=== PATIENT | male | born 1940 | race Caucasian/White ===

== ENCOUNTER 2017-01-23 20:41 | Inpatient (IN) | payer MEDICARE, OTHER ==
[2017-01-23 20:41] VITALS: BMI 27.4
[2017-01-23 21:21] LABS: BASO % 0.4 % (0.0-2.0); EOS % 0.1 % (0.0-4.0); HEMATOCRIT 43.8 % (35.0-51.0); LYMPH % 11.6 % (20.0-40.0); MEAN CELL VOLUME 80.4 fl (80.0-94.0); MEAN CORPUSCULAR HGB CONC 33.6 g/dL (33.0-37.0); MEAN PLATELET VOLUME 9.5 fl (7.2-11.7); MONO # 0.4 K/uL (0.0-0.8); MONO % 4.3 % (0.0-10.0); NEUT # 7.1 K/uL (1.8-7.0); NEUT % 83.6 % (50.0-75.0); NRBC % 0.3 % (0.0-0.0); RED CELL DISTRIBUTION WIDTH 14.9 % (11.5-14.5); WHITE BLOOD COUNT 8.5 K/uL (4.8-10.8)
[2017-01-23 21:32] LABS: ALB/GLOB RATIO 1.4 (1.0-2.1); ALCOHOL SERUM < 10 mg/dl (0-10); ALKALINE PHOSPHATASE 78 U/L (38-126); ALT/SGPT 41 U/L (21-72); AST/SGOT 43 U/L (17-59); BILIRUBIN,TOTAL 0.8 mg/dl (0.2-1.3); BLOOD UREA NITROGEN 18 mg/dl (9-20); CALCIUM 10.1 mg/dL (8.4-10.2); CARBON DIOXIDE 23 mmol/L (22-30); CHLORIDE 102 mmol/L (98-107); CHOLESTEROL 208 mg/dL (0-199); GFR AFRICAN-AMERICAN 60; GLUCOSE,RANDOM 198 mg/dL (75-110); MAGNESIUM 1.7 MG/DL (1.6-2.3); PHOSPHOROUS 2.9 mg/dl (2.5-4.5); POTASSIUM 4.7 MMOL/L (3.6-5.0); SODIUM 138 mmol/l (132-148); TOTAL PROTEIN 9.1 G/DL (6.3-8.2)
[2017-01-23 21:34] LABS: PARTIAL THROMBOPLASTIN TIME 31.6 Seconds (25.6-37.1)
--- NOTE | 2017-01-23 21:48 | ED PDOC ---
HPI:STROKE - Time Time: 20:50 - Historian Historian: Patient, Family - Chief Complaint Chief Complaint: Facial droop, Arm weakness, Difficulty standing, Difficulty walking - Onset Date: 01/23/17 Time: 08:00 Onset: This morning (woke up with it) - Timing Timing: Currently Symptomatic - Location Location: Difficult to localize Locate left: other (Face, eye and arm) - Severity of pain Maximum severity:: Severe - Quality of Pain Quality of Pain:: Aching - Associated Symptoms Associated symptoms:: Dysarthria, Headache, Nausea, Visual, Vomiting - Exacerbated by Exacerbated by:: Nothing - Relieved by Relieved by:: Nothing - TPA Positive for Contraindication: No Reason tPA is not being Administered: Time of onset - Notes: Notes:: Pt WOKE UP THIS MORNING with headache and nausea and inability to get up from bed. Episodes of nonbilious nonbloody vomiting. Double vision. Daughter reports she got to the house an hour prior to arrival and found him in this state and it was only then reported to her by his that he had been like that all day. PMD Dr Shaw NIHSS Stroke Scale - Date/Time Evaluation Performed Date Performed: 01/23/17 Time Performed: 21:00 When Was NIHSS Performed: Baseline - How Severe is the Stroke Level of Consciousness: 0=Alert LOC to Questions: 0=Both comments correct LOC to commands: 0=Obeys both correctly Best Gaze: 2=Forced deviation Visual: 1=Partial hemianopia Facial: 1=Minor asymmetry Motor Arm - Left: 1=Drift noted before 10 sec Motor Arm - Right: 0=No drift Motor Leg - Left: 0=No drift Motor Leg - Right: 0=No drift Limb Ataxia: 1=Present Upper or Lower Sensory: 0=Normal Best Language: 0=No aphasia Dysarthia: 1=Mild to moderate slurring Extinction & Inattention (Neglect): 0=Normal, no object Score: 7 rTPA Inclusion/Exclusion - Refusal of Treatment Patient Refused Treatment: No - Inclusion Criteria for Altepase Patient is 18 years or Older: Yes The Clinical Diagnosis of Ischemic Stroke That is Causing a Potentially Disabling Neurological Deficit: Yes Time of Onset is Well Established to be Less Than 270 Minute Before Treatment Would Begin: No Risk/Benefit Discussed With Patient/Family Member Present: No - Exclusion Criteria for Altepase Uncontrolled Hypertension at Time of Treatment (Systolic BP above 185 or Diastolic BP above 110 mmHg): No Past Medical History Reviewed: Historical Data, Nursing Documentation, Vital Signs Vital Signs: Last Vital Signs Temp 98.2 F 01/23/17 20:45 Pulse 76 01/23/17 20:45 Resp 16 01/23/17 20:45 BP 156/77 H 01/23/17 20:45 Pulse Ox 97 01/23/17 20:45 - Medical History PMH: Anxiety, Asthma, CAD, CHF, CVA, Depression, HTN, Hypercholesterolemia Denies: Chronic Kidney Disease - Surgical History Surgical History: CABG, Pacemaker (2010) - Family History Family History: States: CAD - Social History Current smoker - smoking cessation education provided: No Ex-Smoker (has not smoked in the last 12 months): Yes - Home Medications Home Medications: Ambulatory Orders Medication Instructions Recorded Aspirin [Aspirin Chewable] 81 mg PO DAILY 01/23/17 Bimatoprost [Lumigan] 1 drop 01/23/17 Carvedilol [Coreg] 25 mg PO BID 01/23/17 Colesevelam HCl [Welchol] PO BID 01/23/17 Esomeprazole Magnesium [Nexium] 40 mg PO DAILY 01/23/17 Fenofibrate [Tricor] 160 mg PO DAILY 01/23/17 Glimepiride [amaRYL] 4 mg PO BID 01/23/17 Insulin Lispro [humALOG] 01/23/17 Nateglinide [Starlix] 120 mg 01/23/17 SITagliptin [Januvia] 100 mg PO DAILY 01/23/17 Simvastatin [Zocor] 20 mg PO DAILY 01/23/17 amLODIPine [Norvasc] 10 mg PO DAILY 01/23/17 - Allergies Allergies/Adverse Reactions: Allergies Allergy/AdvReac Type Severity Reaction Status Date / Time No Known Allergies Allergy Verified 09/19/15 07:00 Review of Systems ROS Statement: Except As Marked, All Systems Reviewed And Found Negative (and as per HPI) Physical Exam - Reviewed Nursing Documentation Reviewed: Yes Vital Signs Reviewed: Yes - Physical Exam Appears: Positive for: Non-toxic, In Acute Distress Head Exam: Positive for: ATRAUMATIC, NORMOCEPHALIC Skin: Positive for: Warm, Dry Eye Exam: Positive for: PERRL, Nystagmus (to LEFT side), Other (Gaze to LEFT. LEFT orbit: preference to be down and out with difficulty forced RIGHT gaze and marked assymetric gaze) ENT: Positive for: Other (dry muc membranes). Negative for: Pharyngeal Erythema , Tonsillar Exudate Neck: Positive for: Painless ROM, Supple Cardiovascular/Chest: Positive for: Regular Rate, Rhythm, Chest Non Tender. Negative for: Murmur Respiratory: Positive for: Normal Breath Sounds. Negative for: Wheezing Gastrointestinal/Abdominal: Positive for: Soft. Negative for: Tenderness Back: Positive for: Normal Inspection. Negative for: Vertebral Tenderness Extremity: Positive for: Normal ROM. Negative for: Pedal Edema Lymphatic: Negative for: Adenopathy Neurologic/Psych: Positive for: Alert, Oriented (x3), Cerebellar Tests ( dysmetria of LEFT upper extremity), Facial Droop (LEFT face) - Laboratory Results Result Diagrams: 01/23/17 21:07 01/23/17 21:07 - ECG ECG: Positive for: Interpreted By Pr ECG Rhythm: Positive for: Atrial Paced O2 Sat by Pulse Oximetry: 97 Pulse Ox Interpretation: Normal - Radiology X-Ray: Interpreted by Pr X-Ray Interpretation: No Acute Disease - Critical Care Total Time (In Min): 30 Medical Decision Making Medical Decision Making: EXAM: CT Head Without Intravenous Contrast CLINICAL HISTORY: 76 years old, male; Signs and symptoms; Dizziness; Additional info: Left sided gaze and dysmetria, R/O stroke TECHNIQUE: Axial computed tomography images of the head/brain without intravenous contrast. This CT exam was performed using one or more of the following dose reduction techniques: automated exposure control, adjustment of the mA and/or kV according to patient size, and/or use of iterative reconstruction technique. Coronal and sagittal reformatted images were created and reviewed. EXAM DATE/TIME: 01/23/2017 8:58 PM COMPARISON: There are no prior studies for comparison. FINDINGS: Brain: There is prominence of sulci gyri and ventricles. There is no midline shift. There is decreased attenuation in periventricular white matter. There is right occipital encephalomalacia. There is an age-indeterminate lacunar infarct in left basal ganglia. There are no focal masses. There are no focal hemorrhages. Blanton-white differentiation is visualized. Ventricles: See above Bones: Cranial vault is intact. Soft tissues: unremarkable Sinuses: There is no acute sinusitis. Ears and mastoids: Middle ears and mastoids are unremarkable. Orbits: Orbital contents are unremarkable. IMPRESSION: Mild atrophy and small vessel disease; old right occipital infarct; age indeterminate left basal ganglia lacunar infarct; no bleed Thank you for allowing us to participate in the care of your patient. Dictated and Authenticated by: Jill Ribeiro MD 01/23/2017 9:46 PM Eastern Time ([place] & [place]) Labs demonstrate elevated glucose. Otherwise no clinically significant lab abnormalities. SHERIDAN David Neurology rn admissions SHERIDAN [facility] resident for admission to PMD Dr Shaw. SHERIDAN pt and family findings and plan of care. Disposition - Clinical Impression Clinical Impression: CVA (cerebral vascular accident) Counseled Patient/Family Regarding: Studies Performed, Diagnosis - Disposition Disposition Time: 21:00 Condition: GUARDED - Pt Status Changed To: Hospital Disposition Of: Inpatient - Admit Certification Admit to Inpatient:: After my assessment, the patient will require hospitalization for at least two midnights. This is because of the severity of symptoms shown, intensity of services needed, and/or the medical risk in this patient being treated as an outpatient. - POA Present On Arrival: Falls Or Trauma (caution), Poor Glycemic Control
--- NOTE | 2017-01-23 22:51 | CP.PCM.HP ---
<Fernanda Jordan - Last Filed: 01/24/17 00:50> History of Present Illness - History of Present Illness History of Present Illness: CC: Headache, double vision, vertigo, nausea 76M family found still in bed at his home at 7pm in the evening. Patient reports that he awoke in the morning with a severe, constant headache that went from the right side across the top to the left. This was associated with significant vertigo leading to nausea without vomiting and double vision. He denies the following: recent illnesses, SOB, chest pain/palpitations, GI symptoms other than nausea, dysuria, similar symptoms in the past, numbness in extremities, loss of memory. He reports that he was unable to call anyone, get out of bed due to the extent of "dizziness". Currently pt reports headache and double vision is improving but he is still significantly dizzy and denies any further nausea. The family reports that when they arrived "he looked bad" and that his speech was affected, but that he does have a baseline stutter. Not a candidate for tPA. NIHSS- 7 PMH: CAD, DM, HTN, HLD, PSH: CABG x4(2009), AICD (2010) Smoke: Quit 40yrs prior ALL: NKDA XAVIER: See Med Rec Loan Documentation Specialist: Dr Ramírez Varnishing Machine Operator: Dr Nam Farm Demonstrator: Dr Mcneil ED COURSE VSS: 36.8- 76- 156/77- 16- 97% CT Head: no ICH, old Rt occipital/lacunar infarcts, no mass effect CBC: left shift CMP: Glucose- 198, TProt- 9.1, Albumin- 5.3 otherwise wnl Lipid Panel: Chol-208, HDL- 90 HgbA1C: Pend Alcohol: Negative Troponin #1: Negative Neurology Consult Aspirin AR Present on Admission - Present on Admission Any Indicators Present on Admission: Yes History of Uncontrolled Diabetes: Yes Review of Systems - Review of Systems All systems: reviewed and no additional remarkable complaints except - Constitutional Constitutional: Headache - EENT Eyes: Change in Vision (Double Vision) Ears: Dizziness. absent: Decreased Hearing - Cardiovascular Cardiovascular: absent: Chest Pain, Palpitations - Respiratory Respiratory: absent: Dyspnea - Gastrointestinal Gastrointestinal: Nausea - Neurological Neurological: Dizziness, Headaches, Vertigo, Other Visual Disturbances (Double Vision) Past Patient History - Past Medical History & Family History Past Medical History?: Yes - Past Social History Smoking Status: Former Smoker - CARDIAC Hx Congestive Heart Failure: Yes Hx Hypercholesterolemia: Yes Hx Hypertension: Yes Hx Pacemaker: Yes (2010) - PULMONARY Hx Asthma: Yes - NEUROLOGICAL Hx Neurological Disorder: No - HEENT Hx HEENT Problems: Yes Hx Glaucoma: Yes (CARRIE EYES) - RENAL Hx Chronic Kidney Disease: No - ENDOCRINE/METABOLIC Hx Endocrine Disorders: Yes Hx Diabetes Mellitus Type 1: Yes - HEMATOLOGICAL/ONCOLOGICAL Hx Blood Disorders: No - INTEGUMENTARY Hx Dermatological Problems: No - MUSCULOSKELETAL/RHEUMATOLOGICAL Hx Musculoskeletal Disorders: No - GASTROINTESTINAL Hx Gastrointestinal Disorders: No - GENITOURINARY/GYNECOLOGICAL Hx Genitourinary Disorders: No - PSYCHIATRIC Hx Anxiety: Yes Hx Depression: Yes - SURGICAL HISTORY Hx Coronary Artery Bypass Graft: Yes - ANESTHESIA Hx Anesthesia: Yes Hx Anesthesia Reactions: No Hx Malignant Hyperthermia: No Meds Allergies/Adverse Reactions: Allergies Allergy/AdvReac Type Severity Reaction Status Date / Time No Known Allergies Allergy Verified 09/19/15 07:00 Physical Exam - Constitutional Appears: Non-toxic, No Acute Distress - Head Exam Head Exam: ATRAUMATIC, NORMAL INSPECTION - Eye Exam Eye Exam: absent: EOMI (Significant LEFT eye palsy, poor control, LEFT eyelid droop), Normal appearance, Nystagmus, PERRL (Pupils equal and reactive, unable to accommodate) Pupil Exam: absent: NORMAL ACCOMODATION - ENT Exam ENT Exam: Mucous Membranes Dry, Normal Oropharynx (Uvula and tongue midline) - Neck Exam Neck exam: Positive for: Full Rom, Normal Inspection - Respiratory Exam Respiratory Exam: Clear to Auscultation Bilateral, NORMAL BREATHING PATTERN. absent: Decreased Breath Sounds, Rales, Wheezes - Cardiovascular Exam Cardiovascular Exam: REGULAR RHYTHM (Paced). absent: JVD - GI/Abdominal Exam GI & Abdominal Exam: Normal Bowel Sounds, Soft. absent: Tenderness - Extremities Exam Extremities exam: Positive for: normal capillary refill, pedal pulses present. Negative for: calf tenderness, pedal edema - Neurological Exam Neurological exam: Alert, Oriented x3 - Expanded Neurological Exam Expanded Patient oriented to: person, place, time Speech: Slurred Speech (improved as per family, intelligible ), Stutter ( baseline) Cranial nerves: EOM's Intact: Abnormal Left, Facial Sensation: Normal, Gag Reflex: Normal, Nystagmus: Normal, Tongue Deviation: Normal Ataxia: No (Unable to evaluate due to extent of vertigo) Upper motor neuron: Babinski Sign: Normal, Noah Neglect: Normal, Pronator Drift : Normal Neuro motor strength exam: Left Upper Extremity: 5, Right Upper Extremity: 5, Left Lower Extremity: 5, Right Lower Extremity: 5 Coma Scale Eye Opening: SPONTANEOUS Coma Scale Motor Response: OBEYS COMMANDS Coma Scale Verbal: Oriented Coma Scale Total: 15 - Psychiatric Exam Psychiatric exam: Normal Affect, Normal Mood - Skin Skin Exam: Normal Color, Warm Results - Vital Signs Recent Vital Signs: Last Vital Signs Temp 36.8 C 01/23/17 20:45 Pulse 76 01/23/17 22:08 Resp 18 01/23/17 22:08 BP 144/79 01/23/17 22:08 Pulse Ox 99 01/23/17 22:08 - Labs Result Diagrams: 01/23/17 21:07 01/23/17 21:07 Assessment & Plan (1) CVA (cerebral vascular accident) Assessment and Plan: Patient with cerebellar-like symptoms, CT negative for hemorrhagic but showing prior RIGHT occipital and lacunar infarct. Symptoms continue to improve, current NIHSS- 7. Not a candidate for tPA or f/u MRI. - Neurology Consult (Dr David): f/u remaining recs - Stroke protocol (OT/PT/S&S/ASA) - CT Head/CTA Head - RPR/HIV/TSH/CRP/ESR/A1C Status: Acute (2) DVT prophylaxis Assessment and Plan: SCDs and Heparin 5,000U, SC, Q8H as CT head negative for ICH Status: Acute (3) CAD (coronary artery disease) of artery bypass graft Assessment and Plan: Pt with PPM, battery change 08/2016. Converted Coreg to lopressor and then to IV, confirmed with pharmacy. - Lopressor 40mg, IV, Q12H - ASA AR - Cardiology Consult (Dr Ramírez) Status: Chronic (4) Diabetes Assessment and Plan: Pt has not passed speech and swalllow, so placed on SSI. - Accu-check - SSI - Lantus - Hypoglycemia Bundle - HOLD home meds at this time Status: Chronic (5) Hypertension Assessment and Plan: Chronic, controlled. Started on lopressor for now and Norvasc held pending s&s Status: Chronic (6) HLD (hyperlipidemia) Assessment and Plan: Chronic, home meds held at this time pending speech and swallow. Status: Chronic <Sammy Buck - Last Filed: 01/24/17 07:10> Results - Vital Signs Recent Vital Signs: Last Vital Signs Temp 98.5 F 01/24/17 04:54 Pulse 80 01/24/17 04:54 Resp 18 01/24/17 04:54 BP 169/71 H 01/24/17 04:54 Pulse Ox 98 01/24/17 04:54 - Labs Result Diagrams: 01/24/17 05:25 01/23/17 21:07 Labs: Laboratory Results - last 24 hr 01/24/17 01/24/17 05:17 05:25 WBC 9.4 RBC 5.30 Hgb 14.4 Hct 42.7 MCV 80.6 MCH 27.2 MCHC 33.7 RDW 15.0 H Plt Count 188 POC Glucose (mg/dL) 210 H Attending/Attestation - Attestation I have personally seen and examined this patient.: Yes I have fully participated in the care of the patient.: Yes I have reviewed all pertinent clinical information: Yes
[2017-01-23] MEDS ORDERED: Glucagon Recombinant 1 mg Inj IM PRN (22:57)
[2017-01-23] MEDS ORDERED: Dextrose 50% SYRINGE Inj (50 ml) IV PRN (22:57)
[2017-01-24] MEDS: Potassium Ch 20mEq in D5-1/2NS 1,000 ML IV SCH ×3 (01:35→18:20)
[2017-01-24] MEDS: Insulin Lispro (humaLOG) 100 Units/ml Inj SC SCH ×3 (06:44→18:21)
[2017-01-24 06:50] LABS: HEMATOCRIT 42.7 % (35.0-51.0); MEAN CELL VOLUME 80.6 fl (80.0-94.0); MEAN CORPUSCULAR HEMOGLOBIN 27.2 pg (27.0-31.0); MEAN CORPUSCULAR HGB CONC 33.7 g/dL (33.0-37.0); WHITE BLOOD COUNT 9.4 K/uL (4.8-10.8)
[2017-01-24 07:32] LABS: ALB/GLOB RATIO 1.3 (1.0-2.1); ALKALINE PHOSPHATASE 65 U/L (38-126); ALT/SGPT 36 U/L (21-72); AST/SGOT 38 U/L (17-59); BILIRUBIN,TOTAL 0.7 mg/dl (0.2-1.3); BLOOD UREA NITROGEN 17 mg/dl (9-20); CALCIUM 9.7 mg/dL (8.4-10.2); CARBON DIOXIDE 26 mmol/L (22-30); CHLORIDE 101 mmol/L (98-107); GFR AFRICAN-AMERICAN > 60; GLUCOSE,RANDOM 211 mg/dL (75-110); POTASSIUM 4.6 MMOL/L (3.6-5.0); SODIUM 141 mmol/l (132-148); TOTAL PROTEIN 8.5 G/DL (6.3-8.2)
[2017-01-24 07:52] LABS: THYROID STIMULATING HORMONE 0.33 mIU/ML (0.46-4.68)
--- NOTE | 2017-01-24 08:43 | CARD ---
APPROVED REPORT EKG Measurement Heart [id number] FL [id number] [id number] <Conclusion> Atrial-sensed ventricular-paced rhythm Abnormal ECG
[2017-01-24] MEDS ORDERED: Metoprolol 1 mg/ml Inj IVP SCH (09:00)
--- NOTE | 2017-01-24 10:45 | RAD ---
HISTORY: cva COMPARISON: 06/01/2010. FINDINGS: LUNGS: No active pulmonary disease. PLEURA: No significant pleural effusion identified, no pneumothorax apparent. CARDIOVASCULAR: No radiographic findings to suggest acute or significant cardiovascular disease. Position/ configuration of pacemaker device: Satisfactory. Incidental Finding(s): Postoperative changes related to sternotomy. CHF apparent on the prior study no longer seen. OSSEOUS STRUCTURES: No significant abnormalities. VISUALIZED UPPER ABDOMEN: Normal. OTHER FINDINGS: None. IMPRESSION: No active disease.
--- NOTE | 2017-01-24 11:10 | CP.PCM.CON ---
History of Present Illness - History of Present Illness History of Present Illness: Full Note Dictated. TIA (?? Embolic) Stable CAD (S/P CABG) S/P BiV pacing for CHF DM(II)/HTN H/O Depression Stable from cardiac point of view Rec: Echocardiogram to R/O embolic event Past Patient History - Past Medical History & Family History Past Medical History?: Yes - Past Social History Smoking Status: Former Smoker - CARDIAC Hx Congestive Heart Failure: Yes Hx Hypercholesterolemia: Yes Hx Hypertension: Yes Hx Pacemaker: Yes (2010) - PULMONARY Hx Asthma: Yes - NEUROLOGICAL Hx Neurological Disorder: No - HEENT Hx HEENT Problems: Yes Hx Glaucoma: Yes (CARRIE EYES) - RENAL Hx Chronic Kidney Disease: No - ENDOCRINE/METABOLIC Hx Endocrine Disorders: Yes Hx Diabetes Mellitus Type 1: Yes - HEMATOLOGICAL/ONCOLOGICAL Hx Blood Disorders: No - INTEGUMENTARY Hx Dermatological Problems: No - MUSCULOSKELETAL/RHEUMATOLOGICAL Hx Musculoskeletal Disorders: No - GASTROINTESTINAL Hx Gastrointestinal Disorders: No - GENITOURINARY/GYNECOLOGICAL Hx Genitourinary Disorders: No - PSYCHIATRIC Hx Anxiety: Yes Hx Depression: Yes - SURGICAL HISTORY Hx Coronary Artery Bypass Graft: Yes - ANESTHESIA Hx Anesthesia: Yes Hx Anesthesia Reactions: No Hx Malignant Hyperthermia: No Meds Allergies/Adverse Reactions: Allergies Allergy/AdvReac Type Severity Reaction Status Date / Time No Known Allergies Allergy Verified 09/19/15 07:00 - Medications Medications: Current Medications Dextrose (Dextrose 50% Inj) 0 ml IV STAT PRN; Protocol PRN Reason: Hyglycemia Protocol Dextrose (Glutose 15) 0 gm PO ONCE PRN; Protocol PRN Reason: Hypoglycemia Protocol Glucagon (Glucagen Diagnostic Kit) 0 mg IM STAT PRN; Protocol PRN Reason: Hypoglycemia Protocol Heparin Sodium (Porcine) (Heparin) 5,000 units SC Q8 SALLY PRN Reason: Protocol Last Admin: 01/24/17 08:42 Dose: 5,000 units Potassium Chloride/Dextrose/Sod Cl (Potassium Chl 20 Meq In D5-1/2ns) 1,000 mls @ 120 mls/hr IV .Q8H20M [facility] Stop: 01/25/17 00:15 Last Admin: 01/24/17 08:40 Dose: 120 mls/hr Metoprolol Tartrate 20 mg/ (Sodium Chloride) 50 mls @ 100 mls/hr IVP Q6 SALLY Insulin Detemir (Levemir) 15 units SC HS [facility] Insulin Human Lispro (Humalog) 0 units SC ACTID SALLY PRN Reason: Protocol Last Admin: 01/24/17 06:44 Dose: Not Given Pantoprazole Sodium (Protonix Inj) 40 mg IVP DAILY [facility] Last Admin: 01/24/17 08:41 Dose: 40 mg Results - Vital Signs Recent Vital Signs: Last Vital Signs Temp 98.1 F 01/24/17 08:00 Pulse 66 01/24/17 08:00 Resp 20 01/24/17 08:00 BP 164/74 H 01/24/17 08:00 Pulse Ox 97 01/24/17 08:00 - Labs Result Diagrams: 01/24/17 05:25 01/24/17 05:25 Labs: Laboratory Results - last 24 hr 01/24/17 01/24/17 01/24/17 05:17 05:25 05:25 WBC 9.4 RBC 5.30 Hgb 14.4 Hct 42.7 MCV 80.6 MCH 27.2 MCHC 33.7 RDW 15.0 H Plt Count 188 ESR 11 Sodium 141 Potassium 4.6 Chloride 101 Carbon Dioxide 26 Anion Gap 19 BUN 17 Creatinine 1.3 Est GFR ( Amer) > 60 Est GFR (Non-Af Amer) 54 POC Glucose (mg/dL) 210 H Random Glucose 211 H Calcium 9.7 Total Bilirubin 0.7 AST 38 ALT 36 Alkaline Phosphatase 65 Troponin I 0.0140 Total Protein 8.5 H Albumin 4.9 Globulin 3.6 Albumin/Globulin Ratio 1.3 TSH 3rd Generation 0.33 L
--- NOTE | 2017-01-24 11:33 | CON ---
DATE: 01/24/2017 He is hospitalized under Dr. Buck's care in room 402, bed 1. HISTORY OF PRESENT ILLNESS: This 76-year-old man is well known to me. He required coronary bypass g raft surgery approximately 7 years back for profound congestive cardiac failure in a diabetic with hy pertension and a past history of alcohol use. The patient subsequent to coronary bypass graft surger y, had a biventricular pacemaker inserted and has responded dramatically with excellent effort tolera nce and a very vigorous lifestyle. He is an ex-smoker, who has quit smoking, has no prior history of atrial fibrillation and came into the hospital when he woke up from sleep and could not get out of b ed because of extreme dizziness, double vision and difficulty in expressing himself. He was brought to the Emergency Room from where he is hospitalized. He reported that his dizzy feeling is dramatica lly reduced, double vision is almost gone, has good control over his arms and legs and nausea is also completely gone. He is able to express himself very well. PHYSICAL EXAMINATION: GENERAL: Shows an elderly pleasant man who is alert, awake, coherent, afebrile with good motor funct ion on both sides of his body. VITAL SIGNS: Has a heart rate of 64 beats per minute, regular in a DDD paced rhythm. The patient jones s a biventricular pacer. NECK: His jugular venous pressure was not elevated. There was no edema over his lower extremity. T he pedal pulses were well felt. There were no carotid bruits. HEART: The apex was not palpable. The first and second heart sounds were normal. EXTREMITIES: Warm. His nailbeds are pink. There was no central or peripheral cyanosis and his bloo d pressure was 140/80 mmHg. The electrocardiogram showed sinus rhythm with atrial sensed ventricular paced rhythm. LABORATORY DATA: Showed a hemoglobin and hematocrit of 14.4 g and 42.7% respectively. His WBC count and platelet counts were within normal limits. His BUN and creatinine were 17 and 1.3 mg %. His el ectrolytes were normal. His liver profile was normal and his LDL cholesterol was 86. The TSH level was mildly depressed suggesting the possibility of hyperactive thyroid. IMPRESSION: At this time is transient ischemic episode, possible embolic event which should be evalu ated by an echocardiogram which the patient will undergo. In the meantime, he is stable from cardiov ascular point of view. A neurological evaluation is awaited. Aleksandr Ramírez MD cc: 23 TT: 01/24/2017 11:32:24 Confirmation # [id number] Dictation # [id number] an
[2017-01-24] MEDS: METOPROLOL IVP SCH ×2 (11:56→18:12)
[2017-01-24] MEDS: SODIUM CHLORIDE 0.9% IVP SCH ×2 (11:56→18:12)
--- NOTE | 2017-01-24 17:29 | CP.PCM.PN ---
<Jenn Aiken - Last Filed: 01/24/17 17:24> Subjective - Date & Time of Evaluation Date of Evaluation: 01/24/17 Time of Evaluation: 08:00 - Subjective Subjective: Patient seen and examined at bedside, sitting comfortably in bed. Denies chest pain, SOB, h/a, dizziness or weakness. Reports vision in his left eye has improved compared to yesterday but is still slightly blurry. He has complaint of hiccups since last night, which he states usually occurs when he hasn't eaten. Otherwise patient has no concerns or complaints at this time. Objective - Vital Signs/Intake and Output Vital Signs (last 24 hours): Temp Pulse Resp BP Pulse Ox 98.7 F 66 20 159/75 H 99 01/24/17 15:40 01/24/17 15:40 01/24/17 15:40 01/24/17 15:40 01/24/17 15:40 - Medications Medications: Current Medications Dextrose (Dextrose 50% Inj) 0 ml IV STAT PRN; Protocol PRN Reason: Hyglycemia Protocol Dextrose (Glutose 15) 0 gm PO ONCE PRN; Protocol PRN Reason: Hypoglycemia Protocol Glucagon (Glucagen Diagnostic Kit) 0 mg IM STAT PRN; Protocol PRN Reason: Hypoglycemia Protocol Heparin Sodium (Porcine) (Heparin) 5,000 units SC Q8 [facility] PRN Reason: Protocol Last Admin: 01/24/17 08:42 Dose: 5,000 units Potassium Chloride/Dextrose/Sod Cl (Potassium Chl 20 Meq In D5-1/2ns) 1,000 mls @ 120 mls/hr IV .Q8H20M [facility] Stop: 01/25/17 00:15 Last Admin: 01/24/17 08:40 Dose: 120 mls/hr Metoprolol Tartrate 20 mg/ (Sodium Chloride) 50 mls @ 100 mls/hr IVP Q6 [facility] Last Admin: 01/24/17 11:56 Dose: 100 mls/hr Insulin Detemir (Levemir) 15 units SC HS [facility] Insulin Human Lispro (Humalog) 0 units SC ACTID [facility] PRN Reason: Protocol Last Admin: 01/24/17 13:24 Dose: Not Given Pantoprazole Sodium (Protonix Inj) 40 mg IVP DAILY [facility] Last Admin: 01/24/17 08:41 Dose: 40 mg - Labs Labs: 01/24/17 05:25 01/24/17 05:25 PT 12.1 Seconds (9.8-13.1) 01/23/17 21:07 INR 1.1 (0.9-1.2) 01/23/17 21:07 APTT 31.6 Seconds (25.6-37.1) 01/23/17 21:07 - Constitutional Appears: Well, No Acute Distress - Head Exam Head Exam: ATRAUMATIC, NORMOCEPHALIC - Eye Exam Eye Exam: EOMI, PERRL. absent: Periorbital swelling (mild left eyelid droop notable) - ENT Exam ENT Exam: Mucous Membranes Moist - Neck Exam Neck Exam: Full ROM - Respiratory Exam Respiratory Exam: Clear to Ausculation Bilateral, NORMAL BREATHING PATTERN - Cardiovascular Exam Cardiovascular Exam: REGULAR RHYTHM, +S1, +S2 - GI/Abdominal Exam GI & Abdominal Exam: Soft, Normal Bowel Sounds. absent: Distended, Tenderness - Extremities Exam Extremities Exam: Full ROM. absent: Pedal Edema, Tenderness - Back Exam Back Exam: absent: CVA tenderness (L), CVA tenderness (R) - Neurological Exam Neurological Exam: Alert, Awake, CN II-XII Intact, Oriented x3 (strength 5/5 in all muscle groups, sensation equal and wnl bilaterally) - Psychiatric Exam Psychiatric exam: Normal Affect, Normal Mood - Skin Skin Exam: Dry, Intact, Normal Color Assessment and Plan - Assessment and Plan (Free Text) Assessment: 76 yr old M admitted for new onset left eyelid droop, blurry vision and vertigo , CT head was negative for ICH with indeterminate left basal ganglia lacunar infarct. Symptoms improving, pt passed swallow eval. 1. CVA (Cerebro Vascular Event) -symptoms improving, RPR negative, troponins negative x 3, ESR and CRP wnl, TSH 0.33 (repeat in a few days) -CT head: Mild atrophy and small vessel disease; old right occipital infarct; age indeterminate left basal ganglia lacunar infarct; no bleed -f/u CTA Head and Neck results -Neurology consult appreciated Dr. David, will follow recommendations -PT/OT recommendations: Acute Rehab -Speech therapy recommendations: Regular diet + thin liquids 2. CAD (coronary artery disease) with history of CABG -PPM, battery change 08/2016 - Lopressor 40mg, IV, Q12H -Cardio consult appreciated Dr. Ramírez: recommended echo to r/o embolic event 3. Diabetes Mellitus Type 2 -uncontrolled POC glucose 248 mg/dL -Insulin Lispro SC AC TID -Insulin Detemir 15 units [facility] -f/u HbA1c - Hypoglycemia protocol 4. Hypertension -Chronic, controlled 143/71 mmHg this AM -continue home meds :Norvasc 10mg PO QD, Carvedilol 25mg PO BID, 5. HLD (hyperlipidemia) -chronic, stable -continue home meds: Simvastatin 20 mg PO QD 6. DVT prophylaxis -SCDs and Heparin 5,000U, SC, Q8H as CT head negative for ICH <Sammy Buck - Last Filed: 01/27/17 06:55> Objective - Vital Signs/Intake and Output Vital Signs (last 24 hours): Temp Pulse Resp BP Pulse Ox 98.4 F 80 20 149/76 96 01/27/17 05:16 01/27/17 05:16 01/27/17 05:16 01/27/17 05:16 01/27/17 05:16 Intake and Output: 01/26/17 01/27/17 18:59 06:59 Intake Total 600 400 Output Total 500 450 Balance 100 -50 - Medications Medications: Current Medications Amlodipine Besylate (Norvasc) 10 mg PO DAILY [facility] Last Admin: 01/26/17 08:06 Dose: 10 mg Aspirin (Aspirin Chewable) 81 mg PO DAILY [facility] Last Admin: 01/26/17 08:07 Dose: 81 mg Atorvastatin Calcium (Lipitor) 40 mg PO DAILY [facility] Last Admin: 01/26/17 08:06 Dose: 40 mg Carvedilol (Coreg) 25 mg PO BID [facility] Last Admin: 01/26/17 16:26 Dose: 25 mg Clopidogrel Bisulfate (Plavix) 75 mg PO DAILY [facility] Last Admin: 01/26/17 08:06 Dose: 75 mg Dextrose (Dextrose 50% Inj) 0 ml IV STAT PRN; Protocol PRN Reason: Hyglycemia Protocol Dextrose (Glutose 15) 0 gm PO ONCE PRN; Protocol PRN Reason: Hypoglycemia Protocol Fenofibrate (Tricor) 145 mg PO DAILY [facility] Last Admin: 01/26/17 08:05 Dose: 145 mg Glucagon (Glucagen Diagnostic Kit) 0 mg IM STAT PRN; Protocol PRN Reason: Hypoglycemia Protocol Insulin Detemir (Levemir) 15 units SC ACHS [facility] Last Admin: 01/26/17 21:53 Dose: 15 unit Insulin Human Lispro (Humalog) 0 units SC ACTID [facility] PRN Reason: Protocol Last Admin: 01/26/17 16:25 Dose: 3 units - Labs Labs: 01/27/17 05:35 01/24/17 05:25 PT 12.1 Seconds (9.8-13.1) 01/23/17 21:07 INR 1.1 (0.9-1.2) 01/23/17 21:07 APTT 31.6 Seconds (25.6-37.1) 01/23/17 21:07 Attending/Attestation - Attestation I have personally seen and examined this patient.: Yes I have fully participated in the care of the patient.: Yes I have reviewed all pertinent clinical information, including history, physical exam and plan: Yes
--- NOTE | 2017-01-24 18:38 | CON ---
DATE: 01/24/2017 CHIEF COMPLAINT: Left-sided dysmetria, headache and double vision. HISTORY OF PRESENT ILLNESS: This is a 76-year-old man with a history of coronary artery disease, his tory of CABG in 2009, history of AICD placement in 2010, diabetes type 2, hypertension and dyslipidem ia who came in because he woke up in the morning with severe constant headache that went from his rig ht side across the top of his head with pressure type in nature, and it was associated with a spinnin g sensation of the room, nausea, double vision and vomiting and felt off balance and felt that his le ft side was off. He came to the hospital where it was noted that he had dysmetria on his finger-to-n ose on the left. A CT head showed no acute intracranial abnormalities, old right occipital infarct a nd an old left basal ganglia lacunar infarct. He currently has dysmetria of jwivqg-ds-lkjr on the le ft and dysdiadochokinesis based on neurological examination. He has not had a repeat CAT scan or a C T angio that was initially ordered in the ER, which should have been done already. PAST MEDICAL HISTORY: Coronary artery disease, diabetes, hypertension and hyperlipidemia. PAST SURGICAL HISTORY: CABG x 4, AICD, smoker, quit 40 years ago. ALLERGIES: No known drug allergies. REVIEW OF SYSTEMS: A 14-point review of systems is negative except for the HPI. MEDICATIONS: Reviewed via nurses' reconciliation sheet. PHYSICAL EXAMINATION: VITAL SIGNS: Temperature of 98, pulse rate of 66, blood pressure 159/75, respiratory rate 20, oxygen saturation 99% on room air. GENERAL: The patient is sitting up in bed in no acute distress. HEENT: Atraumatic, normocephalic. PERRLA. Extraocular muscles intact. NECK: Supple, no JVD and no adenopathy noted. HEART: S1, S2, normal rate and rhythm. No murmurs, rubs, or gallops. ABDOMEN: Soft, nontender, nondistended. Bowel sounds are present. EXTREMITIES: No clubbing, no cyanosis. Peripheral pulses 2+ felt bilaterally. NEUROLOGIC: The patient is alert, oriented to person, place, month and year. Poor attention span, s low thought process. Speech is kind of spastic as well as slurred. Apparently he has a baseline sidra ttering as well. Cranial nerves II through XII are intact. MOTOR: Moves all extremities equally. Strength is 5/5 in both upper and lower extremities. Toes up going bilaterally. SENSORY: Light touch, pinprick slightly decreased up to the calves bilaterally. Decreased vibration at the toes. Proprioception is intact bilaterally. COORDINATION: Ippphr-ir-ykqz on the left is dissymmetric. Has also dysdiadochokinesis on the left w hen compared to the right. Beawln-wy-rdnu on the right is intact. He has mild difficulty with heel- to-lucas on the left as well. GAIT: Is deferred for now. DTRs are 2+ throughout and 1 at the ankles. LABORATORIES: Sodium 141, potassium 4.6, chloride of 101, carbon dioxide 26, BUN of 17, creatinine 1 .3. Random glucose 211. A1c is currently pending. ASSESSMENT AND PLAN: This is a 76-year-old man with a history of hypertension, coronary artery disea se, coronary artery bypass graft, automatic implantable cardioverter-defibrillator placement, hyperte nsion, diabetes and dyslipidemia who came in with diffuse pressure headache for twble-wt-mbze along w ith double vision and dizziness in terms of a spinning sensation of the room as well as off balance o n his feet and double vision and felt like he was towards his left side. His neuro examination showed to me dysmetria on the left on tmkhyn-sg-dnnu as well as gema-kp-xdtc and dysdiadochokinesia. Over all my assessment is that he seems like he has had an acute left cerebellar infarct, though th e initial CAT scan did not show anything besides old infarcts in the right occipital area as well as the left basal ganglia lacunar infarct area. At this time, his could be secondary to diffuse a therosclerotic disease versus questionable embolic. Awaiting cardiology's evaluation. Recommend at this time: 1. To be on aspirin and Plavix for stroke prevention; aspirin 81 and start Plavix 75. 2. atorvastatin of at least 40 mg p.o. daily for his underlying dyslipidemia. 3. hemoglobin A1c and keep his blood sugar between 140-180. 4. Repeat CT scan of the head to assess for an evolving infarct in the cerebellar area since he heather ot have an MRI and get a CT angio of his head. At this time, continue with current present management. He will require acute rehabilitation. Thank you for this consult. Alvin David MD cc: [phone] TT: 01/24/2017 18:37:13 Confirmation # [id number] Dictation # [id number] dn
[2017-01-24] MEDS ORDERED: Insulin Detemir 100 Units/ml Inj SC SCH (22:00)
[2017-01-24] MEDS: Insulin Detemir 100 Units/ml Inj SC SCH (22:13)
--- NOTE | 2017-01-25 07:00 | CP.PCM.PN ---
Subjective - Date & Time of Evaluation Date of Evaluation: 01/25/17 Time of Evaluation: 06:59 - Subjective Subjective: Patient was seen and examined at bedside this morning. Patient was eating breakfast this morning. Patient stated he is doing better than yesterday but there is still diplopia and vertigo this morning. Denies fever, chills, SOB, chest pain, N/V/D, dizziness and headache. Patient also stated his hiccups was resolved this morning. Patient is schedule for Ct of brain today. Objective - Vital Signs/Intake and Output Vital Signs (last 24 hours): Temp Pulse Resp BP Pulse Ox 98.0 F 79 18 176/95 H 97 01/25/17 05:11 01/25/17 05:11 01/25/17 05:11 01/25/17 05:11 01/25/17 05:11 - Medications Medications: Current Medications Amlodipine Besylate (Norvasc) 10 mg PO DAILY [facility] Aspirin (Aspirin Chewable) 81 mg PO DAILY [facility] Atorvastatin Calcium (Lipitor) 40 mg PO DAILY [facility] Carvedilol (Coreg) 25 mg PO BID [facility] Clopidogrel Bisulfate (Plavix) 75 mg PO DAILY [facility] Dextrose (Dextrose 50% Inj) 0 ml IV STAT PRN; Protocol PRN Reason: Hyglycemia Protocol Dextrose (Glutose 15) 0 gm PO ONCE PRN; Protocol PRN Reason: Hypoglycemia Protocol Fenofibrate (Tricor) 145 mg PO DAILY [facility] Glucagon (Glucagen Diagnostic Kit) 0 mg IM STAT PRN; Protocol PRN Reason: Hypoglycemia Protocol Heparin Sodium (Porcine) (Heparin) 5,000 units SC Q8@0600,1400,2200 [facility] PRN Reason: Protocol Last Admin: 01/25/17 05:57 Dose: 5,000 units Insulin Detemir (Levemir) 15 units SC ACHS [facility] Last Admin: 01/24/17 22:13 Dose: 15 unit Insulin Human Lispro (Humalog) 0 units SC ACTID [facility] PRN Reason: Protocol - Labs Labs: 01/24/17 05:25 01/24/17 05:25 PT 12.1 Seconds (9.8-13.1) 01/23/17 21:07 INR 1.1 (0.9-1.2) 01/23/17 21:07 APTT 31.6 Seconds (25.6-37.1) 01/23/17 21:07 - Constitutional Appears: Well, Non-toxic, No Acute Distress - Head Exam Head Exam: ATRAUMATIC, NORMAL INSPECTION - Eye Exam Eye Exam: EOMI, PERRL Additional comments: mild left eyelid droop noted - ENT Exam ENT Exam: Normal Exam - Neck Exam Neck Exam: Full ROM - Respiratory Exam Respiratory Exam: Clear to Ausculation Bilateral - Cardiovascular Exam Cardiovascular Exam: REGULAR RHYTHM, RRR, +S1, +S2 Additional comments: scar noted on left upper chest for pacemaker - GI/Abdominal Exam GI & Abdominal Exam: Soft, Normal Bowel Sounds - Extremities Exam Extremities Exam: Full ROM, Normal Inspection - Back Exam Back Exam: NORMAL INSPECTION - Neurological Exam Neurological Exam: Alert, Awake, CN II-XII Intact, Oriented x3 - Psychiatric Exam Psychiatric exam: Normal Affect, Normal Mood - Skin Skin Exam: Intact, Normal Color, Warm Assessment and Plan - Assessment and Plan (Free Text) Assessment: 76 yr old M admitted for new onset left eyelid droop, blurry vision and vertigo , CT head was negative for ICH with indeterminate left basal ganglia lacunar infarct. Symptoms improving, pt passed swallow eval. Plan: 1. CVA (Cerebro Vascular Event) -symptoms improving, -CT head: Mild atrophy and small vessel disease; old right occipital infarct; age indeterminate left basal ganglia lacunar infarct; no bleed -f/u CTA Head and Neck results -Neurology consulted Dr. David. -pending of CT of brain w/o contrast -PT/OT recommendations: Acute Rehab -Speech therapy recommendations: Regular diet + thin liquids 2. CAD (coronary artery disease) with history of CABG -hx of pacemaker placement -PPM, battery change 08/2016 -Lopressor 40mg, IV, Q12H -Cardio consult appreciated Dr. Ramírez: recommended echo to r/o embolic event -pending echo report 3. Diabetes Mellitus Type 2 -uncontrolled POC glucose 248 mg/dL -Insulin Lispro SC AC TID -Insulin Detemir 15 units [facility] -f/u HbA1c - Hypoglycemia protocol 4. Hypertension -Chronic, controlled 143/71 mmHg this AM -continue home meds :Norvasc 10mg PO QD, Carvedilol 25mg PO BID, 5. HLD (hyperlipidemia) -chronic, stable -continue home meds: Simvastatin 20 mg PO QD 6. DVT prophylaxis -SCDs -Heparin 5,000U, SC, Q8H
[2017-01-25] MEDS: Insulin Lispro (humaLOG) 100 Units/ml Inj SC SCH ×3 (08:30→17:06)
[2017-01-25] MEDS: Insulin Detemir 100 Units/ml Inj SC SCH ×4 (08:30→22:07)
--- NOTE | 2017-01-25 17:20 | CT ---
PROCEDURE: CT Angiography of the head and neck with contrast HISTORY: CVA COMPARISON: None available. TECHNIQUE: Contiguous axial images of the head and neck neck were obtained from the level of the skull-base to the superior mediastinum in the arteriographic phase of enhancement. Coronal and sagittal reformats or also generated. This CT exam was performed using one or more of the following dose reduction techniques: Automated exposure control, adjustment of the mA and/or kV according to patient size, and/or use of iterative reconstruction technique. IV contrast dose: 80 mL Radiation Dose - DLP: 2040.81 mGy-cm FINDINGS: RIGHT CAROTID ARTERIES: Common Carotid Artery: Patent. Carotid Bifurcation: Patent. Internal Carotid Artery:Patent. Approximately 25 % stenosis of the proximal right internal carotid artery External Carotid Artery (proximal branches): Patent. LEFT CAROTID ARTERIES: Common Carotid Artery: Patent. Carotid Bifurcation: Patent. Internal Carotid Artery:Patent. External Carotid Artery (proximal branches): Patent. VERTEBRAL ARTERIES: Right Vertebral Artery: Patent. Left Vertebral Artery: Diminutive/ hypoplastic with multifocal areas severe narrowing. The origin of the left vertebral artery is not seen. OTHER FINDINGS: Mild carotid bifurcation calcifications. INTERNAL CEREBRAL ARTERIES: Unremarkable. The skull base, petrous, cavernous and supraclinoid segments are bilaterally widely patient. Carotid siphon calcifications. POSTERIOR CIRCULATION: Distal Vertebral Arteries: The right vertebral artery is widely patent. Diminutive/ hypoplastic left vertebral artery. Occluded proximal and distal segments of the left vertebral artery. Posterior Cerebral Arteries: Unremarkable. Posterior Inferior Cerebellar Arteries: Right posterior inferior cerebral artery patent and visible. The left is likely originating from the basilar artery. Bilateral anterior inferior cerebral artery is patent. Diminutive left posterior communicating artery. ANEURYSM/ VASCULAR MALFORMATIONS: None identified. IMPRESSION: Patent bilateral internal carotid artery, middle cerebral and anterior cerebral arteries. Carotid bifurcation calcifications. 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 Origin of the left vertebral artery is not seen. Possibly occluded distal left vertebral artery. Patent right vertebral artery. Other findings as above. Please note that this report is in general agreement with the preliminary report provided by [facility].
--- NOTE | 2017-01-25 17:29 | PN ---
DATE: 01/25/2017 CHIEF COMPLAINT: Follow up for left side dysmetria. SUBJECTIVE: The patient seen and examined at bedside, still CTA of the head and repeat CAT scan is p ending result, echocardiogram, results pending. He still has left-sided dysmetria and physical thera py is on the bedside, going over physical therapy exercises. He is currently on aspirin, Plavix, and Lipitor for stroke prevention. He has some mild vertigo, but otherwise no acute events overnight. PAST MEDICAL HISTORY: Coronary artery disease, diabetes, hypertension, hyperlipidemia. PAST SURGICAL HISTORY: CABG x 4, AICD, smoker, quit 40 years ago. ALLERGIES: No known drug allergies. SOCIAL HISTORY: He is a former smoker, quit 40 years ago. No illicit drug use or ETOH abuse. REVIEW OF SYSTEMS: A 14-point review of systems negative except for HPI. PHYSICAL EXAMINATION: VITAL SIGNS: Temperature of 98.2, pulse rate 73, blood pressure 144/73, respiratory rate 18, oxygen 97% on room air. GENERAL: The patient is sitting up in bed in no acute distress. HEENT: Atraumatic, normocephalic. PERRLA. Extraocular muscles intact. NECK: Supple, no JVD, no adenopathy noted. LUNGS: Clear to auscultation. No adventitious sounds. HEART: S1, S2, normal rate and rhythm. No murmurs, rubs, or gallops. ABDOMEN: Soft, nontender, nondistended. Bowel sounds are present. EXTREMITIES: No clubbing, no cyanosis. Peripheral pulses 2+ felt bilaterally. NEUROLOGIC: The patient is alert, oriented to person, place, month and year, poor attention span, sl ow thought process, speech is currently ____ with mild dysarthria. Otherwise, has baseline stutterin g. Cranial nerves II through XII are intact. MOTOR: Moves all extremities equally. Strength is 5/5 in both upper and lower extremities. Toes ar e upgoing bilaterally. SENSORY: Light touch, pinprick is slightly decreased up to the calves, decreased vibration at toes, proprioception felt bilaterally. COORDINATION: Bhuzfp-pw-adfl on the left is dysmetric, ____ side to side akinesia on the left when c ompared to the right. Ybxlyh-zh-aihw on the right is intact. He has mild difficulty znpp-vu-dxcb on the left as well. Gait is deferred for now. DEEP TENDON REFLEXES: 2+ throughout and 1 at the ankles. LABORATORY STUDIES: Today's blood sugar is 202. ASSESSMENT AND PLAN: This is a [id number]-male with history of hypertension, coronary artery diseas e, coronary bypass, ICD which is automatic implantable cardioverter defibrillator placement, hyperten ana, diabetes type 2, dyslipidemia who came in with diffuse pressure headache right to left, along w ith double vision and dizziness in terms of spinning sensation of the room as well off balance and fa lling more to the left with double vision and felt like he was drunk and therefore came to the hospit al for further evaluation. His neuro exam to me showed dysmetria on the left on sgmhpk-gw-ssyo as we ll as ipzt-pk-pigp with some underlying ____ kinesia indicating that he has had an acute left cerebel lar infarct in origin. The initial CAT scan showed old bilateral proximal right occipital area as we ll as left basal ganglia lacunar infarct. At this time his cerebral infarct in the left is secondary to diffuse atherosclerotic disease, questionable was embolic. At this time, recommend: 1. Aspirin 81, Plavix 75, Lipitor 40 mg for stroke prevention. 2. Continue atorvastatin 40 mg p.o. daily of underlying dyslipidemia. 3. Keep his blood sugars between 140-180. 4. Awaiting echo report and cardiology's followup. 5. Awaiting for the repeat CAT scan of the head and CT angio of the head results, since it has now b een over 24 hours. 6. At this time, continue he will need acute rehabilitation, physical therapy and occupational thera py evaluation and will need acute rehabilitation. Thank you for this followup. Alvin David MD cc: [phone] TT: 01/25/2017 17:28:34 Confirmation # [id number] Dictation # [id number] [email or web address]
--- NOTE | 2017-01-25 21:06 | CT ---
EXAM: CT Head Without Intravenous Contrast CLINICAL HISTORY: 76 years old, male; Signs and symptoms; Other: Cerebellar stroke TECHNIQUE: Axial computed tomography images of the head/brain without intravenous contrast. This CT exam was performed using one or more of the following dose reduction techniques: automated exposure control, adjustment of the mA and/or kV according to patient size, and/or use of iterative reconstruction technique. Coronal and sagittal reformatted images were created and reviewed. EXAM DATE/TIME: 01/25/2017 7:46 PM COMPARISON: CTA HEAD NECK BUNDLE 01/24/2017 5:20:08 PM FINDINGS: Brain: There is prominence of sulci gyri and ventricles, unchanged. There is no midline shift. Fourth ventricle is midline. There is decreased attenuation in periventricular white matter. There is an old right occipital infarct, unchanged. There is a left basal ganglia lacunar infarct, age-indeterminate. There are no focal masses. There are no focal hemorrhages. Blanton-white differentiation is visualized. Ventricles: See above Bones/joints: Bones: Cranial vault is intact. Soft tissues: unremarkable Sinuses: There is no acute sinusitis. Mastoid air cells: Ears and mastoids: Middle ears and mastoids are unremarkable. Orbits: Orbital contents are unremarkable. IMPRESSION: Old right occipital infarct; atrophy and small vessel disease, age-indeterminate left basal ganglia lacunar infarct; no bleed If there is clinical suspicion for acute infarct, MRI advised
[2017-01-26] MEDS: Insulin Detemir 100 Units/ml Inj SC SCH ×4 (08:06→21:53)
[2017-01-26] MEDS: Insulin Lispro (humaLOG) 100 Units/ml Inj SC SCH ×3 (08:07→16:25)
--- NOTE | 2017-01-26 10:51 | US ---
PROCEDURE: Duplex ultrasound of the carotid and vertebral arteries. HISTORY: cva COMPARISON: None available. TECHNIQUE: Grayscale and duplex Doppler evaluation of the cervical carotid and vertebral arteries were performed. The common carotid, carotid bifurcations and cervical ICA and proximal ECA were evaluated. The vertebral arteries were evaluated for gross patency and direction. FINDINGS: RIGHT CAROTID ARTERIES: Common Carotid Artery: Patent with no significant focal plaque. Carotid Bifurcation: Scattered calcific plaque some of which appear ulcerated. Internal Carotid Artery:Ulcerated calcific plaque in the proximal segment. Maximal flow velocity of 49.9 cm/s. External Carotid Artery (proximal branches): Heterogeneous plaque ICA/CCA Ratio: 0.9 LEFT CAROTID ARTERIES: Common Carotid Artery: Patent with no significant focal plaque. Carotid Bifurcation: Heterogeneous plaque. Internal Carotid Artery:Heterogeneous plaque. Maximal flow velocity of 94.5 cm/s. External Carotid Artery (proximal branches): Heterogeneous plaque. ICA/CCA Ratio: 1.1 VERTEBRAL ARTERIES: Right Vertebral Artery: Patent. Antegrade flow. Left Vertebral Artery: Patent. Antegrade flow. OTHER FINDINGS: None. IMPRESSION: No hemodynamically significant stenosis identified in the extracranial internal carotid arteries. Ulcerated calcific plaque in the right carotid bifurcation and the proximal segment of the right internal carotid artery. Mild heterogeneous plaque in the left carotid bifurcation and the left internal carotid artery proximal segment.
--- NOTE | 2017-01-26 13:20 | CP.PCM.PN ---
Subjective - Date & Time of Evaluation Date of Evaluation: 01/26/17 Time of Evaluation: 08:40 - Subjective Subjective: Patient seen and examined at bedside, sitting in bed eating breakfast, in no acute distress. States his vision has improved though he still has minimal blurry vision. Denies SOB, chest pain, headache, dizziness or weakness. Reports intermittent episodes of vertigo, normal urine output, no bowel movement since admission. Patient has no other concerns or complaints at this time. Objective - Vital Signs/Intake and Output Vital Signs (last 24 hours): Temp Pulse Resp BP Pulse Ox 98.4 F 72 18 141/56 L 95 01/26/17 12:22 01/26/17 12:22 01/26/17 12:22 01/26/17 12:22 01/26/17 12:22 Intake and Output: 01/26/17 01/26/17 06:59 18:59 Intake Total 500 Output Total 400 Balance 100 - Medications Medications: Current Medications Amlodipine Besylate (Norvasc) 10 mg PO DAILY [facility] Last Admin: 01/26/17 08:06 Dose: 10 mg Aspirin (Aspirin Chewable) 81 mg PO DAILY [facility] Last Admin: 01/26/17 08:07 Dose: 81 mg Atorvastatin Calcium (Lipitor) 40 mg PO DAILY [facility] Last Admin: 01/26/17 08:06 Dose: 40 mg Carvedilol (Coreg) 25 mg PO BID [facility] Last Admin: 01/26/17 08:06 Dose: 25 mg Clopidogrel Bisulfate (Plavix) 75 mg PO DAILY [facility] Last Admin: 01/26/17 08:06 Dose: 75 mg Dextrose (Dextrose 50% Inj) 0 ml IV STAT PRN; Protocol PRN Reason: Hyglycemia Protocol Dextrose (Glutose 15) 0 gm PO ONCE PRN; Protocol PRN Reason: Hypoglycemia Protocol Fenofibrate (Tricor) 145 mg PO DAILY [facility] Last Admin: 01/26/17 08:05 Dose: 145 mg Glucagon (Glucagen Diagnostic Kit) 0 mg IM STAT PRN; Protocol PRN Reason: Hypoglycemia Protocol Heparin Sodium (Porcine) (Heparin) 5,000 units SC Q8@0600,1400,2200 [facility] PRN Reason: Protocol Last Admin: 01/26/17 06:00 Dose: 5,000 units Insulin Detemir (Levemir) 15 units SC ACHS [facility] Last Admin: 01/26/17 11:58 Dose: 15 unit Insulin Human Lispro (Humalog) 0 units SC ACTID [facility] PRN Reason: Protocol Last Admin: 01/26/17 11:59 Dose: 3 units - Labs Labs: 01/24/17 05:25 01/24/17 05:25 PT 12.1 Seconds (9.8-13.1) 01/23/17 21:07 INR 1.1 (0.9-1.2) 01/23/17 21:07 APTT 31.6 Seconds (25.6-37.1) 01/23/17 21:07 - Constitutional Appears: Well, Non-toxic, No Acute Distress - Head Exam Head Exam: ATRAUMATIC, NORMOCEPHALIC - Eye Exam Eye Exam: EOMI, PERRL - ENT Exam ENT Exam: Mucous Membranes Moist - Neck Exam Neck Exam: Full ROM. absent: Lymphadenopathy - Respiratory Exam Respiratory Exam: Clear to Ausculation Bilateral, NORMAL BREATHING PATTERN - Cardiovascular Exam Cardiovascular Exam: REGULAR RHYTHM, +S1, +S2 - GI/Abdominal Exam GI & Abdominal Exam: Soft, Normal Bowel Sounds. absent: Distended, Tenderness - Extremities Exam Extremities Exam: Full ROM (of upper and lower extremities). absent: Pedal Edema, Tenderness - Back Exam Back Exam: absent: CVA tenderness (L), CVA tenderness (R) - Neurological Exam Neurological Exam: Alert, Awake, Oriented x3 - Psychiatric Exam Psychiatric exam: Normal Affect, Normal Mood - Skin Skin Exam: Dry, Intact, Normal Color, Warm Assessment and Plan - Assessment and Plan (Free Text) Assessment: Assessment and Plan: 76 yr old M admitted for new onset left eyelid droop, blurry vision and vertigo , CT head was negative for ICH with indeterminate left basal ganglia lacunar infarct. Symptoms improving. 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 Carotid artery duplex: No hemodynamically significant stenosis identified in the extracranial internal carotid arteries. Patient stable. 1. 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 David: ASA 81 mg PO QD, Plavix 75mg PO QD, Atorvastatin 40 mg PO QD -Carotid artery duplex: No hemodynamically significant stenosis identified in the extracranial internal carotid arteries -PT/OT recommendations: daily PT and Acute Rehab upon discharge -Speech therapy recommendations: Regular diet + thin liquids 2. CAD (coronary artery disease) with history of CABG -hx of pacemaker placement -PPM, battery change 08/2016 -Lopressor 40mg, IV, Q12H -Cardio consult appreciated Dr. Ramírez: recommended echo to r/o embolic event -Follow up echocardiogram results (pending) 3. Diabetes Mellitus Type 2 -uncontrolled POC glucose 149 mg/dL this AM -Insulin Lispro SC AC TID -Insulin Detemir 15 units SCHS -f/u HbA1c - Hypoglycemia protocol 4. Hypertension -Chronic, controlled 114/66 mmHg this AM -continue home meds :Norvasc 10mg PO QD, Carvedilol 25mg PO BID -Follow up CBC, CMP 5. HLD (hyperlipidemia) -chronic, stable -Atorvastatin 40mg PO QD 6. DVT prophylaxis -SCD's -Discontinued Heparin per recommendation/conversation with neuro Dr. David
--- NOTE | 2017-01-26 14:14 | CARD ---
APPROVED REPORT EXAM: Two-dimensional and M-mode echocardiogram with Doppler and color Doppler. INDICATION CVA/TIA 2D DIMENSIONS IVSd1.91 (0.7-1.1cm)LVDd4.18 (3.9-5.9cm) PWd1.12 (0.7-1.1cm)IVSs1.98 (0.8-1.2cm) LVDs2.76 (2.5-4.0cm)FS (%) 34.0 % PWs1.65 (0.8-1.2cm) M-Mode DIMENSIONS Left Atrium (MM)4.05 (2.5-4.0cm)Aortic Root3.56 (2.2-3.7cm) Aortic Cusp Exc.2.08 (1.5-2.0cm) Aortic Valve AoV Peak Meiygkit909.3cm/sAoV VTI26.2cmAO Peak GR.6mmHg LVOT Peak Jnjkuaqv50.7cm/Kandis Mean GR.3mmHg Mitral Valve MV E Agssfble43.7cm/sMV DECEL [id number] A Geicrcgn39.3cm/s MV UCJ31gsL/A ratio1.2MVA (PHT)2.77cm2 TDI Lateral E' Peak V7.50cm/sMedial E' Peak V5.30cm/sE/Lateral E'8.1 E/Medial E'11.5 Pulmonary Valve PV Peak Htepahjs656.6cm/s Tricuspid Valve TR Peak Ggryvxxx038me/sRAP DSQSGYVP03vhWsXF Peak Gr.23mmHg IIXD75cqIg LEFT VENTRICLE The left ventricle is normal size. There is borderline to mild concentric left ventricular hypertrophy. Left ventricle systolic function is normal. The Ejection Fraction is 60-65%. The septum had an abnormal motion due to V-paced rhythm Other LV segments contracted normally. Transmitral Doppler flow pattern is Grade I-abnormal relaxation pattern. RIGHT VENTRICLE The right ventricle is normal size. There is normal right ventricular wall thickness. The right ventricular systolic function is normal. ATRIA The left atrium size is at upper limits of normal. The right atrium size is normal. Pacing leads were seen in RA and RV. AORTIC VALVE The aortic valve is normal in structure and function. No aortic regurgitation is present. There is no aortic valvular stenosis. MITRAL VALVE The mitral valve is normal in structure and function. There is no evidence of mitral valve prolapse. There is no mitral valve stenosis. There is no mitral valve regurgitation noted. TRICUSPID VALVE The tricuspid valve is normal in structure. There is trace to mild tricuspid regurgitation. Right ventricular systolic pressure is estimated at 33 mmHg. There is mild pulmonary hypertension. PULMONIC VALVE The pulmonary valve is normal in structure and function. There is no pulmonic valvular regurgitation. GREAT VESSELS The aortic root is normal in size. The IVC is normal in size and collapses >50% with inspiration. PERICARDIAL EFFUSION The pericardium appears normal. <Conclusion> The patient was in a V-paced rhythm through out thr study. The left ventricle is normal size. There is borderline to mild concentric left ventricular hypertrophy. The septum had an abnormal motion due to V-paced rhythm Other LV segments contracted normally. Left ventricle systolic function is normal. The Ejection Fraction is 60-65%. Transmitral Doppler flow pattern is Grade I-abnormal relaxation pattern. No thrombus was seen in the Lt. chambers.
[2017-01-26] MEDS ORDERED: Potassium Chl 40 mEq in D5-1/2 1,000 ML IV SCH (20:45)
[2017-01-26] MEDS ORDERED: Potassium Chl 20 mEq in D5-NS 1,000 ML IV SCH (21:00)
[2017-01-27 06:49] LABS: HEMATOCRIT 38.5 % (35.0-51.0); MEAN CELL VOLUME 81.1 fl (80.0-94.0); MEAN CORPUSCULAR HEMOGLOBIN 26.9 pg (27.0-31.0); MEAN CORPUSCULAR HGB CONC 33.2 g/dL (33.0-37.0); RED CELL DISTRIBUTION WIDTH 14.6 % (11.5-14.5); WHITE BLOOD COUNT 10.5 K/uL (4.8-10.8)
[2017-01-27 07:03] LABS: CALCIUM 9.8 mg/dL (8.4-10.2); POTASSIUM 4.1 MMOL/L (3.6-5.0)
[2017-01-27] MEDS: Insulin Detemir 100 Units/ml Inj SC SCH ×3 (08:00→16:56)
[2017-01-27 08:08] VITALS: RESP 18
[2017-01-27] MEDS: Insulin Lispro (humaLOG) 100 Units/ml Inj SC SCH ×4 (09:27→18:18)
--- NOTE | 2017-01-27 09:29 | CP.PCM.PN ---
Subjective - Date & Time of Evaluation Date of Evaluation: 01/27/17 Time of Evaluation: 09:15 - Subjective Subjective: Alert, awake and coherent Denies any palpitations or dyspnoea Virtigo much less, still has diplopia++ V-paced rhythm Echo shows preserved LV syst function No thrombi in Lt chambers Labs show abrupt rise in Creatinin (most likely due to IV contrst) Pt getting IV fluids Stable from cardiac point of view Objective - Vital Signs/Intake and Output Vital Signs (last 24 hours): Temp Pulse Resp BP Pulse Ox 98 F 76 18 152/79 H 95 01/27/17 08:07 01/27/17 08:07 01/27/17 08:07 01/27/17 08:07 01/27/17 08:07 Intake and Output: 01/27/17 01/27/17 06:59 18:59 Intake Total 400 Output Total 450 Balance -50 - Medications Medications: Current Medications Amlodipine Besylate (Norvasc) 10 mg PO DAILY [facility] Last Admin: 01/26/17 08:06 Dose: 10 mg Aspirin (Aspirin Chewable) 81 mg PO DAILY [facility] Last Admin: 01/26/17 08:07 Dose: 81 mg Atorvastatin Calcium (Lipitor) 40 mg PO DAILY [facility] Last Admin: 01/26/17 08:06 Dose: 40 mg Carvedilol (Coreg) 25 mg PO BID [facility] Last Admin: 01/26/17 16:26 Dose: 25 mg Clopidogrel Bisulfate (Plavix) 75 mg PO DAILY [facility] Last Admin: 01/26/17 08:06 Dose: 75 mg Dextrose (Dextrose 50% Inj) 0 ml IV STAT PRN; Protocol PRN Reason: Hyglycemia Protocol Dextrose (Glutose 15) 0 gm PO ONCE PRN; Protocol PRN Reason: Hypoglycemia Protocol Fenofibrate (Tricor) 145 mg PO DAILY [facility] Last Admin: 01/26/17 08:05 Dose: 145 mg Glucagon (Glucagen Diagnostic Kit) 0 mg IM STAT PRN; Protocol PRN Reason: Hypoglycemia Protocol Insulin Detemir (Levemir) 15 units SC ACHS [facility] Last Admin: 01/26/17 21:53 Dose: 15 unit Insulin Human Lispro (Humalog) 0 units SC ACTID [facility] PRN Reason: Protocol Last Admin: 01/26/17 16:25 Dose: 3 units - Labs Labs: 01/27/17 05:35 01/27/17 05:35 PT 12.1 Seconds (9.8-13.1) 01/23/17 21:07 INR 1.1 (0.9-1.2) 01/23/17 21:07 APTT 31.6 Seconds (25.6-37.1) 01/23/17 21:07
[2017-01-27 15:41] VITALS: BP 131/74; PULSE 80; TEMP 98.8; O2SAT 95
--- NOTE | 2017-01-27 16:26 | CP.PCM.DIS ---
<Jenn Aiken - Last Filed: 01/27/17 16:24> Provider - Provider Date of Admission: 01/23/17 22:10 Attending physician: Sammy Buck MD Consults: Dr. David-neurology, Dr. Ramírez-cardiology Time Spent in preparation of Discharge (in minutes): 30 Hospital Course - Lab Results Lab Results: Most Recent Lab Values WBC 10.5 K/uL (4.8-10.8) 01/27/17 05:35 RBC 4.75 Mil/uL (4.40-5.90) 01/27/17 05:35 Hgb 12.8 g/dL (12.0-18.0) 01/27/17 05:35 Hct 38.5 % (35.0-51.0) 01/27/17 05:35 MCV 81.1 fl (80.0-94.0) 01/27/17 05:35 MCH 26.9 pg (27.0-31.0) L 01/27/17 05:35 MCHC 33.2 g/dL (33.0-37.0) 01/27/17 05:35 RDW 14.6 % (11.5-14.5) H 01/27/17 05:35 Plt Count 159 K/uL (130-400) 01/27/17 05:35 MPV 9.5 fl (7.2-11.7) 01/23/17 21:07 Neut % (Auto) 83.6 % (50.0-75.0) H 01/23/17 21:07 Lymph % (Auto) 11.6 % (20.0-40.0) L 01/23/17 21:07 [place] % (Auto) 4.3 % (0.0-10.0) 01/23/17 21:07 Eos % (Auto) 0.1 % (0.0-4.0) 01/23/17 21:07 Baso % (Auto) 0.4 % (0.0-2.0) 01/23/17 21:07 Neut # 7.1 K/uL (1.8-7.0) H 01/23/17 21:07 Lymph # 1.0 K/uL (1.0-4.3) 01/23/17 21:07 [place] # 0.4 K/uL (0.0-0.8) 01/23/17 21:07 Eos # 0.0 K/uL (0.0-0.7) 01/23/17 21:07 Baso # 0.0 K/uL (0.0-0.2) 01/23/17 21:07 ESR 11 mm/hr (0-20) 01/24/17 05:25 PT 12.1 Seconds (9.8-13.1) 01/23/17 21:07 INR 1.1 (0.9-1.2) 01/23/17 21:07 APTT 31.6 Seconds (25.6-37.1) 01/23/17 21:07 Sodium 141 mmol/l (132-148) 01/27/17 05:35 Potassium 4.1 MMOL/L (3.6-5.0) 01/27/17 05:35 Chloride 105 mmol/L (98-107) 01/27/17 05:35 Carbon Dioxide 27 mmol/L (22-30) 01/27/17 05:35 Anion Gap 14 (10-20) 01/27/17 05:35 BUN 38 mg/dl (9-20) H 01/27/17 05:35 Creatinine 2.1 mg/dL (0.8-1.5) H 01/27/17 05:35 Est GFR ( Amer) 37 01/27/17 05:35 Est GFR (Non-Af Amer) 31 01/27/17 05:35 POC Glucose (mg/dL) 243 mg/dL (65-110) H 01/27/17 10:58 Random Glucose 125 mg/dL (75-110) H 01/27/17 05:35 Hemoglobin A1c 6.4 % (4.2-6.5) 01/25/17 06:30 Calcium 9.8 mg/dL (8.4-10.2) 01/27/17 05:35 Phosphorus 2.9 mg/dl (2.5-4.5) 01/23/17 21:07 Magnesium 1.7 MG/DL (1.6-2.3) 01/23/17 21:07 Total Bilirubin 0.7 mg/dl (0.2-1.3) 01/24/17 05:25 AST 38 U/L (17-59) 01/24/17 05:25 ALT 36 U/L (21-72) 01/24/17 05:25 Alkaline Phosphatase 65 U/L (38-126) 01/24/17 05:25 Troponin I < 0.0120 ng/mL (0.00-0.120) 01/24/17 15:30 C-React Prot High Sens 2.25 mg/L (1.00-3.00) 01/24/17 07:21 Total Protein 8.5 G/DL (6.3-8.2) H 01/24/17 05:25 Albumin 4.9 g/dL (3.5-5.0) 01/24/17 05:25 Globulin 3.6 gm/dL (2.2-3.9) 01/24/17 05:25 Albumin/Globulin Ratio 1.3 (1.0-2.1) 01/24/17 05:25 Triglycerides 50 mg/DL (0-149) 01/23/17 21:07 Cholesterol 208 mg/dL (0-199) H 01/23/17 21:07 LDL Cholesterol Direct 86 mg/dL (0-129) 01/23/17 21:07 HDL Cholesterol 90 MG/DL (30-70) H 01/23/17 21:07 TSH 3rd Generation 0.33 mIU/ML (0.46-4.68) L 01/24/17 05:25 Alcohol, Quantitative < 10 mg/dl (0-10) 01/23/17 21:07 RPR Nonreactive (NONREACTIVE) 01/24/17 05:25 Blood Type O POSITIVE 01/23/17 21:07 Blood Type Confirm O POSITIVE 01/23/17 17:00 Antibody Screen Negative 01/23/17 21:07 BBK History Checked No verified bt 01/23/17 21:07 - Hospital Course Hospital Course: 76 yr old M admitted for vertigo, nausea and diploplia with findings consistent with acute CVA -left cerebellar infarct likely secondary to diffuse atherosclerotic disease. Echo on this admission was wnl with LVEF 60-65% and he remained stable from cardiac point of view. Patients' symptoms improved, remained with minimal vertigo and improved diplopia tolerating physical therapy and was transferred to TCU for Acute Rehab. Pt has PMHx of CAD, DM, HTN, HLD, CABG x 4(2009), AICD (2011), former smoker (quit 40yrs prior). - Date & Time of H&P Date of H&P: 01/23/17 Time of H&P: 22:51 Discharge Exam - Head Exam Head Exam: ATRAUMATIC, NORMOCEPHALIC - Eye Exam Eye Exam: EOMI (diplopia mildly improved, minimal vertigo), PERRL - ENT Exam ENT Exam: Mucous Membranes Moist - Neck Exam Neck exam: Full Rom - Respiratory Exam Respiratory Exam: Clear to PA & Lateral, NORMAL BREATHING PATTERN. absent: Rhonchi, Wheezes - Cardiovascular Exam Cardiovascular Exam: REGULAR RHYTHM, +S1, +S2 - GI/Abdominal Exam GI & Abdominal Exam: Normal Bowel Sounds, Soft. absent: Distended, Tenderness - Extremities Exam Extremities exam: full ROM (no calf tenderness, no pedal edema) - Back Exam Back exam: absent: CVA tenderness (L), CVA tenderness (R) - Neurological Exam Neurological exam: Alert, Oriented x3 - Psychiatric Exam Psychiatric exam: Normal Affect, Normal Mood - Skin Skin Exam: Dry, Intact, Normal Color, Warm Discharge Plan - Follow Up Plan Condition: GUARDED Disposition: REHAB FACILITY/REHAB UNIT Instructions: Stroke (DC) Additional Instructions: Discharged to subacute rehab <Sammy Buck - Last Filed: 01/27/17 18:47> Provider - Provider Date of Admission: 01/23/17 22:10 Attending physician: Sammy Bcuk MD Hospital Course - Lab Results Lab Results: Most Recent Lab Values WBC 10.5 K/uL (4.8-10.8) 01/27/17 05:35 RBC 4.75 Mil/uL (4.40-5.90) 01/27/17 05:35 Hgb 12.8 g/dL (12.0-18.0) 01/27/17 05:35 Hct 38.5 % (35.0-51.0) 01/27/17 05:35 MCV 81.1 fl (80.0-94.0) 01/27/17 05:35 MCH 26.9 pg (27.0-31.0) L 01/27/17 05:35 MCHC 33.2 g/dL (33.0-37.0) 01/27/17 05:35 RDW 14.6 % (11.5-14.5) H 01/27/17 05:35 Plt Count 159 K/uL (130-400) 01/27/17 05:35 MPV 9.5 fl (7.2-11.7) 01/23/17 21:07 Neut % (Auto) 83.6 % (50.0-75.0) H 01/23/17 21:07 Lymph % (Auto) 11.6 % (20.0-40.0) L 01/23/17 21:07 [place] % (Auto) 4.3 % (0.0-10.0) 01/23/17 21:07 Eos % (Auto) 0.1 % (0.0-4.0) 01/23/17 21:07 Baso % (Auto) 0.4 % (0.0-2.0) 01/23/17 21:07 Neut # 7.1 K/uL (1.8-7.0) H 01/23/17 21:07 Lymph # 1.0 K/uL (1.0-4.3) 01/23/17 21:07 [place] # 0.4 K/uL (0.0-0.8) 01/23/17 21:07 Eos # 0.0 K/uL (0.0-0.7) 01/23/17 21:07 Baso # 0.0 K/uL (0.0-0.2) 01/23/17 21:07 ESR 11 mm/hr (0-20) 01/24/17 05:25 PT 12.1 Seconds (9.8-13.1) 01/23/17 21:07 INR 1.1 (0.9-1.2) 01/23/17 21:07 APTT 31.6 Seconds (25.6-37.1) 01/23/17 21:07 Sodium 141 mmol/l (132-148) 01/27/17 05:35 Potassium 4.1 MMOL/L (3.6-5.0) 01/27/17 05:35 Chloride 105 mmol/L (98-107) 01/27/17 05:35 Carbon Dioxide 27 mmol/L (22-30) 01/27/17 05:35 Anion Gap 14 (10-20) 01/27/17 05:35 BUN 38 mg/dl (9-20) H 01/27/17 05:35 Creatinine 2.1 mg/dL (0.8-1.5) H 01/27/17 05:35 Est GFR ( Amer) 37 01/27/17 05:35 Est GFR (Non-Af Amer) 31 01/27/17 05:35 POC Glucose (mg/dL) 280 mg/dL (65-110) H 01/27/17 16:18 Random Glucose 125 mg/dL (75-110) H 01/27/17 05:35 Hemoglobin A1c 6.4 % (4.2-6.5) 01/25/17 06:30 Calcium 9.8 mg/dL (8.4-10.2) 01/27/17 05:35 Phosphorus 2.9 mg/dl (2.5-4.5) 01/23/17 21:07 Magnesium 1.7 MG/DL (1.6-2.3) 01/23/17 21:07 Total Bilirubin 0.7 mg/dl (0.2-1.3) 01/24/17 05:25 AST 38 U/L (17-59) 01/24/17 05:25 ALT 36 U/L (21-72) 01/24/17 05:25 Alkaline Phosphatase 65 U/L (38-126) 01/24/17 05:25 Troponin I < 0.0120 ng/mL (0.00-0.120) 01/24/17 15:30 C-React Prot High Sens 2.25 mg/L (1.00-3.00) 01/24/17 07:21 Total Protein 8.5 G/DL (6.3-8.2) H 01/24/17 05:25 Albumin 4.9 g/dL (3.5-5.0) 01/24/17 05:25 Globulin 3.6 gm/dL (2.2-3.9) 01/24/17 05:25 Albumin/Globulin Ratio 1.3 (1.0-2.1) 01/24/17 05:25 Triglycerides 50 mg/DL (0-149) 01/23/17 21:07 Cholesterol 208 mg/dL (0-199) H 01/23/17 21:07 LDL Cholesterol Direct 86 mg/dL (0-129) 01/23/17 21:07 HDL Cholesterol 90 MG/DL (30-70) H 01/23/17 21:07 TSH 3rd Generation 0.33 mIU/ML (0.46-4.68) L 01/24/17 05:25 Alcohol, Quantitative < 10 mg/dl (0-10) 01/23/17 21:07 RPR Nonreactive (NONREACTIVE) 01/24/17 05:25 Blood Type O POSITIVE 01/23/17 21:07 Blood Type Confirm O POSITIVE 01/23/17 17:00 Antibody Screen Negative 01/23/17 21:07 BBK History Checked No verified bt 01/23/17 21:07 Attending/Attestation - Attestation I have personally seen and examined this patient.: Yes I have fully participated in the care of the patient.: Yes I have reviewed all pertinent clinical information, including history, physical exam and plan: Yes
--- NOTE | 2017-01-29 10:04 | PQF CHF ---
Dr. Ramírez according to medical record pt has a history of congestive heart failure. Please specify type below. This form is a permanent part of the medical record Clarification of your documentation is requested to better reflect the severity of illness and intensity of treatment of your patient. Indicators present [x] Diagnosis of CHF and/or history of CHF [] BNP > 200 [] Imaging Finding of Pulmonary Edema /Pleural Effusions [] Fluid/Volume Overload [] Pitting edema [] Ejection Fraction < 40% (Indicative of Systolic Heart Failure) [] Ejection Fraction > 40% (Indicative of Diastolic Heart Failure) [] Dyspnea / Orthopenea / Paroxysmal Nocturnal Dyspnea [X] Other:Patient has a hystory of CHF. He does NOT have it now. My consultation makes that quite clear. Location in the medical record that reflects the above clinical findings: [] Treatment Provided: [] PHYSICIAN'S RESPONSE Based on your medical judgment of the clinical indicators outlined above, are you treating this patient for a known or suspected: [] Acute CHF [] Systolic [] Diastolic [] Combined [] Chronic CHF [] Systolic [] Diastolic [] Combined [] Acute on Chronic CHF []Systolic [] Diastolic [] Combined [] CHF due hypertension [] Acute systolic []Chronic systolic [] Acute/ chronic systolic [X] Other, please indicate: []None of the above. [] If Unable to Determine, please check the box, sign and date. Present On Admission (POA) Indicator: [] Present at the time of admission [X] Not present at the time of admission NOT present at admission. [] Clinically Undetermined In responding to this query, please exercise your independent professional judgment. The fact that a question is asked does not imply that any particular answer is desired or expected. Thank you for your clarification on this documentation. If you have any questions please call:[ ] * Thank you, [ ]Kanchan Stiles marker machine [employer]
== END 2017-01-27 17:00 | DRG 66 ==
LOC: H.ER 20:41 → H.ERHOLD 22:10 → H.TEL 01-24 00:29
PROVIDERS: ADMIT Family Medicine; ATTEND Family Medicine
DX: I63.9 Cerebral infarction, unspecified (principal); E11.65 Type 2 diabetes mellitus with hyperglycemia; F32.9 Major depressive disorder, single episode, unspecified; E78.5 Hyperlipidemia, unspecified; H53.8 Other visual disturbances; R29.810 Facial weakness; Z95.0 Presence of cardiac pacemaker; Z95.810 Presence of automatic (implantable) cardiac defibrillator; Z87.891 Personal history of nicotine dependence; R27.8 Other lack of coordination; E78.00 Pure hypercholesterolemia, unspecified; F41.9 Anxiety disorder, unspecified; I25.10 Atherosclerotic heart disease of native coronary artery without angina pectoris; Z95.1 Presence of aortocoronary bypass graft; J45.909 Unspecified asthma, uncomplicated; Z86.73 Personal history of transient ischemic attack (TIA), and cerebral infarction without residual deficits; H53.2 Diplopia; Z79.4 Long term (current) use of insulin; I10 Essential (primary) hypertension

== ENCOUNTER 2017-01-27 11:42 | Inpatient (IN) | payer MEDICARE, OTHER ==
[2017-01-27 18:52] VITALS: BMI 26.4
[2017-01-27] MEDS ORDERED: Dextrose 50% SYRINGE Inj (50 ml) IV PRN (19:00)
[2017-01-27] MEDS ORDERED: Glucagon Recombinant 1 mg Inj IM PRN (19:00)
[2017-01-27] MEDS: Insulin Detemir 100 Units/ml Inj SC SCH (21:18)
[2017-01-28] MEDS: Insulin Detemir 100 Units/ml Inj SC SCH ×2 (07:27→21:46)
[2017-01-28] MEDS: Insulin Lispro (humaLOG) 100 Units/ml Inj SC SCH ×3 (07:28→17:15)
[2017-01-28] MEDS ORDERED: Docusate-Senna 50 mg-8.6 mg Tab PO ONE (10:17)
[2017-01-28] MEDS ORDERED: POLYETHYLENE GLYCOL 3350 17 GM/Dose PACKET PO ONE (10:19)
--- NOTE | 2017-01-28 13:18 | PSY.TMCNF ---
Nursing - Vital Signs Vital Signs (Last 8 hours): Vital Signs 01/28/17 01/28/17 01/28/17 08:04 08:32 09:00 Temperature 100.4 F H 100.4 F H Pulse Rate 77 77 77 Respiratory 21 21 Rate Blood Pressure 151/79 H 151/79 H 151/79 H O2 Sat by Pulse 95 Oximetry 01/28/17 11:30 Temperature 98.2 F Pulse Rate Respiratory Rate Blood Pressure O2 Sat by Pulse Oximetry Pain: 0 - Precautions: Precautions: Fall Prevention - Medications/Other Issues Comment: To follow as per nutrition protocol - Consults Comment: Dr. Lundy. - Toileting Toileting: Maximal Assistance - Bladder Management Bladder Pattern: Normal Voiding Method: Urinal Bladder Management: Supervision Frequency of Accidents: 0 - Bowel Management Bowel Pattern: Constipated Bowel Management: Supervision Frequency of Accidents: 0 - Transfers Transfers: Moderate Assistance - ADL's ADL's: Moderate Assistance - Patient/Family Teaching Comments: Care post CVA and Safety Precautions - Goals/Time Frame Comments: Pt was seen awake and alert sitting in his wheelchair in his room. Pt agreeable to participate in evaluation session and brought to recreation room. Pt was able to identify his leisure interests such as shopping, watching television, spending time with his family, and listening and playing music. Pt reported he has double vision present in L eye and currently had eye patch on L eye from OT. Pt reported vertigo at times. Pt reports no other weakness in hands , UE, LE, etc. Pt participated in connect four task and required min verbal cues for problem solving although did well with task. Pt returned to room and placed call cárdenas and television remote within reach. All needs met. Physical Therapy - Assessment/Plan Assessment: Pt was oriented to and educated about the benefits and purpose of participating in recreation therapy sessions throughout stay on unit. Pt was agreeable to participate in connect four task and required min verbal cues for problem solving. Pt tolerated three rounds of task before c/o fatigue. Pt presented with eye patch on L eye for reports of double vision. Pt will benefit from recreation therapy for leisure education and to improve direction following level. - Provider License Number: [id number] Occupational Therapy - Arousal/Attention/Orientation Level of Consciousness: Awake, Alert Patient Orientation: Person, Place, Time, Appropriate to Age, Appropriate to Situation - ADL/IADL Self Feeding: Supervision, Set-up Help Grooming: Supervision, Set-up Help Dressing-Upper Extremity: Maximum Assistance Dressing-Lower Extremity: Maximum Assistance - Sitting Balance Static Sitting: Minimal Assistance Dynamic Sitting: Moderate Assistance - Transfers Wheelchair to Bed Transfers: Maximum Assistance Toilet Transfers: Maximum Assistance Comment: Tub and shower transfers not assessed during the initial evaluation. Will assess in future occupational therapy session as appropriate. - Assessment/Plan Assessment: Pt was oriented to and educated about the benefits and purpose of participating in recreation therapy sessions throughout stay on unit. Pt was agreeable to participate in connect four task and required min verbal cues for problem solving. Pt tolerated three rounds of task before c/o fatigue. Pt presented with eye patch on L eye for reports of double vision. Pt will benefit from recreation therapy for leisure education and to improve direction following level. - Provider Therapist: Janey Powers MS, OTR/L Speech Therapy - Plan Assessment: Pt was oriented to and educated about the benefits and purpose of participating in recreation therapy sessions throughout stay on unit. Pt was agreeable to participate in connect four task and required min verbal cues for problem solving. Pt tolerated three rounds of task before c/o fatigue. Pt presented with eye patch on L eye for reports of double vision. Pt will benefit from recreation therapy for leisure education and to improve direction following level. Recreational Therapy - Participation Participation: Participates in Individual and/or Group Sessions - Attendance Attendance: 3-5 times per week - Activities Leisure Activities: Cards and Games - Socialization Level of Socialization: Initiates/interacts freely with care givers and peer - Diversional Time Diversional Time: television, music - Assessment Assessment/Plan: Pt was oriented to and educated about the benefits and purpose of participating in recreation therapy sessions throughout stay on unit. Pt was agreeable to participate in connect four task and required min verbal cues for problem solving. Pt tolerated three rounds of task before c/o fatigue. Pt presented with eye patch on L eye for reports of double vision. Pt will benefit from recreation therapy for leisure education and to improve direction following level. Problems Currently Limiting Participation: weakness, dizziness, double vision Goals and Time Frame: Pt will be encouraged to participate in 1:1 and group recreation therapy sessions 3-5x week to improve leisure awareness level, improve visual scanning on both sides if double vision decreases, improve direction following, and provide leisure education. - Provider Therapist: Beryl Olmedo, [employer] #[id number] Nutrition - Current Diet Current Diet/ Supplement/ Feedings: Moderate consistent CHO Heart healthy thin liquids - Appetite Percent Meal Consumed: 75-100% - Comments Comments: Care post CVA and Safety Precautions - Assessment/Goals/Time Frame Assessment/Goals/Time Frame: To follow as per nutrition protocol - Provider Provider: Fernanda Jaffe RD
--- NOTE | 2017-01-28 13:38 | CP.PCM.PN ---
Subjective - Date & Time of Evaluation Date of Evaluation: 01/28/17 Time of Evaluation: 13:37 - Subjective Subjective: CVA Objective - Vital Signs/Intake and Output Vital Signs (last 24 hours): Temp Pulse Resp BP Pulse Ox 98.2 F 77 21 151/79 H 95 01/28/17 11:30 01/28/17 09:00 01/28/17 09:00 01/28/17 09:00 01/28/17 08:04 - Medications Medications: Current Medications Amlodipine Besylate (Norvasc) 10 mg PO DAILY [facility] Last Admin: 01/28/17 08:32 Dose: 10 mg Aspirin (Aspirin Chewable) 81 mg PO DAILY [facility] Last Admin: 01/28/17 08:31 Dose: 81 mg Atorvastatin Calcium (Lipitor) 40 mg PO HS [facility] Last Admin: 01/27/17 21:19 Dose: Not Given Carvedilol (Coreg) 25 mg PO Q12 [facility] Last Admin: 01/28/17 08:32 Dose: 25 mg Clopidogrel Bisulfate (Plavix) 75 mg PO DAILY [facility] Last Admin: 01/28/17 08:31 Dose: 75 mg Dextrose (Dextrose 50% Inj) 0 ml IV STAT PRN; Protocol PRN Reason: Hyglycemia Protocol Dextrose (Glutose 15) 0 gm PO ONCE PRN; Protocol PRN Reason: Hypoglycemia Protocol Fenofibrate (Tricor) 145 mg PO DAILY [facility] Last Admin: 01/28/17 08:32 Dose: 145 mg Glucagon (Glucagen Diagnostic Kit) 0 mg IM STAT PRN; Protocol PRN Reason: Hypoglycemia Protocol Hydroxyzine HCl (Atarax) 25 mg PO PRN PRN Reason: sleep Insulin Detemir (Levemir) 15 units SC [facility] Insulin Human Lispro (Humalog) 0 units SC ACTID [facility] PRN Reason: Protocol Last Admin: 01/28/17 12:31 Dose: 2 units Senna/Docusate Sodium (Senokot S 50 Mg-8.6 Mg) 2 tab PO [facility] Physiatry Overall Plan of Care - Overall Plan of Care Rehab Impairment: Mobility, Gait, Balance, Coordination Etiologic Diagnosis: Cerebrovascular Accident Rehab/Medical Prognosis: Fair - Anticipated Interventions Physical Therapy:: Yes Occupational Therapy:: Yes Speech Therapy:: No Recreational Therapy:: Yes - Therapy Goals Bed Mobility: Supervision Ambulation: Supervision Functional Positional Changes:: Supervision - Discharge Plan Identification of Barriers to Discharge: Home Situation Discharge Destination: Home
--- NOTE | 2017-01-28 13:41 | CP.PCM.CON ---
History of Present Illness - History of Present Illness History of Present Illness: Dr Lundy PMR consultation on Conor Roman, born 1940, who has been admitted to [facility] for acute inpatient rehabilitation following a right occipital infarct. 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 He has minimal strength deficits but significant double vision and ataxia with functional deficits Review of Systems - Constitutional Constitutional: absent: Anorexia, Chills - EENT Eyes: Blurred Vision, Other Visual Disturbances (double vision) Nose/Mouth/Throat: absent: Nasal Congestion - Gastrointestinal Gastrointestinal: absent: Abdominal Pain - Musculoskeletal Musculoskeletal: absent: Arthralgias Past Patient History - Past Medical History & Family History Past Medical History?: Yes - Past Social History Smoking Status: Former Smoker Alcohol: None Drugs: Denies - CARDIAC Hx Cardiac Disorders: Yes Hx Hypercholesterolemia: Yes Hx Hypertension: Yes - PULMONARY Hx Asthma: Yes - NEUROLOGICAL HX Cerebrovascular Accident: Yes - HEENT Hx HEENT Problems: Yes Hx Glaucoma: Yes (OU) - RENAL Hx Chronic Kidney Disease: No Other/Comment: CKD - ENDOCRINE/METABOLIC Hx Diabetes Mellitus Type 2: Yes - HEMATOLOGICAL/ONCOLOGICAL Hx Blood Disorders: No Hx AIDS: No Hx Human Immunodeficiency Virus (HIV): No - INTEGUMENTARY Hx Dermatological Problems: No - MUSCULOSKELETAL/RHEUMATOLOGICAL Hx Musculoskeletal Disorders: No Hx Falls: No - GASTROINTESTINAL Hx Gastrointestinal Disorders: No - GENITOURINARY/GYNECOLOGICAL Hx Genitourinary Disorders: No - PSYCHIATRIC Hx Anxiety: Yes Hx Depression: Yes Hx Substance Use: No - SURGICAL HISTORY Hx Coronary Artery Bypass Graft: Yes (X4 2009) Other/Comment: AICD 2010 - ANESTHESIA Hx Anesthesia: Yes Hx Anesthesia Reactions: No Hx Malignant Hyperthermia: No Meds Allergies/Adverse Reactions: Allergies Allergy/AdvReac Type Severity Reaction Status Date / Time No Known Allergies Allergy Verified 09/19/15 07:00 - Medications Medications: Current Medications Amlodipine Besylate (Norvasc) 10 mg PO DAILY [facility] Last Admin: 01/28/17 08:32 Dose: 10 mg Aspirin (Aspirin Chewable) 81 mg PO DAILY [facility] Last Admin: 01/28/17 08:31 Dose: 81 mg Atorvastatin Calcium (Lipitor) 40 mg PO HS [facility] Last Admin: 01/27/17 21:19 Dose: Not Given Carvedilol (Coreg) 25 mg PO Q12 [facility] Last Admin: 01/28/17 08:32 Dose: 25 mg Clopidogrel Bisulfate (Plavix) 75 mg PO DAILY [facility] Last Admin: 01/28/17 08:31 Dose: 75 mg Dextrose (Dextrose 50% Inj) 0 ml IV STAT PRN; Protocol PRN Reason: Hyglycemia Protocol Dextrose (Glutose 15) 0 gm PO ONCE PRN; Protocol PRN Reason: Hypoglycemia Protocol Fenofibrate (Tricor) 145 mg PO DAILY [facility] Last Admin: 01/28/17 08:32 Dose: 145 mg Glucagon (Glucagen Diagnostic Kit) 0 mg IM STAT PRN; Protocol PRN Reason: Hypoglycemia Protocol Hydroxyzine HCl (Atarax) 25 mg PO HS PRN PRN Reason: sleep Insulin Detemir (Levemir) 15 units SC HS [facility] Insulin Human Lispro (Humalog) 0 units SC ACTID [facility] PRN Reason: Protocol Last Admin: 01/28/17 12:31 Dose: 2 units Senna/Docusate Sodium (Senokot S 50 Mg-8.6 Mg) 2 tab PO HS [facility] Physical Exam - Constitutional Appears: Non-toxic - Head Exam Head Exam: ATRAUMATIC, NORMAL INSPECTION, NORMOCEPHALIC - ENT Exam ENT Exam: Mucous Membranes Moist - Respiratory Exam Respiratory Exam: NORMAL BREATHING PATTERN - Cardiovascular Exam Cardiovascular Exam: REGULAR RHYTHM - GI/Abdominal Exam GI & Abdominal Exam: absent: Distended - Extremities Exam Extremities exam: Negative for: calf tenderness - Neurological Exam Neurological exam: Alert, Oriented x3 (double vision which is helped by patching the right eye) - Psychiatric Exam Psychiatric exam: Normal Affect, Normal Mood Results - Vital Signs Recent Vital Signs: Last Vital Signs Temp 98.2 F 01/28/17 11:30 Pulse 77 01/28/17 09:00 Resp 21 01/28/17 09:00 BP 151/79 H 01/28/17 09:00 Pulse Ox 95 01/28/17 08:04 - Labs Labs: Laboratory Results - last 24 hr 01/27/17 01/28/17 01/28/17 20:46 05:50 11:49 POC Glucose (mg/dL) 181 H 71 191 H Assessment & Plan - Assessment and Plan (Free Text) Assessment: 76 year old male with left CVA and double vision dizziness is associated with the double vision not isolated PT/OT to continue to help increase functional independence Team conference for d/c planning Pain: controlled Vascular: no evidence of DVT GI: No evidence of constipation or diarrhea Patient is an excellent acute rehabilitation candidate and will have focused PT , OT and recreational therapy to help facilitate a safe and appropriate d/c plan impairment code 01.2
--- NOTE | 2017-01-28 14:25 | CP.PCM.HP ---
<Jenn Aiken - Last Filed: 01/28/17 14:22> History of Present Illness - History of Present Illness History of Present Illness: 76 yr old M transferred to [facility]acute [facility]hab for PT/OT and speech therapy s/p CVA. Patient discharged from [facility] 01/27/17 s/p admission for vertigo, nausea and diploplia with findings consistent with acute CVA -left cerebellar infarct likely secondary to diffuse atherosclerotic disease. Echo on that admission was wnl with LVEF 60-65% and he remained stable from cardiac point of view. Patients ' symptoms improved, remained with minimal vertigo and improved diplopia tolerating physical therapy and was transferred to Subacute Rehab. Pt has PMHx of CAD, DM, HTN, HLD, CABG x 4(2009), AICD (2010), former smoker (quit 40yrs prior). Patient reports he is tolerating physical therapy, having good appetite , normal urine output, minimal diplopia is present, vertigo has resolved. PMHx: CAD, DM, HTN, HLD, PSurgHx: CABG x4(2009), AICD (2010) SocHx: Quit 40yrs prior Allergies: NKDA Medications: See Med Rec Security Tester: Dr Ramírez Brush Painter: Dr Nam Collection Officer: Dr Mcneil Present on Admission - Present on Admission Any Indicators Present on Admission: No History of DVT/PE: No History of Uncontrolled Diabetes: Yes Urinary Catheter: No Decubitus Ulcer Present: No Review of Systems - Review of Systems All systems: reviewed and no additional remarkable complaints except (what is mentioned in HPI) Past Patient History - Past Medical History & Family History Past Medical History?: Yes - Past Social History Smoking Status: Former Smoker Alcohol: None Drugs: Denies - CARDIAC Hx Cardiac Disorders: Yes Hx Hypercholesterolemia: Yes Hx Hypertension: Yes - PULMONARY Hx Asthma: Yes - NEUROLOGICAL HX Cerebrovascular Accident: Yes - HEENT Hx HEENT Problems: Yes Hx Glaucoma: Yes (OU) - RENAL Hx Chronic Kidney Disease: No Other/Comment: CKD - ENDOCRINE/METABOLIC Hx Diabetes Mellitus Type 2: Yes - HEMATOLOGICAL/ONCOLOGICAL Hx Blood Disorders: No Hx AIDS: No Hx Human Immunodeficiency Virus (HIV): No - INTEGUMENTARY Hx Dermatological Problems: No - MUSCULOSKELETAL/RHEUMATOLOGICAL Hx Musculoskeletal Disorders: No Hx Falls: No - GASTROINTESTINAL Hx Gastrointestinal Disorders: No - GENITOURINARY/GYNECOLOGICAL Hx Genitourinary Disorders: No - PSYCHIATRIC Hx Anxiety: Yes Hx Depression: Yes Hx Substance Use: No - SURGICAL HISTORY Hx Coronary Artery Bypass Graft: Yes (X4 2009) Other/Comment: AICD 2010 - ANESTHESIA Hx Anesthesia: Yes Hx Anesthesia Reactions: No Hx Malignant Hyperthermia: No Meds Allergies/Adverse Reactions: Allergies Allergy/AdvReac Type Severity Reaction Status Date / Time No Known Allergies Allergy Verified 09/19/15 07:00 Physical Exam - Constitutional Appears: Well, Non-toxic, No Acute Distress - Head Exam Head Exam: ATRAUMATIC, NORMOCEPHALIC - Eye Exam Eye Exam: EOMI, PERRL (minimal diplopia) - ENT Exam ENT Exam: Mucous Membranes Moist - Neck Exam Neck exam: Positive for: Full Rom. Negative for: Lymphadenopathy - Respiratory Exam Respiratory Exam: Clear to Auscultation Bilateral, NORMAL BREATHING PATTERN. absent: Rales, Rhonchi - Cardiovascular Exam Cardiovascular Exam: REGULAR RHYTHM, +S1, +S2 - GI/Abdominal Exam GI & Abdominal Exam: Normal Bowel Sounds, Soft. absent: Distended, Tenderness - Extremities Exam Extremities exam: Positive for: full ROM. Negative for: calf tenderness, pedal edema - Back Exam Back exam: absent: CVA tenderness (L), CVA tenderness (R) - Neurological Exam Neurological exam: Alert, CN II-XII Intact, Oriented x3 - Psychiatric Exam Psychiatric exam: Normal Affect, Normal Mood - Skin Skin Exam: Dry, Intact, Normal Color Results - Vital Signs Recent Vital Signs: Last Vital Signs Temp 98.2 F 01/28/17 11:30 Pulse 77 01/28/17 09:00 Resp 21 01/28/17 09:00 BP 151/79 H 01/28/17 09:00 Pulse Ox 95 01/28/17 08:04 - Labs Labs: Laboratory Results - last 24 hr 01/27/17 01/28/17 01/28/17 20:46 05:50 11:49 POC Glucose (mg/dL) 181 H 71 191 H Assessment & Plan - Assessment and Plan (Free Text) Assessment: 76 yr old M transferred to Subacute Rehab for PT/OT and speech therapy s/p CVA. Pt has PMHx of CAD, DM, HTN, HLD, CABG x 4(2009), AICD (2010), former smoker ( quit 40yrs prior). Patient reports he is tolerating physical therapy, having good appetite, normal urine output, minimal diplopia is present, vertigo has resolved. Patient is stable. 1. 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 David: ASA 81 mg PO QD, Plavix 75mg PO QD, Atorvastatin 40 mg PO QD -Carotid artery duplex: No hemodynamically significant stenosis identified in the extracranial internal carotid arteries -PT/OT consult appreciated: will follow recommendations -Speech therapy recommendations: Moderate consistent CHO/Heart Healthy diet + thin liquids 2. CAD (coronary artery disease) with history of CABG -hx of pacemaker placement -PPM, battery change 08/2016 -Cardio consult appreciated Dr. Ramírez: Echo LVEF 60-65%, pt is stable from cardiac point of view 3. Diabetes Mellitus Type 2 -uncontrolled POC glucose 191 mg/dL this AM -Insulin Lispro SC AC TID SALLY -Insulin Detemir 15 units SCHS -HbA1c 6.4 (01/25/17) - Hypoglycemia protocol 4. Hypertension -Chronic, controlled 151/79 mmHg this AM -continue home meds :Norvasc 10mg PO QD, Carvedilol 25mg PO BID 5. HLD (hyperlipidemia) -chronic, stable -Atorvastatin 40mg PO HS SALLY 6. DVT prophylaxis -SCD's -Discontinued Heparin per recommendation/conversation with neuro Dr. David as patient is already on ASA and Plavix - Date & Time Date: 01/28/17 Time: 07:30 <Sammy Buck - Last Filed: 01/29/17 06:45> Results - Vital Signs Recent Vital Signs: Last Vital Signs Temp 98.6 F 01/28/17 20:37 Pulse 70 01/28/17 20:38 Resp 20 01/28/17 20:37 BP 144/89 01/28/17 20:38 Pulse Ox 99 01/28/17 20:37 - Labs Labs: Laboratory Results - last 24 hr 01/28/17 01/28/17 01/28/17 11:49 15:53 21:02 POC Glucose (mg/dL) 191 H 224 H 161 H 01/29/17 01/29/17 03:07 06:12 POC Glucose (mg/dL) 95 127 H Attending/Attestation - Attestation I have personally seen and examined this patient.: Yes I have fully participated in the care of the patient.: Yes I have reviewed all pertinent clinical information: Yes
[2017-01-29] MEDS: Insulin Lispro (humaLOG) 100 Units/ml Inj SC SCH ×3 (06:30→17:02)
[2017-01-29] MEDS: Famotidine 40 MG/5 ML PO SCH (13:48)
--- NOTE | 2017-01-29 13:57 | CP.PCM.PN ---
<Jenn Aiken - Last Filed: 01/29/17 13:52> Subjective - Date & Time of Evaluation Date of Evaluation: 01/29/17 Time of Evaluation: 07:15 - Subjective Subjective: Patient seen and examined at bedside, in no acute distress, was able to sit up in bed with minimal assistance. Reports he has not had a bowel movement since admission, is having normal urine output, is tolerating PO diet. Denies nausea/ vomiting, chest pain or dizziness. Diplopia continues to improve. Objective - Vital Signs/Intake and Output Vital Signs (last 24 hours): Temp Pulse Resp BP Pulse Ox 97.9 F 66 20 143/66 98 01/29/17 08:17 01/29/17 08:21 01/29/17 08:17 01/29/17 08:22 01/29/17 08:17 - Medications Medications: Current Medications Amlodipine Besylate (Norvasc) 10 mg PO DAILY [facility] Last Admin: 01/29/17 08:22 Dose: 10 mg Aspirin (Aspirin Chewable) 81 mg PO DAILY [facility] Last Admin: 01/29/17 08:23 Dose: 81 mg Atorvastatin Calcium (Lipitor) 40 mg PO HS [facility] Last Admin: 01/28/17 21:09 Dose: 40 mg Carvedilol (Coreg) 25 mg PO Q12 [facility] Last Admin: 01/29/17 08:21 Dose: 25 mg Clopidogrel Bisulfate (Plavix) 75 mg PO DAILY [facility] Last Admin: 01/29/17 08:20 Dose: 75 mg Dextrose (Dextrose 50% Inj) 0 ml IV STAT PRN; Protocol PRN Reason: Hyglycemia Protocol Dextrose (Glutose 15) 0 gm PO ONCE PRN; Protocol PRN Reason: Hypoglycemia Protocol Famotidine (Pepcid) 40 mg PO DAILY [facility] Last Admin: 01/29/17 13:48 Dose: 40 mg Fenofibrate (Tricor) 145 mg PO DAILY [facility] Last Admin: 01/29/17 08:22 Dose: 145 mg Glucagon (Glucagen Diagnostic Kit) 0 mg IM STAT PRN; Protocol PRN Reason: Hypoglycemia Protocol Hydroxyzine HCl (Atarax) 25 mg PO HS PRN PRN Reason: sleep Insulin Detemir (Levemir) 15 units SC HS [facility] Last Admin: 01/28/17 21:46 Dose: 15 units Insulin Human Lispro (Humalog) 0 units SC ACTID [facility] PRN Reason: Protocol Last Admin: 01/29/17 12:24 Dose: 4 units Senna/Docusate Sodium (Senokot S 50 Mg-8.6 Mg) 2 tab PO HS [facility] - Constitutional Appears: Well, Non-toxic, No Acute Distress - Head Exam Head Exam: ATRAUMATIC, NORMOCEPHALIC - Eye Exam Eye Exam: EOMI, PERRL - Neck Exam Neck Exam: Full ROM. absent: Lymphadenopathy - Respiratory Exam Respiratory Exam: Clear to Ausculation Bilateral, NORMAL BREATHING PATTERN. absent: Rales, Rhonchi - Cardiovascular Exam Cardiovascular Exam: REGULAR RHYTHM, +S1, +S2 - GI/Abdominal Exam GI & Abdominal Exam: Distended (mild, firm), Normal Bowel Sounds. absent: Tenderness - Extremities Exam Extremities Exam: Full ROM. absent: Calf Tenderness, Joint Swelling, Pedal Edema - Back Exam Back Exam: Full ROM. absent: CVA tenderness (L), CVA tenderness (R) - Neurological Exam Neurological Exam: Alert, Awake, CN II-XII Intact, Oriented x3 - Psychiatric Exam Psychiatric exam: Normal Affect, Normal Mood - Skin Skin Exam: Dry, Intact, Normal Color Assessment and Plan - Assessment and Plan (Free Text) Assessment: 76 yr old M [facility] for PT/OT and speech therapy s/p CVA. Pt has PMHx of CAD, DM, HTN, HLD, CABG x 4(2009), AICD (2010), former smoker (quit 40yrs prior). Patient reports he is tolerating physical therapy, having good appetite, normal urine output, minimal diplopia is present, vertigo has resolved. Patient is stable. 1. CVA (Cerebro Vascular Event) -symptoms improving -Repeat CT head 01/25/17: no change -Continue with current management: ASA 81 mg PO QD, Plavix 75mg PO QD, Atorvastatin 40 mg PO QD -PT/OT consult appreciated: will follow recommendations -Speech therapy recommendations: Moderate consistent CHO/Heart Healthy diet + thin liquids 2. CAD (coronary artery disease) with history of CABG -hx of pacemaker placement -PPM, battery change 08/2016 -Echo LVEF 60-65%, pt is stable from cardiac point of view 3. Diabetes Mellitus Type 2 -uncontrolled POC glucose 127 mg/dL this AM -Insulin Lispro SC AC TID [facility] -Insulin Detemir 15 units [facility] -HbA1c 6.4 (01/25/17) - Hypoglycemia protocol 4. Hypertension -Chronic, controlled 143/86 mmHg this AM -continue home meds :Norvasc 10mg PO QD, Carvedilol 25mg PO BID 5. HLD (hyperlipidemia) -chronic, stable -Atorvastatin 40mg PO HS [facility] 6. DVT /GI prophylaxis -SCD's -Discontinued Heparin per recommendation/conversation with neuro Dr. David as patient is already on ASA and Plavix -started Pepcid 40mg PO daily <Sammy Buck - Last Filed: 01/31/17 08:59> Objective - Vital Signs/Intake and Output Vital Signs (last 24 hours): Temp Pulse Resp BP Pulse Ox 97.5 F L 66 21 130/70 98 01/31/17 08:20 01/31/17 08:39 01/31/17 08:20 01/31/17 08:39 01/31/17 08:20 - Medications Medications: Current Medications Amlodipine Besylate (Norvasc) 10 mg PO DAILY [facility] Last Admin: 01/31/17 08:38 Dose: 10 mg Aspirin (Aspirin Chewable) 81 mg PO DAILY [facility] Last Admin: 01/31/17 08:39 Dose: 81 mg Atorvastatin Calcium (Lipitor) 40 mg PO HS [facility] Last Admin: 01/30/17 21:17 Dose: 40 mg Carvedilol (Coreg) 25 mg PO Q12 [facility] Last Admin: 01/31/17 08:39 Dose: 25 mg Clopidogrel Bisulfate (Plavix) 75 mg PO DAILY [facility] Last Admin: 01/31/17 08:38 Dose: 75 mg Dextrose (Dextrose 50% Inj) 0 ml IV STAT PRN; Protocol PRN Reason: Hyglycemia Protocol Dextrose (Glutose 15) 0 gm PO ONCE PRN; Protocol PRN Reason: Hypoglycemia Protocol Famotidine (Pepcid) 40 mg PO DAILY [facility] Last Admin: 01/31/17 08:38 Dose: 40 mg Fenofibrate (Tricor) 145 mg PO DAILY [facility] Last Admin: 01/31/17 08:38 Dose: 145 mg Glucagon (Glucagen Diagnostic Kit) 0 mg IM STAT PRN; Protocol PRN Reason: Hypoglycemia Protocol Hydroxyzine HCl (Atarax) 25 mg PO HS PRN PRN Reason: sleep Last Admin: 06/09/17 08:38 Dose: 25 mg Insulin Detemir (Levemir) 15 units SC HS [facility] Last Admin: 01/30/17 21:18 Dose: 15 units Insulin Human Lispro (Humalog) 0 units SC ACTID [facility] PRN Reason: Protocol Last Admin: 01/31/17 06:40 Dose: Not Given Senna/Docusate Sodium (Senokot S 50 Mg-8.6 Mg) 2 tab PO HS [facility] Last Admin: 01/30/17 21:17 Dose: 2 tab Attending/Attestation - Attestation I have personally seen and examined this patient.: Yes I have fully participated in the care of the patient.: Yes I have reviewed all pertinent clinical information, including history, physical exam and plan: Yes
[2017-01-29] MEDS ORDERED: Famotidine 40 MG/5 ML PO SCH (17:00)
--- NOTE | 2017-01-29 17:55 | CP.PCM.PN ---
Subjective - Date & Time of Evaluation Date of Evaluation: 01/29/17 Time of Evaluation: 17:54 - Subjective Subjective: Patient seen in room needs mod A for transfers had severe hiccups today I performed 30 minutes of acupuncture incorporating bilateral Du-17 he had no hiccups at all during the treatment which included his entire meal which usually sets of his symptoms tolerated well Objective - Vital Signs/Intake and Output Vital Signs (last 24 hours): Temp Pulse Resp BP Pulse Ox 97.9 F 66 20 143/66 98 01/29/17 08:17 01/29/17 08:21 01/29/17 08:17 01/29/17 08:22 01/29/17 08:17 - Medications Medications: Current Medications Amlodipine Besylate (Norvasc) 10 mg PO DAILY [facility] Last Admin: 01/29/17 08:22 Dose: 10 mg Aspirin (Aspirin Chewable) 81 mg PO DAILY [facility] Last Admin: 01/29/17 08:23 Dose: 81 mg Atorvastatin Calcium (Lipitor) 40 mg PO HS [facility] Last Admin: 01/28/17 21:09 Dose: 40 mg Carvedilol (Coreg) 25 mg PO Q12 [facility] Last Admin: 01/29/17 08:21 Dose: 25 mg Clopidogrel Bisulfate (Plavix) 75 mg PO DAILY [facility] Last Admin: 01/29/17 08:20 Dose: 75 mg Dextrose (Dextrose 50% Inj) 0 ml IV STAT PRN; Protocol PRN Reason: Hyglycemia Protocol Dextrose (Glutose 15) 0 gm PO ONCE PRN; Protocol PRN Reason: Hypoglycemia Protocol Famotidine (Pepcid) 40 mg PO DAILY [facility] Last Admin: 01/29/17 13:48 Dose: 40 mg Fenofibrate (Tricor) 145 mg PO DAILY [facility] Last Admin: 01/29/17 08:22 Dose: 145 mg Glucagon (Glucagen Diagnostic Kit) 0 mg IM STAT PRN; Protocol PRN Reason: Hypoglycemia Protocol Hydroxyzine HCl (Atarax) 25 mg PO HS PRN PRN Reason: sleep Insulin Detemir (Levemir) 15 units SC HS [facility] Last Admin: 01/28/17 21:46 Dose: 15 units Insulin Human Lispro (Humalog) 0 units SC ACTID [facility] PRN Reason: Protocol Last Admin: 01/29/17 17:02 Dose: Not Given Senna/Docusate Sodium (Senokot S 50 Mg-8.6 Mg) 2 tab PO HS [facility]
[2017-01-29] MEDS: Docusate-Senna 50 mg-8.6 mg Tab PO SCH (21:07)
[2017-01-29] MEDS: Insulin Detemir 100 Units/ml Inj SC SCH (21:10)
[2017-01-30] MEDS: Insulin Lispro (humaLOG) 100 Units/ml Inj SC SCH ×3 (06:45→16:55)
[2017-01-30] MEDS: Famotidine 40 MG/5 ML PO SCH (09:01)
--- NOTE | 2017-01-30 12:33 | CP.PCM.PN ---
<Jenn Aiken - Last Filed: 01/30/17 12:27> Subjective - Date & Time of Evaluation Date of Evaluation: 01/30/17 Time of Evaluation: 07:10 - Subjective Subjective: Patient seen and examined at bedside. Sitting in wheelchair in no acute distress, reports diplopia has improved, patient has complaint of hiccups and mild nasal congestion this AM. Denies chest pain, weakness or dizziness. Tolerating PO diet and PT/OT. No other concerns or complaints at this time. Objective - Vital Signs/Intake and Output Vital Signs (last 24 hours): Temp Pulse Resp BP Pulse Ox 98.6 F 70 22 127/64 95 01/30/17 08:11 01/30/17 08:59 01/30/17 08:11 01/30/17 08:59 01/30/17 08:11 - Medications Medications: Current Medications Amlodipine Besylate (Norvasc) 10 mg PO DAILY [facility] Last Admin: 01/30/17 08:59 Dose: 10 mg Aspirin (Aspirin Chewable) 81 mg PO DAILY [facility] Last Admin: 01/30/17 09:00 Dose: 81 mg Atorvastatin Calcium (Lipitor) 40 mg PO HS [facility] Last Admin: 01/29/17 21:07 Dose: 40 mg Carvedilol (Coreg) 25 mg PO Q12 [facility] Last Admin: 01/30/17 08:59 Dose: 25 mg Clopidogrel Bisulfate (Plavix) 75 mg PO DAILY [facility] Last Admin: 01/30/17 08:59 Dose: 75 mg Dextrose (Dextrose 50% Inj) 0 ml IV STAT PRN; Protocol PRN Reason: Hyglycemia Protocol Dextrose (Glutose 15) 0 gm PO ONCE PRN; Protocol PRN Reason: Hypoglycemia Protocol Famotidine (Pepcid) 40 mg PO DAILY [facility] Last Admin: 01/30/17 09:01 Dose: 40 mg Fenofibrate (Tricor) 145 mg PO DAILY [facility] Last Admin: 01/30/17 08:59 Dose: 145 mg Glucagon (Glucagen Diagnostic Kit) 0 mg IM STAT PRN; Protocol PRN Reason: Hypoglycemia Protocol Hydroxyzine HCl (Atarax) 25 mg PO HS PRN PRN Reason: sleep Insulin Detemir (Levemir) 15 units SC HS [facility] Last Admin: 01/29/17 21:10 Dose: 15 units Insulin Human Lispro (Humalog) 0 units SC ACTID [facility] PRN Reason: Protocol Last Admin: 01/30/17 12:10 Dose: 3 units Senna/Docusate Sodium (Senokot S 50 Mg-8.6 Mg) 2 tab PO HS [facility] Last Admin: 01/29/17 21:07 Dose: 2 tab - Constitutional Appears: Well, No Acute Distress - Head Exam Head Exam: ATRAUMATIC, NORMOCEPHALIC - Eye Exam Eye Exam: EOMI, PERRL - ENT Exam ENT Exam: Mucous Membranes Moist - Neck Exam Neck Exam: Full ROM. absent: Lymphadenopathy - Respiratory Exam Respiratory Exam: Clear to Ausculation Bilateral, NORMAL BREATHING PATTERN. absent: Rales, Rhonchi - Cardiovascular Exam Cardiovascular Exam: REGULAR RHYTHM, +S1, +S2 - GI/Abdominal Exam GI & Abdominal Exam: Soft, Normal Bowel Sounds. absent: Distended, Tenderness - Extremities Exam Extremities Exam: Full ROM. absent: Calf Tenderness, Pedal Edema - Back Exam Back Exam: absent: CVA tenderness (L), CVA tenderness (R) - Neurological Exam Neurological Exam: Alert, Awake, CN II-XII Intact, Oriented x3 - Psychiatric Exam Psychiatric exam: Normal Affect, Normal Mood - Skin Skin Exam: Dry, Intact, Normal Color, Warm Assessment and Plan - Assessment and Plan (Free Text) Assessment: 76 yr old M admitted [facility] for PT/OT and speech therapy s/p CVA. Pt has PMHx of CAD, DM, HTN, HLD, CABG x 4(2009), AICD (2011), former smoker (quit 40yrs prior). Patient reports he is tolerating physical therapy, having good appetite, normal urine output, minimal diplopia is present, vertigo has resolved. Patient is stable. Had complaint of hiccups and nasal congestion this AM. 1. CVA (Cerebro Vascular Event) -symptoms improving -Repeat CT head 01/25/17: no change -Continue with current management: ASA 81 mg PO QD, Plavix 75mg PO QD, Atorvastatin 40 mg PO QD -PT/OT consult appreciated: will follow recommendations -Speech therapy recommendations: Moderate consistent CHO/Heart Healthy diet + thin liquids -Reglan 10mg PO once given for hiccups, NS INH neb tx once for nasal congestion 2. CAD (coronary artery disease) with history of CABG -hx of pacemaker placement -PPM, battery change 08/2016 -Echo LVEF 60-65%, pt is stable from cardiac point of view 3. Diabetes Mellitus Type 2 -uncontrolled POC glucose 101 mg/dL this AM -Insulin Lispro SC AC TID [facility] -Insulin Detemir 15 units [facility] -HbA1c 6.4 (01/25/17) - Hypoglycemia protocol 4. Hypertension -Chronic, controlled 124/64 mmHg this AM -continue home meds :Norvasc 10mg PO QD, Carvedilol 25mg PO BID 5. HLD (hyperlipidemia) -chronic, stable -Atorvastatin 40mg PO [facility] 6. DVT /GI prophylaxis -SCD's -Discontinued Heparin per recommendation/conversation with neuro Dr. David as patient is already on ASA and Plavix -started Pepcid 40mg PO daily <Jarret Saldana - Last Filed: 01/31/17 09:12> Objective - Vital Signs/Intake and Output Vital Signs (last 24 hours): Temp Pulse Resp BP Pulse Ox 97.5 F L 66 21 130/70 98 01/31/17 08:20 01/31/17 08:39 01/31/17 08:20 01/31/17 08:39 01/31/17 08:20 - Medications Medications: Current Medications Amlodipine Besylate (Norvasc) 10 mg PO DAILY [facility] Last Admin: 01/31/17 08:38 Dose: 10 mg Aspirin (Aspirin Chewable) 81 mg PO DAILY [facility] Last Admin: 01/31/17 08:39 Dose: 81 mg Atorvastatin Calcium (Lipitor) 40 mg PO HS [facility] Last Admin: 01/30/17 21:17 Dose: 40 mg Carvedilol (Coreg) 25 mg PO Q12 [facility] Last Admin: 01/31/17 08:39 Dose: 25 mg Clopidogrel Bisulfate (Plavix) 75 mg PO DAILY [facility] Last Admin: 01/31/17 08:38 Dose: 75 mg Dextrose (Dextrose 50% Inj) 0 ml IV STAT PRN; Protocol PRN Reason: Hyglycemia Protocol Dextrose (Glutose 15) 0 gm PO ONCE PRN; Protocol PRN Reason: Hypoglycemia Protocol Famotidine (Pepcid) 40 mg PO DAILY [facility] Last Admin: 01/31/17 08:38 Dose: 40 mg Fenofibrate (Tricor) 145 mg PO DAILY [facility] Last Admin: 01/31/17 08:38 Dose: 145 mg Glucagon (Glucagen Diagnostic Kit) 0 mg IM STAT PRN; Protocol PRN Reason: Hypoglycemia Protocol Hydroxyzine HCl (Atarax) 25 mg PO HS PRN PRN Reason: sleep Last Admin: 01/31/17 08:38 Dose: 25 mg Insulin Detemir (Levemir) 15 units SC HS [facility] Last Admin: 01/30/17 21:18 Dose: 15 units Insulin Human Lispro (Humalog) 0 units SC ACTID [facility] PRN Reason: Protocol Last Admin: 01/31/17 06:40 Dose: Not Given Senna/Docusate Sodium (Senokot S 50 Mg-8.6 Mg) 2 tab PO HS [facility] Last Admin: 01/30/17 21:17 Dose: 2 tab - Labs Labs: 01/31/17 08:14 Attending/Attestation - Attestation I have personally seen and examined this patient.: Yes I have fully participated in the care of the patient.: Yes
[2017-01-30] MEDS: Docusate-Senna 50 mg-8.6 mg Tab PO SCH (21:17)
[2017-01-30] MEDS: Insulin Detemir 100 Units/ml Inj SC SCH (21:18)
[2017-01-31] MEDS: Insulin Lispro (humaLOG) 100 Units/ml Inj SC SCH ×3 (06:40→16:30)
[2017-01-31 08:38] LABS: CALCIUM 9.8 mg/dL (8.4-10.2); POTASSIUM 4.1 MMOL/L (3.6-5.0)
[2017-01-31] MEDS: Famotidine 40 MG/5 ML PO SCH (08:38)
--- NOTE | 2017-01-31 16:36 | CP.PCM.PN ---
Subjective - Date & Time of Evaluation Date of Evaluation: 01/31/17 Time of Evaluation: 16:33 - Subjective Subjective: Patient seen in PT gym feels good denies diziness now he has not had any hiccups at all today and on no medications after only 2 acupuncture sessions continue current care Objective - Vital Signs/Intake and Output Vital Signs (last 24 hours): Temp Pulse Resp BP Pulse Ox 97.5 F L 66 21 130/70 98 01/31/17 08:20 01/31/17 08:39 01/31/17 08:20 01/31/17 08:39 01/31/17 08:20 - Medications Medications: Current Medications Amlodipine Besylate (Norvasc) 10 mg PO DAILY [facility] Last Admin: 01/31/17 08:38 Dose: 10 mg Aspirin (Aspirin Chewable) 81 mg PO DAILY [facility] Last Admin: 01/31/17 08:39 Dose: 81 mg Atorvastatin Calcium (Lipitor) 40 mg PO HS [facility] Last Admin: 01/30/17 21:17 Dose: 40 mg Carvedilol (Coreg) 25 mg PO Q12 [facility] Last Admin: 01/31/17 08:39 Dose: 25 mg Clopidogrel Bisulfate (Plavix) 75 mg PO DAILY [facility] Last Admin: 01/31/17 08:38 Dose: 75 mg Dextrose (Dextrose 50% Inj) 0 ml IV STAT PRN; Protocol PRN Reason: Hyglycemia Protocol Dextrose (Glutose 15) 0 gm PO ONCE PRN; Protocol PRN Reason: Hypoglycemia Protocol Famotidine (Pepcid) 40 mg PO DAILY [facility] Last Admin: 01/31/17 08:38 Dose: 40 mg Fenofibrate (Tricor) 145 mg PO DAILY [facility] Last Admin: 01/31/17 08:38 Dose: 145 mg Glucagon (Glucagen Diagnostic Kit) 0 mg IM STAT PRN; Protocol PRN Reason: Hypoglycemia Protocol Hydroxyzine HCl (Atarax) 25 mg PO HS PRN PRN Reason: sleep Last Admin: 01/31/17 08:38 Dose: 25 mg Insulin Detemir (Levemir) 15 units SC HS [facility] Last Admin: 01/30/17 21:18 Dose: 15 units Insulin Human Lispro (Humalog) 0 units SC ACTID [facility] PRN Reason: Protocol Last Admin: 01/31/17 11:30 Dose: 6 units Senna/Docusate Sodium (Senokot S 50 Mg-8.6 Mg) 2 tab PO HS [facility] Last Admin: 01/30/17 21:17 Dose: 2 tab - Labs Labs: 01/31/17 08:14
--- NOTE | 2017-01-31 17:14 | CP.PCM.PN ---
<Jenn Aiken - Last Filed: 01/31/17 17:07> Subjective - Date & Time of Evaluation Date of Evaluation: 01/31/17 Time of Evaluation: 07:15 - Subjective Subjective: Patient seen and examined at bedside, sitting in wheelchair, brushing his teeth independantly in no acute distress. Reports he is feeling better, tolerating PT/ OT, PO diet, diplopia persists but vertigo has resolved. No concerns or complaints at this time. Objective - Vital Signs/Intake and Output Vital Signs (last 24 hours): Temp Pulse Resp BP Pulse Ox 97.5 F L 66 21 130/70 98 01/31/17 08:20 01/31/17 08:39 01/31/17 08:20 01/31/17 08:39 01/31/17 08:20 - Medications Medications: Current Medications Amlodipine Besylate (Norvasc) 10 mg PO DAILY [facility] Last Admin: 01/31/17 08:38 Dose: 10 mg Aspirin (Aspirin Chewable) 81 mg PO DAILY [facility] Last Admin: 01/31/17 08:39 Dose: 81 mg Atorvastatin Calcium (Lipitor) 40 mg PO HS [facility] Last Admin: 01/30/17 21:17 Dose: 40 mg Carvedilol (Coreg) 25 mg PO Q12 [facility] Last Admin: 01/31/17 08:39 Dose: 25 mg Clopidogrel Bisulfate (Plavix) 75 mg PO DAILY [facility] Last Admin: 01/31/17 08:38 Dose: 75 mg Dextrose (Dextrose 50% Inj) 0 ml IV STAT PRN; Protocol PRN Reason: Hyglycemia Protocol Dextrose (Glutose 15) 0 gm PO ONCE PRN; Protocol PRN Reason: Hypoglycemia Protocol Famotidine (Pepcid) 40 mg PO DAILY [facility] Last Admin: 01/31/17 08:38 Dose: 40 mg Fenofibrate (Tricor) 145 mg PO DAILY [facility] Last Admin: 01/31/17 08:38 Dose: 145 mg Glucagon (Glucagen Diagnostic Kit) 0 mg IM STAT PRN; Protocol PRN Reason: Hypoglycemia Protocol Hydroxyzine HCl (Atarax) 25 mg PO HS PRN PRN Reason: sleep Last Admin: 01/31/17 08:38 Dose: 25 mg Insulin Detemir (Levemir) 15 units SC HS [facility] Last Admin: 01/30/17 21:18 Dose: 15 units Insulin Human Lispro (Humalog) 0 units SC ACTID [facility] PRN Reason: Protocol Last Admin: 01/31/17 16:30 Dose: 3 units Senna/Docusate Sodium (Senokot S 50 Mg-8.6 Mg) 2 tab PO HS [facility] Last Admin: 01/30/17 21:17 Dose: 2 tab - Labs Labs: 01/31/17 08:14 - Constitutional Appears: Well, Non-toxic, No Acute Distress - Head Exam Head Exam: ATRAUMATIC, NORMOCEPHALIC - Eye Exam Eye Exam: EOMI, PERRL - ENT Exam ENT Exam: Mucous Membranes Moist - Neck Exam Neck Exam: Full ROM. absent: Lymphadenopathy - Respiratory Exam Respiratory Exam: NORMAL BREATHING PATTERN. absent: Rales, Rhonchi - Cardiovascular Exam Cardiovascular Exam: REGULAR RHYTHM, +S1, +S2 - GI/Abdominal Exam GI & Abdominal Exam: Soft. absent: Distended, Tenderness - Extremities Exam Extremities Exam: Full ROM. absent: Pedal Edema - Back Exam Back Exam: absent: CVA tenderness (L), CVA tenderness (R) - Neurological Exam Neurological Exam: Alert, Awake, CN II-XII Intact, Oriented x3 - Psychiatric Exam Psychiatric exam: Normal Affect, Normal Mood - Skin Skin Exam: Dry, Intact, Normal Color, Warm Assessment and Plan - Assessment and Plan (Free Text) Assessment: 76 yr old M admitted [facility] for PT/OT and speech therapy s/p CVA. Pt has PMHx of CAD, DM, HTN, HLD, CABG x 4(2009), AICD (2010), former smoker (quit 40yrs prior). Patient reports he is tolerating physical therapy, having good appetite, normal urine output, diplopia persists, vertigo has resolved. Patient is stable. No concerns or complaints this at this time. 1. CVA (Cerebro Vascular Event) -symptoms improving -Repeat CT head 01/25/17: no change -Continue with current management: ASA 81 mg PO QD, Plavix 75mg PO QD, Atorvastatin 40 mg PO QD -PT/OT consult appreciated: will follow recommendations -Speech therapy recommendations: Moderate consistent CHO/Heart Healthy diet + thin liquids 2. CAD (coronary artery disease) with history of CABG -hx of pacemaker placement -PPM, battery change 08/2016 -Echo LVEF 60-65%, pt is stable from cardiac point of view 3. Diabetes Mellitus Type 2 -uncontrolled POC glucose 121 mg/dL this AM -Insulin Lispro SC AC TID [facility] -Insulin Detemir 15 units [facility] -HbA1c 6.4 (01/25/17) - Hypoglycemia protocol 4. Hypertension -Chronic, controlled 131/69 mmHg this AM -continue home meds :Norvasc 10mg PO QD, Carvedilol 25mg PO BID 5. HLD (hyperlipidemia) -chronic, stable -Atorvastatin 40mg PO [facility] 6. DVT /GI prophylaxis -SCD's -Discontinued Heparin per recommendation/conversation with neuro Dr. David as patient is already on ASA and Plavix -started Pepcid 40mg PO daily <Jarret Saldana - Last Filed: 02/03/17 06:50> Objective - Vital Signs/Intake and Output Vital Signs (last 24 hours): Temp Pulse Resp BP Pulse Ox 97.7 F 74 20 134/77 98 02/02/17 20:44 02/02/17 21:06 02/02/17 20:44 02/02/17 21:06 02/02/17 20:44 - Medications Medications: Current Medications Acetaminophen (Tylenol 325mg Tab) 650 mg PO Q6 PRN PRN Reason: Headache Amlodipine Besylate (Norvasc) 10 mg PO DAILY [facility] Last Admin: 02/02/17 08:03 Dose: 10 mg Aspirin (Aspirin Chewable) 81 mg PO DAILY [facility] Last Admin: 02/02/17 08:03 Dose: 81 mg Atorvastatin Calcium (Lipitor) 40 mg PO HS [facility] Last Admin: 02/02/17 21:06 Dose: 40 mg Carvedilol (Coreg) 25 mg PO Q12 [facility] Last Admin: 02/02/17 21:06 Dose: 25 mg Clopidogrel Bisulfate (Plavix) 75 mg PO DAILY [facility] Last Admin: 02/02/17 08:03 Dose: 75 mg Dextrose (Dextrose 50% Inj) 0 ml IV STAT PRN; Protocol PRN Reason: Hyglycemia Protocol Dextrose (Glutose 15) 0 gm PO ONCE PRN; Protocol PRN Reason: Hypoglycemia Protocol Famotidine (Pepcid) 40 mg PO DAILY [facility] Fenofibrate (Tricor) 145 mg PO DAILY [facility] Last Admin: 02/02/17 08:06 Dose: 145 mg Glucagon (Glucagen Diagnostic Kit) 0 mg IM STAT PRN; Protocol PRN Reason: Hypoglycemia Protocol Hydroxyzine HCl (Atarax) 25 mg PO HS PRN PRN Reason: sleep Last Admin: 02/02/17 08:05 Dose: 25 mg Insulin Detemir (Levemir) 17 units SC HS [facility] Last Admin: 02/02/17 21:07 Dose: 17 units Insulin Human Lispro (Humalog) 0 units SC ACTID [facility] PRN Reason: Protocol Last Admin: 02/02/17 16:49 Dose: 6 units Senna/Docusate Sodium (Senokot S 50 Mg-8.6 Mg) 2 tab PO HS [facility] Last Admin: 02/02/17 21:07 Dose: 2 tab - Labs Labs: 02/01/17 06:00 Attending/Attestation - Attestation I have personally seen and examined this patient.: Yes I have fully participated in the care of the patient.: Yes I have reviewed all pertinent clinical information, including history, physical exam and plan: Yes
[2017-01-31] MEDS: Insulin Detemir 100 Units/ml Inj SC SCH (21:34)
[2017-01-31] MEDS: Docusate-Senna 50 mg-8.6 mg Tab PO SCH (21:35)
[2017-02-01] MEDS: Insulin Lispro (humaLOG) 100 Units/ml Inj SC SCH ×3 (06:54→16:30)
[2017-02-01 08:27] LABS: CALCIUM 9.7 mg/dL (8.4-10.2)
[2017-02-01] MEDS: Famotidine 40 MG/5 ML PO SCH (08:57)
[2017-02-01] MEDS: Docusate-Senna 50 mg-8.6 mg Tab PO SCH (21:02)
[2017-02-01] MEDS: Insulin Detemir 100 Units/ml Inj SC SCH (21:04)
[2017-02-02] MEDS: Insulin Lispro (humaLOG) 100 Units/ml Inj SC SCH ×3 (07:21→16:49)
--- NOTE | 2017-02-02 08:03 | CP.PCM.PN ---
Subjective - Date & Time of Evaluation Date of Evaluation: 02/02/17 Time of Evaluation: 08:50 - Subjective Subjective: Patient seen and examined at bedside, sitting in chair in no acute distress, wearing eye patch over left eye which pt reports was recommended by therapist, diplopia persists but has improved. Denies dizziness, weakness, SOB or chest pain. Normal urine output but has difficulty with bowel movements. Objective - Vital Signs/Intake and Output Vital Signs (last 24 hours): Temp Pulse Resp BP Pulse Ox 97.9 F 74 20 154/79 H 99 02/01/17 21:45 02/01/17 21:45 02/01/17 21:45 02/01/17 21:45 02/01/17 21:45 - Medications Medications: Current Medications Acetaminophen (Tylenol 325mg Tab) 650 mg PO Q6 PRN PRN Reason: Headache Amlodipine Besylate (Norvasc) 10 mg PO DAILY [facility] Last Admin: 02/01/17 10:00 Dose: 10 mg Aspirin (Aspirin Chewable) 81 mg PO DAILY [facility] Last Admin: 02/01/17 08:57 Dose: 81 mg Atorvastatin Calcium (Lipitor) 40 mg PO HS [facility] Last Admin: 02/01/17 21:02 Dose: 40 mg Carvedilol (Coreg) 25 mg PO Q12 [facility] Last Admin: 02/01/17 21:02 Dose: 25 mg Clopidogrel Bisulfate (Plavix) 75 mg PO DAILY [facility] Last Admin: 02/01/17 08:57 Dose: 75 mg Dextrose (Dextrose 50% Inj) 0 ml IV STAT PRN; Protocol PRN Reason: Hyglycemia Protocol Dextrose (Glutose 15) 0 gm PO ONCE PRN; Protocol PRN Reason: Hypoglycemia Protocol Famotidine (Pepcid) 40 mg PO DAILY [facility] Last Admin: 02/01/17 08:57 Dose: 40 mg Fenofibrate (Tricor) 145 mg PO DAILY [facility] Last Admin: 02/01/17 08:57 Dose: 145 mg Glucagon (Glucagen Diagnostic Kit) 0 mg IM STAT PRN; Protocol PRN Reason: Hypoglycemia Protocol Hydroxyzine HCl (Atarax) 25 mg PO HS PRN PRN Reason: sleep Last Admin: 01/31/17 08:38 Dose: 25 mg Insulin Detemir (Levemir) 15 units SC HS [facility] Last Admin: 02/01/17 21:04 Dose: 15 units Insulin Human Lispro (Humalog) 0 units SC ACTID [facility] PRN Reason: Protocol Last Admin: 02/02/17 07:21 Dose: 4 units Senna/Docusate Sodium (Senokot S 50 Mg-8.6 Mg) 2 tab PO HS [facility] Last Admin: 02/01/17 21:02 Dose: 2 tab - Labs Labs: 02/01/17 06:00 - Constitutional Appears: Well, No Acute Distress - Head Exam Head Exam: ATRAUMATIC, NORMOCEPHALIC - Eye Exam Eye Exam: EOMI, PERRL Additional comments: wearing patch over left eye - ENT Exam ENT Exam: Mucous Membranes Moist - Neck Exam Neck Exam: Full ROM. absent: Lymphadenopathy - Respiratory Exam Respiratory Exam: Clear to Ausculation Bilateral, NORMAL BREATHING PATTERN - Cardiovascular Exam Cardiovascular Exam: REGULAR RHYTHM, +S1, +S2 - GI/Abdominal Exam GI & Abdominal Exam: Soft, Normal Bowel Sounds. absent: Tenderness - Extremities Exam Extremities Exam: Full ROM. absent: Calf Tenderness, Pedal Edema - Back Exam Back Exam: absent: CVA tenderness (L), CVA tenderness (R) - Neurological Exam Neurological Exam: Alert, Awake, CN II-XII Intact, Oriented x3 - Psychiatric Exam Psychiatric exam: Normal Affect, Normal Mood - Skin Skin Exam: Dry, Intact, Normal Color, Warm Assessment and Plan - Assessment and Plan (Free Text) Assessment: 76 yr old M admitted to [facility] for PT/OT and speech therapy s/p CVA. Pt has PMHx of CAD, DM, HTN, HLD, CABG x 4(2009), AICD (2010), former smoker (quit 40yrs prior). Patient reports he is tolerating physical therapy, having good appetite, normal urine output, constipation, diplopia persists. Patient is stable. No concerns or complaints this at this time. 1. CVA (Cerebro Vascular Event) -symptoms improving -Repeat CT head 01/25/17: no change -Continue with current management: ASA 81 mg PO QD, Plavix 75mg PO QD, Atorvastatin 40 mg PO QD -PT/OT consult appreciated: will follow recommendations -Speech therapy recommendations: Moderate consistent CHO/Heart Healthy diet + thin liquids 2. CAD (coronary artery disease) with history of CABG -hx of pacemaker placement -PPM, battery change 08/2016 -Echo LVEF 60-65%, pt is stable from cardiac point of view 3. Diabetes Mellitus Type 2 -uncontrolled POC glucose 260 mg/dL this AM -Insulin Lispro SC AC TID [facility] -Insulin Detemir 15 units [facility] -HbA1c 6.4 (01/25/17) - Hypoglycemia protocol 4. Hypertension -Chronic, controlled 144/78 mmHg this AM -continue home meds :Norvasc 10mg PO QD, Carvedilol 25mg PO BID 5. HLD (hyperlipidemia) -chronic, stable -Atorvastatin 40mg PO HS [facility], Fenofibrate 145 mg PO daily 6. DVT /GI prophylaxis -SCD's -Discontinued Heparin per recommendation/conversation with neuro Dr. David as patient is already on ASA and Plavix -started Pepcid 40mg PO daily
[2017-02-02] MEDS: Famotidine 40 MG/5 ML PO SCH (08:07)
[2017-02-02] MEDS: Docusate-Senna 50 mg-8.6 mg Tab PO SCH (21:07)
[2017-02-02] MEDS: Insulin Detemir 100 Units/ml Inj SC SCH (21:07)
[2017-02-03] MEDS: Insulin Lispro (humaLOG) 100 Units/ml Inj SC SCH ×3 (07:29→17:29)
[2017-02-03 07:52] LABS: CALCIUM 9.6 mg/dL (8.4-10.2); POTASSIUM 4.1 MMOL/L (3.6-5.0)
--- NOTE | 2017-02-03 13:14 | CP.PCM.PN ---
<Jenn Aiken - Last Filed: 02/03/17 13:12> Subjective - Date & Time of Evaluation Date of Evaluation: 02/03/17 Time of Evaluation: 08:20 - Subjective Subjective: Patient seen and examined at bedside, sitting in chair comfortably. Denies any chest pain, weakness, headache, SOB or dizziness. Reports he had a normal bowel movement yesterday, has normal urine output. Has no other concerns or complaints at this time. Objective - Vital Signs/Intake and Output Vital Signs (last 24 hours): Temp Pulse Resp BP Pulse Ox 98.1 F 72 19 151/87 H 99 02/03/17 08:18 02/03/17 08:22 02/03/17 08:18 02/03/17 08:22 02/03/17 08:18 - Medications Medications: Current Medications Acetaminophen (Tylenol 325mg Tab) 650 mg PO Q6 PRN PRN Reason: Headache Amlodipine Besylate (Norvasc) 10 mg PO DAILY [facility] Last Admin: 02/03/17 08:20 Dose: 10 mg Aspirin (Aspirin Chewable) 81 mg PO DAILY [facility] Last Admin: 02/03/17 08:20 Dose: 81 mg Atorvastatin Calcium (Lipitor) 40 mg PO HS [facility] Last Admin: 02/02/17 21:06 Dose: 40 mg Carvedilol (Coreg) 25 mg PO Q12 [facility] Last Admin: 02/03/17 08:22 Dose: 25 mg Clopidogrel Bisulfate (Plavix) 75 mg PO DAILY [facility] Last Admin: 02/03/17 08:20 Dose: 75 mg Dextrose (Dextrose 50% Inj) 0 ml IV STAT PRN; Protocol PRN Reason: Hyglycemia Protocol Dextrose (Glutose 15) 0 gm PO ONCE PRN; Protocol PRN Reason: Hypoglycemia Protocol Famotidine (Pepcid) 40 mg PO DAILY [facility] Last Admin: 02/03/17 08:22 Dose: 40 mg Fenofibrate (Tricor) 145 mg PO DAILY [facility] Last Admin: 02/03/17 08:20 Dose: 145 mg Glucagon (Glucagen Diagnostic Kit) 0 mg IM STAT PRN; Protocol PRN Reason: Hypoglycemia Protocol Hydroxyzine HCl (Atarax) 25 mg PO HS PRN PRN Reason: sleep Last Admin: 02/02/17 08:05 Dose: 25 mg Insulin Detemir (Levemir) 17 units SC HS [facility] Last Admin: 02/02/17 21:07 Dose: 17 units Insulin Human Lispro (Humalog) 0 units SC ACTID [facility] PRN Reason: Protocol Last Admin: 02/03/17 07:29 Dose: 17 units Senna/Docusate Sodium (Senokot S 50 Mg-8.6 Mg) 2 tab PO HS [facility] Last Admin: 02/02/17 21:07 Dose: 2 tab - Labs Labs: 02/03/17 06:30 - Constitutional Appears: Well, No Acute Distress - Head Exam Head Exam: ATRAUMATIC, NORMOCEPHALIC - Eye Exam Eye Exam: EOMI, PERRL - ENT Exam ENT Exam: Mucous Membranes Moist - Neck Exam Neck Exam: Full ROM. absent: Lymphadenopathy - Respiratory Exam Respiratory Exam: Clear to Ausculation Bilateral, NORMAL BREATHING PATTERN - Cardiovascular Exam Cardiovascular Exam: REGULAR RHYTHM, +S1, +S2 - GI/Abdominal Exam GI & Abdominal Exam: Soft, Normal Bowel Sounds. absent: Tenderness - Extremities Exam Extremities Exam: Full ROM. absent: Joint Swelling, Pedal Edema - Back Exam Back Exam: absent: CVA tenderness (L), CVA tenderness (R) - Neurological Exam Neurological Exam: Alert, Awake, CN II-XII Intact, Oriented x3 - Psychiatric Exam Psychiatric exam: Normal Affect, Normal Mood - Skin Skin Exam: Dry, Intact, Normal Color, Warm Assessment and Plan - Assessment and Plan (Free Text) Assessment: 76 yr old M admitted to [facility] for PT/OT and speech therapy s/p CVA. Pt has PMHx of CAD, DM, HTN, HLD, CABG x 4(2009), AICD (2010), former smoker (quit 40yrs prior). Patient reports he is tolerating physical therapy, having good appetite, normal urine output, had bowel movement yesterday, diplopia persists but is improving with use of eye patch. Patient is stable. No concerns or complaints this at this time. Plan: 1. CVA (Cerebro Vascular Event) -symptoms improving -Repeat CT head 01/25/17: no change -Continue with current management: ASA 81 mg PO QD, Plavix 75mg PO QD, Atorvastatin 40 mg PO QD -PT/OT consult appreciated: will follow recommendations -Speech therapy recommendations: Moderate consistent CHO/Heart Healthy diet + thin liquids 2. CAD (coronary artery disease) with history of CABG -hx of pacemaker placement -PPM, battery change 08/2016 -Echo LVEF 60-65%, pt is stable from cardiac point of view 3. Diabetes Mellitus Type 2 -uncontrolled POC glucose 249 mg/dL this AM -Insulin Detemir 17 units [facility], will consider adding standing AM dose of Detemir tomorrow -Insulin Lispro SC AC TID [facility] -HbA1c 6.4 (01/25/17) - Hypoglycemia protocol 4. Hypertension -Chronic, controlled -continue home meds :Norvasc 10mg PO QD, Carvedilol 25mg PO BID 5. HLD (hyperlipidemia) -chronic, stable -Atorvastatin 40mg PO HS [facility], Fenofibrate 145 mg PO daily 6. DVT /GI prophylaxis -SCD's -Discontinued Heparin per recommendation/conversation with neuro Dr. David as patient is already on ASA and Plavix -started Pepcid 40mg PO daily <Jarret Saldana - Last Filed: 02/04/17 06:45> Objective - Vital Signs/Intake and Output Vital Signs (last 24 hours): Temp Pulse Resp BP Pulse Ox 97.9 F 73 20 148/77 98 02/03/17 20:14 02/03/17 21:08 02/03/17 20:14 02/03/17 21:08 02/03/17 20:14 - Medications Medications: Current Medications Acetaminophen (Tylenol 325mg Tab) 650 mg PO Q6 PRN PRN Reason: Headache Amlodipine Besylate (Norvasc) 10 mg PO DAILY [facility] Last Admin: 02/03/17 08:20 Dose: 10 mg Aspirin (Aspirin Chewable) 81 mg PO DAILY [facility] Last Admin: 02/03/17 08:20 Dose: 81 mg Atorvastatin Calcium (Lipitor) 40 mg PO HS [facility] Last Admin: 02/03/17 21:08 Dose: 40 mg Carvedilol (Coreg) 25 mg PO Q12 [facility] Last Admin: 02/03/17 21:08 Dose: 25 mg Clopidogrel Bisulfate (Plavix) 75 mg PO DAILY [facility] Last Admin: 02/03/17 08:20 Dose: 75 mg Dextrose (Dextrose 50% Inj) 0 ml IV STAT PRN; Protocol PRN Reason: Hyglycemia Protocol Dextrose (Glutose 15) 0 gm PO ONCE PRN; Protocol PRN Reason: Hypoglycemia Protocol Docusate Sodium (Colace) 100 mg PO BID [facility] Last Admin: 02/03/17 17:26 Dose: 100 mg Famotidine (Pepcid) 40 mg PO DAILY [facility] Last Admin: 02/03/17 08:22 Dose: 40 mg Fenofibrate (Tricor) 145 mg PO DAILY [facility] Last Admin: 02/03/17 08:20 Dose: 145 mg Glucagon (Glucagen Diagnostic Kit) 0 mg IM STAT PRN; Protocol PRN Reason: Hypoglycemia Protocol Hydroxyzine HCl (Atarax) 25 mg PO HS PRN PRN Reason: sleep Last Admin: 02/02/17 08:05 Dose: 25 mg Insulin Detemir (Levemir) 17 units SC HS [facility] Last Admin: 02/03/17 21:08 Dose: 17 units Insulin Human Lispro (Humalog) 0 units SC ACTID [facility] PRN Reason: Protocol Last Admin: 02/03/17 17:29 Dose: 8 units Saccharomyces Boulardii (Florastor) 250 mg PO BID [facility] Last Admin: 02/03/17 17:26 Dose: 250 mg - Labs Labs: 02/03/17 06:30 Attending/Attestation - Attestation I have personally seen and examined this patient.: Yes I have fully participated in the care of the patient.: Yes I have reviewed all pertinent clinical information, including history, physical exam and plan: Yes
[2017-02-03] MEDS: Saccharomyces Boulardi 250 mg Cap PO SCH (17:26)
--- NOTE | 2017-02-03 18:49 | CP.PCM.PN ---
Subjective - Date & Time of Evaluation Date of Evaluation: 02/03/17 Time of Evaluation: 18:48 - Subjective Subjective: Patient seen in room doing well no more hiccups no need for further acupuncture improving double vision as well continue current care team conf tomorrow Objective - Vital Signs/Intake and Output Vital Signs (last 24 hours): Temp Pulse Resp BP Pulse Ox 98.1 F 72 19 151/87 H 99 02/03/17 08:18 02/03/17 08:22 02/03/17 08:18 02/03/17 08:22 02/03/17 08:18 - Medications Medications: Current Medications Acetaminophen (Tylenol 325mg Tab) 650 mg PO Q6 PRN PRN Reason: Headache Amlodipine Besylate (Norvasc) 10 mg PO DAILY [facility] Last Admin: 02/03/17 08:20 Dose: 10 mg Aspirin (Aspirin Chewable) 81 mg PO DAILY [facility] Last Admin: 02/03/17 08:20 Dose: 81 mg Atorvastatin Calcium (Lipitor) 40 mg PO HS [facility] Last Admin: 02/02/17 21:06 Dose: 40 mg Carvedilol (Coreg) 25 mg PO Q12 [facility] Last Admin: 02/03/17 08:22 Dose: 25 mg Clopidogrel Bisulfate (Plavix) 75 mg PO DAILY [facility] Last Admin: 02/03/17 08:20 Dose: 75 mg Dextrose (Dextrose 50% Inj) 0 ml IV STAT PRN; Protocol PRN Reason: Hyglycemia Protocol Dextrose (Glutose 15) 0 gm PO ONCE PRN; Protocol PRN Reason: Hypoglycemia Protocol Docusate Sodium (Colace) 100 mg PO BID [facility] Last Admin: 02/03/17 17:26 Dose: 100 mg Famotidine (Pepcid) 40 mg PO DAILY [facility] Last Admin: 02/03/17 08:22 Dose: 40 mg Fenofibrate (Tricor) 145 mg PO DAILY [facility] Last Admin: 02/03/17 08:20 Dose: 145 mg Glucagon (Glucagen Diagnostic Kit) 0 mg IM STAT PRN; Protocol PRN Reason: Hypoglycemia Protocol Hydroxyzine HCl (Atarax) 25 mg PO HS PRN PRN Reason: sleep Last Admin: 02/02/17 08:05 Dose: 25 mg Insulin Detemir (Levemir) 17 units SC HS [facility] Last Admin: 02/02/17 21:07 Dose: 17 units Insulin Human Lispro (Humalog) 0 units SC ACTID [facility] PRN Reason: Protocol Last Admin: 02/03/17 17:29 Dose: 8 units Saccharomyces Boulardii (Florastor) 250 mg PO BID [facility] Last Admin: 02/03/17 17:26 Dose: 250 mg - Labs Labs: 02/03/17 06:30
[2017-02-03] MEDS: Insulin Detemir 100 Units/ml Inj SC SCH (21:08)
[2017-02-04 06:58] LABS: CALCIUM 9.3 mg/dL (8.4-10.2)
[2017-02-04] MEDS: Insulin Lispro (humaLOG) 100 Units/ml Inj SC SCH ×3 (07:07→16:52)
[2017-02-04] MEDS: Saccharomyces Boulardi 250 mg Cap PO SCH ×2 (08:08→16:52)
--- NOTE | 2017-02-04 13:32 | PSY.TMCNF ---
Nursing - Vital Signs Vital Signs (Last 8 hours): Vital Signs 02/04/17 02/04/17 02/04/17 08:00 08:07 09:00 Temperature 97.9 F 97.9 F Pulse Rate 67 67 67 Respiratory 20 20 Rate Blood Pressure 138/80 138/80 138/80 O2 Sat by Pulse 97 Oximetry 02/04/17 02/04/17 09:21 09:24 Temperature 97.9 F Pulse Rate 66 Respiratory Rate Blood Pressure 136/80 O2 Sat by Pulse Oximetry Pain: 0 - Precautions: Precautions: Fall Prevention - Medications/Other Issues Comment: still with double vision on eye patch alternately prn with occasional headache on tylenol prn with good effect c/o of lot of gas started on new meds florastor - Consults Comment: Dr Lundy - Toileting Toileting: Moderate Assistance - Bladder Management Bladder Pattern: Normal Voiding Method: Urinal Bladder Management: Supervision - Bowel Management Bowel Pattern: Constipated Bowel Management: Moderate Assistance - Transfers Transfers: Minimal Assistance - ADL's ADL's: Moderate Assistance - Pain Management Comments: on tylenol for headache - Patient/Family Teaching Comments: post cva care, safety ,fall precaution - Goals/Time Frame Comments: As per multidiciplinary plan of care Physical Therapy - Bed Mobility Bed Mobility: Supervision, Verbal Cues, Contact Guard - Transfers Wheelchair to Mat: Verbal Cues, Contact Guard, Minimal Assistance Sit to Stand: Verbal Cues, Contact Guard - Ambulation Level of Assistance: Verbal Cues, Contact Guard, Minimal Assistance, Moderate Assistance Distance (ft.): 50 Assistive Devices: Rolling Walker Orthoses: TAP splint Comment: -40 feet with RW. -x 1 trial without TAP splint to LLE. -x 3 trials with TAP splint on LLE. -->with use of splint patient able to demonstrates increased coordination and control and able to have progressions of gait which much improved fluidity up to 6-8 feet. -continued cues for rightwards leaning and improved base of support with LLE: patient with improving insight requiring reduced cues as he states to therapist "I have to tell my body what to do". - assistance required fluctuates pending fatigue and ability to utilize compensatory strategies. -WC follow with rest breaks between trials - Stair Negotiation Stairs: Level of Assistance: Not Tested - Standing Balance Static Stand: Minimal Assistance Dynamic Stand: Moderate Assistance - Pain Management Techniques: Medication - Insight/Carryover Insight/Carryover: Good - Patient/Family Education Comment: Patient has been educated about adaptive equipment, durable medical equipment, safety, use of call cárdenas, use of eye patch, vision, OT goals and plan of care. Patient expressed understanding. - Assessment/Plan Assessment: Pt is agreeable to participate in recreation therapy sessions. Pt has participated in visual scanning leisure tasks task such as spot it, dominoes , and will continue to be oriented to other leisure tasks beneficial to pt's deficits. Pt has demonstrated improvement in direction following, attention to task, arousal level, and visual scanning. Pt's mood continues to be stable- positive and will continue to benefit from participating in recreation therapy sessions. - Goals Timeframe: 2 weeks Goals: Modified independent with functional transfers, wheelchair level. Modified independent with ADLs - Provider License Number: [id number] Occupational Therapy - Arousal/Attention/Orientation Level of Consciousness: Awake, Alert Patient Orientation: Person, Place, Time, Appropriate to Age, Appropriate to Situation - ADL/IADL Self Feeding: Independent, Set-up Help Grooming: Independent, Set-up Help Dressing-Upper Extremity: Supervision, Set-up Help Dressing-Lower Extremity: Moderate Assistance - Sitting Balance Static Sitting: Supervision Dynamic Sitting: Reaches across midline, Requires supervision - Transfers Wheelchair to Bed Transfers: Minimal Assistance Toilet Transfers: Minimal Assistance - Wheelchair Management Level of Assistance: Supervision - Upper Extremity Status Right Upper Extremity Comment: ROM = WFL Left Upper Extremity Comment: ROM = WFL - Pain Alleviating Techniques: Medication - Insight/Carryover Insight/Carryover: Good - Patient/Family Education Comment: Patient has been educated about adaptive equipment, durable medical equipment, safety, use of call cárdenas, use of eye patch, vision, OT goals and plan of care. Patient expressed understanding. - Assessment/Plan Assessment: Pt is agreeable to participate in recreation therapy sessions. Pt has participated in visual scanning leisure tasks task such as spot it, dominoes , and will continue to be oriented to other leisure tasks beneficial to pt's deficits. Pt has demonstrated improvement in direction following, attention to task, arousal level, and visual scanning. Pt's mood continues to be stable- positive and will continue to benefit from participating in recreation therapy sessions. - Goals Timeframe: 2 weeks Goals: Modified independent with functional transfers, wheelchair level. Modified independent with ADLs - Provider Therapist: Janey Poewrs, MS, OTR/L Speech Therapy - Plan Assessment: Pt is agreeable to participate in recreation therapy sessions. Pt has participated in visual scanning leisure tasks task such as spot it, dominoes , and will continue to be oriented to other leisure tasks beneficial to pt's deficits. Pt has demonstrated improvement in direction following, attention to task, arousal level, and visual scanning. Pt's mood continues to be stable- positive and will continue to benefit from participating in recreation therapy sessions. Recreational Therapy - Participation Participation: Participates in Individual and/or Group Sessions - Attendance Attendance: 3-5 times per week - Activities Leisure Activities: Cards and Games - Socialization Level of Socialization: Initiates/interacts freely with care givers and peer - Diversional Time Diversional Time: television, music - Assessment Assessment/Plan: Pt is agreeable to participate in recreation therapy sessions. Pt has participated in visual scanning leisure tasks task such as spot it, dominoes, and will continue to be oriented to other leisure tasks beneficial to pt's deficits. Pt has demonstrated improvement in direction following, attention to task, arousal level, and visual scanning. Pt's mood continues to be stable-positive and will continue to benefit from participating in recreation therapy sessions. Problems Currently Limiting Participation: weakness, dizziness, double vision Goals and Time Frame: Pt will be encouraged to participate in 1:1 and group recreation therapy sessions 3-5x week to improve leisure awareness level, improve visual scanning on both sides if double vision decreases, improve direction following, and provide leisure education. - Provider Therapist: Beryl Olmedo, [employer] #[id number] Nutrition - Current Diet Current Diet/ Supplement/ Feedings: Heart healthy moderate consistent CHO diet thin liquids - Appetite Percent Meal Consumed: 75-100% - Comments Comments: post cva care, safety ,fall precaution - Assessment/Goals/Time Frame Assessment/Goals/Time Frame: still with double vision on eye patch alternately prn with occasional headache on tylenol prn with good effect c/o of lot of gas started on new meds florastor - Provider Provider: Frenanda Jaffe, RD Case Management - Psychosocial Assessment Support Systems: Patient lives with and served as primary caregiver for spouse Psychological Interventions/Needs: Patient is alert and oriented x3 and is able to verbalize needs. Discharge Concerns: Patient with c/o of double vision, patient with limited support during the day Patient/Family Meeting: CM met with patient and rehab team Intervention/Goal/Outcome:: 1. Goal: Intermittent supervision overall. 2. Plan: Home with skilled vs [facility] dependant on progress. 3. DME needs. 4. f/u appts. 5. continued emotional support. 6. patient to be reteamed next week for most appropriate discharge date and plan - Provider Provider: AUGUSTINA Tate, RECEIVING CLERK License Number: [id number] Rehabilitation Plan - Treatment Plan Treatment Plan: Physical Therapy, Occupational Therapy, Dietary, Pain Management , Patient/Family Education - Discharge Plan Estimated Date of Discharge: 02/15/17 Discharge to: Subacute
--- NOTE | 2017-02-04 14:27 | CP.PCM.PN ---
<Jenn Aiken - Last Filed: 02/04/17 22:18> Subjective - Date & Time of Evaluation Date of Evaluation: 02/04/17 Time of Evaluation: 07:15 - Subjective Subjective: Patient seen and examined at bedside, laying in bed, in no acute distress. Denies SOB, chest pain, weakness or dizziness. Reports he is tolerating PT, has good appetite, normal urine output and bowel movement last night. No concerns or complaints at this time. Objective - Vital Signs/Intake and Output Vital Signs (last 24 hours): Temp Pulse Resp BP Pulse Ox 97.9 F 66 20 136/80 97 02/04/17 09:24 02/04/17 09:21 02/04/17 09:00 02/04/17 09:21 02/04/17 08:00 - Medications Medications: Current Medications Acetaminophen (Tylenol 325mg Tab) 650 mg PO Q6 PRN PRN Reason: Headache Last Admin: 02/04/17 09:24 Dose: 650 mg Amlodipine Besylate (Norvasc) 10 mg PO DAILY [facility] Last Admin: 02/04/17 09:21 Dose: 10 mg Aspirin (Aspirin Chewable) 81 mg PO DAILY [facility] Last Admin: 02/04/17 08:07 Dose: 81 mg Atorvastatin Calcium (Lipitor) 40 mg PO HS [facility] Last Admin: 02/03/17 21:08 Dose: 40 mg Carvedilol (Coreg) 25 mg PO Q12 [facility] Last Admin: 02/04/17 08:07 Dose: 25 mg Clopidogrel Bisulfate (Plavix) 75 mg PO DAILY [facility] Last Admin: 02/04/17 08:09 Dose: 75 mg Dextrose (Dextrose 50% Inj) 0 ml IV STAT PRN; Protocol PRN Reason: Hyglycemia Protocol Dextrose (Glutose 15) 0 gm PO ONCE PRN; Protocol PRN Reason: Hypoglycemia Protocol Docusate Sodium (Colace) 100 mg PO BID [facility] Last Admin: 02/04/17 08:07 Dose: Not Given Famotidine (Pepcid) 40 mg PO DAILY [facility] Last Admin: 02/04/17 08:09 Dose: 40 mg Fenofibrate (Tricor) 145 mg PO DAILY [facility] Last Admin: 02/04/17 08:09 Dose: 145 mg Glucagon (Glucagen Diagnostic Kit) 0 mg IM STAT PRN; Protocol PRN Reason: Hypoglycemia Protocol Hydroxyzine HCl (Atarax) 25 mg PO HS PRN PRN Reason: sleep Last Admin: 02/02/17 08:05 Dose: 25 mg Insulin Detemir (Levemir) 17 units SC HS [facility] Last Admin: 02/03/17 21:08 Dose: 17 units Insulin Detemir (Levemir) 10 units SC QAM [facility] Insulin Human Lispro (Humalog) 0 units SC ACTID [facility] PRN Reason: Protocol Last Admin: 02/04/17 12:18 Dose: 6 units Metformin HCl (Glucophage) 500 mg PO BIDWM [facility] Saccharomyces Boulardii (Florastor) 250 mg PO BID [facility] Last Admin: 02/04/17 08:08 Dose: 250 mg - Labs Labs: 02/04/17 05:20 - Constitutional Appears: Well, No Acute Distress - Head Exam Head Exam: ATRAUMATIC, NORMOCEPHALIC - Eye Exam Eye Exam: EOMI, PERRL - ENT Exam ENT Exam: Mucous Membranes Moist - Respiratory Exam Respiratory Exam: Clear to Ausculation Bilateral, NORMAL BREATHING PATTERN - Cardiovascular Exam Cardiovascular Exam: REGULAR RHYTHM, +S1, +S2 - GI/Abdominal Exam GI & Abdominal Exam: Soft, Normal Bowel Sounds. absent: Tenderness - Extremities Exam Extremities Exam: Full ROM. absent: Pedal Edema - Back Exam Back Exam: absent: CVA tenderness (L), CVA tenderness (R) - Neurological Exam Neurological Exam: Alert, Awake, CN II-XII Intact, Oriented x3 - Psychiatric Exam Psychiatric exam: Normal Affect, Normal Mood Assessment and Plan - Assessment and Plan (Free Text) Assessment: 76 yr old M admitted [facility] for PT/OT and speech therapy s/p CVA. Pt has PMHx of CAD, DM, HTN, HLD, CABG x 4(2009), AICD (2011), former smoker (quit 40yrs prior). Patient reports he is tolerating physical therapy, having good appetite, normal urine output, had bowel movement last night, has further improvement of diplopia, is using eye patch. Patient is stable. Counseled patient on diabetic diet as his POC glucose has been uncontrolled and he was eating a donut today brought in by family members. No concerns or complaints this at this time. Plan: 1. CVA (Cerebro Vascular Event) -symptoms improving -Repeat CT head 01/25/17: no change -Continue with current management: ASA 81 mg PO QD, Plavix 75mg PO QD, Atorvastatin 40 mg PO QD -PT/OT consult appreciated: will follow recommendations -Speech therapy recommendations: Moderate consistent CHO/Heart Healthy diet + thin liquids 2. CAD (coronary artery disease) with history of CABG -hx of pacemaker placement -PPM, battery change 08/2016 -Echo LVEF 60-65%, pt is stable from cardiac point of view 3. Diabetes Mellitus Type 2 -uncontrolled POC glucose 249 mg/dL this AM -start Insulin Detemir 10 units SC QAM -start Metformin 500mg PO BID -Insulin Detemir 17 units SCHS -Insulin Lispro SC AC TID [facility] -HbA1c 6.4 (01/25/17) - Hypoglycemia protocol 4. Hypertension -Chronic, controlled -continue home meds :Norvasc 10mg PO QD, Carvedilol 25mg PO BID 5. HLD (hyperlipidemia) -chronic, stable -Atorvastatin 40mg PO HS [facility], Fenofibrate 145 mg PO daily 6. DVT /GI prophylaxis -SCD's -Discontinued Heparin per recommendation/conversation with neuro Dr. David as patient is already on ASA and Plavix -started Pepcid 40mg PO daily <aJrret Saldana - Last Filed: 02/06/17 06:47> Objective - Vital Signs/Intake and Output Vital Signs (last 24 hours): Temp Pulse Resp BP Pulse Ox 98.2 F 66 20 144/73 96 02/05/17 20:21 02/05/17 20:22 02/05/17 20:21 02/05/17 20:22 02/05/17 20:21 - Medications Medications: Current Medications Acetaminophen (Tylenol 325mg Tab) 650 mg PO Q6 PRN PRN Reason: Headache Last Admin: 02/04/17 09:24 Dose: 650 mg Amlodipine Besylate (Norvasc) 10 mg PO DAILY [facility] Last Admin: 02/05/17 08:16 Dose: 10 mg Aspirin (Aspirin Chewable) 81 mg PO DAILY [facility] Last Admin: 02/05/17 08:15 Dose: 81 mg Atorvastatin Calcium (Lipitor) 40 mg PO HS [facility] Last Admin: 02/05/17 21:18 Dose: Not Given Carvedilol (Coreg) 25 mg PO Q12 [facility] Last Admin: 02/05/17 20:22 Dose: 25 mg Clopidogrel Bisulfate (Plavix) 75 mg PO DAILY [facility] Last Admin: 02/05/17 08:15 Dose: 75 mg Dextrose (Dextrose 50% Inj) 0 ml IV STAT PRN; Protocol PRN Reason: Hyglycemia Protocol Dextrose (Glutose 15) 0 gm PO ONCE PRN; Protocol PRN Reason: Hypoglycemia Protocol Docusate Sodium (Colace) 100 mg PO BID [facility] Last Admin: 02/05/17 16:57 Dose: 100 mg Famotidine (Pepcid) 40 mg PO DAILY [facility] Last Admin: 02/05/17 08:17 Dose: 40 mg Fenofibrate (Tricor) 145 mg PO DAILY [facility] Last Admin: 02/05/17 08:16 Dose: 145 mg Glucagon (Glucagen Diagnostic Kit) 0 mg IM STAT PRN; Protocol PRN Reason: Hypoglycemia Protocol Hydroxyzine HCl (Atarax) 25 mg PO HS PRN PRN Reason: sleep Last Admin: 02/02/17 08:05 Dose: 25 mg Insulin Detemir (Levemir) 20 units SC HS [facility] Last Admin: 02/05/17 21:54 Dose: 20 units Insulin Detemir (Levemir) 15 units SC QAM [facility] Insulin Human Lispro (Humalog) 0 units SC ACTID [facility] PRN Reason: Protocol Last Admin: 02/05/17 16:56 Dose: 3 units Saccharomyces Boulardii (Florastor) 250 mg PO BID [facility] Last Admin: 02/05/17 16:57 Dose: 250 mg - Labs Labs: 02/04/17 05:20 Attending/Attestation - Attestation I have personally seen and examined this patient.: Yes I have fully participated in the care of the patient.: Yes I have reviewed all pertinent clinical information, including history, physical exam and plan: Yes
[2017-02-04] MEDS: Insulin Detemir 100 Units/ml Inj SC SCH (21:20)
[2017-02-05] MEDS: Insulin Lispro (humaLOG) 100 Units/ml Inj SC SCH ×3 (07:18→16:56)
[2017-02-05] MEDS: Saccharomyces Boulardi 250 mg Cap PO SCH ×2 (08:15→16:57)
[2017-02-05] MEDS ORDERED: Insulin Detemir 100 Units/ml Inj SC SCH (09:00)
--- NOTE | 2017-02-05 11:50 | CP.PCM.PN ---
Subjective - Date & Time of Evaluation Date of Evaluation: 02/04/17 Time of Evaluation: 12:00 - Subjective Subjective: Patient seen in room with family present he is making gains, but still not safe for anything other than 24 hour supervision he understands and given that his also has a shoulder fracture and is in the hospital we will be planning for TALIB unless there is some dramatic recovery He continues to improve and is an excellent rehab candidate still Objective - Vital Signs/Intake and Output Vital Signs (last 24 hours): Temp Pulse Resp BP Pulse Ox 98.0 F 67 22 139/81 98 02/05/17 07:56 02/05/17 08:16 02/05/17 07:56 02/05/17 08:16 02/05/17 07:56 - Medications Medications: Current Medications Acetaminophen (Tylenol 325mg Tab) 650 mg PO Q6 PRN PRN Reason: Headache Last Admin: 02/04/17 09:24 Dose: 650 mg Amlodipine Besylate (Norvasc) 10 mg PO DAILY [facility] Last Admin: 02/05/17 08:16 Dose: 10 mg Aspirin (Aspirin Chewable) 81 mg PO DAILY [facility] Last Admin: 02/05/17 08:15 Dose: 81 mg Atorvastatin Calcium (Lipitor) 40 mg PO HS [facility] Last Admin: 02/04/17 21:19 Dose: 40 mg Carvedilol (Coreg) 25 mg PO Q12 [facility] Last Admin: 02/05/17 08:14 Dose: 25 mg Clopidogrel Bisulfate (Plavix) 75 mg PO DAILY [facility] Last Admin: 02/05/17 08:15 Dose: 75 mg Dextrose (Dextrose 50% Inj) 0 ml IV STAT PRN; Protocol PRN Reason: Hyglycemia Protocol Dextrose (Glutose 15) 0 gm PO ONCE PRN; Protocol PRN Reason: Hypoglycemia Protocol Docusate Sodium (Colace) 100 mg PO BID [facility] Last Admin: 02/05/17 08:16 Dose: 100 mg Famotidine (Pepcid) 40 mg PO DAILY [facility] Last Admin: 02/05/17 08:17 Dose: 40 mg Fenofibrate (Tricor) 145 mg PO DAILY [facility] Last Admin: 02/05/17 08:16 Dose: 145 mg Glucagon (Glucagen Diagnostic Kit) 0 mg IM STAT PRN; Protocol PRN Reason: Hypoglycemia Protocol Hydroxyzine HCl (Atarax) 25 mg PO HS PRN PRN Reason: sleep Last Admin: 02/02/17 08:05 Dose: 25 mg Insulin Detemir (Levemir) 17 units SC HS [facility] Last Admin: 02/04/17 21:20 Dose: 17 units Insulin Detemir (Levemir) 10 units SC QAM [facility] Last Admin: 02/05/17 08:17 Dose: 10 units Insulin Human Lispro (Humalog) 0 units SC ACTID [facility] PRN Reason: Protocol Last Admin: 02/05/17 07:18 Dose: 4 units Saccharomyces Boulardii (Florastor) 250 mg PO BID [facility] Last Admin: 02/05/17 08:15 Dose: 250 mg - Labs Labs: 02/04/17 05:20
--- NOTE | 2017-02-05 13:31 | CP.PCM.PN ---
Subjective - Date & Time of Evaluation Date of Evaluation: 02/05/17 Time of Evaluation: 10:00 - Subjective Subjective: patient with no acute neck or back pain Objective - Vital Signs/Intake and Output Vital Signs (last 24 hours): Temp Pulse Resp BP Pulse Ox 98.0 F 67 22 139/81 98 02/05/17 07:56 02/05/17 08:16 02/05/17 07:56 02/05/17 08:16 02/05/17 07:56 - Medications Medications: Current Medications Acetaminophen (Tylenol 325mg Tab) 650 mg PO Q6 PRN PRN Reason: Headache Last Admin: 02/04/17 09:24 Dose: 650 mg Amlodipine Besylate (Norvasc) 10 mg PO DAILY [facility] Last Admin: 02/05/17 08:16 Dose: 10 mg Aspirin (Aspirin Chewable) 81 mg PO DAILY [facility] Last Admin: 02/05/17 08:15 Dose: 81 mg Atorvastatin Calcium (Lipitor) 40 mg PO HS [facility] Last Admin: 02/04/17 21:19 Dose: 40 mg Carvedilol (Coreg) 25 mg PO Q12 [facility] Last Admin: 02/05/17 08:14 Dose: 25 mg Clopidogrel Bisulfate (Plavix) 75 mg PO DAILY [facility] Last Admin: 02/05/17 08:15 Dose: 75 mg Dextrose (Dextrose 50% Inj) 0 ml IV STAT PRN; Protocol PRN Reason: Hyglycemia Protocol Dextrose (Glutose 15) 0 gm PO ONCE PRN; Protocol PRN Reason: Hypoglycemia Protocol Docusate Sodium (Colace) 100 mg PO BID [facility] Last Admin: 02/05/17 08:16 Dose: 100 mg Famotidine (Pepcid) 40 mg PO DAILY [facility] Last Admin: 02/05/17 08:17 Dose: 40 mg Fenofibrate (Tricor) 145 mg PO DAILY [facility] Last Admin: 02/05/17 08:16 Dose: 145 mg Glucagon (Glucagen Diagnostic Kit) 0 mg IM STAT PRN; Protocol PRN Reason: Hypoglycemia Protocol Hydroxyzine HCl (Atarax) 25 mg PO HS PRN PRN Reason: sleep Last Admin: 02/02/17 08:05 Dose: 25 mg Insulin Detemir (Levemir) 17 units SC HS [facility] Last Admin: 02/04/17 21:20 Dose: 17 units Insulin Detemir (Levemir) 10 units SC QAM [facility] Last Admin: 02/05/17 08:17 Dose: 10 units Insulin Human Lispro (Humalog) 0 units SC ACTID [facility] PRN Reason: Protocol Last Admin: 02/05/17 12:18 Dose: 6 units Saccharomyces Boulardii (Florastor) 250 mg PO BID [facility] Last Admin: 02/05/17 08:15 Dose: 250 mg - Labs Labs: 02/04/17 05:20 - Head Exam Head Exam: ATRAUMATIC, NORMAL INSPECTION, NORMOCEPHALIC - Eye Exam Eye Exam: EOMI, Normal appearance, PERRL Pupil Exam: NORMAL ACCOMODATION - ENT Exam ENT Exam: Mucous Membranes Moist, Normal Exam - Respiratory Exam Respiratory Exam: NORMAL BREATHING PATTERN - Cardiovascular Exam Cardiovascular Exam: REGULAR RHYTHM - GI/Abdominal Exam GI & Abdominal Exam: Normal Bowel Sounds - Rectal Exam Rectal Exam: NORMAL INSPECTION - Exam External exam: NORMAL EXTERNAL EXAM - Extremities Exam Extremities Exam: Normal Capillary Refill, Normal Inspection - Back Exam Back Exam: NORMAL INSPECTION - Neurological Exam Neurological Exam: Alert, Awake Neuro motor strength exam: Left Upper Extremity: 3, Right Upper Extremity: 3, Left Lower Extremity: 3, Right Lower Extremity: 3 - Psychiatric Exam Psychiatric exam: Normal Affect, Normal Mood - Skin Skin Exam: Dry, Normal Color Assessment and Plan (1) CVA (cerebral vascular accident) Assessment & Plan: plan for physical, occupational, and rec therapy Status: Acute (2) DVT prophylaxis Status: Acute (3) CAD (coronary artery disease) of artery bypass graft Status: Chronic (4) Diabetes Status: Chronic (5) HLD (hyperlipidemia) Status: Chronic (6) Hypertension Status: Chronic
--- NOTE | 2017-02-05 14:39 | CP.PCM.PN ---
<Jenn Aiken - Last Filed: 02/05/17 17:31> Subjective - Date & Time of Evaluation Date of Evaluation: 02/05/17 Time of Evaluation: 07:10 - Subjective Subjective: Patient seen and examined at bedside, sitting in wheelchair in no acute distress. Patient reports he refused the metformin because he does not take that medication at home and doesn't want it here, states he would like to take his home meds. Otherwise pt was doing crossword puzzle with no difficulty, reports mild improvement in diplopia. Had a bowel movement last night, has normal urine output and good appetite. He has no other concerns or complaints at this time. Objective - Vital Signs/Intake and Output Vital Signs (last 24 hours): Temp Pulse Resp BP Pulse Ox 98.0 F 67 22 139/81 98 02/05/17 07:56 02/05/17 08:16 02/05/17 07:56 02/05/17 08:16 02/05/17 07:56 - Medications Medications: Current Medications Acetaminophen (Tylenol 325mg Tab) 650 mg PO Q6 PRN PRN Reason: Headache Last Admin: 02/04/17 09:24 Dose: 650 mg Amlodipine Besylate (Norvasc) 10 mg PO DAILY [facility] Last Admin: 02/05/17 08:16 Dose: 10 mg Aspirin (Aspirin Chewable) 81 mg PO DAILY [facility] Last Admin: 02/05/17 08:15 Dose: 81 mg Atorvastatin Calcium (Lipitor) 40 mg PO HS [facility] Last Admin: 02/04/17 21:19 Dose: 40 mg Carvedilol (Coreg) 25 mg PO Q12 [facility] Last Admin: 02/05/17 08:14 Dose: 25 mg Clopidogrel Bisulfate (Plavix) 75 mg PO DAILY [facility] Last Admin: 02/05/17 08:15 Dose: 75 mg Dextrose (Dextrose 50% Inj) 0 ml IV STAT PRN; Protocol PRN Reason: Hyglycemia Protocol Dextrose (Glutose 15) 0 gm PO ONCE PRN; Protocol PRN Reason: Hypoglycemia Protocol Docusate Sodium (Colace) 100 mg PO BID [facility] Last Admin: 02/05/17 08:16 Dose: 100 mg Famotidine (Pepcid) 40 mg PO DAILY [facility] Last Admin: 02/05/17 08:17 Dose: 40 mg Fenofibrate (Tricor) 145 mg PO DAILY [facility] Last Admin: 02/05/17 08:16 Dose: 145 mg Glucagon (Glucagen Diagnostic Kit) 0 mg IM STAT PRN; Protocol PRN Reason: Hypoglycemia Protocol Hydroxyzine HCl (Atarax) 25 mg PO HS PRN PRN Reason: sleep Last Admin: 02/02/17 08:05 Dose: 25 mg Insulin Detemir (Levemir) 17 units SC HS [facility] Last Admin: 02/04/17 21:20 Dose: 17 units Insulin Detemir (Levemir) 10 units SC QAM [facility] Last Admin: 02/05/17 08:17 Dose: 10 units Insulin Human Lispro (Humalog) 0 units SC ACTID [facility] PRN Reason: Protocol Last Admin: 02/05/17 12:18 Dose: 6 units Saccharomyces Boulardii (Florastor) 250 mg PO BID [facility] Last Admin: 02/05/17 08:15 Dose: 250 mg - Labs Labs: 02/04/17 05:20 - Constitutional Appears: Well, No Acute Distress - Head Exam Head Exam: ATRAUMATIC, NORMOCEPHALIC - Eye Exam Eye Exam: EOMI, PERRL - ENT Exam ENT Exam: Mucous Membranes Moist - Neck Exam Neck Exam: Full ROM. absent: Lymphadenopathy - Respiratory Exam Respiratory Exam: Clear to Ausculation Bilateral, NORMAL BREATHING PATTERN - Cardiovascular Exam Cardiovascular Exam: REGULAR RHYTHM, +S1, +S2 - GI/Abdominal Exam GI & Abdominal Exam: Soft (obese), Normal Bowel Sounds. absent: Distended, Tenderness - Extremities Exam Extremities Exam: Full ROM. absent: Pedal Edema - Back Exam Back Exam: absent: CVA tenderness (L), CVA tenderness (R) - Neurological Exam Neurological Exam: Alert, Awake, CN II-XII Intact, Oriented x3 - Psychiatric Exam Psychiatric exam: Normal Affect, Normal Mood - Skin Skin Exam: Dry, Normal Color, Warm Assessment and Plan - Assessment and Plan (Free Text) Assessment: 76 yr old M admitted to [facility] for PT/OT and speech therapy s/p CVA. Pt has PMHx of CAD, DM, HTN, HLD, CABG x 4(2009), AICD (2011), former smoker (quit 40yrs prior). Patient reports he is tolerating physical therapy, having good appetite, normal urine output, had bowel movement last night, has further improvement of diplopia, is using eye patch. Patient is stable. Counseled patient on diabetic diet as his POC glucose has been uncontrolled and he drank peach ice tea brought in by family members. No concerns or complaints this at this time. Plan: 1. CVA (Cerebro Vascular Event) -symptoms improving -Repeat CT head 01/25/17: no change -Continue with current management: ASA 81 mg PO QD, Plavix 75mg PO QD, Atorvastatin 40 mg PO QD -PT/OT consult appreciated: will follow recommendations -Speech therapy recommendations: Moderate consistent CHO/Heart Healthy diet + thin liquids 2. CAD (coronary artery disease) with history of CABG -hx of pacemaker placement -PPM, battery change 08/2016 -Echo LVEF 60-65%, pt is stable from cardiac point of view 3. Diabetes Mellitus Type 2 -uncontrolled POC glucose 253 mg/dL this AM -Insulin Detemir 15units SC QAM -Insulin Detemir 20 units SCHS -Insulin Lispro SC AC TID -discontinued Metformin 500mg PO BID, pt refused medication -HbA1c 6.4 (01/25/17) - Hypoglycemia protocol 4. Hypertension -Chronic, controlled -continue home meds :Norvasc 10mg PO QD, Carvedilol 25mg PO BID 5. HLD (hyperlipidemia) -chronic, stable -Atorvastatin 40mg PO HS [facility], Fenofibrate 145 mg PO daily 6. DVT /GI prophylaxis -SCD's -Discontinued Heparin per recommendation/conversation with neuro Dr. David as patient is already on ASA and Plavix -started Pepcid 40mg PO daily, Sacchromyces boulardi 250mg PO BID <Jarret Saldana - Last Filed: 02/06/17 06:48> Objective - Vital Signs/Intake and Output Vital Signs (last 24 hours): Temp Pulse Resp BP Pulse Ox 98.2 F 66 20 144/73 96 02/05/17 20:21 02/05/17 20:22 02/05/17 20:21 02/05/17 20:22 02/05/17 20:21 - Medications Medications: Current Medications Acetaminophen (Tylenol 325mg Tab) 650 mg PO Q6 PRN PRN Reason: Headache Last Admin: 02/04/17 09:24 Dose: 650 mg Amlodipine Besylate (Norvasc) 10 mg PO DAILY [facility] Last Admin: 02/05/17 08:16 Dose: 10 mg Aspirin (Aspirin Chewable) 81 mg PO DAILY [facility] Last Admin: 02/05/17 08:15 Dose: 81 mg Atorvastatin Calcium (Lipitor) 40 mg PO HS [facility] Last Admin: 02/05/17 21:18 Dose: Not Given Carvedilol (Coreg) 25 mg PO Q12 [facility] Last Admin: 02/05/17 20:22 Dose: 25 mg Clopidogrel Bisulfate (Plavix) 75 mg PO DAILY [facility] Last Admin: 02/05/17 08:15 Dose: 75 mg Dextrose (Dextrose 50% Inj) 0 ml IV STAT PRN; Protocol PRN Reason: Hyglycemia Protocol Dextrose (Glutose 15) 0 gm PO ONCE PRN; Protocol PRN Reason: Hypoglycemia Protocol Docusate Sodium (Colace) 100 mg PO BID [facility] Last Admin: 02/05/17 16:57 Dose: 100 mg Famotidine (Pepcid) 40 mg PO DAILY [facility] Last Admin: 02/05/17 08:17 Dose: 40 mg Fenofibrate (Tricor) 145 mg PO DAILY [facility] Last Admin: 02/05/17 08:16 Dose: 145 mg Glucagon (Glucagen Diagnostic Kit) 0 mg IM STAT PRN; Protocol PRN Reason: Hypoglycemia Protocol Hydroxyzine HCl (Atarax) 25 mg PO HS PRN PRN Reason: sleep Last Admin: 02/02/17 08:05 Dose: 25 mg Insulin Detemir (Levemir) 20 units SC HS [facility] Last Admin: 02/05/17 21:54 Dose: 20 units Insulin Detemir (Levemir) 15 units SC QAM [facility] Insulin Human Lispro (Humalog) 0 units SC ACTID [facility] PRN Reason: Protocol Last Admin: 02/05/17 16:56 Dose: 3 units Saccharomyces Boulardii (Florastor) 250 mg PO BID [facility] Last Admin: 02/05/17 16:57 Dose: 250 mg - Labs Labs: 02/04/17 05:20 Attending/Attestation - Attestation I have personally seen and examined this patient.: Yes I have fully participated in the care of the patient.: Yes I have reviewed all pertinent clinical information, including history, physical exam and plan: Yes
[2017-02-05] MEDS: Insulin Detemir 100 Units/ml Inj SC SCH (21:54)
--- NOTE | 2017-02-06 06:40 | CP.PCM.PN ---
<Jenn Aiken - Last Filed: 02/06/17 18:43> Subjective - Date & Time of Evaluation Date of Evaluation: 02/06/17 Time of Evaluation: 07:00 - Subjective Subjective: Patient seen and examined at bedside, laying in bed in no acute distress. Patient was able to sit up in bed independantly. Denies SOB, chest pain, weakness or dizziness. Reports he is doing well with PT and diplopia is improving with visual exercises. He has good appetite, normal urine and stool output, no concerns or complaints at this time. Objective - Vital Signs/Intake and Output Vital Signs (last 24 hours): Temp Pulse Resp BP Pulse Ox 98.2 F 66 20 144/73 96 02/05/17 20:21 02/05/17 20:22 02/05/17 20:21 02/05/17 20:22 02/05/17 20:21 - Medications Medications: Current Medications Acetaminophen (Tylenol 325mg Tab) 650 mg PO Q6 PRN PRN Reason: Headache Last Admin: 02/04/17 09:24 Dose: 650 mg Amlodipine Besylate (Norvasc) 10 mg PO DAILY [facility] Last Admin: 02/05/17 08:16 Dose: 10 mg Aspirin (Aspirin Chewable) 81 mg PO DAILY [facility] Last Admin: 02/05/17 08:15 Dose: 81 mg Atorvastatin Calcium (Lipitor) 40 mg PO HS [facility] Last Admin: 02/05/17 21:18 Dose: Not Given Carvedilol (Coreg) 25 mg PO Q12 [facility] Last Admin: 02/05/17 20:22 Dose: 25 mg Clopidogrel Bisulfate (Plavix) 75 mg PO DAILY [facility] Last Admin: 02/05/17 08:15 Dose: 75 mg Dextrose (Dextrose 50% Inj) 0 ml IV STAT PRN; Protocol PRN Reason: Hyglycemia Protocol Dextrose (Glutose 15) 0 gm PO ONCE PRN; Protocol PRN Reason: Hypoglycemia Protocol Docusate Sodium (Colace) 100 mg PO BID [facility] Last Admin: 02/05/17 16:57 Dose: 100 mg Famotidine (Pepcid) 40 mg PO DAILY [facility] Last Admin: 02/05/17 08:17 Dose: 40 mg Fenofibrate (Tricor) 145 mg PO DAILY [facility] Last Admin: 02/05/17 08:16 Dose: 145 mg Glucagon (Glucagen Diagnostic Kit) 0 mg IM STAT PRN; Protocol PRN Reason: Hypoglycemia Protocol Hydroxyzine HCl (Atarax) 25 mg PO HS PRN PRN Reason: sleep Last Admin: 02/02/17 08:05 Dose: 25 mg Insulin Detemir (Levemir) 20 units SC HS [facility] Last Admin: 02/05/17 21:54 Dose: 20 units Insulin Detemir (Levemir) 15 units SC QAM [facility] Insulin Human Lispro (Humalog) 0 units SC ACTID [facility] PRN Reason: Protocol Last Admin: 02/05/17 16:56 Dose: 3 units Saccharomyces Boulardii (Florastor) 250 mg PO BID [facility] Last Admin: 02/05/17 16:57 Dose: 250 mg - Labs Labs: 02/04/17 05:20 - Constitutional Appears: Well, No Acute Distress - Head Exam Head Exam: ATRAUMATIC, NORMOCEPHALIC - Eye Exam Eye Exam: EOMI, PERRL - ENT Exam ENT Exam: Mucous Membranes Moist - Neck Exam Neck Exam: Full ROM. absent: Lymphadenopathy - Respiratory Exam Respiratory Exam: Clear to Ausculation Bilateral, NORMAL BREATHING PATTERN - Cardiovascular Exam Cardiovascular Exam: REGULAR RHYTHM, +S1, +S2 - GI/Abdominal Exam GI & Abdominal Exam: Soft (obese), Normal Bowel Sounds. absent: Tenderness - Extremities Exam Extremities Exam: Full ROM. absent: Calf Tenderness, Pedal Edema - Back Exam Back Exam: absent: CVA tenderness (L), CVA tenderness (R) - Neurological Exam Neurological Exam: Alert, Awake, CN II-XII Intact, Oriented x3 - Psychiatric Exam Psychiatric exam: Normal Affect, Normal Mood - Skin Skin Exam: Dry, Intact, Warm Assessment and Plan - Assessment and Plan (Free Text) Assessment: 76 yr old M admitted [facility] for PT/OT and speech therapy s/p CVA. Pt has PMHx of CAD, DM, HTN, HLD, CABG x 4(2010), AICD (2011), former smoker (quit 40yrs prior). Patient is stable. He is tolerating physical therapy, has good appetite, normal urine output, has further improvement of diplopia. No concerns or complaints this at this time. Plan: 1. CVA (Cerebro Vascular Event) -symptoms improving -Repeat CT head 01/25/17: no change -Continue with current management: ASA 81 mg PO QD, Plavix 75mg PO QD, Atorvastatin 40 mg PO QD -PT/OT consult appreciated: will follow recommendations -Speech therapy recommendations: Moderate consistent CHO/Heart Healthy diet + thin liquids 2. CAD (coronary artery disease) with history of CABG -hx of pacemaker placement -PPM, battery change 08/2016 -Echo LVEF 60-65%, pt is stable from cardiac point of view 3. Diabetes Mellitus Type 2 -uncontrolled POC glucose 189 mg/dL this AM -Insulin Detemir 15units SC QAM -Insulin Detemir 20 units SCHS -Insulin Lispro SC AC TID -HbA1c 6.4 (01/25/17) - Hypoglycemia protocol 4. Hypertension -Chronic, controlled -continue home meds :Norvasc 10mg PO QD, Carvedilol 25mg PO BID 5. HLD (hyperlipidemia) -chronic, stable -Atorvastatin 40mg PO HS [facility]ALLY, Fenofibrate 145 mg PO daily 6. DVT /GI prophylaxis -SCD's -Discontinued Heparin per recommendation/conversation with neuro Dr. David as patient is already on ASA and Plavix -started Pepcid 40mg PO daily, Sacchromyces boulardi 250mg PO BID <Jarret Saldana - Last Filed: 02/07/17 06:43> Objective - Vital Signs/Intake and Output Vital Signs (last 24 hours): Temp Pulse Resp BP Pulse Ox 98.2 F 67 20 129/77 98 02/06/17 20:15 02/06/17 21:25 02/06/17 20:15 02/06/17 21:25 02/06/17 20:15 - Medications Medications: Current Medications Acetaminophen (Tylenol 325mg Tab) 650 mg PO Q6 PRN PRN Reason: Headache Last Admin: 02/04/17 09:24 Dose: 650 mg Amlodipine Besylate (Norvasc) 10 mg PO DAILY [facility] Last Admin: 02/06/17 08:17 Dose: 10 mg Aspirin (Aspirin Chewable) 81 mg PO DAILY [facility] Last Admin: 02/06/17 08:17 Dose: 81 mg Atorvastatin Calcium (Lipitor) 40 mg PO HS [facility] Last Admin: 02/06/17 21:32 Dose: Not Given Carvedilol (Coreg) 25 mg PO Q12 [facility] Last Admin: 02/06/17 21:25 Dose: 25 mg Clopidogrel Bisulfate (Plavix) 75 mg PO DAILY [facility] Last Admin: 02/06/17 08:16 Dose: 75 mg Dextrose (Dextrose 50% Inj) 0 ml IV STAT PRN; Protocol PRN Reason: Hyglycemia Protocol Dextrose (Glutose 15) 0 gm PO ONCE PRN; Protocol PRN Reason: Hypoglycemia Protocol Docusate Sodium (Colace) 100 mg PO BID [facility] Last Admin: 02/06/17 17:16 Dose: 100 mg Famotidine (Pepcid) 40 mg PO DAILY [facility] Last Admin: 02/06/17 08:16 Dose: 40 mg Fenofibrate (Tricor) 145 mg PO DAILY [facility] Last Admin: 02/06/17 08:16 Dose: 145 mg Glucagon (Glucagen Diagnostic Kit) 0 mg IM STAT PRN; Protocol PRN Reason: Hypoglycemia Protocol Hydroxyzine HCl (Atarax) 25 mg PO HS PRN PRN Reason: sleep Last Admin: 02/02/17 08:05 Dose: 25 mg Insulin Detemir (Levemir) 20 units SC HS [facility] Last Admin: 02/06/17 21:26 Dose: 20 units Insulin Detemir (Levemir) 15 units SC QAM [facility] Last Admin: 02/06/17 08:18 Dose: 15 unit Insulin Human Lispro (Humalog) 0 units SC ACTID [facility] PRN Reason: Protocol Last Admin: 02/07/17 06:34 Dose: Not Given Saccharomyces Boulardii (Florastor) 250 mg PO BID [facility] Last Admin: 02/06/17 17:17 Dose: 250 mg - Labs Labs: 02/06/17 05:25 Attending/Attestation - Attestation I have personally seen and examined this patient.: Yes I have fully participated in the care of the patient.: Yes I have reviewed all pertinent clinical information, including history, physical exam and plan: Yes
[2017-02-06] MEDS: Insulin Lispro (humaLOG) 100 Units/ml Inj SC SCH ×3 (07:01→17:16)
[2017-02-06 07:09] LABS: CALCIUM 9.2 mg/dL (8.4-10.2); POTASSIUM 3.9 MMOL/L (3.6-5.0)
[2017-02-06] MEDS: Saccharomyces Boulardi 250 mg Cap PO SCH ×2 (08:17→17:17)
[2017-02-06] MEDS: Insulin Detemir 100 Units/ml Inj SC SCH ×2 (08:18→21:26)
--- NOTE | 2017-02-06 19:18 | CP.PCM.PN ---
Subjective - Date & Time of Evaluation Date of Evaluation: 02/06/17 Time of Evaluation: 10:00 - Subjective Subjective: patient with no acute complaints of pain, doing fine Objective - Vital Signs/Intake and Output Vital Signs (last 24 hours): Temp Pulse Resp BP Pulse Ox 98.4 F 63 20 114/63 99 02/06/17 08:23 02/06/17 15:44 02/06/17 08:23 02/06/17 08:23 02/06/17 15:44 - Medications Medications: Current Medications Acetaminophen (Tylenol 325mg Tab) 650 mg PO Q6 PRN PRN Reason: Headache Last Admin: 02/04/17 09:24 Dose: 650 mg Amlodipine Besylate (Norvasc) 10 mg PO DAILY [facility] Last Admin: 02/06/17 08:17 Dose: 10 mg Aspirin (Aspirin Chewable) 81 mg PO DAILY [facility] Last Admin: 02/06/17 08:17 Dose: 81 mg Atorvastatin Calcium (Lipitor) 40 mg PO HS [facility] Last Admin: 02/05/17 21:18 Dose: Not Given Carvedilol (Coreg) 25 mg PO Q12 [facility] Last Admin: 02/06/17 08:17 Dose: 25 mg Clopidogrel Bisulfate (Plavix) 75 mg PO DAILY [facility] Last Admin: 02/06/17 08:16 Dose: 75 mg Dextrose (Dextrose 50% Inj) 0 ml IV STAT PRN; Protocol PRN Reason: Hyglycemia Protocol Dextrose (Glutose 15) 0 gm PO ONCE PRN; Protocol PRN Reason: Hypoglycemia Protocol Docusate Sodium (Colace) 100 mg PO BID [facility] Last Admin: 02/06/17 17:16 Dose: 100 mg Famotidine (Pepcid) 40 mg PO DAILY [facility] Last Admin: 02/06/17 08:16 Dose: 40 mg Fenofibrate (Tricor) 145 mg PO DAILY [facility] Last Admin: 02/06/17 08:16 Dose: 145 mg Glucagon (Glucagen Diagnostic Kit) 0 mg IM STAT PRN; Protocol PRN Reason: Hypoglycemia Protocol Hydroxyzine HCl (Atarax) 25 mg PO HS PRN PRN Reason: sleep Last Admin: 02/02/17 08:05 Dose: 25 mg Insulin Detemir (Levemir) 20 units SC HS [facility] Last Admin: 02/05/17 21:54 Dose: 20 units Insulin Detemir (Levemir) 15 units SC QAM [facility] Last Admin: 02/06/17 08:18 Dose: 15 unit Insulin Human Lispro (Humalog) 0 units SC ACTID [facility] PRN Reason: Protocol Last Admin: 02/06/17 17:16 Dose: 2 units Saccharomyces Boulardii (Florastor) 250 mg PO BID [facility] Last Admin: 02/06/17 17:17 Dose: 250 mg - Labs Labs: 02/06/17 05:25 - Head Exam Head Exam: ATRAUMATIC, NORMAL INSPECTION, NORMOCEPHALIC - Eye Exam Eye Exam: EOMI, Normal appearance Pupil Exam: NORMAL ACCOMODATION - ENT Exam ENT Exam: Mucous Membranes Moist - Neck Exam Neck Exam: Normal Inspection - Respiratory Exam Respiratory Exam: Clear to Ausculation Bilateral, NORMAL BREATHING PATTERN - Cardiovascular Exam Cardiovascular Exam: REGULAR RHYTHM - GI/Abdominal Exam GI & Abdominal Exam: Normal Bowel Sounds - Exam External exam: NORMAL EXTERNAL EXAM - Extremities Exam Extremities Exam: Normal Capillary Refill - Back Exam Back Exam: NORMAL INSPECTION - Neurological Exam Neurological Exam: Alert, Awake Neuro motor strength exam: Left Upper Extremity: 3, Right Upper Extremity: 3, Left Lower Extremity: 3, Right Lower Extremity: 3 - Psychiatric Exam Psychiatric exam: Normal Affect, Normal Mood - Skin Skin Exam: Dry, Normal Color Assessment and Plan (1) CVA (cerebral vascular accident) Assessment & Plan: plan for physical, occupational, rec therapy rom transfers and gait training, Monitor the Blood pressure and blood sugar Covering for Dr Lundy Status: Acute (2) DVT prophylaxis Status: Acute (3) CAD (coronary artery disease) of artery bypass graft Status: Chronic (4) Diabetes Status: Chronic (5) HLD (hyperlipidemia) Status: Chronic (6) Hypertension Status: Chronic
[2017-02-07] MEDS: Insulin Lispro (humaLOG) 100 Units/ml Inj SC SCH ×3 (06:34→16:57)
[2017-02-07] MEDS: Insulin Detemir 100 Units/ml Inj SC SCH (08:08)
[2017-02-07] MEDS: Saccharomyces Boulardi 250 mg Cap PO SCH ×2 (08:08→16:58)
[2017-02-07] MEDS ORDERED: Insulin Detemir 100 Units/ml Inj SC SCH (11:33)
[2017-02-07] MEDS: ESOMEPRAZOLE 40 MG PO SCH (12:43)
--- NOTE | 2017-02-07 13:24 | CP.PCM.PN ---
Subjective - Date & Time of Evaluation Date of Evaluation: 02/07/17 Time of Evaluation: 09:00 - Subjective Subjective: no acute neck or back pain Objective - Vital Signs/Intake and Output Vital Signs (last 24 hours): Temp Pulse Resp BP Pulse Ox 97.2 F L 62 20 158/83 H 98 02/07/17 07:57 02/07/17 08:09 02/07/17 07:57 02/07/17 08:09 02/07/17 07:57 - Medications Medications: Current Medications Acetaminophen (Tylenol 325mg Tab) 650 mg PO Q6 PRN PRN Reason: Headache Last Admin: 02/04/17 09:24 Dose: 650 mg Amlodipine Besylate (Norvasc) 10 mg PO DAILY [facility] Last Admin: 02/07/17 08:08 Dose: 10 mg Aspirin (Aspirin Chewable) 81 mg PO DAILY [facility] Last Admin: 02/07/17 08:09 Dose: 81 mg Atorvastatin Calcium (Lipitor) 40 mg PO HS [facility] Last Admin: 02/06/17 21:32 Dose: Not Given Carvedilol (Coreg) 25 mg PO Q12 [facility] Last Admin: 02/07/17 08:09 Dose: 25 mg Clopidogrel Bisulfate (Plavix) 75 mg PO DAILY [facility] Last Admin: 02/07/17 08:09 Dose: 75 mg Dextrose (Dextrose 50% Inj) 0 ml IV STAT PRN; Protocol PRN Reason: Hyglycemia Protocol Dextrose (Glutose 15) 0 gm PO ONCE PRN; Protocol PRN Reason: Hypoglycemia Protocol Docusate Sodium (Colace) 100 mg PO BID PRN PRN Reason: Constipation Glucagon (Glucagen Diagnostic Kit) 0 mg IM STAT PRN; Protocol PRN Reason: Hypoglycemia Protocol Home Med (Esomeprazole) 40 mg PO DAILY [facility] Last Admin: 02/07/17 12:43 Dose: 40 mg Home Med (Colesevelam) 625 mg PO BID [facility] Home Med (Patient's Own Medication) 160 unit PO DAILY [facility] Home Med (Glimepiride) 2 mg PO BID [facility] Hydroxyzine HCl (Atarax) 25 mg PO HS PRN PRN Reason: sleep Last Admin: 02/02/17 08:05 Dose: 25 mg Insulin Detemir (Levemir) 15 units SC HS [facility] Insulin Detemir (Levemir) 10 units SC QAM [facility] Insulin Human Lispro (Humalog) 0 units SC ACTID [facility] PRN Reason: Protocol Last Admin: 02/07/17 12:17 Dose: 3 units Nateglinide (Starlix) 120 mg PO TIDAC [facility] Saccharomyces Boulardii (Florastor) 250 mg PO BID [facility] Last Admin: 02/07/17 08:08 Dose: 250 mg Sitagliptin Phosphate (Januvia) 50 mg PO DAILY [facility] Last Admin: 02/07/17 12:43 Dose: 50 mg - Labs Labs: 02/06/17 05:25 - Head Exam Head Exam: ATRAUMATIC, NORMAL INSPECTION, NORMOCEPHALIC - Eye Exam Eye Exam: EOMI, Normal appearance, PERRL Pupil Exam: NORMAL ACCOMODATION - ENT Exam ENT Exam: Mucous Membranes Moist, Normal Exam - Respiratory Exam Respiratory Exam: NORMAL BREATHING PATTERN - Cardiovascular Exam Cardiovascular Exam: REGULAR RHYTHM - GI/Abdominal Exam GI & Abdominal Exam: Normal Bowel Sounds - Rectal Exam Rectal Exam: NORMAL INSPECTION - Exam External exam: NORMAL EXTERNAL EXAM - Extremities Exam Extremities Exam: Normal Capillary Refill, Normal Inspection - Neurological Exam Neurological Exam: Alert, Awake Neuro motor strength exam: Left Upper Extremity: 3, Right Upper Extremity: 3, Left Lower Extremity: 3, Right Lower Extremity: 3 - Psychiatric Exam Psychiatric exam: Normal Affect, Normal Mood - Skin Skin Exam: Normal Color Assessment and Plan (1) CVA (cerebral vascular accident) Assessment & Plan: continue therapy at present, Dc for 02/15 SAb Status: Acute (2) DVT prophylaxis Status: Acute (3) CAD (coronary artery disease) of artery bypass graft Status: Chronic (4) Diabetes Status: Chronic (5) HLD (hyperlipidemia) Status: Chronic (6) Hypertension Status: Chronic
[2017-02-07] MEDS: GLIMEPIRIDE PO SCH (16:57)
[2017-02-07] MEDS: COLESEVELAM PO SCH (16:58)
[2017-02-07] MEDS ORDERED: COLESEVELAM 625 MG PO SCH (17:00)
[2017-02-07] MEDS: STARLIX 120 MG PO SCH (17:00)
[2017-02-07] MEDS ORDERED: GLIMEPIRIDE 2 MG PO SCH (17:00)
--- NOTE | 2017-02-07 18:38 | CP.PCM.PN ---
<Jenn Aiken - Last Filed: 02/07/17 18:31> Subjective - Date & Time of Evaluation Date of Evaluation: 02/07/17 Time of Evaluation: 09:00 - Subjective Subjective: Patient seen and examined at bedside, in no acute distress. Patient reports he would like to take his home medication which his family brought in for him. He is tolerating PO diet, feels he is getting stronger with PT, reports his diplopia is stable. Has no concerns or complaints at this time. Objective - Vital Signs/Intake and Output Vital Signs (last 24 hours): Temp Pulse Resp BP Pulse Ox 97.2 F L 62 20 158/83 H 98 02/07/17 07:57 02/07/17 08:09 02/07/17 07:57 02/07/17 08:09 02/07/17 07:57 - Medications Medications: Current Medications Acetaminophen (Tylenol 325mg Tab) 650 mg PO Q6 PRN PRN Reason: Headache Last Admin: 02/04/17 09:24 Dose: 650 mg Amlodipine Besylate (Norvasc) 10 mg PO DAILY [facility] Last Admin: 02/07/17 08:08 Dose: 10 mg Aspirin (Aspirin Chewable) 81 mg PO DAILY [facility] Last Admin: 02/07/17 08:09 Dose: 81 mg Atorvastatin Calcium (Lipitor) 40 mg PO HS [facility] Last Admin: 02/06/17 21:32 Dose: Not Given Carvedilol (Coreg) 25 mg PO Q12 [facility] Last Admin: 02/07/17 08:09 Dose: 25 mg Clopidogrel Bisulfate (Plavix) 75 mg PO DAILY [facility] Last Admin: 02/07/17 08:09 Dose: 75 mg Dextrose (Dextrose 50% Inj) 0 ml IV STAT PRN; Protocol PRN Reason: Hyglycemia Protocol Dextrose (Glutose 15) 0 gm PO ONCE PRN; Protocol PRN Reason: Hypoglycemia Protocol Docusate Sodium (Colace) 100 mg PO BID PRN PRN Reason: Constipation Last Admin: 02/07/17 16:56 Dose: 100 mg Glucagon (Glucagen Diagnostic Kit) 0 mg IM STAT PRN; Protocol PRN Reason: Hypoglycemia Protocol Home Med (Esomeprazole) 40 mg PO DAILY [facility] Last Admin: 02/07/17 12:43 Dose: 40 mg Home Med (Patient's Own Medication) 160 unit PO DAILY [facility] Home Med (Colesevelam) 3 tab PO BID [facility] Last Admin: 02/07/17 16:58 Dose: 3 tab Home Med (Glimepiride) 2 tab PO BID [facility] Last Admin: 02/07/17 16:57 Dose: 2 tab Home Med (Patient's Own Medication) 1 unit PO ACB [facility] Home Med (Patient's Own Medication) 2 unit PO QPM [facility] Last Admin: 02/07/17 17:00 Dose: 2 unit Hydroxyzine HCl (Atarax) 25 mg PO HS PRN PRN Reason: sleep Last Admin: 02/02/17 08:05 Dose: 25 mg Insulin Detemir (Levemir) 15 units SC HS [facility] Insulin Detemir (Levemir) 10 units SC QAM [facility] Insulin Human Lispro (Humalog) 0 units SC ACTID [facility] PRN Reason: Protocol Last Admin: 02/07/17 16:57 Dose: 2 units Saccharomyces Boulardii (Florastor) 250 mg PO BID [facility] Last Admin: 02/07/17 16:58 Dose: 250 mg Sitagliptin Phosphate (Januvia) 50 mg PO DAILY [facility] Last Admin: 02/07/17 12:43 Dose: 50 mg - Labs Labs: 02/06/17 05:25 - Constitutional Appears: Well, Non-toxic, No Acute Distress - Head Exam Head Exam: ATRAUMATIC, NORMOCEPHALIC - Eye Exam Eye Exam: EOMI, PERRL - ENT Exam ENT Exam: Mucous Membranes Moist - Neck Exam Neck Exam: Full ROM. absent: Lymphadenopathy - Respiratory Exam Respiratory Exam: Clear to Ausculation Bilateral, NORMAL BREATHING PATTERN - Cardiovascular Exam Cardiovascular Exam: REGULAR RHYTHM, +S1, +S2 - GI/Abdominal Exam GI & Abdominal Exam: Soft (obese). absent: Distended, Tenderness - Extremities Exam Extremities Exam: Full ROM. absent: Pedal Edema, Tenderness - Back Exam Back Exam: absent: CVA tenderness (L), CVA tenderness (R) - Neurological Exam Neurological Exam: Alert, Awake, CN II-XII Intact, Oriented x3 - Psychiatric Exam Psychiatric exam: Normal Affect, Normal Mood - Skin Skin Exam: Dry, Intact, Normal Color Assessment and Plan - Assessment and Plan (Free Text) Assessment: 76 yr old M admitted to [facility] for PT/OT and speech therapy s/p CVA. Pt has PMHx of CAD, DM, HTN, HLD, CABG x 4(2010), AICD (2011), former smoker (quit 40yrs prior). Patient is stable. He is tolerating physical therapy, has good appetite, normal urine output, has further improvement of diplopia. No concerns or complaints this at this time. Is taking his home meds by his request. Plan: 1. CVA (Cerebro Vascular Event) -symptoms improving -Repeat CT head 01/25/17: no change -Continue with current management: ASA 81 mg PO QD, Plavix 75mg PO QD, Atorvastatin 40 mg PO QD -PT/OT consult appreciated: will follow recommendations -Speech therapy recommendations: Moderate consistent CHO/Heart Healthy diet + thin liquids 2. CAD (coronary artery disease) with history of CABG -hx of pacemaker placement -PPM, battery change 08/2016 -Echo LVEF 60-65%, pt is stable from cardiac point of view 3. Diabetes Mellitus Type 2 -uncontrolled POC glucose 243 mg/dL at noon -home meds resumed: (Januvia 100 mg PO QD, Nateglinide 120 mg 1 tab before breakfast, 2 tabs before dinner; Glimepiride 2mg 2 tabs PO BID, Colesevelam 625mg 3 tabs PO TID) -Insulin Detemir 10 units SC QAM -Insulin Detemir 15 units SCHS -Insulin Lispro SC AC TID -HbA1c 6.4 (01/25/17) - Hypoglycemia protocol 4. Hypertension -Chronic, controlled -continue home meds :Norvasc 10mg PO QD, Carvedilol 25mg PO BID 5. HLD (hyperlipidemia) -chronic, stable -Atorvastatin 40mg PO HS [facility], Fenofibrate 160 mg PO daily 6. DVT /GI prophylaxis -SCD's -Discontinued Heparin per recommendation/conversation with neuro Dr. David as patient is already on ASA and Plavix -home med Nexium 40 PO QD, Sacchromyces boulardi 250mg PO BID <Jarret Saldana - Last Filed: 02/10/17 06:38> Objective - Vital Signs/Intake and Output Vital Signs (last 24 hours): Temp Pulse Resp BP Pulse Ox 98.8 F 75 20 135/75 96 02/09/17 20:09 02/09/17 20:10 02/09/17 20:09 02/09/17 20:10 02/09/17 20:09 - Medications Medications: Current Medications Acetaminophen (Tylenol 325mg Tab) 650 mg PO Q6 PRN PRN Reason: Headache Last Admin: 02/04/17 09:24 Dose: 650 mg Amlodipine Besylate (Norvasc) 10 mg PO DAILY [facility] Last Admin: 02/09/17 08:50 Dose: 10 mg Aspirin (Aspirin Chewable) 81 mg PO DAILY [facility] Last Admin: 02/09/17 08:51 Dose: 81 mg Atorvastatin Calcium (Lipitor) 40 mg PO HS [facility] Last Admin: 02/09/17 21:44 Dose: 40 mg Carvedilol (Coreg) 25 mg PO Q12 [facility] Last Admin: 02/09/17 20:10 Dose: 25 mg Clopidogrel Bisulfate (Plavix) 75 mg PO DAILY [facility] Last Admin: 02/09/17 08:50 Dose: 75 mg Dextrose (Dextrose 50% Inj) 0 ml IV STAT PRN; Protocol PRN Reason: Hyglycemia Protocol Dextrose (Glutose 15) 0 gm PO ONCE PRN; Protocol PRN Reason: Hypoglycemia Protocol Docusate Sodium (Colace) 100 mg PO BID PRN PRN Reason: Constipation Last Admin: 02/07/17 16:56 Dose: 100 mg Glucagon (Glucagen Diagnostic Kit) 0 mg IM STAT PRN; Protocol PRN Reason: Hypoglycemia Protocol Home Med (Esomeprazole) 40 mg PO DAILY [facility] Last Admin: 02/09/17 08:47 Dose: 40 mg Home Med (Patient's Own Medication) 160 unit PO DAILY [facility] Last Admin: 02/09/17 08:52 Dose: 160 unit Home Med (Colesevelam) 3 tab PO BID [facility] Last Admin: 02/09/17 16:37 Dose: 3 tab Home Med (Glimepiride) 2 tab PO BID [facility] Last Admin: 02/09/17 16:38 Dose: 2 tab Home Med (Patient's Own Medication) 1 unit PO ACB [facility] Last Admin: 02/09/17 07:22 Dose: 1 unit Home Med (Patient's Own Medication) 2 unit PO QPM [facility] Last Admin: 02/09/17 17:01 Dose: 2 unit Hydroxyzine HCl (Atarax) 25 mg PO HS PRN PRN Reason: sleep Last Admin: 02/02/17 08:05 Dose: 25 mg Insulin Detemir (Levemir) 10 units SC QAM [facility] Last Admin: 02/09/17 08:46 Dose: 10 unit Insulin Detemir (Levemir) 10 units SC HS [facility] Last Admin: 02/09/17 21:45 Dose: 10 units Insulin Human Lispro (Humalog) 0 units SC ACTID [facility] PRN Reason: Protocol Last Admin: 02/09/17 16:36 Dose: 2 units Saccharomyces Boulardii (Florastor) 250 mg PO BID [facility] Last Admin: 02/09/17 16:37 Dose: 250 mg Simethicone (Mylicon Chew Tab) 80 mg PO [facility] PRN PRN Reason: Flatulence Last Admin: 02/09/17 20:11 Dose: 80 mg Sitagliptin Phosphate (Januvia) 50 mg PO DAILY [facility] Last Admin: 02/09/17 08:49 Dose: 50 mg - Labs Labs: 02/06/17 05:25 Attending/Attestation - Attestation I have personally seen and examined this patient.: Yes I have fully participated in the care of the patient.: Yes I have reviewed all pertinent clinical information, including history, physical exam and plan: Yes
[2017-02-08] MEDS: Insulin Lispro (humaLOG) 100 Units/ml Inj SC SCH ×3 (07:24→16:51)
[2017-02-08] MEDS: STARLIX 120 MG PO SCH ×2 (08:21→17:01)
[2017-02-08] MEDS: COLESEVELAM PO SCH ×2 (08:22→17:01)
[2017-02-08] MEDS: GLIMEPIRIDE PO SCH ×2 (08:23→17:01)
[2017-02-08] MEDS: Saccharomyces Boulardi 250 mg Cap PO SCH ×2 (08:23→17:01)
[2017-02-08] MEDS: ESOMEPRAZOLE 40 MG PO SCH (08:23)
[2017-02-08] MEDS: FENOFIBRATE 160 MG PO SCH (08:29)
[2017-02-08] MEDS: Insulin Detemir 100 Units/ml Inj SC SCH ×2 (08:29→22:01)
[2017-02-08] MEDS: Simethicone 80 mg Chewtab PO PRN (21:19)
[2017-02-09] MEDS: STARLIX 120 MG PO SCH ×2 (07:22→17:01)
[2017-02-09] MEDS: Insulin Lispro (humaLOG) 100 Units/ml Inj SC SCH ×3 (07:22→16:36)
[2017-02-09] MEDS: Insulin Detemir 100 Units/ml Inj SC SCH ×2 (08:46→21:45)
[2017-02-09] MEDS: ESOMEPRAZOLE 40 MG PO SCH (08:47)
[2017-02-09] MEDS: Saccharomyces Boulardi 250 mg Cap PO SCH ×2 (08:47→16:37)
[2017-02-09] MEDS: COLESEVELAM PO SCH ×2 (08:48→16:37)
[2017-02-09] MEDS: GLIMEPIRIDE PO SCH ×2 (08:49→16:38)
[2017-02-09] MEDS: FENOFIBRATE 160 MG PO SCH (08:52)
--- NOTE | 2017-02-09 10:53 | CP.PCM.PN ---
Subjective - Date & Time of Evaluation Date of Evaluation: 02/09/17 Time of Evaluation: 09:20 - Subjective Subjective: Patient is seen and examined at bedside, patient sitting in wheelchair in NAD. Patient evaluated for abdominal distension, given simethicone with positive results. As per patient and nurse, patient had large bowel movement yesterday and this morning-normal in consistency. Patient states he feels abdomen is less rigid and he feels "less gassy". No acute complaints of abdominal pain,nausea, fever, chills, urinary disturbances, bleeding per rectum. Patient doing well with PT. Objective - Vital Signs/Intake and Output Vital Signs (last 24 hours): Temp Pulse Resp BP Pulse Ox 98.1 F 67 20 133/70 100 02/09/17 08:00 02/09/17 08:50 02/09/17 08:00 02/09/17 08:50 02/09/17 08:00 - Medications Medications: Current Medications Acetaminophen (Tylenol 325mg Tab) 650 mg PO Q6 PRN PRN Reason: Headache Last Admin: 02/04/17 09:24 Dose: 650 mg Amlodipine Besylate (Norvasc) 10 mg PO DAILY [facility] Last Admin: 02/09/17 08:50 Dose: 10 mg Aspirin (Aspirin Chewable) 81 mg PO DAILY [facility] Last Admin: 02/09/17 08:51 Dose: 81 mg Atorvastatin Calcium (Lipitor) 40 mg PO HS [facility] Last Admin: 02/08/17 21:19 Dose: 40 mg Carvedilol (Coreg) 25 mg PO Q12 [facility] Last Admin: 02/09/17 08:48 Dose: 25 mg Clopidogrel Bisulfate (Plavix) 75 mg PO DAILY [facility] Last Admin: 02/09/17 08:50 Dose: 75 mg Dextrose (Dextrose 50% Inj) 0 ml IV STAT PRN; Protocol PRN Reason: Hyglycemia Protocol Dextrose (Glutose 15) 0 gm PO ONCE PRN; Protocol PRN Reason: Hypoglycemia Protocol Docusate Sodium (Colace) 100 mg PO BID PRN PRN Reason: Constipation Last Admin: 02/07/17 16:56 Dose: 100 mg Glucagon (Glucagen Diagnostic Kit) 0 mg IM STAT PRN; Protocol PRN Reason: Hypoglycemia Protocol Home Med (Esomeprazole) 40 mg PO DAILY [facility] Last Admin: 02/09/17 08:47 Dose: 40 mg Home Med (Patient's Own Medication) 160 unit PO DAILY [facility] Last Admin: 02/09/17 08:52 Dose: 160 unit Home Med (Colesevelam) 3 tab PO BID [facility] Last Admin: 02/09/17 08:48 Dose: 3 tab Home Med (Glimepiride) 2 tab PO BID [facility] Last Admin: 02/09/17 08:49 Dose: 2 tab Home Med (Patient's Own Medication) 1 unit PO ACB [facility] Last Admin: 02/09/17 07:22 Dose: 1 unit Home Med (Patient's Own Medication) 2 unit PO QPM [facility] Last Admin: 02/08/17 17:01 Dose: 2 unit Hydroxyzine HCl (Atarax) 25 mg PO PRN PRN Reason: sleep Last Admin: 02/02/17 08:05 Dose: 25 mg Insulin Detemir (Levemir) 10 units SC QAM [facility] Last Admin: 02/09/17 08:46 Dose: 10 unit Insulin Detemir (Levemir) 10 units SC HS [facility] Last Admin: 02/08/17 22:01 Dose: 10 units Insulin Human Lispro (Humalog) 0 units SC ACTID [facility] PRN Reason: Protocol Last Admin: 02/09/17 07:22 Dose: 2 units Saccharomyces Boulardii (Florastor) 250 mg PO BID [facility] Last Admin: 02/09/17 08:47 Dose: 250 mg Simethicone (Mylicon Chew Tab) 80 mg PO PCHS PRN PRN Reason: Flatulence Last Admin: 02/08/17 21:19 Dose: 80 mg Sitagliptin Phosphate (Januvia) 50 mg PO DAILY [facility] Last Admin: 02/09/17 08:49 Dose: 50 mg - Labs Labs: 02/06/17 05:25 - ENT Exam ENT Exam: Mucous Membranes Moist - Neck Exam Neck Exam: Full ROM - Respiratory Exam Respiratory Exam: Clear to Ausculation Bilateral, NORMAL BREATHING PATTERN - Cardiovascular Exam Cardiovascular Exam: REGULAR RHYTHM, +S1, +S2 - GI/Abdominal Exam GI & Abdominal Exam: Distended, Soft, Normal Bowel Sounds. absent: Tenderness - Extremities Exam Extremities Exam: absent: Calf Tenderness, Joint Swelling, Pedal Edema - Back Exam Back Exam: absent: CVA tenderness (L), CVA tenderness (R) - Neurological Exam Neurological Exam: Alert, Awake - Psychiatric Exam Psychiatric exam: Normal Affect Assessment and Plan - Assessment and Plan (Free Text) Assessment: 76 yr old M admitted [facility] for PT/OT and speech therapy s/p CVA. Pt has PMHx of CAD, DM, HTN, HLD, CABG x 4(2009), AICD (2010), former smoker (quit 40yrs prior). Patient is stable. He is tolerating physical therapy, has good appetite, normal urine output, has further improvement of diplopia. No concerns or complaints this at this time. Is taking his home meds by his request. Plan: Abdominal distension -due physical exam positive for abdominal distension, (+) bowel sounds in all 4 quadrants -will continue simethicone daily -consider abdominal xray CVA (Cerebro Vascular Event) -symptoms improving -Repeat CT head 01/25/17: no change -Continue with current management: ASA 81 mg PO QD, Plavix 75mg PO QD, Atorvastatin 40 mg PO QD -PT/OT consult appreciated: will follow recommendations -Speech therapy recommendations: Moderate consistent CHO/Heart Healthy diet + thin liquids CAD (coronary artery disease) with history of CABG -hx of pacemaker placement -PPM, battery change 08/2016 -Echo LVEF 60-65%, pt is stable from cardiac point of view Diabetes Mellitus Type 2 -uncontrolled POC glucose 243 mg/dL at noon -home meds resumed: (Januvia 100 mg PO QD, Nateglinide 120 mg 1 tab before breakfast, 2 tabs before dinner; Glimepiride 2mg 2 tabs PO BID, Colesevelam 625mg 3 tabs PO TID) -Insulin Detemir 10 units SC QAM -Insulin Detemir 15 units SCHS -Insulin Lispro SC AC TID -HbA1c 6.4 (01/25/17) - Hypoglycemia protocol Hypertension -Chronic, controlled -continue home meds :Norvasc 10mg PO QD, Carvedilol 25mg PO BID HLD (hyperlipidemia) -chronic, stable -Atorvastatin 40mg PO HS SALLY, Fenofibrate 160 mg PO daily DVT /GI prophylaxis -SCD's -Discontinued Heparin per recommendation/conversation with neuro Dr. David as patient is already on ASA and Plavix -home med Nexium 40 PO QD, Sacchromyces boulardi 250mg PO BID
[2017-02-09] MEDS: Simethicone 80 mg Chewtab PO PRN ×2 (13:14→20:11)
[2017-02-10] MEDS: Insulin Lispro (humaLOG) 100 Units/ml Inj SC SCH ×3 (07:17→16:49)
[2017-02-10] MEDS: STARLIX 120 MG PO SCH ×2 (07:19→17:08)
[2017-02-10] MEDS: COLESEVELAM PO SCH ×2 (09:08→17:08)
[2017-02-10] MEDS: ESOMEPRAZOLE 40 MG PO SCH (09:08)
[2017-02-10] MEDS: FENOFIBRATE 160 MG PO SCH (09:08)
[2017-02-10] MEDS: Saccharomyces Boulardi 250 mg Cap PO SCH ×2 (09:09→17:08)
[2017-02-10] MEDS: Insulin Detemir 100 Units/ml Inj SC SCH ×2 (09:10→21:30)
[2017-02-10] MEDS: GLIMEPIRIDE PO SCH ×2 (09:10→17:08)
--- NOTE | 2017-02-10 11:04 | CP.PCM.PN ---
<Jenn Aiken - Last Filed: 02/10/17 16:41> Subjective - Date & Time of Evaluation Date of Evaluation: 02/10/17 Time of Evaluation: 09:00 - Subjective Subjective: Patient seen and examined at bedside, in no acute distress, no acute events overnight. Reports diplopia has improved significantly. Tolerating PT well, has good appetite, normal urine and stool output, no concerns or complaints at this time. Objective - Vital Signs/Intake and Output Vital Signs (last 24 hours): Temp Pulse Resp BP Pulse Ox 97.9 F 74 20 122/71 95 02/10/17 08:29 02/10/17 09:10 02/10/17 08:29 02/10/17 09:10 02/10/17 08:29 - Medications Medications: Current Medications Acetaminophen (Tylenol 325mg Tab) 650 mg PO Q6 PRN PRN Reason: Headache Last Admin: 02/04/17 09:24 Dose: 650 mg Amlodipine Besylate (Norvasc) 10 mg PO DAILY [facility] Last Admin: 02/10/17 09:09 Dose: 10 mg Aspirin (Aspirin Chewable) 81 mg PO DAILY [facility] Last Admin: 02/10/17 09:09 Dose: 81 mg Atorvastatin Calcium (Lipitor) 40 mg PO HS [facility] Last Admin: 02/09/17 21:44 Dose: 40 mg Carvedilol (Coreg) 25 mg PO Q12 [facility] Last Admin: 02/10/17 09:10 Dose: 25 mg Clopidogrel Bisulfate (Plavix) 75 mg PO DAILY [facility] Last Admin: 02/10/17 09:11 Dose: 75 mg Dextrose (Dextrose 50% Inj) 0 ml IV STAT PRN; Protocol PRN Reason: Hyglycemia Protocol Dextrose (Glutose 15) 0 gm PO ONCE PRN; Protocol PRN Reason: Hypoglycemia Protocol Docusate Sodium (Colace) 100 mg PO BID PRN PRN Reason: Constipation Last Admin: 02/10/17 09:08 Dose: 100 mg Glucagon (Glucagen Diagnostic Kit) 0 mg IM STAT PRN; Protocol PRN Reason: Hypoglycemia Protocol Home Med (Esomeprazole) 40 mg PO DAILY [facility] Last Admin: 02/10/17 09:08 Dose: 40 mg Home Med (Patient's Own Medication) 160 unit PO DAILY [facility] Last Admin: 02/10/17 09:08 Dose: 160 unit Home Med (Colesevelam) 3 tab PO BID [facility] Last Admin: 02/10/17 09:08 Dose: 3 tab Home Med (Glimepiride) 2 tab PO BID [facility] Last Admin: 02/10/17 09:10 Dose: 2 tab Home Med (Patient's Own Medication) 1 unit PO ACB [facility] Last Admin: 02/10/17 07:19 Dose: 1 unit Home Med (Patient's Own Medication) 2 unit PO QPM [facility] Last Admin: 02/09/17 17:01 Dose: 2 unit Hydroxyzine HCl (Atarax) 25 mg PO PRN PRN Reason: sleep Last Admin: 02/02/17 08:05 Dose: 25 mg Insulin Detemir (Levemir) 10 units SC QAM [facility] Last Admin: 02/10/17 09:10 Dose: 10 unit Insulin Detemir (Levemir) 10 units SC HS [facility] Last Admin: 02/09/17 21:45 Dose: 10 units Insulin Human Lispro (Humalog) 0 units SC ACTID [facility] PRN Reason: Protocol Last Admin: 02/10/17 07:17 Dose: 2 units Saccharomyces Boulardii (Florastor) 250 mg PO BID [facility] Last Admin: 02/10/17 09:09 Dose: 250 mg Simethicone (Mylicon Chew Tab) 80 mg PO [facility] PRN PRN Reason: Flatulence Last Admin: 02/09/17 20:11 Dose: 80 mg Sitagliptin Phosphate (Januvia) 50 mg PO DAILY [facility] Last Admin: 02/10/17 09:11 Dose: 50 mg - Labs Labs: 02/06/17 05:25 - Constitutional Appears: Well, No Acute Distress - Head Exam Head Exam: ATRAUMATIC, NORMOCEPHALIC - Eye Exam Eye Exam: EOMI, PERRL - ENT Exam ENT Exam: Mucous Membranes Moist - Neck Exam Neck Exam: Full ROM. absent: Lymphadenopathy - Respiratory Exam Respiratory Exam: Clear to Ausculation Bilateral, NORMAL BREATHING PATTERN - GI/Abdominal Exam GI & Abdominal Exam: Soft, Normal Bowel Sounds. absent: Distended, Tenderness - Extremities Exam Extremities Exam: Full ROM. absent: Calf Tenderness, Pedal Edema - Back Exam Back Exam: absent: CVA tenderness (L), CVA tenderness (R) - Neurological Exam Neurological Exam: Alert, Awake, CN II-XII Intact, Oriented x3 - Psychiatric Exam Psychiatric exam: Normal Affect, Normal Mood - Skin Skin Exam: Dry, Intact, Warm Assessment and Plan - Assessment and Plan (Free Text) Assessment: 76 yr old M admitted to [facility] for PT/OT and speech therapy s/p CVA. Pt has PMHx of CAD, DM, HTN, HLD, CABG x 4(2009), AICD (2011), former smoker (quit 40yrs prior). Patient is stable. He is tolerating physical therapy, has good appetite, normal urine output, diplopia has improved significantly. No concerns or complaints this at this time. Plan: 1. CVA (Cerebro Vascular Event) -symptoms improving -Repeat CT head 01/25/17: no change -Continue with current management: ASA 81 mg PO QD, Plavix 75mg PO QD, Atorvastatin 40 mg PO QD -PT/OT consult appreciated: will follow recommendations -Speech therapy recommendations: Moderate consistent CHO/Heart Healthy diet + thin liquids 2. CAD (coronary artery disease) with history of CABG -hx of pacemaker placement -PPM, battery change 08/2016 -Echo LVEF 60-65%, pt is stable from cardiac point of view 3. Diabetes Mellitus Type 2 -uncontrolled POC glucose 192 mg/dL this AM -home meds resumed: (Januvia 100 mg PO QD, Nateglinide 120 mg 1 tab before breakfast, 2 tabs before dinner; Glimepiride 2mg 2 tabs PO BID, Colesevelam 625mg 3 tabs PO TID) -Insulin Detemir 10 units SC QAM -Insulin Detemir 10 units SCHS -Insulin Lispro SC AC TID -HbA1c 6.4 (01/25/17) - Hypoglycemia protocol 4. Hypertension -Chronic, controlled -continue home meds :Norvasc 10mg PO QD, Carvedilol 25mg PO BID 5. HLD (hyperlipidemia) -chronic, stable -Atorvastatin 40mg PO HS SALLY, Fenofibrate 160 mg PO daily 6. DVT /GI prophylaxis -SCD's -Discontinued Heparin per recommendation/conversation with neuro Dr. David as patient is already on ASA and Plavix -home med Nexium 40 PO QD, Sacchromyces boulardi 250mg PO BID <Jarret Saldana - Last Filed: 02/11/17 06:45> Objective - Vital Signs/Intake and Output Vital Signs (last 24 hours): Temp Pulse Resp BP Pulse Ox 98.1 F 73 18 143/78 96 02/10/17 21:30 02/10/17 21:30 02/10/17 21:30 02/10/17 21:30 02/10/17 21:30 - Medications Medications: Current Medications Acetaminophen (Tylenol 325mg Tab) 650 mg PO Q6 PRN PRN Reason: Headache Last Admin: 02/04/17 09:24 Dose: 650 mg Amlodipine Besylate (Norvasc) 10 mg PO DAILY [facility] Last Admin: 02/10/17 09:09 Dose: 10 mg Aspirin (Aspirin Chewable) 81 mg PO DAILY [facility] Last Admin: 02/10/17 09:09 Dose: 81 mg Atorvastatin Calcium (Lipitor) 40 mg PO HS [facility] Last Admin: 02/10/17 21:29 Dose: 40 mg Carvedilol (Coreg) 25 mg PO Q12 [facility] Last Admin: 02/10/17 21:29 Dose: 25 mg Clopidogrel Bisulfate (Plavix) 75 mg PO DAILY [facility] Last Admin: 02/10/17 09:11 Dose: 75 mg Dextrose (Dextrose 50% Inj) 0 ml IV STAT PRN; Protocol PRN Reason: Hyglycemia Protocol Dextrose (Glutose 15) 0 gm PO ONCE PRN; Protocol PRN Reason: Hypoglycemia Protocol Docusate Sodium (Colace) 100 mg PO BID PRN PRN Reason: Constipation Last Admin: 02/10/17 09:08 Dose: 100 mg Glucagon (Glucagen Diagnostic Kit) 0 mg IM STAT PRN; Protocol PRN Reason: Hypoglycemia Protocol Home Med (Esomeprazole) 40 mg PO DAILY [facility] Last Admin: 02/10/17 09:08 Dose: 40 mg Home Med (Patient's Own Medication) 160 unit PO DAILY [facility] Last Admin: 02/10/17 09:08 Dose: 160 unit Home Med (Colesevelam) 3 tab PO BID [facility] Last Admin: 02/10/17 17:08 Dose: 3 tab Home Med (Glimepiride) 2 tab PO BID [facility] Last Admin: 02/10/17 17:08 Dose: 2 tab Home Med (Patient's Own Medication) 1 unit PO ACB [facility] Last Admin: 02/10/17 07:19 Dose: 1 unit Home Med (Patient's Own Medication) 2 unit PO QPM [facility] Last Admin: 02/10/17 17:08 Dose: 2 unit Hydroxyzine HCl (Atarax) 25 mg PO HS PRN PRN Reason: sleep Last Admin: 02/02/17 08:05 Dose: 25 mg Insulin Detemir (Levemir) 10 units SC QAM [facility] Last Admin: 02/10/17 09:10 Dose: 10 unit Insulin Detemir (Levemir) 10 units SC HS [facility] Last Admin: 02/10/17 21:30 Dose: 10 units Insulin Human Lispro (Humalog) 0 units SC ACTID [facility] PRN Reason: Protocol Last Admin: 02/11/17 06:38 Dose: Not Given Saccharomyces Boulardii (Florastor) 250 mg PO BID [facility] Last Admin: 02/10/17 17:08 Dose: 250 mg Simethicone (Mylicon Chew Tab) 80 mg PO [facility] PRN PRN Reason: Flatulence Last Admin: 02/09/17 20:11 Dose: 80 mg Sitagliptin Phosphate (Januvia) 100 mg PO DAILY [facility] - Labs Labs: 02/06/17 05:25 Attending/Attestation - Attestation I have personally seen and examined this patient.: Yes I have fully participated in the care of the patient.: Yes I have reviewed all pertinent clinical information, including history, physical exam and plan: Yes
[2017-02-11] MEDS: Insulin Lispro (humaLOG) 100 Units/ml Inj SC SCH ×3 (06:38→17:00)
[2017-02-11] MEDS: Saccharomyces Boulardi 250 mg Cap PO SCH ×2 (08:10→16:59)
[2017-02-11] MEDS: Insulin Detemir 100 Units/ml Inj SC SCH ×2 (08:28→21:18)
[2017-02-11] MEDS: COLESEVELAM PO SCH ×2 (09:25→16:59)
[2017-02-11] MEDS: STARLIX 120 MG PO SCH ×2 (09:25→17:01)
[2017-02-11] MEDS: GLIMEPIRIDE PO SCH ×2 (09:25→16:59)
[2017-02-11] MEDS: FENOFIBRATE 160 MG PO SCH (09:26)
[2017-02-11] MEDS: ESOMEPRAZOLE 40 MG PO SCH (09:27)
--- NOTE | 2017-02-11 12:48 | CP.PCM.PN ---
Addendum entered and electronically signed by Delphine Huggins MD 02/11/17 18: 21: Paged for depressive symptoms. As per RN, patient noted to have flat affect and stating he was depressed. Spoke to two daughter, who confirm patient noted to be crying during visit. No current suicidal and homicidal thoughts. Both patient and famiyl open to psych consult. Will follow recommendations. Original Note: <Jenn Aiken - Last Filed: 02/11/17 17:57> Subjective - Date & Time of Evaluation Date of Evaluation: 02/11/17 Time of Evaluation: 07:05 - Subjective Subjective: Patient seen and examined at bedside, laying in bed in no acute distress. Denies SOB, chest pain, weakness or dizziness. Patient reports good appetite, diplopia has significantly improved and he can now watch TV without double vision, has normal urine and stool output. Patients' diabetes has been uncontrolled and had discussion with patient as per diabetic diet, patient has regular chocolate at bedside brought in by family, family also repeatedly brings patient donuts/ice tea drinks occasionally, on friday family brought patient cake and food since it was fathers day. Patient states he understands the appropriate diabetic diet but will continue to have sweets sometimes. Patient has no other concerns or complaints at this time. Objective - Vital Signs/Intake and Output Vital Signs (last 24 hours): Temp Pulse Resp BP Pulse Ox 98 F 79 20 133/69 98 02/11/17 09:16 02/11/17 09:16 02/11/17 09:16 02/11/17 09:16 02/11/17 09:16 - Medications Medications: Current Medications Acetaminophen (Tylenol 325mg Tab) 650 mg PO Q6 PRN PRN Reason: Headache Last Admin: 02/04/17 09:24 Dose: 650 mg Amlodipine Besylate (Norvasc) 10 mg PO DAILY [facility] Last Admin: 02/11/17 08:12 Dose: 10 mg Aspirin (Aspirin Chewable) 81 mg PO DAILY [facility] Last Admin: 02/11/17 08:08 Dose: 81 mg Atorvastatin Calcium (Lipitor) 40 mg PO HS [facility] Last Admin: 02/10/17 21:29 Dose: 40 mg Carvedilol (Coreg) 25 mg PO Q12 [facility] Last Admin: 02/11/17 08:10 Dose: 25 mg Clopidogrel Bisulfate (Plavix) 75 mg PO DAILY [facility] Last Admin: 02/11/17 08:12 Dose: 75 mg Dextrose (Dextrose 50% Inj) 0 ml IV STAT PRN; Protocol PRN Reason: Hyglycemia Protocol Dextrose (Glutose 15) 0 gm PO ONCE PRN; Protocol PRN Reason: Hypoglycemia Protocol Docusate Sodium (Colace) 100 mg PO BID PRN PRN Reason: Constipation Last Admin: 02/10/17 09:08 Dose: 100 mg Glucagon (Glucagen Diagnostic Kit) 0 mg IM STAT PRN; Protocol PRN Reason: Hypoglycemia Protocol Home Med (Esomeprazole) 40 mg PO DAILY [facility] Last Admin: 02/11/17 09:27 Dose: 40 mg Home Med (Patient's Own Medication) 160 unit PO DAILY [facility] Last Admin: 02/11/17 09:26 Dose: 160 unit Home Med (Colesevelam) 3 tab PO BID [facility] Last Admin: 02/11/17 09:25 Dose: 3 tab Home Med (Glimepiride) 2 tab PO BID [facility] Last Admin: 02/11/17 09:25 Dose: 2 tab Home Med (Patient's Own Medication) 1 unit PO ACB [facility] Last Admin: 02/11/17 09:25 Dose: 1 unit Home Med (Patient's Own Medication) 2 unit PO QPM [facility] Last Admin: 02/10/17 17:08 Dose: 2 unit Hydroxyzine HCl (Atarax) 25 mg PO PRN PRN Reason: sleep Last Admin: 02/02/17 08:05 Dose: 25 mg Insulin Detemir (Levemir) 10 units SC QAM [facility] Last Admin: 02/11/17 08:28 Dose: 10 unit Insulin Detemir (Levemir) 10 units SC HS [facility] Last Admin: 02/10/17 21:30 Dose: 10 units Insulin Human Lispro (Humalog) 0 units SC ACTID [facility] PRN Reason: Protocol Last Admin: 02/11/17 06:38 Dose: Not Given Saccharomyces Boulardii (Florastor) 250 mg PO BID [facility] Last Admin: 02/11/17 08:10 Dose: 250 mg Simethicone (Mylicon Chew Tab) 80 mg PO HS PRN PRN Reason: Flatulence Last Admin: 02/09/17 20:11 Dose: 80 mg Sitagliptin Phosphate (Januvia) 100 mg PO DAILY [facility] Last Admin: 02/11/17 08:07 Dose: 100 mg - Labs Labs: 02/06/17 05:25 - Constitutional Appears: Well, No Acute Distress - Head Exam Head Exam: ATRAUMATIC, NORMOCEPHALIC - Eye Exam Eye Exam: EOMI, PERRL - ENT Exam ENT Exam: Mucous Membranes Moist - Neck Exam Neck Exam: Full ROM. absent: Lymphadenopathy - Respiratory Exam Respiratory Exam: Clear to Ausculation Bilateral, NORMAL BREATHING PATTERN - Cardiovascular Exam Cardiovascular Exam: REGULAR RHYTHM, +S1, +S2 - GI/Abdominal Exam GI & Abdominal Exam: Soft (obese). absent: Distended, Tenderness - Extremities Exam Extremities Exam: Full ROM. absent: Calf Tenderness, Pedal Edema - Back Exam Back Exam: absent: CVA tenderness (L), CVA tenderness (R) - Neurological Exam Neurological Exam: Alert, Awake, CN II-XII Intact, Oriented x3 - Psychiatric Exam Psychiatric exam: Normal Affect, Normal Mood - Skin Skin Exam: Dry, Intact, Warm Assessment and Plan - Assessment and Plan (Free Text) Assessment: 76 yr old M admitted to [facility] for PT/OT and speech therapy s/p CVA. Pt has PMHx of CAD, DM, HTN, HLD, CABG x 4(2009), AICD (2010), former smoker (quit 40yrs prior). Patient is stable. He is tolerating physical therapy, has good appetite, normal urine output, diplopia has improved significantly. No concerns or complaints this at this time. Counseled patient on appropriate diabetic diet as his diabetes has been uncontrolled due to occasional intake of sweets brought in by his family. Plan: 1. CVA (Cerebro Vascular Event) -symptoms improving -Repeat CT head 01/25/17: no change -Continue with current management: ASA 81 mg PO QD, Plavix 75mg PO QD, Atorvastatin 40 mg PO QD -PT/OT consult appreciated: will follow recommendations -Speech therapy recommendations: Moderate consistent CHO/Heart Healthy diet + thin liquids 2. CAD (coronary artery disease) with history of CABG -hx of pacemaker placement -PPM, battery change 08/2016 -Echo LVEF 60-65%, pt is stable from cardiac point of view 3. Diabetes Mellitus Type 2 -uncontrolled -home meds resumed: (Januvia 100 mg PO QD, Nateglinide 120 mg 1 tab before breakfast, 2 tabs before dinner; Glimepiride 2mg 2 tabs PO BID -Insulin Detemir 10 units SC QAM -Insulin Detemir 10 units SCHS -Insulin Lispro SC AC TID -HbA1c 6.4 (01/25/17) - Hypoglycemia protocol 4. Hypertension -Chronic, controlled -continue home meds :Norvasc 10mg PO QD, Carvedilol 25mg PO BID 5. HLD (hyperlipidemia) -chronic, stable -Atorvastatin 40mg PO HS SALLY, Fenofibrate 160 mg PO daily, home med Colesevelam 625mg 3 tabs PO BID 6. DVT /GI prophylaxis -SCD's -Discontinued Heparin per recommendation/conversation with neuro Dr. David as patient is already on ASA and Plavix -home med Nexium 40 PO QD, Sacchromyces boulardi 250mg PO BID <Jarret Saldana - Last Filed: 02/13/17 07:00> Objective - Vital Signs/Intake and Output Vital Signs (last 24 hours): Temp Pulse Resp BP Pulse Ox 97.7 F 71 20 138/73 100 02/12/17 21:15 02/12/17 21:15 02/12/17 21:15 02/12/17 21:15 02/12/17 21:15 - Medications Medications: Current Medications Acetaminophen (Tylenol 325mg Tab) 650 mg PO Q6 PRN PRN Reason: Headache Last Admin: 02/11/17 15:13 Dose: 650 mg Amlodipine Besylate (Norvasc) 10 mg PO DAILY [facility] Last Admin: 02/12/17 08:26 Dose: 10 mg Aspirin (Aspirin Chewable) 81 mg PO DAILY [facility] Last Admin: 02/12/17 08:26 Dose: 81 mg Atorvastatin Calcium (Lipitor) 40 mg PO HS [facility] Last Admin: 02/12/17 21:08 Dose: 40 mg Carvedilol (Coreg) 25 mg PO Q12 [facility] Last Admin: 02/12/17 21:09 Dose: 25 mg Clopidogrel Bisulfate (Plavix) 75 mg PO DAILY [facility] Last Admin: 02/12/17 08:25 Dose: 75 mg Dextrose (Dextrose 50% Inj) 0 ml IV STAT PRN; Protocol PRN Reason: Hyglycemia Protocol Dextrose (Glutose 15) 0 gm PO ONCE PRN; Protocol PRN Reason: Hypoglycemia Protocol Docusate Sodium (Colace) 100 mg PO BID PRN PRN Reason: Constipation Last Admin: 02/10/17 09:08 Dose: 100 mg Glucagon (Glucagen Diagnostic Kit) 0 mg IM STAT PRN; Protocol PRN Reason: Hypoglycemia Protocol Home Med (Esomeprazole) 40 mg PO DAILY [facility] Last Admin: 02/12/17 08:27 Dose: 40 mg Home Med (Patient's Own Medication) 160 unit PO DAILY [facility] Last Admin: 02/12/17 08:27 Dose: 160 unit Home Med (Colesevelam) 3 tab PO BID [facility] Last Admin: 02/12/17 16:59 Dose: 3 tab Home Med (Glimepiride) 2 tab PO BID [facility] Last Admin: 02/12/17 16:59 Dose: 2 tab Home Med (Patient's Own Medication) 2 unit PO QPM [facility] Last Admin: 02/12/17 16:59 Dose: 2 unit Home Med (Patient's Own Medication) 1 unit PO ACB@0700 [facility] Last Admin: 02/13/17 06:49 Dose: 1 unit Hydroxyzine HCl (Atarax) 25 mg PO HS PRN PRN Reason: sleep Last Admin: 02/02/17 08:05 Dose: 25 mg Insulin Detemir (Levemir) 10 units SC QAM [facility] Last Admin: 02/12/17 08:24 Dose: 10 unit Insulin Detemir (Levemir) 10 units SC HS [facility] Last Admin: 02/12/17 21:09 Dose: 10 units Insulin Human Lispro (Humalog) 0 units SC ACTID [facility] PRN Reason: Protocol Last Admin: 02/13/17 06:57 Dose: Not Given Saccharomyces Boulardii (Florastor) 250 mg PO BID [facility] Last Admin: 02/12/17 16:59 Dose: 250 mg Simethicone (Mylicon Chew Tab) 80 mg PO [facility] PRN PRN Reason: Flatulence Last Admin: 02/09/17 20:11 Dose: 80 mg Sitagliptin Phosphate (Januvia) 100 mg PO DAILY [facility] Last Admin: 02/12/17 08:26 Dose: 100 mg - Labs Labs: 02/06/17 05:25 Attending/Attestation - Attestation I have personally seen and examined this patient.: Yes I have fully participated in the care of the patient.: Yes I have reviewed all pertinent clinical information, including history, physical exam and plan: Yes
--- NOTE | 2017-02-11 13:19 | PSY.TMCNF ---
Nursing - Vital Signs Vital Signs (Last 8 hours): Vital Signs 02/11/17 02/11/17 02/11/17 08:10 08:12 09:00 Temperature Pulse Rate 78 78 78 Respiratory Rate Blood Pressure 138/79 139/78 139/78 O2 Sat by Pulse Oximetry 02/11/17 09:16 Temperature 98 F Pulse Rate 79 Respiratory 20 Rate Blood Pressure 133/69 O2 Sat by Pulse 98 Oximetry Pain: 0 - Precautions: Precautions: Fall Prevention - Medications/Other Issues Comment: Pt at moderate nutritional risk. goals:1: Consume >75% of meals (met, continue). 2: Maintain wt within 2-3 lbs. of current body weight (met, continue ). 3: Improve blood glucose closer to 70-180 mg/dL range (not met, continue). Follow-up due on 02/11/2017 - Consults Comment: Dr Lundy - Toileting Toileting: Moderate Assistance - Bladder Management Bladder Pattern: Normal Voiding Method: Urinal Frequency of Accidents: 0 - Bowel Management Bowel Pattern: Constipated Bowel Management: Moderate Assistance Frequency of Accidents: 0 - Transfers Transfers: Minimal Assistance - ADL's ADL's: Moderate Assistance - Pain Management Comments: on tylenol for headache - Patient/Family Teaching Comments: post cva care, safety ,fall precaution - Goals/Time Frame Comments: As per multidiciplinary plan of care Physical Therapy - Bed Mobility Bed Mobility: Modified Independent, Supervision, Verbal Cues - Transfers Wheelchair to Mat: Contact Guard, Minimal Assistance Sit to Stand: Supervision, Verbal Cues, Contact Guard - Ambulation Level of Assistance: Contact Guard, Minimal Assistance, Moderate Assistance Distance (ft.): 75 Assistive Devices: Rolling Walker - Stair Negotiation Stairs: Level of Assistance: Not Tested - Standing Balance Static Stand: Supervision Dynamic Stand: Contact Guard Assist, Minimal Assistance - Pain Pain (assessed during therapy session): 0 Comment: pt denies pain - Insight/Carryover Insight/Carryover: Good - Patient/Family Education Comment: -rom exercises, stroke recovery, safety, ADLs and ADL transfers, POC, therapy schedule, therapy goals, use of call cárdenas, compensatory strategies, - Assessment/Plan Assessment: Pt has continue to demonstrate increase arousal and attention to task throughout sessions. Pt has demonstrated increase visual scanning on both sides and has reported decrease or no double vision throughout sessions. Pt's mood has improved and has participated in visual scanning leisure tasks to improve single vision and focus. - Goals Timeframe: 7 days Goals: see progress noted 02/10/17 - Provider Therapist: Jody Calzada PT, DPT License Number: [id number] Occupational Therapy - Arousal/Attention/Orientation Patient Orientation: Person, Place, Time, Appropriate to Age, Appropriate to Situation - ADL/IADL Self Feeding: Independent, Set-up Help Grooming: Supervision, Set-up Help Dressing-Upper Extremity: Supervision, Set-up Help Dressing-Lower Extremity: Verbal Cues, Set-up Help, Minimal Assistance - Sitting Balance Static Sitting: Supervision Dynamic Sitting: Contact Guard Assist - Transfers Wheelchair to Bed Transfers: Verbal Cues, Set-up Help, Minimal Assistance - Wheelchair Management Level of Assistance: Supervision - Upper Extremity Status Right Upper Extremity Comment: ROM = WFL Left Upper Extremity Comment: ROM = WFL - Pain Pain (assessed during therapy session): 0 Comment: pt denies pain - Insight/Carryover Insight/Carryover: Good - Patient/Family Education Comment: -rom exercises, stroke recovery, safety, ADLs and ADL transfers, POC, therapy schedule, therapy goals, use of call cárdenas, compensatory strategies, - Assessment/Plan Assessment: Pt has continue to demonstrate increase arousal and attention to task throughout sessions. Pt has demonstrated increase visual scanning on both sides and has reported decrease or no double vision throughout sessions. Pt's mood has improved and has participated in visual scanning leisure tasks to improve single vision and focus. - Goals Timeframe: 7 days Goals: see progress noted 02/10/17 - Provider Therapist: Carmen Biggs License Number: [id number] Speech Therapy - Plan Assessment: Pt has continue to demonstrate increase arousal and attention to task throughout sessions. Pt has demonstrated increase visual scanning on both sides and has reported decrease or no double vision throughout sessions. Pt's mood has improved and has participated in visual scanning leisure tasks to improve single vision and focus. Recreational Therapy - Participation Participation: Participates in Individual and/or Group Sessions - Attendance Attendance: 3-5 times per week - Activities Leisure Activities: Cards and Games - Socialization Level of Socialization: Initiates/interacts freely with care givers and peer - Diversional Time Diversional Time: television, music - Assessment Assessment/Plan: Pt has continue to demonstrate increase arousal and attention to task throughout sessions. Pt has demonstrated increase visual scanning on both sides and has reported decrease or no double vision throughout sessions. Pt 's mood has improved and has participated in visual scanning leisure tasks to improve single vision and focus. Problems Currently Limiting Participation: weakness, dizziness, double vision Goals and Time Frame: Pt will be encouraged to participate in 1:1 and group recreation therapy sessions 3-5x week to improve leisure awareness level, improve visual scanning on both sides if double vision decreases, improve direction following, and provide leisure education. - Provider Therapist: Beryl Olmedo, TRAFFIC DIRECTOR #[id number] Nutrition - Current Diet Current Diet/ Supplement/ Feedings: Heart healthy moderate consistent CHO thin liquids - Appetite Percent Meal Consumed: 75-100% - Comments Comments: post cva care, safety ,fall precaution - Assessment/Goals/Time Frame Assessment/Goals/Time Frame: Pt at moderate nutritional risk. goals:1: Consume >75% of meals (met, continue). 2: Maintain wt within 2-3 lbs. of current body weight (met, continue). 3: Improve blood glucose closer to 70-180 mg/dL range ( not met, continue). Follow-up due on 02/11/2017 - Provider Provider: Fernanda Jaffe RD Case Management - Psychosocial Assessment Support Systems: Patient lives with and served as primary caregiver for spouse Psychological Interventions/Needs: Patient is alert and oriented x3 and is able to verbalize needs. Discharge Concerns: Patient with c/o of double vision, patient with limited support during the day Patient/Family Meeting: CM met with patient and rehab team Intervention/Goal/Outcome:: 1. Goal: Intermittent supervision overall. 2. Plan: Home with skilled vs [facility] dependant on progress. 3. DME needs. 4. f/u appts. 5. continued emotional support. 6. patient to be reteamed next week for most appropriate discharge date and plan - Discharge Plan Discharge Plan: Subacute care - Provider Provider: AUGUSTINA Tate, MANOMETER TECHNICIAN License Number: [id number] Rehabilitation Plan - Discharge Plan Estimated Date of Discharge: 02/15/17 Discharge to: Subacute
--- NOTE | 2017-02-11 13:46 | CP.PCM.PN ---
Subjective - Date & Time of Evaluation Date of Evaluation: 02/11/17 Time of Evaluation: 13:45 - Subjective Subjective: Patient seen in room denies pain improved vision no hiccups set for d/c to [facility] 02/15/17 continue current care Objective - Vital Signs/Intake and Output Vital Signs (last 24 hours): Temp Pulse Resp BP Pulse Ox 98 F 79 20 133/69 98 02/11/17 09:16 02/11/17 09:16 02/11/17 09:16 02/11/17 09:16 02/11/17 09:16 - Medications Medications: Current Medications Acetaminophen (Tylenol 325mg Tab) 650 mg PO Q6 PRN PRN Reason: Headache Last Admin: 02/04/17 09:24 Dose: 650 mg Amlodipine Besylate (Norvasc) 10 mg PO DAILY [facility] Last Admin: 02/11/17 08:12 Dose: 10 mg Aspirin (Aspirin Chewable) 81 mg PO DAILY [facility] Last Admin: 02/11/17 08:08 Dose: 81 mg Atorvastatin Calcium (Lipitor) 40 mg PO HS [facility] Last Admin: 02/10/17 21:29 Dose: 40 mg Carvedilol (Coreg) 25 mg PO Q12 [facility] Last Admin: 02/11/17 08:10 Dose: 25 mg Clopidogrel Bisulfate (Plavix) 75 mg PO DAILY [facility] Last Admin: 02/11/17 08:12 Dose: 75 mg Dextrose (Dextrose 50% Inj) 0 ml IV STAT PRN; Protocol PRN Reason: Hyglycemia Protocol Dextrose (Glutose 15) 0 gm PO ONCE PRN; Protocol PRN Reason: Hypoglycemia Protocol Docusate Sodium (Colace) 100 mg PO BID PRN PRN Reason: Constipation Last Admin: 02/10/17 09:08 Dose: 100 mg Glucagon (Glucagen Diagnostic Kit) 0 mg IM STAT PRN; Protocol PRN Reason: Hypoglycemia Protocol Home Med (Esomeprazole) 40 mg PO DAILY [facility] Last Admin: 02/11/17 09:27 Dose: 40 mg Home Med (Patient's Own Medication) 160 unit PO DAILY [facility] Last Admin: 02/11/17 09:26 Dose: 160 unit Home Med (Colesevelam) 3 tab PO BID [facility] Last Admin: 02/11/17 09:25 Dose: 3 tab Home Med (Glimepiride) 2 tab PO BID [facility] Last Admin: 02/11/17 09:25 Dose: 2 tab Home Med (Patient's Own Medication) 1 unit PO ACB [facility] Last Admin: 02/11/17 09:25 Dose: 1 unit Home Med (Patient's Own Medication) 2 unit PO QPM [facility] Last Admin: 02/10/17 17:08 Dose: 2 unit Hydroxyzine HCl (Atarax) 25 mg PO HS PRN PRN Reason: sleep Last Admin: 02/02/17 08:05 Dose: 25 mg Insulin Detemir (Levemir) 10 units SC QAM [facility] Last Admin: 02/11/17 08:28 Dose: 10 unit Insulin Detemir (Levemir) 10 units SC HS [facility] Last Admin: 02/10/17 21:30 Dose: 10 units Insulin Human Lispro (Humalog) 0 units SC ACTID [facility] PRN Reason: Protocol Last Admin: 02/11/17 11:57 Dose: 2 units Saccharomyces Boulardii (Florastor) 250 mg PO BID [facility] Last Admin: 02/11/17 08:10 Dose: 250 mg Simethicone (Mylicon Chew Tab) 80 mg PO P[facility] PRN PRN Reason: Flatulence Last Admin: 02/09/17 20:11 Dose: 80 mg Sitagliptin Phosphate (Januvia) 100 mg PO DAILY [facility] Last Admin: 02/11/17 08:07 Dose: 100 mg - Labs Labs: 02/06/17 05:25
[2017-02-12] MEDS: STARLIX 120 MG PO SCH ×2 (06:56→16:59)
[2017-02-12] MEDS: Insulin Lispro (humaLOG) 100 Units/ml Inj SC SCH ×3 (06:58→17:00)
[2017-02-12] MEDS: Insulin Detemir 100 Units/ml Inj SC SCH ×2 (08:24→21:09)
[2017-02-12] MEDS: Saccharomyces Boulardi 250 mg Cap PO SCH ×2 (08:26→16:59)
[2017-02-12] MEDS: ESOMEPRAZOLE 40 MG PO SCH (08:27)
[2017-02-12] MEDS: GLIMEPIRIDE PO SCH ×2 (08:27→16:59)
[2017-02-12] MEDS: FENOFIBRATE 160 MG PO SCH (08:27)
[2017-02-12] MEDS: COLESEVELAM PO SCH ×2 (08:27→16:59)
--- NOTE | 2017-02-12 08:30 | CP.PCM.PN ---
<Jenn Aiken - Last Filed: 02/12/17 16:14> Subjective - Date & Time of Evaluation Date of Evaluation: 02/12/17 Time of Evaluation: 07:25 - Subjective Subjective: Patient seen and examined at bedside, in no acute distress, able to sit up in bed independantly, cooperative with physical exam. Reports vision has improved significantly, has healthy appetite, normal urine and stool output. Tolerating PT well, has no concerns or complaints at this time. Objective - Vital Signs/Intake and Output Vital Signs (last 24 hours): Temp Pulse Resp BP Pulse Ox 97.0 F L 72 20 132/69 97 02/11/17 20:00 02/12/17 08:26 02/11/17 20:00 02/12/17 08:26 02/11/17 20:00 - Medications Medications: Current Medications Acetaminophen (Tylenol 325mg Tab) 650 mg PO Q6 PRN PRN Reason: Headache Last Admin: 02/11/17 15:13 Dose: 650 mg Amlodipine Besylate (Norvasc) 10 mg PO DAILY [facility] Last Admin: 02/12/17 08:26 Dose: 10 mg Aspirin (Aspirin Chewable) 81 mg PO DAILY [facility] Last Admin: 02/12/17 08:26 Dose: 81 mg Atorvastatin Calcium (Lipitor) 40 mg PO HS [facility] Last Admin: 02/11/17 21:17 Dose: 40 mg Carvedilol (Coreg) 25 mg PO Q12 [facility] Last Admin: 02/12/17 08:25 Dose: 25 mg Clopidogrel Bisulfate (Plavix) 75 mg PO DAILY [facility] Last Admin: 02/12/17 08:25 Dose: 75 mg Dextrose (Dextrose 50% Inj) 0 ml IV STAT PRN; Protocol PRN Reason: Hyglycemia Protocol Dextrose (Glutose 15) 0 gm PO ONCE PRN; Protocol PRN Reason: Hypoglycemia Protocol Docusate Sodium (Colace) 100 mg PO BID PRN PRN Reason: Constipation Last Admin: 02/10/17 09:08 Dose: 100 mg Glucagon (Glucagen Diagnostic Kit) 0 mg IM STAT PRN; Protocol PRN Reason: Hypoglycemia Protocol Home Med (Esomeprazole) 40 mg PO DAILY [facility] Last Admin: 02/12/17 08:27 Dose: 40 mg Home Med (Patient's Own Medication) 160 unit PO DAILY [facility] Last Admin: 02/12/17 08:27 Dose: 160 unit Home Med (Colesevelam) 3 tab PO BID [facility] Last Admin: 02/12/17 08:27 Dose: 3 tab Home Med (Glimepiride) 2 tab PO BID [facility] Last Admin: 02/12/17 08:27 Dose: 2 tab Home Med (Patient's Own Medication) 2 unit PO QPM [facility] Last Admin: 02/11/17 17:01 Dose: 2 unit Home Med (Patient's Own Medication) 1 unit PO ACB@0700 [facility] Last Admin: 02/12/17 06:56 Dose: 1 unit Hydroxyzine HCl (Atarax) 25 mg PO HS PRN PRN Reason: sleep Last Admin: 02/02/17 08:05 Dose: 25 mg Insulin Detemir (Levemir) 10 units SC QAM [facility] Last Admin: 02/12/17 08:24 Dose: 10 unit Insulin Detemir (Levemir) 10 units SC HS [facility] Last Admin: 02/11/17 21:18 Dose: 10 units Insulin Human Lispro (Humalog) 0 units SC ACTID [facility] PRN Reason: Protocol Last Admin: 02/12/17 06:58 Dose: Not Given Saccharomyces Boulardii (Florastor) 250 mg PO BID [facility] Last Admin: 02/12/17 08:26 Dose: 250 mg Simethicone (Mylicon Chew Tab) 80 mg PO [facility] PRN PRN Reason: Flatulence Last Admin: 02/09/17 20:11 Dose: 80 mg Sitagliptin Phosphate (Januvia) 100 mg PO DAILY [facility] Last Admin: 02/12/17 08:26 Dose: 100 mg - Labs Labs: 02/06/17 05:25 - Constitutional Appears: Well, No Acute Distress - Head Exam Head Exam: ATRAUMATIC, NORMOCEPHALIC - Eye Exam Eye Exam: EOMI, PERRL - ENT Exam ENT Exam: Mucous Membranes Moist - Neck Exam Neck Exam: Full ROM. absent: Lymphadenopathy - Respiratory Exam Respiratory Exam: Clear to Ausculation Bilateral, NORMAL BREATHING PATTERN - Cardiovascular Exam Cardiovascular Exam: REGULAR RHYTHM, +S1, +S2 - GI/Abdominal Exam GI & Abdominal Exam: Soft (obese), Normal Bowel Sounds. absent: Distended, Tenderness - Extremities Exam Extremities Exam: Full ROM. absent: Calf Tenderness, Pedal Edema - Back Exam Back Exam: absent: CVA tenderness (L), CVA tenderness (R) - Neurological Exam Neurological Exam: Alert, Awake, CN II-XII Intact, Oriented x3 - Psychiatric Exam Psychiatric exam: Normal Affect, Normal Mood - Skin Skin Exam: Dry, Intact, Warm Assessment and Plan - Assessment and Plan (Free Text) Assessment: 76 yr old M admitted to Subacute Rehab for PT/OT and speech therapy s/p CVA. Pt has PMHx of CAD, DM, HTN, HLD, CABG x 4(2009), AICD (2010), former smoker (quit 40yrs prior). Patient is stable. He is tolerating physical therapy, has good appetite, normal urine output, significant improvement in vision. No concerns or complaints this at this time. Patient was evaluated by psych, likely has adjustment disorder, no psychotropic medications indicated at this time, patient would benefit from outpatient psychotherapy. Patient is otherwise stable. Plan: 1. CVA (Cerebro Vascular Event) -symptoms improving -Repeat CT head 01/25/17: no change -Continue with current management: ASA 81 mg PO QD, Plavix 75mg PO QD, Atorvastatin 40 mg PO QD -PT/OT consult appreciated: will follow recommendations -Speech therapy recommendations: Moderate consistent CHO/Heart Healthy diet + thin liquids 2. CAD (coronary artery disease) with history of CABG -hx of pacemaker placement -PPM, battery change 08/2016 -Echo LVEF 60-65%, pt is stable from cardiac point of view 3. Diabetes Mellitus Type 2 -uncontrolled -home meds resumed: (Januvia 100 mg PO QD, Nateglinide 120 mg 1 tab before breakfast, 2 tabs before dinner; Glimepiride 2mg 2 tabs PO BID -Insulin Detemir 10 units SC QAM -Insulin Detemir 10 units SCHS -Insulin Lispro SC AC TID -HbA1c 6.4 (01/25/17) - Hypoglycemia protocol 4. Hypertension -Chronic, controlled -continue home meds :Norvasc 10mg PO QD, Carvedilol 25mg PO BID 5. HLD (hyperlipidemia) -chronic, stable -Atorvastatin 40mg PO HS [facility], Fenofibrate 160 mg PO daily, home med Colesevelam 625mg 3 tabs PO BID 6. DVT /GI prophylaxis -SCD's -Discontinued Heparin per recommendation/conversation with neuro Dr. David as patient is already on ASA and Plavix -home med Nexium 40 PO QD, Sacchromyces boulardi 250mg PO BID <Sammy Buck - Last Filed: 02/17/17 07:00> Objective - Vital Signs/Intake and Output Vital Signs (last 24 hours): Temp Pulse Resp BP Pulse Ox 98.1 F 70 18 151/81 H 97 02/15/17 08:05 02/15/17 08:17 02/15/17 08:05 02/15/17 08:17 02/15/17 08:05 - Labs Labs: 02/06/17 05:25 Attending/Attestation - Attestation I have personally seen and examined this patient.: Yes I have fully participated in the care of the patient.: Yes I have reviewed all pertinent clinical information, including history, physical exam and plan: Yes
--- NOTE | 2017-02-12 16:06 | CP.PCM.CON ---
History of Present Illness - History of Present Illness History of Present Illness: Psychiatry consult called for evaluation of depression HPI: 76 yr old M transferred to Subacute Rehab for PT/OT and speech therapy s/p CVA. Patient reports that he is frustrated by his CVA and current physical limitations, but was able to state the various things he is still able to do. He denies feeling severely depressed or anxious. Denied psychotic symptoms or desire to harm himself. He is not interested in taking psychotropic medications at this time. PMHx: CAD, DM, HTN, HLD PPHx: No history of psychiatric treatment or hospitalizations in the past PSurgHx: CABG x4(2009), AICD (2010) SocHx: Quit 40yrs prior, Lives with , from [place], has 4 children FHx: Daughter had depression, now resolved Allergies: Aluminum hydroxide, calcium carbonate, magnesium Mobile Patrol Officer: Dr Ramírez Production Cloth Cutter: Dr Nam Adjunct Faculty: Dr Mcneil MSE: A + O x 3, in a wheel chair, patch over his left eye, calm/cooperative, speech normal rate/rhythm/volume, mood "okay", affect- full range, thought content- linear/coherent, thought process- no delusions, perception- no hallucinations, no SI/HI. Impression: 76 yr old M admitted to Subacute Rehab for PT/OT and speech therapy s/p CVA. Patient does not meet criteria for major depressive disorder. He likely has Adjustment Disorder. -No acute psychotropic medications indicated at this time -No psychiatric admission indicated at this time -Patient would benefit from outpatient psychotherapy Past Patient History - Past Medical History & Family History Past Medical History?: Yes - Past Social History Smoking Status: Former Smoker Alcohol: None Drugs: Denies - CARDIAC Hx Cardiac Disorders: Yes Hx Hypercholesterolemia: Yes Hx Hypertension: Yes - PULMONARY Hx Asthma: Yes - NEUROLOGICAL HX Cerebrovascular Accident: Yes - HEENT Hx HEENT Problems: Yes Hx Glaucoma: Yes (OU) - RENAL Hx Chronic Kidney Disease: No Other/Comment: CKD - ENDOCRINE/METABOLIC Hx Diabetes Mellitus Type 2: Yes - HEMATOLOGICAL/ONCOLOGICAL Hx Blood Disorders: No Hx AIDS: No Hx Human Immunodeficiency Virus (HIV): No - INTEGUMENTARY Hx Dermatological Problems: No - MUSCULOSKELETAL/RHEUMATOLOGICAL Hx Musculoskeletal Disorders: No Hx Falls: No - GASTROINTESTINAL Hx Gastrointestinal Disorders: No - GENITOURINARY/GYNECOLOGICAL Hx Genitourinary Disorders: No - PSYCHIATRIC Hx Anxiety: Yes Hx Depression: Yes Hx Substance Use: No - SURGICAL HISTORY Hx Coronary Artery Bypass Graft: Yes (X4 2009) Other/Comment: AICD 2010 - ANESTHESIA Hx Anesthesia: Yes Hx Anesthesia Reactions: No Hx Malignant Hyperthermia: No Meds Home Medications: Home Medication List Medication Instructions Recorded Confirmed Type Colesevelam HCl [Welchol] 625 mg PO BID #3 tablet 02/03/17 Rx Esomeprazole Magnesium [Nexium] 40 mg PO DAILY #1 ecc 02/03/17 Rx Fenofibrate [Triglide] 160 mg PO DAILY #1 tab 02/03/17 Rx Glimepiride 2 mg PO BID #2 tablet 02/03/17 Rx Insulin Lispro [Humalog Kwikpen 100 unit SQ ACHS #1 insuln.pen 02/03/17 Rx U-100] Nateglinide 120 mg PO BRK #1 tablet 02/03/17 Rx Nateglinide [Starlix] 120 mg PO DIN #2 tab 02/03/17 Rx SITagliptin [Januvia] 100 mg PO DAILY #1 tab 02/03/17 Rx Allergies/Adverse Reactions: Allergies Allergy/AdvReac Type Severity Reaction Status Date / Time aluminum hydroxide AdvReac Mild WHITE Verified 01/29/17 12:30 [From Mylanta] SPOTS ON SKIN calcium carbonate AdvReac Mild WHITE Verified 01/29/17 12:30 [From Mylanta] SPOTS ON SKIN magnesium [From Mylanta] AdvReac Mild WHITE Verified 01/29/17 12:30 SPOTS ON SKIN magnesium hydroxide AdvReac Mild WHITE Verified 01/29/17 12:30 [From Mylanta] SPOTS ON SKIN simethicone [From Mylanta] AdvReac Mild WHITE Verified 01/29/17 12:30 SPOTS ON SKIN - Medications Medications: Current Medications Acetaminophen (Tylenol 325mg Tab) 650 mg PO Q6 PRN PRN Reason: Headache Last Admin: 02/11/17 15:13 Dose: 650 mg Amlodipine Besylate (Norvasc) 10 mg PO DAILY [facility] Last Admin: 02/12/17 08:26 Dose: 10 mg Aspirin (Aspirin Chewable) 81 mg PO DAILY [facility] Last Admin: 02/12/17 08:26 Dose: 81 mg Atorvastatin Calcium (Lipitor) 40 mg PO HS [facility] Last Admin: 02/11/17 21:17 Dose: 40 mg Carvedilol (Coreg) 25 mg PO Q12 [facility] Last Admin: 02/12/17 08:25 Dose: 25 mg Clopidogrel Bisulfate (Plavix) 75 mg PO DAILY [facility] Last Admin: 02/12/17 08:25 Dose: 75 mg Dextrose (Dextrose 50% Inj) 0 ml IV STAT PRN; Protocol PRN Reason: Hyglycemia Protocol Dextrose (Glutose 15) 0 gm PO ONCE PRN; Protocol PRN Reason: Hypoglycemia Protocol Docusate Sodium (Colace) 100 mg PO BID PRN PRN Reason: Constipation Last Admin: 02/10/17 09:08 Dose: 100 mg Glucagon (Glucagen Diagnostic Kit) 0 mg IM STAT PRN; Protocol PRN Reason: Hypoglycemia Protocol Home Med (Esomeprazole) 40 mg PO DAILY [facility] Last Admin: 02/12/17 08:27 Dose: 40 mg Home Med (Patient's Own Medication) 160 unit PO DAILY [facility] Last Admin: 02/12/17 08:27 Dose: 160 unit Home Med (Colesevelam) 3 tab PO BID [facility] Last Admin: 02/12/17 08:27 Dose: 3 tab Home Med (Glimepiride) 2 tab PO BID [facility] Last Admin: 02/12/17 08:27 Dose: 2 tab Home Med (Patient's Own Medication) 2 unit PO QPM [facility] Last Admin: 02/11/17 17:01 Dose: 2 unit Home Med (Patient's Own Medication) 1 unit PO ACB@0700 [facility] Last Admin: 02/12/17 06:56 Dose: 1 unit Hydroxyzine HCl (Atarax) 25 mg PO HS PRN PRN Reason: sleep Last Admin: 02/02/17 08:05 Dose: 25 mg Insulin Detemir (Levemir) 10 units SC QAM [facility] Last Admin: 02/12/17 08:24 Dose: 10 unit Insulin Detemir (Levemir) 10 units SC HS [facility] Last Admin: 02/11/17 21:18 Dose: 10 units Insulin Human Lispro (Humalog) 0 units SC ACTID [facility] PRN Reason: Protocol Last Admin: 02/12/17 12:23 Dose: 2 units Saccharomyces Boulardii (Florastor) 250 mg PO BID [facility] Last Admin: 02/12/17 08:26 Dose: 250 mg Simethicone (Mylicon Chew Tab) 80 mg PO [facility] PRN PRN Reason: Flatulence Last Admin: 02/09/17 20:11 Dose: 80 mg Sitagliptin Phosphate (Januvia) 100 mg PO DAILY [facility] Last Admin: 02/12/17 08:26 Dose: 100 mg Results - Vital Signs Recent Vital Signs: Last Vital Signs Temp 98.3 F 02/12/17 10:00 Pulse 73 02/12/17 10:00 Resp 18 02/12/17 10:00 BP 132/69 02/12/17 10:00 Pulse Ox 98 02/12/17 10:00 - Labs Result Diagrams: 02/06/17 05:25 Labs: Laboratory Results - last 24 hr 02/11/17 02/11/17 02/12/17 16:19 20:53 05:34 POC Glucose (mg/dL) 188 H 211 H 138 H 02/12/17 11:35 POC Glucose (mg/dL) 165 H
--- NOTE | 2017-02-12 16:53 | CP.PCM.PN ---
Subjective - Date & Time of Evaluation Date of Evaluation: 02/12/17 Time of Evaluation: 16:52 - Subjective Subjective: Patient doing well felt he had a good day in therapy today denies sob/cp or abdominal pain continue current care Objective - Vital Signs/Intake and Output Vital Signs (last 24 hours): Temp Pulse Resp BP Pulse Ox 98.3 F 73 18 132/69 98 02/12/17 10:00 02/12/17 10:00 02/12/17 10:00 02/12/17 10:00 02/12/17 10:00 - Medications Medications: Current Medications Acetaminophen (Tylenol 325mg Tab) 650 mg PO Q6 PRN PRN Reason: Headache Last Admin: 02/11/17 15:13 Dose: 650 mg Amlodipine Besylate (Norvasc) 10 mg PO DAILY [facility] Last Admin: 02/12/17 08:26 Dose: 10 mg Aspirin (Aspirin Chewable) 81 mg PO DAILY [facility] Last Admin: 02/12/17 08:26 Dose: 81 mg Atorvastatin Calcium (Lipitor) 40 mg PO HS [facility] Last Admin: 02/11/17 21:17 Dose: 40 mg Carvedilol (Coreg) 25 mg PO Q12 [facility] Last Admin: 02/12/17 08:25 Dose: 25 mg Clopidogrel Bisulfate (Plavix) 75 mg PO DAILY [facility] Last Admin: 02/12/17 08:25 Dose: 75 mg Dextrose (Dextrose 50% Inj) 0 ml IV STAT PRN; Protocol PRN Reason: Hyglycemia Protocol Dextrose (Glutose 15) 0 gm PO ONCE PRN; Protocol PRN Reason: Hypoglycemia Protocol Docusate Sodium (Colace) 100 mg PO BID PRN PRN Reason: Constipation Last Admin: 02/10/17 09:08 Dose: 100 mg Glucagon (Glucagen Diagnostic Kit) 0 mg IM STAT PRN; Protocol PRN Reason: Hypoglycemia Protocol Home Med (Esomeprazole) 40 mg PO DAILY [facility] Last Admin: 02/12/17 08:27 Dose: 40 mg Home Med (Patient's Own Medication) 160 unit PO DAILY [facility] Last Admin: 02/12/17 08:27 Dose: 160 unit Home Med (Colesevelam) 3 tab PO BID [facility] Last Admin: 02/12/17 08:27 Dose: 3 tab Home Med (Glimepiride) 2 tab PO BID [facility] Last Admin: 02/12/17 08:27 Dose: 2 tab Home Med (Patient's Own Medication) 2 unit PO QPM [facility] Last Admin: 02/11/17 17:01 Dose: 2 unit Home Med (Patient's Own Medication) 1 unit PO ACB@0700 [facility] Last Admin: 02/12/17 06:56 Dose: 1 unit Hydroxyzine HCl (Atarax) 25 mg PO HS PRN PRN Reason: sleep Last Admin: 02/02/17 08:05 Dose: 25 mg Insulin Detemir (Levemir) 10 units SC QAM [facility] Last Admin: 02/12/17 08:24 Dose: 10 unit Insulin Detemir (Levemir) 10 units SC HS [facility] Last Admin: 02/11/17 21:18 Dose: 10 units Insulin Human Lispro (Humalog) 0 units SC ACTID [facility] PRN Reason: Protocol Last Admin: 02/12/17 12:23 Dose: 2 units Saccharomyces Boulardii (Florastor) 250 mg PO BID [facility] Last Admin: 02/12/17 08:26 Dose: 250 mg Simethicone (Mylicon Chew Tab) 80 mg PO [facility] PRN PRN Reason: Flatulence Last Admin: 02/09/17 20:11 Dose: 80 mg Sitagliptin Phosphate (Januvia) 100 mg PO DAILY [facility] Last Admin: 02/12/17 08:26 Dose: 100 mg - Labs Labs: 02/06/17 05:25
[2017-02-13] MEDS: STARLIX 120 MG PO SCH ×2 (06:49→16:59)
--- NOTE | 2017-02-13 06:56 | CP.PCM.PN ---
<Jenn Aiken - Last Filed: 02/13/17 10:51> Subjective - Date & Time of Evaluation Date of Evaluation: 02/13/17 Time of Evaluation: 07:45 - Subjective Subjective: Patient seen and examined at bedside, in no acute distress, sitting in chair eating breakfast. No acute events overnight. Reports he is feeling stronger with physical therapy, is having normal urine and stool output, has no concerns or complaints at this time. Objective - Vital Signs/Intake and Output Vital Signs (last 24 hours): Temp Pulse Resp BP Pulse Ox 97.7 F 71 20 138/73 100 02/12/17 21:15 02/12/17 21:15 02/12/17 21:15 02/12/17 21:15 02/12/17 21:15 - Medications Medications: Current Medications Acetaminophen (Tylenol 325mg Tab) 650 mg PO Q6 PRN PRN Reason: Headache Last Admin: 02/11/17 15:13 Dose: 650 mg Amlodipine Besylate (Norvasc) 10 mg PO DAILY [facility] Last Admin: 02/12/17 08:26 Dose: 10 mg Aspirin (Aspirin Chewable) 81 mg PO DAILY [facility] Last Admin: 02/12/17 08:26 Dose: 81 mg Atorvastatin Calcium (Lipitor) 40 mg PO HS [facility] Last Admin: 02/12/17 21:08 Dose: 40 mg Carvedilol (Coreg) 25 mg PO Q12 [facility] Last Admin: 02/12/17 21:09 Dose: 25 mg Clopidogrel Bisulfate (Plavix) 75 mg PO DAILY [facility] Last Admin: 02/12/17 08:25 Dose: 75 mg Dextrose (Dextrose 50% Inj) 0 ml IV STAT PRN; Protocol PRN Reason: Hyglycemia Protocol Dextrose (Glutose 15) 0 gm PO ONCE PRN; Protocol PRN Reason: Hypoglycemia Protocol Docusate Sodium (Colace) 100 mg PO BID PRN PRN Reason: Constipation Last Admin: 02/10/17 09:08 Dose: 100 mg Glucagon (Glucagen Diagnostic Kit) 0 mg IM STAT PRN; Protocol PRN Reason: Hypoglycemia Protocol Home Med (Esomeprazole) 40 mg PO DAILY [facility] Last Admin: 02/12/17 08:27 Dose: 40 mg Home Med (Patient's Own Medication) 160 unit PO DAILY [facility] Last Admin: 02/12/17 08:27 Dose: 160 unit Home Med (Colesevelam) 3 tab PO BID [facility] Last Admin: 02/12/17 16:59 Dose: 3 tab Home Med (Glimepiride) 2 tab PO BID [facility] Last Admin: 02/12/17 16:59 Dose: 2 tab Home Med (Patient's Own Medication) 2 unit PO QPM [facility] Last Admin: 02/12/17 16:59 Dose: 2 unit Home Med (Patient's Own Medication) 1 unit PO ACB@0700 [facility] Last Admin: 02/13/17 06:49 Dose: 1 unit Hydroxyzine HCl (Atarax) 25 mg PO HS PRN PRN Reason: sleep Last Admin: 02/02/17 08:05 Dose: 25 mg Insulin Detemir (Levemir) 10 units SC QAM [facility] Last Admin: 02/12/17 08:24 Dose: 10 unit Insulin Detemir (Levemir) 10 units SC HS [facility] Last Admin: 02/12/17 21:09 Dose: 10 units Insulin Human Lispro (Humalog) 0 units SC ACTID [facility] PRN Reason: Protocol Last Admin: 02/12/17 17:00 Dose: Not Given Saccharomyces Boulardii (Florastor) 250 mg PO BID [facility] Last Admin: 02/12/17 16:59 Dose: 250 mg Simethicone (Mylicon Chew Tab) [address] [facility] PRN PRN Reason: Flatulence Last Admin: 02/09/17 20:11 Dose: 80 mg Sitagliptin Phosphate (Januvia) 100 mg PO DAILY [facility] Last Admin: 02/12/17 08:26 Dose: 100 mg - Labs Labs: 02/06/17 05:25 - Constitutional Appears: Well, No Acute Distress - Head Exam Head Exam: ATRAUMATIC, NORMOCEPHALIC - Eye Exam Eye Exam: EOMI, PERRL - ENT Exam ENT Exam: Mucous Membranes Moist - Neck Exam Neck Exam: Full ROM. absent: Lymphadenopathy - Respiratory Exam Respiratory Exam: Clear to Ausculation Bilateral, NORMAL BREATHING PATTERN - Cardiovascular Exam Cardiovascular Exam: REGULAR RHYTHM, +S1, +S2 - GI/Abdominal Exam GI & Abdominal Exam: Soft (obese), Normal Bowel Sounds. absent: Distended, Tenderness - Extremities Exam Extremities Exam: Full ROM. absent: Calf Tenderness, Pedal Edema - Back Exam Back Exam: absent: CVA tenderness (L), CVA tenderness (R) - Neurological Exam Neurological Exam: Alert, Awake, CN II-XII Intact, Oriented x3 - Psychiatric Exam Psychiatric exam: Normal Affect, Normal Mood - Skin Skin Exam: Dry, Intact, Warm Assessment and Plan - Assessment and Plan (Free Text) Assessment: 76 yr old M [facility] PT/OT and speech therapy s/p CVA. Pt has PMHx of CAD, DM, HTN, HLD, CABG x 4(2009), AICD (2010), former smoker (quit 40yrs prior). Patient doing well and is tolerating physical therapy, has good appetite, normal urine output, significant improvement in vision. No concerns or complaints this at this time. Patient was evaluated by psych, likely has adjustment disorder, no psychotropic medications indicated at this time, patient would benefit from outpatient psychotherapy. Patient is otherwise stable. Plan: 1. CVA (Cerebro Vascular Event) -symptoms improving -Repeat CT head 01/25/17: no change -Continue with current management: ASA 81 mg PO QD, Plavix 75mg PO QD, Atorvastatin 40 mg PO QD -PT/OT consult appreciated: will follow recommendations -Speech therapy recommendations: Moderate consistent CHO/Heart Healthy diet + thin liquids 2. CAD (coronary artery disease) with history of CABG -hx of pacemaker placement -PPM, battery change 08/2016 -Echo LVEF 60-65%, pt is stable from cardiac point of view 3. Diabetes Mellitus Type 2 -uncontrolled -home meds resumed: (Januvia 100 mg PO QD, Nateglinide 120 mg 1 tab before breakfast, 2 tabs before dinner; Glimepiride 2mg 2 tabs PO BID -Insulin Detemir 10 units SC QAM -Insulin Detemir 10 units SCHS -Insulin Lispro SC AC TID -HbA1c 6.4 (01/25/17) - Hypoglycemia protocol 4. Hypertension -Chronic, controlled -continue home meds :Norvasc 10mg PO QD, Carvedilol 25mg PO BID 5. HLD (hyperlipidemia) -chronic, stable -Atorvastatin 40mg PO HS [facility], Fenofibrate 160 mg PO daily, home med Colesevelam 625mg 3 tabs PO BID 6. DVT /GI prophylaxis -SCD's -Discontinued Heparin per recommendation/conversation with neuro Dr. David as patient is already on ASA and Plavix -home med Nexium 40 PO QD, Sacchromyces boulardi 250mg PO BID <Jarret Saldana - Last Filed: 02/14/17 06:47> Objective - Vital Signs/Intake and Output Vital Signs (last 24 hours): Temp Pulse Resp BP Pulse Ox 97.9 F 79 20 128/67 98 02/13/17 21:25 02/13/17 21:50 02/13/17 21:25 02/13/17 21:50 02/13/17 21:25 - Medications Medications: Current Medications Acetaminophen (Tylenol 325mg Tab) 650 mg PO Q6 PRN PRN Reason: Headache Last Admin: 02/11/17 15:13 Dose: 650 mg Amlodipine Besylate (Norvasc) 10 mg PO DAILY [facility] Last Admin: 02/13/17 08:25 Dose: 10 mg Aspirin (Aspirin Chewable) 81 mg PO DAILY [facility] Last Admin: 02/13/17 08:22 Dose: 81 mg Atorvastatin Calcium (Lipitor) 40 mg PO DAILY@1800 [facility] Carvedilol (Coreg) 25 mg PO Q12 [facility] Last Admin: 02/13/17 21:50 Dose: 25 mg Clopidogrel Bisulfate (Plavix) 75 mg PO DAILY [facility] Last Admin: 02/13/17 08:22 Dose: 75 mg Dextrose (Dextrose 50% Inj) 0 ml IV STAT PRN; Protocol PRN Reason: Hyglycemia Protocol Dextrose (Glutose 15) 0 gm PO ONCE PRN; Protocol PRN Reason: Hypoglycemia Protocol Docusate Sodium (Colace) 100 mg PO BID PRN PRN Reason: Constipation Last Admin: 02/13/17 08:24 Dose: 100 mg Glucagon (Glucagen Diagnostic Kit) 0 mg IM STAT PRN; Protocol PRN Reason: Hypoglycemia Protocol Home Med (Esomeprazole) 40 mg PO DAILY [facility] Last Admin: 02/13/17 08:24 Dose: 40 mg Home Med (Patient's Own Medication) 160 unit PO DAILY [facility] Last Admin: 02/13/17 08:24 Dose: 160 unit Home Med (Colesevelam) 3 tab PO BID [facility] Last Admin: 02/13/17 16:53 Dose: 3 tab Home Med (Glimepiride) 2 tab PO BID [facility] Last Admin: 02/13/17 16:53 Dose: 2 tab Home Med (Patient's Own Medication) 2 unit PO QPM [facility] Last Admin: 02/13/17 16:59 Dose: 2 unit Home Med (Patient's Own Medication) 1 unit PO ACB@0700 [facility] Last Admin: 02/13/17 06:49 Dose: 1 unit Hydroxyzine HCl (Atarax) 25 mg PO HS PRN PRN Reason: sleep Last Admin: 02/02/17 08:05 Dose: 25 mg Insulin Detemir (Levemir) 10 units SC QAM [facility] Last Admin: 02/13/17 08:23 Dose: 10 unit Insulin Detemir (Levemir) 10 units SC HS [facility] Last Admin: 02/13/17 22:13 Dose: Not Given Insulin Human Lispro (Humalog) 0 units SC ACTID [facility] PRN Reason: Protocol Last Admin: 02/13/17 16:52 Dose: Not Given Saccharomyces Boulardii (Florastor) 250 mg PO BID [facility] Last Admin: 02/13/17 16:53 Dose: 250 mg Simethicone (Mylicon Chew Tab) 80 mg PO HS PRN PRN Reason: Flatulence Last Admin: 02/09/17 20:11 Dose: 80 mg Sitagliptin Phosphate (Januvia) 100 mg PO DAILY [facility] Last Admin: 02/13/17 08:22 Dose: 100 mg - Labs Labs: 02/06/17 05:25 Attending/Attestation - Attestation I have personally seen and examined this patient.: Yes I have fully participated in the care of the patient.: Yes I have reviewed all pertinent clinical information, including history, physical exam and plan: Yes
[2017-02-13] MEDS: Insulin Lispro (humaLOG) 100 Units/ml Inj SC SCH ×3 (06:57→16:52)
[2017-02-13] MEDS: Insulin Detemir 100 Units/ml Inj SC SCH ×2 (08:23→22:13)
[2017-02-13] MEDS: Saccharomyces Boulardi 250 mg Cap PO SCH ×2 (08:23→16:53)
[2017-02-13] MEDS: FENOFIBRATE 160 MG PO SCH (08:24)
[2017-02-13] MEDS: ESOMEPRAZOLE 40 MG PO SCH (08:24)
[2017-02-13] MEDS: COLESEVELAM PO SCH ×2 (08:24→16:53)
[2017-02-13] MEDS: GLIMEPIRIDE PO SCH ×2 (08:24→16:53)
--- NOTE | 2017-02-13 22:07 | CP.PCM.PCO ---
Physician Communication Note - Physician Communication Note Physician Communication Note: Patient refused Levemir tonight. Blood Glucose was 248mg/dl
[2017-02-14] MEDS: Insulin Lispro (humaLOG) 100 Units/ml Inj SC SCH ×3 (07:14→16:33)
--- NOTE | 2017-02-14 07:28 | CP.PCM.PN ---
Subjective - Date & Time of Evaluation Date of Evaluation: 02/14/17 Time of Evaluation: 06:45 - Subjective Subjective: no complaints n vision is improving daily Objective - Vital Signs/Intake and Output Vital Signs (last 24 hours): Temp Pulse Resp BP Pulse Ox 97.9 F 79 20 128/67 98 02/13/17 21:25 02/13/17 21:50 02/13/17 21:25 02/13/17 21:50 02/13/17 21:25 - Medications Medications: Current Medications Acetaminophen (Tylenol 325mg Tab) 650 mg PO Q6 PRN PRN Reason: Headache Last Admin: 02/11/17 15:13 Dose: 650 mg Amlodipine Besylate (Norvasc) 10 mg PO DAILY [facility] Last Admin: 02/13/17 08:25 Dose: 10 mg Aspirin (Aspirin Chewable) 81 mg PO DAILY [facility] Last Admin: 02/13/17 08:22 Dose: 81 mg Atorvastatin Calcium (Lipitor) 40 mg PO DAILY@1800 [facility] Carvedilol (Coreg) 25 mg PO Q12 [facility] Last Admin: 02/13/17 21:50 Dose: 25 mg Clopidogrel Bisulfate (Plavix) 75 mg PO DAILY [facility] Last Admin: 02/13/17 08:22 Dose: 75 mg Dextrose (Dextrose 50% Inj) 0 ml IV STAT PRN; Protocol PRN Reason: Hyglycemia Protocol Dextrose (Glutose 15) 0 gm PO ONCE PRN; Protocol PRN Reason: Hypoglycemia Protocol Docusate Sodium (Colace) 100 mg PO BID PRN PRN Reason: Constipation Last Admin: 02/13/17 08:24 Dose: 100 mg Glucagon (Glucagen Diagnostic Kit) 0 mg IM STAT PRN; Protocol PRN Reason: Hypoglycemia Protocol Home Med (Esomeprazole) 40 mg PO DAILY [facility] Last Admin: 02/13/17 08:24 Dose: 40 mg Home Med (Patient's Own Medication) 160 unit PO DAILY [facility] Last Admin: 02/13/17 08:24 Dose: 160 unit Home Med (Colesevelam) 3 tab PO BID [facility] Last Admin: 02/13/17 16:53 Dose: 3 tab Home Med (Glimepiride) 2 tab PO BID [facility] Last Admin: 02/13/17 16:53 Dose: 2 tab Home Med (Patient's Own Medication) 2 unit PO QPM [facility] Last Admin: 02/13/17 16:59 Dose: 2 unit Home Med (Patient's Own Medication) 1 unit PO ACB@0700 [facility] Last Admin: 02/13/17 06:49 Dose: 1 unit Hydroxyzine HCl (Atarax) 25 mg PO HS PRN PRN Reason: sleep Last Admin: 02/02/17 08:05 Dose: 25 mg Insulin Detemir (Levemir) 10 units SC QAM [facility] Last Admin: 02/13/17 08:23 Dose: 10 unit Insulin Detemir (Levemir) 10 units SC HS [facility] Last Admin: 02/13/17 22:13 Dose: Not Given Insulin Human Lispro (Humalog) 0 units SC ACTID [facility] PRN Reason: Protocol Last Admin: 02/14/17 07:14 Dose: Not Given Saccharomyces Boulardii (Florastor) 250 mg PO BID [facility] Last Admin: 02/13/17 16:53 Dose: 250 mg Simethicone (Mylicon Chew Tab) [address] [facility] PRN PRN Reason: Flatulence Last Admin: 02/09/17 20:11 Dose: 80 mg Sitagliptin Phosphate (Januvia) 100 mg PO DAILY [facility] Last Admin: 02/13/17 08:22 Dose: 100 mg - Labs Labs: 02/06/17 05:25 - Constitutional Appears: No Acute Distress - Head Exam Head Exam: NORMAL INSPECTION - Neck Exam Neck Exam: Normal Inspection - Respiratory Exam Respiratory Exam: Decreased Breath Sounds - Cardiovascular Exam Cardiovascular Exam: REGULAR RHYTHM - GI/Abdominal Exam GI & Abdominal Exam: Normal Bowel Sounds - Back Exam Back Exam: NORMAL INSPECTION. absent: CVA tenderness (L), CVA tenderness (R) - Neurological Exam Neurological Exam: Awake, Oriented x3 Assessment and Plan (1) CVA (cerebral vascular accident) Status: Acute (2) DVT prophylaxis Status: Acute (3) CAD (coronary artery disease) of artery bypass graft Status: Chronic (4) Diabetes Status: Chronic (5) HLD (hyperlipidemia) Status: Chronic (6) Hypertension Status: Chronic - Assessment and Plan (Free Text) Assessment: continue same care p0lan set up for discharge in the am will monitor for any changes discuss with residents
[2017-02-14] MEDS: STARLIX 120 MG PO SCH (07:55)
--- NOTE | 2017-02-14 07:56 | CP.PCM.CON ---
History of Present Illness - History of Present Illness History of Present Illness: Pt is a 76 year old male admitted to [facility] following a CVA. Med history positive for DM, HTN, and increased Chol, past bypass. See medical record for med history and medications. Social Hx: Pt lives with his of 40+ years. He has 4 children and 9 grandchildren. Pt reported very positive relationships with family members. Ed/Voc: Pt born in [place], some grade school. 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 Went on disability 20+ years ago. Pt denied a psych history. Pt denied a history of alcohol/substance abuse. Pt spoke of depression/frustration prior to admission due to his multiple medical issues. MSE: Pt alert, oriented x2, relevant/coherent, no psychosis, affect constricted , mood depressed. Pt spoke of refusal of medication by psychiatrist due to " not wanting another thing." Supportive therapy in the future strongly reccomended. Dx: Dysthymia Plan: Continue Supportive therapy Past Patient History - Past Medical History & Family History Past Medical History?: Yes - Past Social History Smoking Status: Former Smoker Alcohol: None Drugs: Denies - CARDIAC Hx Cardiac Disorders: Yes Hx Hypercholesterolemia: Yes Hx Hypertension: Yes - PULMONARY Hx Asthma: Yes - NEUROLOGICAL HX Cerebrovascular Accident: Yes - HEENT Hx HEENT Problems: Yes Hx Glaucoma: Yes (OU) - RENAL Hx Chronic Kidney Disease: No Other/Comment: CKD - ENDOCRINE/METABOLIC Hx Diabetes Mellitus Type 2: Yes - HEMATOLOGICAL/ONCOLOGICAL Hx Blood Disorders: No Hx AIDS: No Hx Human Immunodeficiency Virus (HIV): No - INTEGUMENTARY Hx Dermatological Problems: No - MUSCULOSKELETAL/RHEUMATOLOGICAL Hx Musculoskeletal Disorders: No Hx Falls: No - GASTROINTESTINAL Hx Gastrointestinal Disorders: No - GENITOURINARY/GYNECOLOGICAL Hx Genitourinary Disorders: No - PSYCHIATRIC Hx Anxiety: Yes Hx Depression: Yes Hx Substance Use: No - SURGICAL HISTORY Hx Coronary Artery Bypass Graft: Yes (X4 2009) Other/Comment: AICD 2010 - ANESTHESIA Hx Anesthesia: Yes Hx Anesthesia Reactions: No Hx Malignant Hyperthermia: No Meds Home Medications: Home Medication List Medication Instructions Recorded Confirmed Type Colesevelam HCl [Welchol] 625 mg PO BID #3 tablet 02/03/17 Rx Esomeprazole Magnesium [Nexium] 40 mg PO DAILY #1 ecc 02/03/17 Rx Fenofibrate [Triglide] 160 mg PO DAILY #1 tab 06/12/17 Rx Glimepiride 2 mg PO BID #2 tablet 02/03/17 Rx Insulin Lispro [Humalog Kwikpen 100 unit SQ ACHS #1 insuln.pen 02/03/17 Rx U-100] Nateglinide 120 mg PO BRK #1 tablet 02/03/17 Rx Nateglinide [Starlix] 120 mg PO DIN #2 tab 02/03/17 Rx SITagliptin [Januvia] 100 mg PO DAILY #1 tab 02/03/17 Rx Allergies/Adverse Reactions: Allergies Allergy/AdvReac Type Severity Reaction Status Date / Time aluminum hydroxide AdvReac Mild WHITE Verified 01/29/17 12:30 [From Mylanta] SPOTS ON SKIN calcium carbonate AdvReac Mild WHITE Verified 01/29/17 12:30 [From Mylanta] SPOTS ON SKIN magnesium [From Mylanta] AdvReac Mild WHITE Verified 01/29/17 12:30 SPOTS ON SKIN magnesium hydroxide AdvReac Mild WHITE Verified 01/29/17 12:30 [From Mylanta] SPOTS ON SKIN simethicone [From Mylanta] AdvReac Mild WHITE Verified 01/29/17 12:30 SPOTS ON SKIN - Medications Medications: Current Medications Acetaminophen (Tylenol 325mg Tab) 650 mg PO Q6 PRN PRN Reason: Headache Last Admin: 02/11/17 15:13 Dose: 650 mg Amlodipine Besylate (Norvasc) 10 mg PO DAILY [facility] Last Admin: 02/13/17 08:25 Dose: 10 mg Aspirin (Aspirin Chewable) 81 mg PO DAILY [facility] Last Admin: 02/13/17 08:22 Dose: 81 mg Atorvastatin Calcium (Lipitor) 40 mg PO DAILY@1800 [facility] Carvedilol (Coreg) 25 mg PO Q12 [facility] Last Admin: 02/13/17 21:50 Dose: 25 mg Clopidogrel Bisulfate (Plavix) 75 mg PO DAILY [facility] Last Admin: 02/13/17 08:22 Dose: 75 mg Dextrose (Dextrose 50% Inj) 0 ml IV STAT PRN; Protocol PRN Reason: Hyglycemia Protocol Dextrose (Glutose 15) 0 gm PO ONCE PRN; Protocol PRN Reason: Hypoglycemia Protocol Docusate Sodium (Colace) 100 mg PO BID PRN PRN Reason: Constipation Last Admin: 02/13/17 08:24 Dose: 100 mg Glucagon (Glucagen Diagnostic Kit) 0 mg IM STAT PRN; Protocol PRN Reason: Hypoglycemia Protocol Home Med (Esomeprazole) 40 mg PO DAILY [facility] Last Admin: 02/13/17 08:24 Dose: 40 mg Home Med (Patient's Own Medication) 160 unit PO DAILY [facility] Last Admin: 02/13/17 08:24 Dose: 160 unit Home Med (Colesevelam) 3 tab PO BID [facility] Last Admin: 02/13/17 16:53 Dose: 3 tab Home Med (Glimepiride) 2 tab PO BID [facility] Last Admin: 02/13/17 16:53 Dose: 2 tab Home Med (Patient's Own Medication) 2 unit PO QPM [facility] Last Admin: 02/13/17 16:59 Dose: 2 unit Home Med (Patient's Own Medication) 1 unit PO ACB@0700 [facility] Last Admin: 02/13/17 06:49 Dose: 1 unit Hydroxyzine HCl (Atarax) 25 mg PO HS PRN PRN Reason: sleep Last Admin: 02/02/17 08:05 Dose: 25 mg Insulin Detemir (Levemir) 10 units SC QAM [facility] Last Admin: 02/13/17 08:23 Dose: 10 unit Insulin Detemir (Levemir) 10 units SC [facility] Last Admin: 02/13/17 22:13 Dose: Not Given Insulin Human Lispro (Humalog) 0 units SC ACTID [facility] PRN Reason: Protocol Last Admin: 02/14/17 07:14 Dose: Not Given Saccharomyces Boulardii (Florastor) 250 mg PO BID [facility] Last Admin: 02/13/17 16:53 Dose: 250 mg Simethicone (Mylicon Chew Tab) 80 mg PO [facility] PRN PRN Reason: Flatulence Last Admin: 02/09/17 20:11 Dose: 80 mg Sitagliptin Phosphate (Januvia) 100 mg PO DAILY [facility] Last Admin: 02/13/17 08:22 Dose: 100 mg Results - Vital Signs Recent Vital Signs: Last Vital Signs Temp 97.9 F 02/13/17 21:25 Pulse 79 02/13/17 21:50 Resp 20 02/13/17 21:25 BP 128/67 02/13/17 21:50 Pulse Ox 98 02/13/17 21:25 - Labs Result Diagrams: 02/06/17 05:25 Labs: Laboratory Results - last 24 hr 02/13/17 02/13/17 02/13/17 11:30 15:58 21:08 POC Glucose (mg/dL) 117 H 106 248 H 02/14/17 07:08 POC Glucose (mg/dL) 135 H
[2017-02-14] MEDS: FENOFIBRATE 160 MG PO SCH (08:35)
[2017-02-14] MEDS: COLESEVELAM PO SCH ×2 (08:35→17:15)
[2017-02-14] MEDS: ESOMEPRAZOLE 40 MG PO SCH (08:35)
[2017-02-14] MEDS: GLIMEPIRIDE PO SCH ×2 (08:36→17:12)
[2017-02-14] MEDS: Saccharomyces Boulardi 250 mg Cap PO SCH ×2 (08:36→17:12)
[2017-02-14] MEDS: Insulin Detemir 100 Units/ml Inj SC SCH ×2 (10:28→21:53)
--- NOTE | 2017-02-14 13:35 | CP.PCM.PN ---
Subjective - Date & Time of Evaluation Date of Evaluation: 02/14/17 Time of Evaluation: 13:34 - Subjective Subjective: Patient seen in room doing well set for d/c to [facility] tomorrow he is looking forward to seeing her now has made good progress but still with balance and safety issues Objective - Vital Signs/Intake and Output Vital Signs (last 24 hours): Temp Pulse Resp BP Pulse Ox 97.8 F 72 21 127/66 97 02/14/17 08:20 02/14/17 08:36 02/14/17 08:20 02/14/17 08:36 02/14/17 08:20 - Medications Medications: Current Medications Acetaminophen (Tylenol 325mg Tab) 650 mg PO Q6 PRN PRN Reason: Headache Last Admin: 02/14/17 08:41 Dose: 650 mg Amlodipine Besylate (Norvasc) 10 mg PO DAILY [facility] Last Admin: 02/14/17 08:36 Dose: 10 mg Aspirin (Aspirin Chewable) 81 mg PO DAILY [facility] Last Admin: 02/14/17 08:36 Dose: 81 mg Atorvastatin Calcium (Lipitor) 40 mg PO DAILY@1800 [facility] Carvedilol (Coreg) 25 mg PO Q12 [facility] Last Admin: 02/14/17 08:36 Dose: 25 mg Clopidogrel Bisulfate (Plavix) 75 mg PO DAILY [facility] Last Admin: 02/14/17 08:36 Dose: 75 mg Dextrose (Dextrose 50% Inj) 0 ml IV STAT PRN; Protocol PRN Reason: Hyglycemia Protocol Dextrose (Glutose 15) 0 gm PO ONCE PRN; Protocol PRN Reason: Hypoglycemia Protocol Docusate Sodium (Colace) 100 mg PO BID PRN PRN Reason: Constipation Last Admin: 02/14/17 08:35 Dose: 100 mg Glucagon (Glucagen Diagnostic Kit) 0 mg IM STAT PRN; Protocol PRN Reason: Hypoglycemia Protocol Home Med (Esomeprazole) 40 mg PO DAILY [facility] Last Admin: 02/14/17 08:35 Dose: 40 mg Home Med (Patient's Own Medication) 160 unit PO DAILY [facility] Last Admin: 02/14/17 08:35 Dose: 160 unit Home Med (Colesevelam) 3 tab PO BID [facility] Last Admin: 02/14/17 08:35 Dose: 3 tab Home Med (Glimepiride) 2 tab PO BID [facility] Last Admin: 02/14/17 08:36 Dose: 2 tab Home Med (Patient's Own Medication) 2 unit PO QPM [facility] Home Med (Patient's Own Medication) 1 unit PO ACB@0700 [facility] Hydroxyzine HCl (Atarax) 25 mg PO HS PRN PRN Reason: sleep Last Admin: 02/02/17 08:05 Dose: 25 mg Insulin Detemir (Levemir) 10 units SC QAM [facility] Last Admin: 02/14/17 10:28 Dose: 10 unit Insulin Detemir (Levemir) 10 units SC HS [facility] Last Admin: 02/13/17 22:13 Dose: Not Given Insulin Human Lispro (Humalog) 0 units SC ACTID [facility] PRN Reason: Protocol Last Admin: 02/14/17 11:51 Dose: Not Given Saccharomyces Boulardii (Florastor) 250 mg PO BID [facility] Last Admin: 02/14/17 08:36 Dose: 250 mg Simethicone (Mylicon Chew Tab) 80 mg PO HS PRN PRN Reason: Flatulence Last Admin: 02/09/17 20:11 Dose: 80 mg Sitagliptin Phosphate (Januvia) 100 mg PO DAILY [facility] Last Admin: 02/14/17 08:36 Dose: 100 mg - Labs Labs: 02/06/17 05:25
[2017-02-14] MEDS ORDERED: STARLIX 120 MG PO SCH (18:00)
[2017-02-14 21:41] VITALS: RESP 18
[2017-02-15] MEDS ORDERED: STARLIX 120 MG PO SCH (07:00)
[2017-02-15] MEDS: Insulin Lispro (humaLOG) 100 Units/ml Inj SC SCH ×2 (07:42→12:02)
[2017-02-15 08:05] VITALS: BP 151/81; PULSE 70; TEMP 98.1; O2SAT 97
[2017-02-15] MEDS: COLESEVELAM PO SCH (08:15)
[2017-02-15] MEDS: Saccharomyces Boulardi 250 mg Cap PO SCH (08:16)
[2017-02-15] MEDS: ESOMEPRAZOLE 40 MG PO SCH (08:17)
[2017-02-15] MEDS: Insulin Detemir 100 Units/ml Inj SC SCH (08:17)
[2017-02-15] MEDS: GLIMEPIRIDE PO SCH (08:18)
[2017-02-15] MEDS: FENOFIBRATE 160 MG PO SCH (08:18)
--- NOTE | 2017-02-15 10:10 | CP.PCM.DIS ---
Provider - Provider Date of Admission: 01/27/17 17:21 Attending physician: Sammy Buck MD Primary care physician: Dr. Buck Consults: Dr. Burgos-psychiatry, Dr. Oakley -psychology Time Spent in preparation of Discharge (in minutes): 30 Diagnosis - Discharge Diagnosis (1) CVA (cerebral vascular accident) Status: Acute Priority: Medium Hospital Course - Lab Results Lab Results: Most Recent Lab Values Sodium 138 mmol/l (132-148) 02/06/17 05:25 Potassium 3.9 MMOL/L (3.6-5.0) 02/06/17 05:25 Chloride 101 mmol/L (98-107) 02/06/17 05:25 Carbon Dioxide 29 mmol/L (22-30) 02/06/17 05:25 Anion Gap 12 (10-20) 02/06/17 05:25 BUN 29 mg/dl (9-20) H 02/06/17 05:25 Creatinine 1.7 mg/dL (0.8-1.5) H 02/06/17 05:25 Est GFR ( Amer) 48 02/06/17 05:25 Est GFR (Non-Af Amer) 39 02/06/17 05:25 POC Glucose (mg/dL) 114 mg/dL (65-110) H 02/15/17 07:16 Random Glucose 180 mg/dL (75-110) H 02/06/17 05:25 Calcium 9.2 mg/dL (8.4-10.2) 02/06/17 05:25 - Hospital Course Hospital Course: 76 yr old M admitted to acute Rehab for PT/OT and speech therapy s/p CVA. Pt has PMHx of CAD, DM, HTN, HLD, CABG x 4(2009), AICD (2010), former smoker (quit 40yrs prior). Patient did well and tolerated physical therapy, had significant improvement in vision. Patient was evaluated by psych, likely has adjustment disorder, no psychotropic medications indicated at this time, patient would benefit from outpatient psychotherapy. Patient is otherwise stable. Was discharged to subacute rehab with instructions to resume his home meds and follow up with his PMD -Dr. Buck in 1 week, bakery chef Dr. Ramírez within 2- 3 weeks, inventory specialist manager Dr. Mcneil within 2-3 weeks, machine pie maker Dr. Nam within 2-3 weeks, take your medications as prescribed. - Date & Time of H&P Date of H&P: 01/28/17 Time of H&P: 14:22 Discharge Exam - Head Exam Head Exam: ATRAUMATIC, NORMOCEPHALIC - Eye Exam Eye Exam: EOMI, PERRL - ENT Exam ENT Exam: Mucous Membranes Moist - Neck Exam Neck exam: Full Rom - Respiratory Exam Respiratory Exam: Clear to PA & Lateral, NORMAL BREATHING PATTERN - Cardiovascular Exam Cardiovascular Exam: REGULAR RHYTHM, +S1, +S2 - Extremities Exam Extremities exam: full ROM (no calf tenderness, no pedal edema) - Back Exam Back exam: absent: CVA tenderness (L), CVA tenderness (R) - Neurological Exam Neurological exam: Alert, CN II-XII Intact, Oriented x3 - Psychiatric Exam Psychiatric exam: Normal Affect, Normal Mood - Skin Skin Exam: Dry, Intact, Warm Discharge Plan - Discharge Medications Prescriptions: Colesevelam HCl [Welchol] 625 mg PO BID #3 tablet Esomeprazole Magnesium [Nexium] 40 mg PO DAILY #1 ecc Fenofibrate [Triglide] 160 mg PO DAILY #1 tab Glimepiride 2 mg PO BID #2 tablet Insulin Lispro [Humalog Kwikpen U-100] 100 unit SQ ACHS #1 insuln.pen Nateglinide [Starlix] 120 mg PO DIN #2 tab Nateglinide 120 mg PO BRK #1 tablet SITagliptin [Januvia] 100 mg PO DAILY #1 tab - Follow Up Plan Condition: GOOD Disposition: REHAB FACILITY/REHAB UNIT Instructions: Glimepiride (By mouth), Fenofibrate (By mouth), Colesevelam (By mouth), Nateglinide (By mouth), Esomeprazole (By mouth), Sitagliptin (By mouth) , Insulin Lispro (By injection), Carotid Artery Disease (GEN), Diabetes Mellitus Type 1 in Adults (GEN), Self Care Measures After a Stroke (GEN), Stroke (DC) Additional Instructions: -Follow up with your PMD -Dr. Buck in 1 week -Follow up with your bakery chef Dr. Ramírez -Follow up with your inventory specialist manager Dr. Mcneil -Follow up with your machine pie maker Dr. Nam -Take your medications as prescribed Referrals: Jody Mcneil MD [Medical Doctor] - Aleksandr Ramírez MD [Staff Provider] - Sammy Buck MD [Staff Provider] - Sylvie Nam MD [Medical Doctor] - Clinical Quality Measures - CQM - Stroke Antithrombotic Prescribed: Yes Anticoagulation Prescribed for Atrial Flutter, Atrial Fibrillation and History of:: Not Applicable Statin prescribed: Yes - CQM - VTE Did patient receive overlap therapy during hosptialization?: No If no, please select a reason why?: Risk of Bleeding - CQM - Heart Failure Will be discharged to: [facility] Facility - Date & Time of Discharge Summary Date of Discharge Summary: 02/15/17 Time of Discharge Summary: 15:46
== END 2017-02-15 13:00 | DRG 57 ==
PROVIDERS: ADMIT Family Medicine; ATTEND Family Medicine
PROC: F08Z2ZZ Grooming/Personal Hygiene Treatment (ICD-10-PCS; principal; 2017-01-27)
PROC: F07L6ZZ Therapeutic Exercise Treatment of Musculoskeletal System - Lower Back / Lower Extremity (ICD-10-PCS; 2017-01-27)
PROC: F07K6ZZ Therapeutic Exercise Treatment of Musculoskeletal System - Upper Back / Upper Extremity (ICD-10-PCS; 2017-01-27)
PROC: F07Z9FZ Gait Training/Functional Ambulation Treatment using Assistive, Adaptive, Supportive or Protective Equipment (ICD-10-PCS; 2017-01-27)
DX: I69.398 Other sequelae of cerebral infarction (principal); E11.65 Type 2 diabetes mellitus with hyperglycemia; I69.393 Ataxia following cerebral infarction; I10 Essential (primary) hypertension; E78.5 Hyperlipidemia, unspecified; H53.2 Diplopia; F34.1 Dysthymic disorder; I25.10 Atherosclerotic heart disease of native coronary artery without angina pectoris; Z87.891 Personal history of nicotine dependence; Z95.810 Presence of automatic (implantable) cardiac defibrillator; Z95.1 Presence of aortocoronary bypass graft; R14.0 Abdominal distension (gaseous)

== ENCOUNTER 2017-09-07 20:31 | Inpatient (IN) | payer MEDICARE, OTHER ==
[2017-09-07 20:32] VITALS: BMI 26.4
[2017-09-07 21:29] LABS: BASO # 0.1 K/uL (0.0-0.2); BASO % 1.5 % (0.0-2.0); EOS # 0.1 K/uL (0.0-0.7); EOS % 1.5 % (0.0-4.0); HEMOGLOBIN 11.3 g/dL (12.0-18.0); LYMPH # 1.1 K/uL (1.0-4.3); LYMPH % 14.5 % (20.0-40.0); MEAN CELL VOLUME 77.4 fl (80.0-94.0); MEAN CORPUSCULAR HEMOGLOBIN 25.5 pg (27.0-31.0); MEAN CORPUSCULAR HGB CONC 32.9 g/dL (33.0-37.0); MEAN PLATELET VOLUME 8.6 fl (7.2-11.7); MONO # 0.7 K/uL (0.0-0.8); MONO % 9.5 % (0.0-10.0); NEUT # 5.8 K/uL (1.8-7.0); NRBC % 0.3 % (0.0-0.0); RBC 4.44 Mil/uL (4.40-5.90); RED CELL DISTRIBUTION WIDTH 14.9 % (11.5-14.5); WHITE BLOOD COUNT 7.9 K/uL (4.8-10.8)
[2017-09-07 21:44] LABS: ALBUMIN 4.1 g/dL (3.5-5.0); ALT/SGPT 27 U/L (21-72); AST/SGOT 28 U/L (17-59); BLOOD UREA NITROGEN 26 mg/dl (9-20); GFR AFRICAN-AMERICAN 48; GFR NON-AFRICAN AMERICAN 39
[2017-09-07 22:10] LABS: INR 1.3 (0.9-1.2); PROTHROMBIN TIME 14.2 Seconds (9.8-13.1)
[2017-09-07 22:11] LABS: PARTIAL THROMBOPLASTIN TIME 29.3 Seconds (25.6-37.1)
--- NOTE | 2017-09-07 22:29 | CT ---
EXAM: CT Head Without Intravenous Contrast CLINICAL HISTORY: 77 years old, male; Pain; Headache TECHNIQUE: Axial computed tomography images of the head/brain without intravenous contrast. All CT scans at this facility use one or more dose reduction techniques, viz.: automated exposure control; ma/kV adjustment per patient size (including targeted exams where dose is matched to indication; i.e. head); or iterative reconstruction technique. Coronal and sagittal reformatted images were created and reviewed. COMPARISON: No relevant prior studies available. FINDINGS: Brain: Area of hypoattenuation in the right temporal lobe, concerning for evolving infarct. Correlate with history. Atrophy. Bilateral white matter hypoattenuation most consistent with chronic ischemic small vessel changes. Old left lacune. 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 No hemorrhage. No edema. Ventricles: No hydrocephalus. Bones: Skull is intact. Sinuses: Mild paranasal sinus disease. Mastoid air cells: No mastoid effusion. IMPRESSION: Area of hypoattenuation in the right temporal lobe, concerning for evolving infarct. Correlate with history. Atrophy. Bilateral white matter hypoattenuation most consistent with chronic ischemic small vessel changes. 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 MRI can provide more sensitive evaluation as warranted.
[2017-09-07 22:44] LABS: URINE BACTERIA RARE (<OCC); URINE BILIRUBIN NEGATIVE (NEGATIVE); URINE BLOOD NEGATIVE (NEGATIVE); URINE CLARITY SLIGHTY-CLOUDY (Clear); URINE COLOR YELLOW (YELLOW); URINE GLUCOSE (UA) 50 mg/dL (Normal); URINE HYALINE CAST 0-2 /hpf (0-2); URINE LEUKOCYTE ESTERASE NEG Leu/uL (Negative); URINE NITRATE NEGATIVE (NEGATIVE); URINE PROTEIN 30 mg/dL (NEGATIVE); URINE UROBILINOGEN 0.2-1.0 mg/dL (0.2-1.0)
[2017-09-07 22:56] LABS: BARBITURATES, UR NEGATIVE (NEGATIVE); BENZODIAZEPINES, UR NEGATIVE (NEGATIVE); OPIATES, UR NEGATIVE (NEGATIVE); PHENCYCLIDINE, UR NEGATIVE (NEGATIVE)
--- NOTE | 2017-09-07 22:56 | ED PDOC ---
HPI: Altered Mental Status Time Seen by Provider: 09/07/17 20:42 Chief Complaint (Nursing): Altered Mental Status Chief Complaint (Provider): Headache History Per: Patient, Family History/Exam Limitations: None Usual Baseline: Alert Oriented Use Of Anticoag/Antiplatlets: Yes Additional History Per: Family Additional Complaint(s): 77 y/o M with a PMHx of HTN. DM 2, HLD, CKD, CHF, CVA, CABGx4 and AICD, presents to ER c/o headache and loss of balance that began 2 weeks ago. Headache is described as pressure-like, right temporal and occipital areas, intermittent, non-radiating, 7/10 intensity. Pt and family report pt is losing his balance and fell on the bathtub last week causing a right elbow bruising. Pt had a stroke 7 months ago, recovered, completed rehabilitation and was able to continue with his daily activities. Pt also complains of nasal congestion and productive cough since 2 weeks ago and has been taking OTC Coricidin HBP. Pt is not strictly adherent to chronic medications. Last visit with PMD was 1 month ago with no new changes. Pt denies any recent trauma or any fever, chills, paresthesias, weakness, CP, SOB, nausea, abdominal pain, change in bowel movement or peripheral edema. PMD: Sammy Clemons. Enologist: Dr Ramírez Soaker Helper: Dr Nam Oil Field Laborer: Dr Tarun VERDUZCO Medications: see medication reconciliation list PMHx: HTN, DM 2, HLD, CKD, CVA in 2017, PSHx: Pt had a pacemaker and defibrillator placed in 2010, battery exchanged in 2016. CABGx4 in 2009 SHx: No tobacco, alcohol or rec drugs. Pt lives and takes care of his 83y/o- . Past Medical History Vital Signs: Last Vital Signs Temp 98.1 F 09/07/17 20:34 Pulse 68 09/07/17 20:34 Resp 15 09/07/17 20:34 BP 142/73 09/07/17 20:34 Pulse Ox 97 09/07/17 20:34 - Medical History PMH: Anxiety, Asthma, CAD, Cardia Arrhythmia, CHF, CVA, Depression, HTN, Hypercholesterolemia Denies: HIV, Chronic Kidney Disease - Surgical History Surgical History: CABG (X4 2009), Pacemaker (2010) - Family History Family History: States: CAD - Living Arrangements Living Arrangements: With Family (with only.) - Social History Ex-Smoker (has not smoked in the last 12 months): Yes Alcohol: None Drugs: Denies - Home Medications Home Medications: Ambulatory Orders Medication Instructions Recorded Carvedilol [Coreg] 25 mg PO Q12 01/23/17 Aspirin [Aspirin Chewable] 81 mg PO DAILY 01/27/17 Clopidogrel [Plavix] 75 mg PO DAILY tab 01/27/17 amLODIPine [Norvasc] 10 mg PO DAILY 01/27/17 Fenofibrate [Triglide] 160 mg PO DAILY #1 tab 02/03/17 Insulin Lispro [Humalog Kwikpen 100 unit SQ ACHS #1 insuln.pen 02/03/17 U-100] Nateglinide 120 mg PO BRK #1 tablet 02/03/17 SITagliptin [Januvia] 100 mg PO DAILY #1 tab 02/03/17 Bimatoprost [Lumigan] 1 drop BOTHEYES DAILY 09/07/17 Colesevelam HCl [Welchol] 1,875 mg PO BID 09/07/17 Esomeprazole Magnesium [Nexium] 20 mg PO DAILY 09/07/17 Glimepiride 4 mg PO BID 09/07/17 Nateglinide [Starlix] 240 mg PO DIN 09/07/17 Simvastatin [Zocor] 20 mg PO DAILY 09/07/17 - Allergies Allergies/Adverse Reactions: Allergies Allergy/AdvReac Type Severity Reaction Status Date / Time No Known Allergies Allergy Verified 09/07/17 20:37 Review of Systems Constitutional: Negative for: Fever, Chills Eyes: Negative for: Pain, Vision Change ENT: Positive for: Nose Congestion. Negative for: Ear Discharge Cardiovascular: Negative for: Chest Pain, Palpitations Respiratory: Positive for: Cough. Negative for: Shortness of Breath Gastrointestinal: Negative for: Nausea, Vomiting, Abdominal Pain Musculoskeletal: Negative for: Neck Pain Neurological: Positive for: Headache, Other (loss of balance.). Negative for: Weakness, Change in Speech, Confusion Psych: Negative for: Anxiety Physical Exam - Physical Exam Appears: Positive for: Well, Non-toxic, Uncomfortable Head Exam: Negative for: ATRAUMATIC (Presence of a small hematoma and ecchymotic lesion on R temporal area. ) Eye Exam: Positive for: Normal appearance, EOMI, PERRL ENT: Positive for: Normal ENT Inspection Neck: Positive for: Normal, Painless ROM, Supple Cardiovascular/Chest: Positive for: Regular Rate, Rhythm Respiratory: Positive for: Normal Breath Sounds Gastrointestinal/Abdominal: Positive for: Normal Exam, Bowel Sounds, Soft. Negative for: Tenderness Extremity: Positive for: Normal ROM, Tenderness. Negative for: Pedal Edema Neurologic/Psych: Positive for: Alert, area field worker II-XII (grossly intact.), Oriented. Negative for: Motor/Sensory Deficits (NIHSS: 0) - Laboratory Results Result Diagrams: 09/07/17 21:25 09/07/17 21:25 - ECG O2 Sat by Pulse Oximetry: 97 Medical Decision Making Medical Decision Makin77 y/o M with a PMHx of HTN, DM 2, HLD, CHF and CVA with R sided headache. -NIHSS (Stroke Score): 0. Plan: -CBC -CMP -Troponin -CPK -PT/INR -PTT -Urinalysis -EKG -Influenza rapid test. -Urine drug screen -serum alcohol level -CT of head w/out contrast. 22:55 Blood analysis were unremarkable. Pt reports headache has aggravated, now 10/10 intensity. Will administer Toradol and Tramadol. 23: 35 CT scan of head showed: Area of hypoattenuation in the right temporal lobe, concerning for evolving infarct. Correlate with history. Atrophy. Bilateral white matter hypoattenuation most consistent with chronic ischemic small vessel changes. 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 MRI can provide more sensitive evaluation as warranted. Will order: -Neurology consult. -Hemoglobin A1c -Lipid panel -CXR -Will admit pt to Telemetry for further evaluation. Case discussed with Dr Joe. Dario PGY-1 Disposition - Clinical Impression Clinical Impression: CVA (cerebral vascular accident) - Patient ED Disposition Is Patient to be Admitted: Yes Doctor Will See Patient In The: Hospital Counseled Patient/Family Regarding: Studies Performed - Disposition Disposition: Transfer of Care Disposition Time: 23:55 Condition: STABLE - Pt Status Changed To: Hospital Disposition Of: Inpatient - Admit Certification Admit to Inpatient:: After my assessment, the patient will require hospitalization for at least two midnights. This is because of the severity of symptoms shown, intensity of services needed, and/or the medical risk in this patient being treated as an outpatient. - POA Present On Arrival: Falls Or Trauma
[2017-09-07] MEDS ORDERED: Sodium Chloride 0.9% 1,000 ML IV STA (23:15)
[2017-09-08 00:51] LABS: HDL CHOLESTEROL 44 MG/DL (30-70)
--- NOTE | 2017-09-08 01:00 | CP.PCM.HP ---
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 MRI contraindicated related to pacemaker. Hold Aspirin, Hold plavix Addendum entered and electronically signed by Elijah Hodges MD 09/08/17 10:41: Patient seen and examined bedside. patient denies weakness, numbness, chest pain , SOB. Patient reports that he recovered well with PT after the last CVA and symptoms has been occs headache for the last 7 days like cold associated with occs dry cough. pt afebrile. denies fall, slurred speech or new motor focal deficit. pt unable to go MRI for pacemaker. Pt had PT in the morning. was able to ambulate w/o difficulty CT head done today. recommends follow up CT in 24 hours. Addendum entered and electronically signed by Mandy Lauren MD 09/08/17 05:22: I was called by pharmacist for patient's home medications: esomeprazole may diminish the effect of clopidogrel, will switch for pepcid for now , and will discuss with PMD to DC nexium. Because pt's Creatinine clearance is 36, Januvia renal dose is 50 mg PO daily, will decrease from 100 to 50 mg for now, and will discuss with PMD for further recommendations. Nateglinide maximum dose is 120 before meals (BID or TID), as per Amb orders patient was taken 120 BKFast and 240 mg before dinner, will decrease to 120 mg before dinner, will discuss with PMD and morning team. Because is unclear how much patient has been taking of insulin lispro ( as per amb order 10 units before meals, before breakfast and 8 units before dinner; as per patient he takes 9 before breakfast, and 9 before dinner) will hold lispro, and give regular insulin by protocol while in house, will discuss with PMD and morning team. Original Note: <Mandy Lauren - Last Filed: 09/08/17 04:38> History of Present Illness - History of Present Illness History of Present Illness: 77 y/o M with a PMHx of HTN, DM type 2, HLD, CKD, CVA,CAD s/p CABGx4 and AICD, presents to ER c/o headache and loss of balance that began 2 weeks ago. Headache is described as pressure-like, right temporal and occipital areas, intermittent, non-radiating, 7/10 intensity, improving with tylenol, however was not getting too much relief since the last 2 days. Pt and family report pt is losing his balance and fell on the bathtub last week causing a right elbow bruising. Pt had a stroke 7 months ago, recovered, completed rehabilitation and was able to continue with his daily activities. Pt also complains of nasal congestion and productive cough since 2 weeks ago and has been taking OTC ,and his respiratory symptoms have improved. As per family patient is very adherent to his medication regimen, but since 1 week ago, he has been taken his medications inconsistently because he has not been feeling well. Last visit with PMD was 1 month ago with no new changes. Last visit to [employer] was Jun, 2017. Pt denies any recent trauma or any fever, chills, paresthesias, weakness, CP, SOB, nausea, abdominal pain, change in bowel movement or peripheral edema. PMD: Sammy Clemons. [employer] Station Supervisor: Dr Ramírez [employer] Labourer: Dr Nam Rn Quality: Dr Tarun VERDUZCO Medications: see medication reconciliation list PMHx: HTN, DM 2, HLD, CKD, CVA in 2017, ( CHF h/o as per family reports, echos done in the past showed normal LV function and normal EF) PSHx: Pt had a pacemaker and defibrillator placed in 2010, also had battery exchanged in 2016, CABGx4 in 2009 SHx: No tobacco, alcohol, h/o marijuana use and stopped 3 years ago. Pt lives and takes care of his 83y/o . Present on Admission - Present on Admission Any Indicators Present on Admission: No History of DVT/PE: No History of Uncontrolled Diabetes: No Urinary Catheter: No Decubitus Ulcer Present: No Past Patient History - Past Medical History & Family History Past Medical History?: Yes - Past Social History Alcohol: None Drugs: Denies - CARDIAC Hx Cardia Arrhythmia: Yes Hx Congestive Heart Failure: Yes Hx Hypercholesterolemia: Yes Hx Hypertension: Yes Hx Pacemaker: Yes (2010) - PULMONARY Hx Asthma: Yes - NEUROLOGICAL HX Cerebrovascular Accident: Yes - HEENT Hx HEENT Problems: Yes Hx Glaucoma: Yes (OU) - RENAL Hx Chronic Kidney Disease: No - ENDOCRINE/METABOLIC Hx Diabetes Mellitus Type 2: Yes - HEMATOLOGICAL/ONCOLOGICAL Hx Human Immunodeficiency Virus (HIV): No - INTEGUMENTARY Hx Dermatological Problems: No - MUSCULOSKELETAL/RHEUMATOLOGICAL Hx Musculoskeletal Disorders: No Hx Falls: No - GASTROINTESTINAL Hx Gastrointestinal Disorders: No - GENITOURINARY/GYNECOLOGICAL Hx Genitourinary Disorders: No - PSYCHIATRIC Hx Anxiety: Yes Hx Depression: Yes - SURGICAL HISTORY Hx Coronary Artery Bypass Graft: Yes (X4 2010) - ANESTHESIA Hx Anesthesia: Yes Hx Anesthesia Reactions: No Hx Malignant Hyperthermia: No Meds Allergies/Adverse Reactions: Allergies Allergy/AdvReac Type Severity Reaction Status Date / Time No Known Allergies Allergy Verified 09/07/17 20:37 Physical Exam - Constitutional Appears: Non-toxic, No Acute Distress - Eye Exam Eye Exam: Normal appearance - ENT Exam ENT Exam: Mucous Membranes Moist - Respiratory Exam Respiratory Exam: Clear to Auscultation Bilateral, NORMAL BREATHING PATTERN. absent: Rales, Rhonchi, Wheezes - Cardiovascular Exam Cardiovascular Exam: REGULAR RHYTHM, +S1, +S2 - GI/Abdominal Exam GI & Abdominal Exam: Normal Bowel Sounds, Soft. absent: Distended, Guarding, Tenderness - Extremities Exam Extremities exam: Positive for: normal inspection. Negative for: calf tenderness, pedal edema - Neurological Exam Neurological exam: Alert, CN II-XII Intact, Motor Sensory Deficit, Oriented x3, Reflexes Normal - Skin Skin Exam: Dry, Intact, Normal Color Results - Vital Signs Recent Vital Signs: Last Vital Signs Temp 97.5 F L 09/08/17 00:44 Pulse 64 09/08/17 00:44 Resp 18 09/08/17 00:44 BP 117/75 09/08/17 00:44 Pulse Ox 97 09/08/17 00:51 - Labs Result Diagrams: 09/07/17 21:25 09/07/17 21:25 Labs: Laboratory Results - last 24 hr 09/07/17 09/07/17 09/07/17 21:25 21:25 21:25 WBC 7.9 RBC 4.44 Hgb 11.3 L Hct 34.4 L MCV 77.4 L D MCH 25.5 L MCHC 32.9 L RDW 14.9 H Plt Count 243 MPV 8.6 Neut % (Auto) 73.0 Lymph % (Auto) 14.5 L Boyle % (Auto) 9.5 Eos % (Auto) 1.5 Baso % (Auto) 1.5 Neut # 5.8 Lymph # 1.1 Boyle # 0.7 Eos # 0.1 Baso # 0.1 PT 14.2 H INR 1.3 H APTT 29.3 Sodium 140 Potassium 4.5 Chloride 100 Carbon Dioxide 29 Anion Gap 16 BUN 26 H Creatinine 1.7 H Est GFR ( Amer) 48 Est GFR (Non-Af Amer) 39 Random Glucose 120 H Calcium 10.0 Total Bilirubin 0.6 AST 28 ALT 27 Alkaline Phosphatase 58 Total Creatine Kinase 86 Troponin I < 0.0120 Total Protein 8.0 Albumin 4.1 Globulin 3.9 Albumin/Globulin Ratio 1.0 Triglycerides Cholesterol HDL Cholesterol Urine Color Urine Clarity Urine pH Ur Specific [place] Urine Protein Urine Glucose (UA) Urine Ketones Urine Blood Urine Nitrate Urine Bilirubin Urine Urobilinogen Ur Leukocyte Esterase Urine RBC (Auto) Urine Microscopic WBC Urine Bacteria Hyaline Casts Urine Opiates Screen Urine Methadone Screen Ur Barbiturates Screen Ur Phencyclidine Scrn Ur Amphetamines Screen U Benzodiazepines Scrn U Oth Cocaine Metabols U Cannabinoids Screen Alcohol, Quantitative < 10 Influenza Typ A,B (EIA) 09/07/17 09/07/17 09/07/17 21:25 22:34 22:34 WBC RBC Hgb Hct MCV MCH MCHC RDW Plt Count MPV Neut % (Auto) Lymph % (Auto) Boyle % (Auto) Eos % (Auto) Baso % (Auto) Neut # Lymph # Boyle # Eos # Baso # PT INR APTT Sodium Potassium Chloride Carbon Dioxide Anion Gap BUN Creatinine Est GFR ( Amer) Est GFR (Non-Af Amer) Random Glucose Calcium Total Bilirubin AST ALT Alkaline Phosphatase Total Creatine Kinase Troponin I Total Protein Albumin Globulin Albumin/Globulin Ratio Triglycerides Cholesterol HDL Cholesterol Urine Color Yellow Urine Clarity Slighty-cloudy Urine pH 6.0 Ur Specific [place] 1.018 Urine Protein 30 Urine Glucose (UA) 50 Urine Ketones Negative Urine Blood Negative Urine Nitrate Negative Urine Bilirubin Negative Urine Urobilinogen 0.2-1.0 Ur Leukocyte Esterase Neg Urine RBC (Auto) 4 H Urine Microscopic WBC 1 Urine Bacteria Rare Hyaline Casts 0-2 Urine Opiates Screen Negative Urine Methadone Screen Negative Ur Barbiturates Screen Negative Ur Phencyclidine Scrn Negative Ur Amphetamines Screen Negative U Benzodiazepines Scrn Negative U Oth Cocaine Metabols Negative U Cannabinoids Screen Negative Alcohol, Quantitative Influenza Typ A,B (EIA) Negative for flu a/b 09/08/17 00:42 WBC RBC Hgb Hct MCV MCH MCHC RDW Plt Count MPV Neut % (Auto) Lymph % (Auto) Boyle % (Auto) Eos % (Auto) Baso % (Auto) Neut # Lymph # Boyle # Eos # Baso # PT INR APTT Sodium Potassium Chloride Carbon Dioxide Anion Gap BUN Creatinine Est GFR ( Amer) Est GFR (Non-Af Amer) Random Glucose Calcium Total Bilirubin AST ALT Alkaline Phosphatase Total Creatine Kinase Troponin I Total Protein Albumin Globulin Albumin/Globulin Ratio Triglycerides 84 D Cholesterol 144 HDL Cholesterol 44 Urine Color Urine Clarity Urine pH Ur Specific [place] Urine Protein Urine Glucose (UA) Urine Ketones Urine Blood Urine Nitrate Urine Bilirubin Urine Urobilinogen Ur Leukocyte Esterase Urine RBC (Auto) Urine Microscopic WBC Urine Bacteria Hyaline Casts Urine Opiates Screen Urine Methadone Screen Ur Barbiturates Screen Ur Phencyclidine Scrn Ur Amphetamines Screen U Benzodiazepines Scrn U Oth Cocaine Metabols U Cannabinoids Screen Alcohol, Quantitative Influenza Typ A,B (EIA) Assessment & Plan - Assessment and Plan (Free Text) Assessment: 77 y/o M with a PMHx of HTN, DM type 2, HLD, CKD, CVA,CAD s/p CABGx4 and AICD admitted with subacute right temporal CVA. Plan: Subacute right temporal CVA -Admit to telemetry -stable VS -continuous media monitor -h/o CVA NIHSS score 0 -s/p aspirin 324 mg PO in ER -s/p toradol 10 mg and ultram 50 mg -on IV fluids NS -c/w aspirin, plavix, statin -f/u lipid profile -f/u HgbA1C -Carotid US in AM -Echo complete w/ bubbles in AM -Repeat head CT without contrast in AM. Patient has a pacemaker/defibrillator can not go for recommended Brain MRI -Neurology consulted by ER. Recommendations appreciated. As per ER doctor, Neuro rec are: Carotid US, Echo,Brain MRI, aspirin and IV fluids. -Head CT on admission was read: area of hypoattenuation in the right temporal lobe, concerning for evolving infarct. Bilateral white matter hypoattenuation most consistent with chronic ischemic small vessel changes. -PT/OT evaluation CAD -s/p CABG -c/w aspirin -c/w plavix -c/w statin -hx of pacemaker placement -Pacemaker/AICD battery change 08/2016 -[employer] Super[employer] Dr. Yimi Ramírez. -Echo on 01/26/17 showed Left ventricle normal in size and LV systolic function was normal. EF 60-65 % -Echo on 09/19/15 showed normal left ventricular function, LV EF normal HTN well controlled will resume home meds as BP permits Now BP is 117/75 DM type 2 -resume oral home meds -resume Home insulin lispro -accucheck ACHS -hypoglycemic protocol -f/u HgbA1C Diet -swallow screen : pass -diabetic and heart healthy diet DVT prophylaxis SCDs for now - Date & Time Date: 09/08/17 Time: 01:00 <Sammy Buck - Last Filed: 09/09/17 06:54> Results - Vital Signs Recent Vital Signs: Last Vital Signs Temp 98.3 F 09/09/17 05:00 Pulse 62 09/09/17 05:00 Resp 18 09/09/17 05:00 BP 128/54 L 09/09/17 05:00 Pulse Ox 95 09/09/17 05:00 - Labs Result Diagrams: 09/09/17 04:20 09/09/17 04:20 Labs: Laboratory Results - last 24 hr 09/08/17 09/08/17 09/08/17 00:42 12:24 16:07 WBC RBC Hgb Hct MCV MCH MCHC RDW Plt Count MPV Neut % (Auto) Lymph % (Auto) Boyle % (Auto) Eos % (Auto) Baso % (Auto) Neut # Lymph # Boyle # Eos # Baso # PT INR APTT Sodium Potassium Chloride Carbon Dioxide Anion Gap BUN Creatinine Est GFR ( Amer) Est GFR (Non-Af Amer) POC Glucose (mg/dL) 308 H 160 H Random Glucose Hemoglobin A1c 7.2 H Calcium Total Bilirubin AST ALT Alkaline Phosphatase Total Protein Albumin Globulin Albumin/Globulin Ratio 09/08/17 09/09/17 09/09/17 21:40 04:20 04:20 WBC 6.2 RBC 3.94 L Hgb 10.1 L Hct 30.4 L MCV 77.0 L MCH 25.5 L MCHC 33.1 RDW 14.7 H Plt Count 238 MPV 8.9 Neut % (Auto) 63.5 Lymph % (Auto) 21.4 Boyle % (Auto) 11.5 H Eos % (Auto) 3.2 Baso % (Auto) 0.4 Neut # 3.9 Lymph # 1.3 Boyle # 0.7 Eos # 0.2 Baso # 0.0 PT 14.1 H INR 1.3 H APTT 29.7 Sodium Potassium Chloride Carbon Dioxide Anion Gap BUN Creatinine Est GFR ( Amer) Est GFR (Non-Af Amer) POC Glucose (mg/dL) 216 H Random Glucose Hemoglobin A1c Calcium Total Bilirubin AST ALT Alkaline Phosphatase Total Protein Albumin Globulin Albumin/Globulin Ratio 09/09/17 09/09/17 04:20 05:11 WBC RBC Hgb Hct MCV MCH MCHC RDW Plt Count MPV Neut % (Auto) Lymph % (Auto) Boyle % (Auto) Eos % (Auto) Baso % (Auto) Neut # Lymph # Boyle # Eos # Baso # PT INR APTT Sodium 139 Potassium 4.6 Chloride 102 Carbon Dioxide 28 Anion Gap 14 BUN 32 H Creatinine 2.0 H Est GFR ( Amer) 39 Est GFR (Non-Af Amer) 33 POC Glucose (mg/dL) 127 H Random Glucose 139 H Hemoglobin A1c Calcium 9.3 Total Bilirubin 0.4 AST 24 ALT 22 Alkaline Phosphatase 60 Total Protein 6.9 Albumin 3.5 Globulin 3.4 Albumin/Globulin Ratio 1.0 Attending/Attestation - Attestation I have personally seen and examined this patient.: Yes I have fully participated in the care of the patient.: Yes I have reviewed all pertinent clinical information: Yes
[2017-09-08 01:02] LABS: LDL CHOLESTEROL 71 mg/dL (0-129)
[2017-09-08] MEDS ORDERED: Glucagon Recombinant 1 mg Inj IM PRN (03:04)
[2017-09-08] MEDS ORDERED: Dextrose 50% SYRINGE Inj (50 ml) IV PRN (03:04)
[2017-09-08 05:27] LABS: HEMOGLOBIN 10.3 g/dL (12.0-18.0); MEAN CELL VOLUME 77.2 fl (80.0-94.0); MEAN CORPUSCULAR HEMOGLOBIN 25.7 pg (27.0-31.0); MEAN CORPUSCULAR HGB CONC 33.3 g/dL (33.0-37.0); RBC 4.02 Mil/uL (4.40-5.90); RED CELL DISTRIBUTION WIDTH 14.6 % (11.5-14.5)
[2017-09-08 05:39] LABS: CALCIUM 9.2 mg/dL (8.4-10.2)
[2017-09-08] MEDS: Insulin Regular 100 units/ml SC SCH ×4 (07:06→21:46)
[2017-09-08] MEDS ORDERED: INSULIN LISPRO 100 UNIT SQ SCH (07:30)
[2017-09-08] MEDS ORDERED: Aspirin 325 mg EC Tablets PO SCH (09:00)
[2017-09-08] MEDS: GlipiZIDE 10 mg SR Tab PO SCH ×2 (09:00→16:34)
[2017-09-08] MEDS ORDERED: COLESEVELAM HCL 1875 MG PO SCH (09:00)
[2017-09-08] MEDS ORDERED: Patient's Own Med (Fenofibrate [Triglide] 160 MG) PO SCH (09:00)
--- NOTE | 2017-09-08 09:44 | CT ---
PROCEDURE: CT HEAD WITHOUT CONTRAST. HISTORY: subacute CVA COMPARISON: Unenhanced head CT 09/07/2017. TECHNIQUE: Axial computed tomography images were obtained through the head/brain without intravenous contrast. Radiation dose: Total exam DLP = 848.79 mGy-cm. This CT exam was performed using one or more of the following dose reduction techniques: Automated exposure control, adjustment of the mA and/or kV according to patient size, and/or use of iterative reconstruction technique. FINDINGS: HEMORRHAGE: Linear hyperdensity is appreciated related to the mid right lateral side of the posterior falx/ right lateral wall of the superior sagittal sinus abutting the right occipital lobe not seen in prior head CT 01/23/2017. This is suspicious for a minimal subdural hematoma. Patient also appears to have subcutaneous edema or trace hematoma at the right occipital/ parietal scalp in nearly the same distribution which is unchanged. No underlying fracture is seen related to this scalp finding. No intraparenchymal hemorrhage. No significant mass effect. BRAIN: The prior right temporal lucency is not clearly identified on the current examination. Apparently the patient has a cardiac pacemaker and therefore cannot undergo follow-up MRI and follow-up head CT is advised in at least 24 hours. A chronic lobar infarct is seen at the right occipital lobe once again as well as a chronic lacune at the left caudate head. 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 Reiteration of age-related neuro degenerative changes is identified once again. VENTRICLES: Unremarkable. No hydrocephalus. CALVARIUM: Unremarkable. PARANASAL SINUSES: Multifocal sinusitis is seen affecting the bilateral ethmoid, left sphenoid and left maxillary sinuses. MASTOID AIR CELLS: Unremarkable as visualized. No inflammatory changes. OTHER FINDINGS: None. IMPRESSION: Stable age related neuro degenerative change identified as well as chronic left caudate head lacune and right occipital chronic lobar infarction. Acute to subacute infarction is not clearly identified at this time including the right temporal lobe and follow-up head CT is advised to follow for potential infarction as well as what appears to be a trace subdural hematoma at the right occipital region. Follow-up head CT is advised in at least 24 hours without contrast. The patient is unable to undergo MRI due to contraindication related to pacemaker. Findings were discussed with Dr. Soler 09/08/2017 9:12 a.m. with written down and read back verification.
--- NOTE | 2017-09-08 10:36 | CP.PCM.PN ---
Objective - Vital Signs/Intake and Output Vital Signs (last 24 hours): Temp Pulse Resp BP Pulse Ox 98.1 F 63 18 135/68 97 09/08/17 07:51 09/08/17 09:02 09/08/17 07:51 09/08/17 09:02 09/08/17 07:51 Intake and Output: 09/08/17 09/08/17 06:59 18:59 Intake Total 700 Balance 700 - Medications Medications: Current Medications Amlodipine Besylate (Norvasc) 10 mg PO DAILY [facility] Last Admin: 09/08/17 09:02 Dose: 10 mg Aspirin (Ecotrin) 81 mg PO DAILY [facility] Atorvastatin Calcium (Lipitor) 10 mg PO DAILY [facility] Last Admin: 09/08/17 09:00 Dose: 10 mg Carvedilol (Coreg) 25 mg PO Q12 [facility] Last Admin: 09/08/17 09:00 Dose: 25 mg Clopidogrel Bisulfate (Plavix) 75 mg PO DAILY [facility] Last Admin: 09/08/17 09:02 Dose: 75 mg Dextrose (Dextrose 50% Inj) 0 ml IV STAT PRN; Protocol PRN Reason: Hypoglycemia Protocol Dextrose (Glutose 15) 0 gm PO ONCE PRN; Protocol PRN Reason: Hypoglycemia Protocol Famotidine (Pepcid) 20 mg PO DAILY [facility] Fenofibrate (Tricor) 145 mg PO DAILY [facility] Glipizide (Glucotrol Xl) 10 mg PO BRKDIN [facility] Last Admin: 09/08/17 09:00 Dose: 10 mg Glucagon (Glucagen Diagnostic Kit) 0 mg IM STAT PRN; Protocol PRN Reason: Hypoglycemia Protocol Home Med (Bimatoprost [Lumigan]) 1 drop BOTHEYES DAILY [facility] Home Med (Colesevelam Hcl [Welchol]) 1,875 mg PO BID [facility] Insulin Human Regular (Humulin R) 0 units SC ACHS [facility] PRN Reason: Protocol Last Admin: 09/08/17 07:06 Dose: 2 units Nateglinide (Starlix) 120 mg PO BRK [facility] Last Admin: 09/08/17 09:00 Dose: 120 mg Nateglinide (Starlix) 240 mg PO DIN [facility] Sitagliptin Phosphate (Januvia) 50 mg PO DAILY [facility] Last Admin: 09/08/17 09:00 Dose: 50 mg - Labs Labs: 09/08/17 04:20 09/08/17 04:20 PT 14.2 Seconds (9.8-13.1) H 09/07/17 21:25 INR 1.3 (0.9-1.2) H 09/07/17 21:25 APTT 29.3 Seconds (25.6-37.1) 09/07/17 21:25
--- NOTE | 2017-09-08 11:12 | RAD ---
HISTORY: Subacute right temporal CVA, admission. COMPARISON: No prior. FINDINGS: LUNGS: No active pulmonary disease. PLEURA: No significant pleural effusion identified, no pneumothorax apparent. CARDIOVASCULAR: No radiographic findings to suggest acute or significant cardiovascular disease. Position/ configuration of pacemaker device: Satisfactory. OSSEOUS STRUCTURES: No significant abnormalities. VISUALIZED UPPER ABDOMEN: Normal. OTHER FINDINGS: None. IMPRESSION: No active disease.
--- NOTE | 2017-09-08 13:29 | US ---
PROCEDURE: Duplex ultrasound of the carotid and vertebral arteries. HISTORY: CVA COMPARISON: 02/05/2017 TECHNIQUE: Grayscale and duplex Doppler evaluation of the cervical carotid and vertebral arteries were performed. The common carotid, carotid bifurcations and cervical ICA and proximal ECA were evaluated. The vertebral arteries were evaluated for gross patency and direction. FINDINGS: RIGHT CAROTID ARTERIES: Common Carotid Artery: Normal. Maximal flow velocity of 89.3 cm/s. Carotid Bifurcation: Partially calcified plaque extending into right ICA and ECA. Internal Carotid Artery:Heterogeneous plaque formation. Maximal flow velocity of 107.3 cm/s. External Carotid Artery (proximal branches): Normal. Maximal flow velocity of 87.5 cm/s. ICA/CCA Ratio: 1.2 LEFT CAROTID ARTERIES: Common Carotid Artery: Intimal thickening is present Maximal flow velocity of 84.0 cm/s. Carotid Bifurcation: Normal. Internal Carotid Artery:Heterogeneous plaque formation. Maximal flow velocity of 108.2 cm/s. External Carotid Artery (proximal branches): Normal. Maximal flow velocity of 162.4 cm/s. ICA/CCA Ratio: 1.3 VERTEBRAL ARTERIES: Right Vertebral Artery: Patent. Antegrade flow. Left Vertebral Artery: Patent. Antegrade flow. OTHER FINDINGS: None. IMPRESSION: Right ICA degree of stenosis: Less than 50% Left ICA degree of stenosis: Less than 50% No significant interval change compared to the prior examination(s). Reference Internal Carotid Artery (ICA) Peak Systolic Velocity (PSV) for above: 1. Less than 50% stenosis less than 125 cm/s peak systolic velocity 2. 50-69% stenosis 125-230cm/s peak systolic velocity 3. Greater than 70% but less than near occlusion greater than 230 cm/s peak systolic velocity
[2017-09-08] MEDS: Latanoprost 0.005% Opht SOUTION OU SCH (16:32)
--- NOTE | 2017-09-08 16:49 | CARD ---
APPROVED REPORT EKG Measurement Heart [id number] <Conclusion> Atrial-sensed ventricular-paced rhythm Abnormal ECG
[2017-09-09 05:09] LABS: BASO % 0.4 % (0.0-2.0); EOS # 0.2 K/uL (0.0-0.7); EOS % 3.2 % (0.0-4.0); HEMOGLOBIN 10.1 g/dL (12.0-18.0); LYMPH # 1.3 K/uL (1.0-4.3); LYMPH % 21.4 % (20.0-40.0); MEAN CORPUSCULAR HEMOGLOBIN 25.5 pg (27.0-31.0); MEAN CORPUSCULAR HGB CONC 33.1 g/dL (33.0-37.0); MEAN PLATELET VOLUME 8.9 fl (7.2-11.7); MONO # 0.7 K/uL (0.0-0.8); MONO % 11.5 % (0.0-10.0); NEUT # 3.9 K/uL (1.8-7.0); NEUT % 63.5 % (50.0-75.0); RBC 3.94 Mil/uL (4.40-5.90); RED CELL DISTRIBUTION WIDTH 14.7 % (11.5-14.5); WHITE BLOOD COUNT 6.2 K/uL (4.8-10.8)
[2017-09-09 05:29] LABS: ALBUMIN 3.5 g/dL (3.5-5.0); CALCIUM 9.3 mg/dL (8.4-10.2)
[2017-09-09 05:46] LABS: INR 1.3 (0.9-1.2); PARTIAL THROMBOPLASTIN TIME 29.7 Seconds (25.6-37.1); PROTHROMBIN TIME 14.1 Seconds (9.8-13.1)
[2017-09-09] MEDS: Latanoprost 0.005% Opht SOUTION OU SCH (08:37)
[2017-09-09] MEDS: Insulin Regular 100 units/ml SC SCH ×4 (08:37→22:32)
[2017-09-09] MEDS: GlipiZIDE 10 mg SR Tab PO SCH ×2 (08:37→17:04)
--- NOTE | 2017-09-09 08:53 | CP.PCM.PN ---
Subjective - Date & Time of Evaluation Date of Evaluation: 09/09/17 Time of Evaluation: 07:15 - Subjective Subjective: Patient seen and examined bedside with Dr Buck. Patient reports feeling better. Reports frontal headache yesterday alleviated with pain medications. He denies headache in the morning, dizziness, weakness, numbness, chest pain, SOB. Patietn seen for PT yesterday and cleared. Objective - Vital Signs/Intake and Output Vital Signs (last 24 hours): Temp Pulse Resp BP Pulse Ox 98.2 F 68 18 108/59 L 98 09/09/17 08:00 09/09/17 08:36 09/09/17 08:00 09/09/17 08:36 09/09/17 08:00 - Medications Medications: Current Medications Amlodipine Besylate (Norvasc) 10 mg PO DAILY [facility] Last Admin: 09/09/17 08:36 Dose: 10 mg Aspirin (Ecotrin) 81 mg PO DAILY [facility] Atorvastatin Calcium (Lipitor) 10 mg PO DAILY [facility] Last Admin: 09/08/17 09:00 Dose: 10 mg Carvedilol (Coreg) 25 mg PO Q12 [facility] Last Admin: 09/09/17 08:36 Dose: 25 mg Clopidogrel Bisulfate (Plavix) 75 mg PO DAILY [facility] Last Admin: 09/08/17 09:02 Dose: 75 mg Dextrose (Dextrose 50% Inj) 0 ml IV STAT PRN; Protocol PRN Reason: Hypoglycemia Protocol Dextrose (Glutose 15) 0 gm PO ONCE PRN; Protocol PRN Reason: Hypoglycemia Protocol Famotidine (Pepcid) 20 mg PO DAILY [facility] Last Admin: 09/09/17 08:36 Dose: 20 mg Fenofibrate (Tricor) 145 mg PO DAILY [facility] Last Admin: 09/09/17 08:35 Dose: 145 mg Glipizide (Glucotrol Xl) 10 mg PO BRKDIN [facility] Last Admin: 09/09/17 08:37 Dose: 10 mg Glucagon (Glucagen Diagnostic Kit) 0 mg IM STAT PRN; Protocol PRN Reason: Hypoglycemia Protocol Home Med (Colesevelam Hcl [Welchol]) 1,875 mg PO BID [facility] Insulin Human Regular (Humulin R) 0 units SC ACHS [facility] PRN Reason: Protocol Last Admin: 09/09/17 08:37 Dose: Not Given Ketorolac Tromethamine (Toradol) 15 mg IVP ONCE PRN PRN Reason: Headache Last Admin: 09/08/17 20:02 Dose: 15 mg Latanoprost (Xalatan Opht) 1 drop OU DAILY [facility] Last Admin: 09/09/17 08:37 Dose: 1 drop Nateglinide (Starlix) 120 mg PO BRK [facility] Last Admin: 09/09/17 08:35 Dose: 120 mg Nateglinide (Starlix) 240 mg PO DIN [facility] Sitagliptin Phosphate (Januvia) 50 mg PO DAILY [facility] Last Admin: 09/09/17 08:35 Dose: 50 mg Tramadol HCl (Ultram) 50 mg PO ONCE PRN PRN Reason: Headache Last Admin: 09/08/17 20:02 Dose: 50 mg - Labs Labs: 09/09/17 04:20 09/09/17 04:20 PT 14.1 Seconds (9.8-13.1) H 09/09/17 04:20 INR 1.3 (0.9-1.2) H 09/09/17 04:20 APTT 29.7 Seconds (25.6-37.1) 09/09/17 04:20 - Constitutional Appears: No Acute Distress, In Acute Distress - Head Exam Head Exam: ATRAUMATIC, NORMOCEPHALIC - Eye Exam Eye Exam: Normal appearance - ENT Exam ENT Exam: Mucous Membranes Moist - Neck Exam Neck Exam: Normal Inspection - Respiratory Exam Respiratory Exam: Clear to Ausculation Bilateral. absent: Rales, Rhonchi, Wheezes - Cardiovascular Exam Cardiovascular Exam: REGULAR RHYTHM, +S1, +S2 - GI/Abdominal Exam GI & Abdominal Exam: Soft, Normal Bowel Sounds. absent: Tenderness - Extremities Exam Extremities Exam: Normal Inspection. absent: Pedal Edema - Neurological Exam Neurological Exam: Alert, Awake, Oriented x3 Neuro motor strength exam: Left Upper Extremity: 5, Right Upper Extremity: 5, Left Lower Extremity: 5, Right Lower Extremity: 5 - Psychiatric Exam Psychiatric exam: Normal Affect, Normal Mood - Skin Skin Exam: Intact Assessment and Plan - Assessment and Plan (Free Text) Plan: 77 y/o M with a PMHx of HTN, DM type 2, HLD, CKD, CVA,CAD s/p CABGx4 and AICD admitted with subacute right temporal CVA. Plan: 1) Subacute right temporal CVA -Admit telemetry -Headache but not motor focal defiict.-h/o CVA -Head CT on admission was read: area of hypoattenuation in the right temporal lobe, concerning for evolving infarct. Bilateral white matter hypoattenuation most consistent with chronic ischemic small vessel changes. -CT Head 24 hour later: chronic left caudate head lacune and right occipital chronic lobar infarction.trace subdural hematoma at the right occipital region.f /u Ct in 24 hours. -CT Head today done: pending report -CINDY contraindicate due to pacemaker -Carotid Us normal -Aspirin, Plavix hold due to subdural hemorrhage findings. -s/p aspirin 324 mg PO in ER -Neurology consult Dr Greene consulted by Phone: recommends to c/w aspirin,plavi -PT cleared pt 2) CAD -s/p CABG -c/w aspirin and plavix as per neuro recommendation -c/w statin -hx of pacemaker placement -Pacemaker/AICD battery change 08/2016 -Diving Instructor Dr. Yimi Ramírez. -Echo on 01/26/17 showed Left ventricle normal in size and LV systolic function was normal. EF 60-65 % -Echo on 09/19/15 showed normal left ventricular function, LV EF normal -Echo today. pending report 3) HTN well controlled will resume home meds as BP permits 4) DM type 2 -resume oral home meds -resume Home insulin lispro -accucheck ACHS -hypoglycemic protocol -f/u HgbA1C 5)DVT prophylaxis SCDs for now due to subdural hemorrhage
--- NOTE | 2017-09-09 12:02 | CT ---
PROCEDURE: CT HEAD WITHOUT CONTRAST. HISTORY: trace subdural hematoma COMPARISON: September 07, 2017, September 08, 2017. Serial CT scans of the head. TECHNIQUE: Axial computed tomography images were obtained through the head/brain without intravenous contrast. Radiation dose: Total exam DLP = 744.11 mGy-cm. This CT exam was performed using one or more of the following dose reduction techniques: Automated exposure control, adjustment of the mA and/or kV according to patient size, and/or use of iterative reconstruction technique. FINDINGS: HEMORRHAGE: Focal extra-axial blood along the falx at the occipital region. This is unchanged compared to the prior study. BRAIN: Evidence of old cortical infarction right occipital lobe. Small lacune or infarcts are again identified. No atrophy or chronic microvascular ischemic changes. VENTRICLES: Unremarkable. No hydrocephalus. CALVARIUM: Unremarkable. PARANASAL SINUSES: Unremarkable as visualized. No significant inflammatory changes. MASTOID AIR CELLS: Unremarkable as visualized. No inflammatory changes. OTHER FINDINGS: None. IMPRESSION: No evidence of acute cortical infarction. Stable small extra-axial hemorrhage adjacent to an old right occipital infarct.
--- NOTE | 2017-09-09 13:29 | CP.PCM.CON ---
History of Present Illness - History of Present Illness History of Present Illness: Patient is a 77 years of age I was asked to see him for abnormal kidney function. The daughter at the bedside. 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 He was admitted because of severe headache initially and also diagnosed with infarction and CVA and is being treated for it. Patient much better today no significant headache reported no nausea no vomiting reported. Past medical history significant for diabetes mellitus for many years #2 history of chronic kidney disease stage III #3 history of hypertension Review of Systems - Constitutional Constitutional: Weakness. absent: Chills, Excessive Sweating, Fever - EENT Eyes: Blurred Vision Nose/Mouth/Throat: Nasal Congestion - Cardiovascular Cardiovascular: absent: Chest Pain, Dyspnea, Edema, Leg Ulcers - Respiratory Respiratory: absent: Cough, Dyspnea, Hemoptysis - Gastrointestinal Gastrointestinal: absent: Abdominal Pain, Coffee Ground Emesis, Dysphagia - Genitourinary Genitourinary: Nocturia - Musculoskeletal Musculoskeletal: As Per HPI, Abnormal Gait, Muscle Weakness - Neurological Neurological: Abnormal Gait, Disequilibrium, Weakness. absent: Confusion, Tremor - Psychiatric Psychiatric: As Per HPI - Endocrine Endocrine: Fatigue - Hematologic/Lymphatic Hematologic: absent: Easy Bleeding Past Patient History - Past Medical History & Family History Past Medical History?: Yes - Past Social History Alcohol: None Drugs: Denies - CARDIAC Hx Congestive Heart Failure: Yes Hx Hypercholesterolemia: Yes Hx Hypertension: Yes - PULMONARY Hx Asthma: Yes - NEUROLOGICAL HX Cerebrovascular Accident: Yes - HEENT Hx HEENT Problems: Yes Hx Glaucoma: Yes (OU) - RENAL Hx Chronic Kidney Disease: No - ENDOCRINE/METABOLIC Hx Diabetes Mellitus Type 2: Yes - HEMATOLOGICAL/ONCOLOGICAL Hx Human Immunodeficiency Virus (HIV): No - INTEGUMENTARY Hx Dermatological Problems: No - MUSCULOSKELETAL/RHEUMATOLOGICAL Hx Musculoskeletal Disorders: No Hx Falls: No - GASTROINTESTINAL Hx Gastrointestinal Disorders: No - GENITOURINARY/GYNECOLOGICAL Hx Genitourinary Disorders: No - PSYCHIATRIC Hx Anxiety: Yes Hx Depression: Yes - SURGICAL HISTORY Hx Coronary Artery Bypass Graft: Yes (X4 2009) - ANESTHESIA Hx Anesthesia: Yes Hx Anesthesia Reactions: No Hx Malignant Hyperthermia: No Meds Allergies/Adverse Reactions: Allergies Allergy/AdvReac Type Severity Reaction Status Date / Time No Known Allergies Allergy Verified 09/07/17 20:37 - Medications Medications: Current Medications Amlodipine Besylate (Norvasc) 10 mg PO DAILY [facility] Last Admin: 09/09/17 08:36 Dose: 10 mg Aspirin (Ecotrin) 81 mg PO DAILY [facility] Atorvastatin Calcium (Lipitor) 10 mg PO DAILY [facility] Last Admin: 09/09/17 13:00 Dose: 10 mg Carvedilol (Coreg) 25 mg PO Q12 [facility] Last Admin: 09/09/17 08:36 Dose: 25 mg Clopidogrel Bisulfate (Plavix) 75 mg PO DAILY [facility] Last Admin: 09/08/17 09:02 Dose: 75 mg Dextrose (Dextrose 50% Inj) 0 ml IV STAT PRN; Protocol PRN Reason: Hypoglycemia Protocol Dextrose (Glutose 15) 0 gm PO ONCE PRN; Protocol PRN Reason: Hypoglycemia Protocol Famotidine (Pepcid) 20 mg PO DAILY [facility] Last Admin: 09/09/17 08:36 Dose: 20 mg Fenofibrate (Tricor) 145 mg PO DAILY [facility] Last Admin: 09/09/17 08:35 Dose: 145 mg Glipizide (Glucotrol Xl) 10 mg PO BRKDIN [facility] Last Admin: 09/09/17 08:37 Dose: 10 mg Glucagon (Glucagen Diagnostic Kit) 0 mg IM STAT PRN; Protocol PRN Reason: Hypoglycemia Protocol Home Med (Colesevelam Hcl [Welchol]) 1,875 mg PO BID [facility] Insulin Human Regular (Humulin R) 0 units SC ACHS [facility] PRN Reason: Protocol Last Admin: 09/09/17 13:01 Dose: 4 units Ketorolac Tromethamine (Toradol) 15 mg IVP ONCE PRN PRN Reason: Headache Last Admin: 09/08/17 20:02 Dose: 15 mg Latanoprost (Xalatan Opht) 1 drop OU DAILY [facility] Last Admin: 09/09/17 08:37 Dose: 1 drop Nateglinide (Starlix) 120 mg PO BRK [facility] Last Admin: 09/09/17 08:35 Dose: 120 mg Nateglinide (Starlix) 240 mg PO DIN [facility] Sitagliptin Phosphate (Januvia) 50 mg PO DAILY [facility] Last Admin: 09/09/17 08:35 Dose: 50 mg Tramadol HCl (Ultram) 50 mg PO ONCE PRN PRN Reason: Headache Last Admin: 09/08/17 20:02 Dose: 50 mg Physical Exam - Constitutional Appears: No Acute Distress - ENT Exam ENT Exam: Mucous Membranes Moist - Neck Exam Neck exam: Negative for: Lymphadenopathy - Respiratory Exam Respiratory Exam: NORMAL BREATHING PATTERN. absent: Chest Wall Tenderness, Rales - Cardiovascular Exam Cardiovascular Exam: REGULAR RHYTHM. absent: JVD, Rubs - GI/Abdominal Exam GI & Abdominal Exam: Normal Bowel Sounds. absent: Organomegaly - Extremities Exam Extremities exam: Negative for: calf tenderness, pedal edema - Back Exam Back exam: absent: CVA tenderness (L), CVA tenderness (R) - Neurological Exam Neurological exam: Alert - Psychiatric Exam Psychiatric exam: Normal Affect Results - Vital Signs Recent Vital Signs: Last Vital Signs Temp 98.4 F 09/09/17 11:49 Pulse 63 09/09/17 11:49 Resp 18 09/09/17 11:49 BP 115/61 09/09/17 11:49 Pulse Ox 94 L 09/09/17 11:49 - Labs Result Diagrams: 09/09/17 04:20 09/09/17 04:20 Labs: Laboratory Results - last 24 hr 09/08/17 09/08/17 09/08/17 12:24 16:07 21:40 WBC RBC Hgb Hct MCV MCH MCHC RDW Plt Count MPV Neut % (Auto) Lymph % (Auto) [place] % (Auto) Eos % (Auto) Baso % (Auto) Neut # Lymph # [place] # Eos # Baso # PT INR APTT Sodium Potassium Chloride Carbon Dioxide Anion Gap BUN Creatinine Est GFR ( Amer) Est GFR (Non-Af Amer) POC Glucose (mg/dL) 308 H 160 H 216 H Random Glucose Calcium Total Bilirubin AST ALT Alkaline Phosphatase Total Protein Albumin Globulin Albumin/Globulin Ratio 09/09/17 09/09/17 09/09/17 04:20 04:20 04:20 WBC 6.2 RBC 3.94 L Hgb 10.1 L Hct 30.4 L MCV 77.0 L MCH 25.5 L MCHC 33.1 RDW 14.7 H Plt Count 238 MPV 8.9 Neut % (Auto) 63.5 Lymph % (Auto) 21.4 [place] % (Auto) 11.5 H Eos % (Auto) 3.2 Baso % (Auto) 0.4 Neut # 3.9 Lymph # 1.3 [place] # 0.7 Eos # 0.2 Baso # 0.0 PT 14.1 H INR 1.3 H APTT 29.7 Sodium 139 Potassium 4.6 Chloride 102 Carbon Dioxide 28 Anion Gap 14 BUN 32 H Creatinine 2.0 H Est GFR ( Amer) 39 Est GFR (Non-Af Amer) 33 POC Glucose (mg/dL) Random Glucose 139 H Calcium 9.3 Total Bilirubin 0.4 AST 24 ALT 22 Alkaline Phosphatase 60 Total Protein 6.9 Albumin 3.5 Globulin 3.4 Albumin/Globulin Ratio 1.0 09/09/17 09/09/17 05:11 10:46 WBC RBC Hgb Hct MCV MCH MCHC RDW Plt Count MPV Neut % (Auto) Lymph % (Auto) [place] % (Auto) Eos % (Auto) Baso % (Auto) Neut # Lymph # [place] # Eos # Baso # PT INR APTT Sodium Potassium Chloride Carbon Dioxide Anion Gap BUN Creatinine Est GFR ( Amer) Est GFR (Non-Af Amer) POC Glucose (mg/dL) 127 H 295 H Random Glucose Calcium Total Bilirubin AST ALT Alkaline Phosphatase Total Protein Albumin Globulin Albumin/Globulin Ratio Assessment & Plan (1) Chronic kidney disease, stage III (moderate) Assessment and Plan: Patient has history of chronic kidney disease stage III was mild worsening of kidney function consistent with perhaps acute kidney injury related to the stroke that he did develop acutely and hemodynamic changes. 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 Serum phosphorus and PTH level Patient probably had ultrasound of the kidney previously. Will check with the family . Medication adjustment for level of his kidney disease and GFR. Status: Acute (2) CVA (cerebral vascular accident) Status: Acute Priority: Medium (3) CAD (coronary artery disease) of artery bypass graft Status: Chronic (4) Diabetes Status: Chronic (5) HLD (hyperlipidemia) Status: Chronic (6) Hypertension Status: Chronic
--- NOTE | 2017-09-09 16:47 | CARD ---
APPROVED REPORT EXAM: Two-dimensional and M-mode echocardiogram with Doppler and color Doppler. INDICATION CVA/TIA Echo Enhancing Agent Indication: Rule Out Septal Defect Agent/Amount Used: Agitated Saline 2D DIMENSIONS IVSd1.95 (0.7-1.1cm)LVDd4.62 (3.9-5.9cm) PWd1.37 (0.7-1.1cm)IVSs1.63 (0.8-1.2cm) LVDs3.81 (2.5-4.0cm)FS (%) 17.4 % PWs1.28 (0.8-1.2cm)LVEF (%)55.0 (>50%) M-Mode DIMENSIONS Left Atrium (MM)4.96 (2.5-4.0cm)IVSd1.04 (0.7-1.1cm) Aortic Root3.60 (2.2-3.7cm)LVDd5.96 (4.0-5.6cm) Aortic Cusp Exc.2.20 (1.5-2.0cm)PWd0.92 (0.7-1.1cm) IVSs1.52 cmFS (%) 33 % LVDs3.98 (2.0-3.8cm)PWs2.12 cm Mitral Valve MV E Lxkobwgv99.9cm/sMV E Peak Gr.157mmHgMV DECEL [id number] MV A Sblcosko80.1cm/sMV WDU95xhX/A ratio0.6 MVA (PHT)2.82cm2 TDI Lateral E' Peak V7.82cm/sE/Lateral E'6.9E/Medial E'0.0 Tricuspid Valve TR Peak Qenqdnqw934ku/sRAP FLTKXQYP4gxHgMC Peak Gr.22mmHg [id number] LEFT VENTRICLE The left ventricle is normal size. Asymmetric Septal hypertrophy The left ventricular ejection fraction is within the normal range. Walll motion consistent with pacemaker activation. Transmitral Doppler flow pattern is Grade I-abnormal relaxation pattern. RIGHT VENTRICLE The right ventricle is normal size. There is normal right ventricular wall thickness. The right ventricular systolic function is normal. There is a pacemaker lead in the right ventricle. ATRIA The left atrium is mildly dilated. The right atrium size is normal. AORTIC VALVE The aortic valve is mildly thickened. No aortic regurgitation is present. There is no aortic valvular stenosis. MITRAL VALVE The mitral valve is mildly thickened. There is no mitral valve stenosis. Mitral regurgitation is mild. TRICUSPID VALVE The tricuspid valve is normal in structure. There is no tricuspid valve regurgitation noted. PULMONIC VALVE The pulmonary valve is normal in structure. There is no pulmonic valvular regurgitation. GREAT VESSELS The aortic root is normal in size. The IVC was not visualized. PERICARDIAL EFFUSION The pericardium appears normal. <Conclusion> The left ventricle is normal size. Asymmetric Septal hypertrophy The left ventricular ejection fraction is within the normal range. Walll motion consistent with pacemaker activation. Transmitral Doppler flow pattern is Grade I-abnormal relaxation pattern. Mitral regurgitation is mild. No inter-atrial flow seen
--- NOTE | 2017-09-09 17:46 | CP.PCM.CON ---
History of Present Illness - History of Present Illness History of Present Illness: Mr. Roman is a 77-year-old man with a past medical history of CKD, HTN, DM, CAD (s/p CABG), AICD placed and an ischemic stroke that occurred 7 months ago and involved the right occipital and temporal regions. He has been complaining of a headache and dizziness for the last 7-[address] scan of the head showed a thin rim of subdural collection near the old right occipital lobe infarct and there was concern, so aspirin and Plavix were held. A repeat scan showed stability and no expansion of the slight hyperdensity. He continues to complain of a pressure-like headache in the frontal region. Review of Systems - Review of Systems All systems: reviewed and no additional remarkable complaints except Past Patient History - Past Medical History & Family History Past Medical History?: Yes - Past Social History Alcohol: None Drugs: Denies - CARDIAC Hx Congestive Heart Failure: Yes Hx Hypercholesterolemia: Yes Hx Hypertension: Yes - PULMONARY Hx Asthma: Yes - NEUROLOGICAL HX Cerebrovascular Accident: Yes - HEENT Hx HEENT Problems: Yes Hx Glaucoma: Yes (OU) - RENAL Hx Chronic Kidney Disease: No - ENDOCRINE/METABOLIC Hx Diabetes Mellitus Type 2: Yes - HEMATOLOGICAL/ONCOLOGICAL Hx Human Immunodeficiency Virus (HIV): No - INTEGUMENTARY Hx Dermatological Problems: No - MUSCULOSKELETAL/RHEUMATOLOGICAL Hx Musculoskeletal Disorders: No Hx Falls: No - GASTROINTESTINAL Hx Gastrointestinal Disorders: No - GENITOURINARY/GYNECOLOGICAL Hx Genitourinary Disorders: No - PSYCHIATRIC Hx Anxiety: Yes Hx Depression: Yes - SURGICAL HISTORY Hx Coronary Artery Bypass Graft: Yes (X4 2009) - ANESTHESIA Hx Anesthesia: Yes Hx Anesthesia Reactions: No Hx Malignant Hyperthermia: No Meds Allergies/Adverse Reactions: Allergies Allergy/AdvReac Type Severity Reaction Status Date / Time No Known Allergies Allergy Verified 09/07/17 20:37 - Medications Medications: Current Medications Amlodipine Besylate (Norvasc) 10 mg PO DAILY [facility] Last Admin: 09/09/17 08:36 Dose: 10 mg Aspirin (Ecotrin) 81 mg PO DAILY [facility] Atorvastatin Calcium (Lipitor) 10 mg PO DAILY [facility] Last Admin: 09/09/17 13:00 Dose: 10 mg Carvedilol (Coreg) 25 mg PO Q12 [facility] Last Admin: 09/09/17 08:36 Dose: 25 mg Clopidogrel Bisulfate (Plavix) 75 mg PO DAILY [facility] Last Admin: 09/08/17 09:02 Dose: 75 mg Dextrose (Dextrose 50% Inj) 0 ml IV STAT PRN; Protocol PRN Reason: Hypoglycemia Protocol Dextrose (Glutose 15) 0 gm PO ONCE PRN; Protocol PRN Reason: Hypoglycemia Protocol Famotidine (Pepcid) 20 mg PO DAILY [facility] Last Admin: 09/09/17 08:36 Dose: 20 mg Fenofibrate (Tricor) 145 mg PO DAILY [facility] Last Admin: 09/09/17 08:35 Dose: 145 mg Glipizide (Glucotrol Xl) 10 mg PO BRKDIN [facility] Last Admin: 09/09/17 17:04 Dose: 10 mg Glucagon (Glucagen Diagnostic Kit) 0 mg IM STAT PRN; Protocol PRN Reason: Hypoglycemia Protocol Home Med (Colesevelam Hcl [Welchol]) 1,875 mg PO BID [facility] Insulin Human Regular (Humulin R) 0 units SC ACHS [facility] PRN Reason: Protocol Last Admin: 09/09/17 17:03 Dose: 3 units Ketorolac Tromethamine (Toradol) 15 mg IVP ONCE PRN PRN Reason: Headache Last Admin: 09/08/17 20:02 Dose: 15 mg Latanoprost (Xalatan Opht) 1 drop OU DAILY [facility] Last Admin: 09/09/17 08:37 Dose: 1 drop Nateglinide (Starlix) 120 mg PO BRK [facility] Last Admin: 09/09/17 08:35 Dose: 120 mg Nateglinide (Starlix) 240 mg PO DIN [facility] Sitagliptin Phosphate (Januvia) 50 mg PO DAILY [facility] Last Admin: 09/09/17 08:35 Dose: 50 mg Tramadol HCl (Ultram) 50 mg PO ONCE PRN PRN Reason: Headache Last Admin: 09/08/17 20:02 Dose: 50 mg Physical Exam - Constitutional Appears: Well - Head Exam Head Exam: ATRAUMATIC, NORMAL INSPECTION, NORMOCEPHALIC - Eye Exam Eye Exam: EOMI, Normal appearance, PERRL - ENT Exam ENT Exam: Mucous Membranes Moist, Normal Exam - Neck Exam Neck exam: Positive for: Normal Inspection - Respiratory Exam Respiratory Exam: Clear to Auscultation Bilateral, NORMAL BREATHING PATTERN - Cardiovascular Exam Cardiovascular Exam: REGULAR RHYTHM, +S1, +S2 - GI/Abdominal Exam GI & Abdominal Exam: Normal Bowel Sounds, Soft. absent: Tenderness - Rectal Exam Rectal Exam: Deferred - Extremities Exam Extremities exam: Positive for: normal inspection - Back Exam Back exam: NORMAL INSPECTION - Neurological Exam Neurological exam: Alert, CN II-XII Intact, Normal Gait, Oriented x3, Reflexes Normal Additional comments: Partial left visual field deficits. - Psychiatric Exam Psychiatric exam: Normal Affect, Normal Mood Results - Vital Signs Recent Vital Signs: Last Vital Signs Temp 97.8 F 09/09/17 16:32 Pulse 66 09/09/17 16:32 Resp 14 09/09/17 16:32 BP 119/68 09/09/17 16:32 Pulse Ox 98 09/09/17 16:32 - Labs Result Diagrams: 09/09/17 04:20 09/09/17 04:20 Labs: Laboratory Results - last 24 hr 09/08/17 09/09/17 09/09/17 21:40 04:20 04:20 WBC 6.2 RBC 3.94 L Hgb 10.1 L Hct 30.4 L MCV 77.0 L MCH 25.5 L MCHC 33.1 RDW 14.7 H Plt Count 238 MPV 8.9 Neut % (Auto) 63.5 Lymph % (Auto) 21.4 [place] % (Auto) 11.5 H Eos % (Auto) 3.2 Baso % (Auto) 0.4 Neut # 3.9 Lymph # 1.3 [place] # 0.7 Eos # 0.2 Baso # 0.0 PT 14.1 H INR 1.3 H APTT 29.7 Sodium Potassium Chloride Carbon Dioxide Anion Gap BUN Creatinine Est GFR ( Amer) Est GFR (Non-Af Amer) POC Glucose (mg/dL) 216 H Random Glucose Calcium Phosphorus Total Bilirubin AST ALT Alkaline Phosphatase Total Protein Albumin Globulin Albumin/Globulin Ratio 09/09/17 09/09/17 09/09/17 04:20 05:11 10:46 WBC RBC Hgb Hct MCV MCH MCHC RDW Plt Count MPV Neut % (Auto) Lymph % (Auto) [place] % (Auto) Eos % (Auto) Baso % (Auto) Neut # Lymph # [place] # Eos # Baso # PT INR APTT Sodium 139 Potassium 4.6 Chloride 102 Carbon Dioxide 28 Anion Gap 14 BUN 32 H Creatinine 2.0 H Est GFR ( Amer) 39 Est GFR (Non-Af Amer) 33 POC Glucose (mg/dL) 127 H 295 H Random Glucose 139 H Calcium 9.3 Phosphorus Total Bilirubin 0.4 AST 24 ALT 22 Alkaline Phosphatase 60 Total Protein 6.9 Albumin 3.5 Globulin 3.4 Albumin/Globulin Ratio 1.0 09/09/17 09/09/17 14:01 15:48 WBC RBC Hgb Hct MCV MCH MCHC RDW Plt Count MPV Neut % (Auto) Lymph % (Auto) [place] % (Auto) Eos % (Auto) Baso % (Auto) Neut # Lymph # [place] # Eos # Baso # PT INR APTT Sodium Potassium Chloride Carbon Dioxide Anion Gap BUN Creatinine Est GFR ( Amer) Est GFR (Non-Af Amer) POC Glucose (mg/dL) 235 H Random Glucose Calcium Phosphorus 3.6 Total Bilirubin AST ALT Alkaline Phosphatase Total Protein Albumin Globulin Albumin/Globulin Ratio Assessment & Plan (1) Subdural fluid collection Assessment and Plan: This may be blood, or a hyperdensity of fluid surrounding encephalomalacia. The patient is very high risk for ischemic stroke and has cardiac risk factors as well. The repeat CT head shows stability. I recommend resuming aspirin 81 mg and Plavix 75 mg daily for secondary stroke prevention. Status: Acute (2) CVA (cerebral vascular accident) Status: Chronic Priority: Medium (3) CAD (coronary artery disease) of artery bypass graft Status: Chronic (4) Diabetes Status: Chronic (5) HLD (hyperlipidemia) Status: Chronic (6) Hypertension Status: Chronic
[2017-09-09 23:55] LABS: CREATININE, RANDOM URINE 167.8 mg/dL
[2017-09-10 05:10] VITALS: RESP 18
[2017-09-10 05:42] LABS: HEMOGLOBIN 9.9 g/dL (12.0-18.0); MEAN CELL VOLUME 76.9 fl (80.0-94.0); MEAN CORPUSCULAR HEMOGLOBIN 25.6 pg (27.0-31.0); MEAN CORPUSCULAR HGB CONC 33.2 g/dL (33.0-37.0); RBC 3.88 Mil/uL (4.40-5.90); RED CELL DISTRIBUTION WIDTH 14.5 % (11.5-14.5); WHITE BLOOD COUNT 7.7 K/uL (4.8-10.8)
[2017-09-10 05:45] LABS: CALCIUM 9.2 mg/dL (8.4-10.2)
[2017-09-10] MEDS: Insulin Regular 100 units/ml SC SCH ×2 (09:09→13:33)
[2017-09-10] MEDS: GlipiZIDE 10 mg SR Tab PO SCH (09:09)
[2017-09-10] MEDS: Latanoprost 0.005% Opht SOUTION OU SCH (09:13)
--- NOTE | 2017-09-10 10:13 | CP.PCM.PN ---
Subjective - Date & Time of Evaluation Date of Evaluation: 09/10/17 Time of Evaluation: 10:08 - Subjective Subjective: Mr. Roman was seen and examined at the bedside. He is alert oriented in all spheres. He denies any headache, blurred vision, diplopia, numbness, dizziness, nause, or vomiting. He is able to answer questions appropriately and follow simple commands. The recent CT of the head showed no evidence of acute cortical infarction. Stable small extra-axial hemorrhage adjacent to an old right occipital infarct. There was no untoward events overnight. Objective - Vital Signs/Intake and Output Vital Signs (last 24 hours): Temp Pulse Resp BP Pulse Ox 98.3 F 66 18 126/60 99 09/10/17 08:00 09/10/17 09:11 09/10/17 08:00 09/10/17 09:11 09/10/17 08:00 - Medications Medications: Current Medications Amlodipine Besylate (Norvasc) 10 mg PO DAILY [facility] Last Admin: 09/10/17 09:11 Dose: 10 mg Aspirin (Ecotrin) 81 mg PO DAILY [facility] Last Admin: 09/10/17 09:08 Dose: 81 mg Atorvastatin Calcium (Lipitor) 10 mg PO DAILY [facility] Last Admin: 09/10/17 09:11 Dose: 10 mg Carvedilol (Coreg) 25 mg PO Q12 [facility] Last Admin: 09/10/17 09:08 Dose: 25 mg Clopidogrel Bisulfate (Plavix) 75 mg PO DAILY [facility] Last Admin: 09/10/17 09:12 Dose: 75 mg Dextrose (Dextrose 50% Inj) 0 ml IV STAT PRN; Protocol PRN Reason: Hypoglycemia Protocol Dextrose (Glutose 15) 0 gm PO ONCE PRN; Protocol PRN Reason: Hypoglycemia Protocol Famotidine (Pepcid) 20 mg PO DAILY [facility] Last Admin: 09/10/17 09:12 Dose: 20 mg Fenofibrate (Tricor) 145 mg PO DAILY [facility] Last Admin: 09/10/17 09:13 Dose: 145 mg Glipizide (Glucotrol Xl) 10 mg PO BRKDIN [facility] Last Admin: 09/10/17 09:09 Dose: 10 mg Glucagon (Glucagen Diagnostic Kit) 0 mg IM STAT PRN; Protocol PRN Reason: Hypoglycemia Protocol Home Med (Colesevelam Hcl [Welchol]) 1,875 mg PO BID [facility] Insulin Human Regular (Humulin R) 0 units SC ACHS [facility] PRN Reason: Protocol Last Admin: 09/10/17 09:09 Dose: 2 units Ketorolac Tromethamine (Toradol) 15 mg IVP ONCE PRN PRN Reason: Headache Last Admin: 09/08/17 20:02 Dose: 15 mg Latanoprost (Xalatan Opht) 1 drop OU DAILY [facility] Last Admin: 09/10/17 09:13 Dose: 1 drop Nateglinide (Starlix) 120 mg PO BRK [facility] Last Admin: 09/10/17 09:12 Dose: 120 mg Nateglinide (Starlix) 240 mg PO DIN [facility] Sitagliptin Phosphate (Januvia) 50 mg PO DAILY [facility] Last Admin: 09/10/17 09:10 Dose: 50 mg Tramadol HCl (Ultram) 50 mg PO ONCE PRN PRN Reason: Headache Last Admin: 09/08/17 20:02 Dose: 50 mg - Labs Labs: 09/10/17 04:20 09/10/17 04:20 PT 14.1 Seconds (9.8-13.1) H 09/09/17 04:20 INR 1.3 (0.9-1.2) H 09/09/17 04:20 APTT 29.7 Seconds (25.6-37.1) 09/09/17 04:20 - Constitutional Appears: No Acute Distress - Head Exam Head Exam: NORMAL INSPECTION - Neurological Exam Neurological Exam: Alert, Awake, CN II-XII Intact, Oriented x3 Neuro motor strength exam: Left Upper Extremity: 5, Right Upper Extremity: 5, Left Lower Extremity: 5, Right Lower Extremity: 5 Additional comments: Neurological unchanged from previous examination. Assessment and Plan (1) CVA (cerebral vascular accident) Assessment & Plan: Case discussed with Dr. Murray continue all current medical regimen. continue aspirin and plavix. There is no new recommendation from neurology. Status: Chronic
--- NOTE | 2017-09-10 11:56 | CP.PCM.PN ---
Subjective - Date & Time of Evaluation Date of Evaluation: 09/10/17 Time of Evaluation: 11:53 - Subjective Subjective: pt. is OOB feels good vital noted no GI symptome Objective - Vital Signs/Intake and Output Vital Signs (last 24 hours): Temp Pulse Resp BP Pulse Ox 98.3 F 66 18 126/60 99 09/10/17 08:00 09/10/17 09:11 09/10/17 08:00 09/10/17 09:11 09/10/17 08:00 - Medications Medications: Current Medications Amlodipine Besylate (Norvasc) 10 mg PO DAILY [facility] Last Admin: 09/10/17 09:11 Dose: 10 mg Aspirin (Ecotrin) 81 mg PO DAILY [facility] Last Admin: 09/10/17 09:08 Dose: 81 mg Atorvastatin Calcium (Lipitor) 10 mg PO DAILY [facility] Last Admin: 09/10/17 09:11 Dose: 10 mg Carvedilol (Coreg) 25 mg PO Q12 [facility] Last Admin: 09/10/17 09:08 Dose: 25 mg Clopidogrel Bisulfate (Plavix) 75 mg PO DAILY [facility] Last Admin: 09/10/17 09:12 Dose: 75 mg Dextrose (Dextrose 50% Inj) 0 ml IV STAT PRN; Protocol PRN Reason: Hypoglycemia Protocol Dextrose (Glutose 15) 0 gm PO ONCE PRN; Protocol PRN Reason: Hypoglycemia Protocol Famotidine (Pepcid) 20 mg PO DAILY [facility] Last Admin: 09/10/17 09:12 Dose: 20 mg Fenofibrate (Tricor) 145 mg PO DAILY [facility] Last Admin: 09/10/17 09:13 Dose: 145 mg Glipizide (Glucotrol Xl) 10 mg PO BRKDIN [facility] Last Admin: 09/10/17 09:09 Dose: 10 mg Glucagon (Glucagen Diagnostic Kit) 0 mg IM STAT PRN; Protocol PRN Reason: Hypoglycemia Protocol Home Med (Colesevelam Hcl [Welchol]) 1,875 mg PO BID [facility] Insulin Human Regular (Humulin R) 0 units SC ACHS [facility] PRN Reason: Protocol Last Admin: 09/10/17 09:09 Dose: 2 units Ketorolac Tromethamine (Toradol) 15 mg IVP ONCE PRN PRN Reason: Headache Last Admin: 09/08/17 20:02 Dose: 15 mg Latanoprost (Xalatan Opht) 1 drop OU DAILY [facility] Last Admin: 09/10/17 09:13 Dose: 1 drop Nateglinide (Starlix) 120 mg PO BRK [facility] Last Admin: 09/10/17 09:12 Dose: 120 mg Nateglinide (Starlix) 240 mg PO DIN [facility] Sitagliptin Phosphate (Januvia) 50 mg PO DAILY [facility] Last Admin: 09/10/17 09:10 Dose: 50 mg Tramadol HCl (Ultram) 50 mg PO ONCE PRN PRN Reason: Headache Last Admin: 09/08/17 20:02 Dose: 50 mg - Labs Labs: 09/10/17 04:20 09/10/17 04:20 PT 14.1 Seconds (9.8-13.1) H 09/09/17 04:20 INR 1.3 (0.9-1.2) H 09/09/17 04:20 APTT 29.7 Seconds (25.6-37.1) 09/09/17 04:20 - Constitutional Appears: No Acute Distress - ENT Exam ENT Exam: Mucous Membranes Moist - Neck Exam Neck Exam: absent: Lymphadenopathy - Respiratory Exam Respiratory Exam: NORMAL BREATHING PATTERN. absent: Chest Wall Tenderness - Cardiovascular Exam Cardiovascular Exam: REGULAR RHYTHM. absent: Rubs - GI/Abdominal Exam GI & Abdominal Exam: Soft, Normal Bowel Sounds - Extremities Exam Extremities Exam: absent: Calf Tenderness - Back Exam Back Exam: absent: CVA tenderness (L), CVA tenderness (R) - Neurological Exam Neurological Exam: Alert - Skin Skin Exam: absent: Cyanosis Assessment and Plan (1) Chronic kidney disease, stage III (moderate) Assessment & Plan: CKD3 stable crea 1.9 no signicant proteinuria f/up outpatient by his cephalometric technician CVA doing better as per primary team Status: Acute (2) CVA (cerebral vascular accident) Status: Chronic (3) CAD (coronary artery disease) of artery bypass graft Status: Chronic (4) Diabetes Status: Chronic (5) HLD (hyperlipidemia) Status: Chronic (6) Hypertension Status: Chronic
[2017-09-10 12:22] VITALS: BP 105/52; PULSE 63; TEMP 98.2; O2SAT 98
--- NOTE | 2017-09-10 12:56 | CP.PCM.DIS ---
Provider - Provider Date of Admission: 09/07/17 23:15 Attending physician: Sammy Buck MD Time Spent in preparation of Discharge (in minutes): 30 Hospital Course - Lab Results Lab Results: Most Recent Lab Values WBC 7.7 K/uL (4.8-10.8) 09/10/17 04:20 RBC 3.88 Mil/uL (4.40-5.90) L 09/10/17 04:20 Hgb 9.9 g/dL (12.0-18.0) L 09/10/17 04:20 Hct 29.9 % (35.0-51.0) L 09/10/17 04:20 MCV 76.9 fl (80.0-94.0) L 09/10/17 04:20 MCH 25.6 pg (27.0-31.0) L 09/10/17 04:20 MCHC 33.2 g/dL (33.0-37.0) 09/10/17 04:20 RDW 14.5 % (11.5-14.5) 09/10/17 04:20 Plt Count 256 K/uL (130-400) 09/10/17 04:20 MPV 8.9 fl (7.2-11.7) 09/09/17 04:20 Neut % (Auto) 63.5 % (50.0-75.0) 09/09/17 04:20 Lymph % (Auto) 21.4 % (20.0-40.0) 09/09/17 04:20 [place] % (Auto) 11.5 % (0.0-10.0) H 09/09/17 04:20 Eos % (Auto) 3.2 % (0.0-4.0) 09/09/17 04:20 Baso % (Auto) 0.4 % (0.0-2.0) 09/09/17 04:20 Neut # 3.9 K/uL (1.8-7.0) 09/09/17 04:20 Lymph # 1.3 K/uL (1.0-4.3) 09/09/17 04:20 [place] # 0.7 K/uL (0.0-0.8) 09/09/17 04:20 Eos # 0.2 K/uL (0.0-0.7) 09/09/17 04:20 Baso # 0.0 K/uL (0.0-0.2) 09/09/17 04:20 PT 14.1 Seconds (9.8-13.1) H 09/09/17 04:20 INR 1.3 (0.9-1.2) H 09/09/17 04:20 APTT 29.7 Seconds (25.6-37.1) 09/09/17 04:20 Sodium 139 mmol/l (132-148) 09/10/17 04:20 Potassium 4.5 MMOL/L (3.6-5.0) 09/10/17 04:20 Chloride 101 mmol/L (98-107) 09/10/17 04:20 Carbon Dioxide 27 mmol/L (22-30) 09/10/17 04:20 Anion Gap 16 (10-20) 09/10/17 04:20 BUN 33 mg/dl (9-20) H 09/10/17 04:20 Creatinine 1.9 mg/dl (0.8-1.5) H 09/10/17 04:20 Est GFR ( Amer) 42 09/10/17 04:20 Est GFR (Non-Af Amer) 35 09/10/17 04:20 POC Glucose (mg/dL) 249 mg/dL (65-110) H 09/10/17 11:01 Random Glucose 150 mg/dL (75-110) H 09/10/17 04:20 Hemoglobin A1c 7.2 % (4.2-6.5) H 09/08/17 00:42 Calcium 9.2 mg/dL (8.4-10.2) 09/10/17 04:20 Phosphorus 3.6 mg/dl (2.5-4.5) 09/09/17 14:01 Total Bilirubin 0.4 mg/dl (0.2-1.3) 09/09/17 04:20 AST 24 U/L (17-59) 09/09/17 04:20 ALT 22 U/L (21-72) 09/09/17 04:20 Alkaline Phosphatase 60 U/L (38-126) 09/09/17 04:20 Total Creatine Kinase 86 U/L (55-170) 09/07/17 21:25 Troponin I < 0.0120 ng/mL (0.00-0.120) 09/07/17 21:25 Total Protein 6.9 G/DL (6.3-8.2) 09/09/17 04:20 Albumin 3.5 g/dL (3.5-5.0) 09/09/17 04:20 Globulin 3.4 gm/dL (2.2-3.9) 09/09/17 04:20 Albumin/Globulin Ratio 1.0 (1.0-2.1) 09/09/17 04:20 Triglycerides 84 mg/DL (0-149) D 09/08/17 00:42 Cholesterol 144 mg/dL (0-199) 09/08/17 00:42 LDL Cholesterol Direct 71 mg/dL (0-129) 09/08/17 00:42 HDL Cholesterol 44 MG/DL (30-70) 09/08/17 00:42 Urine Color Yellow (YELLOW) 09/07/17 22:34 Urine Clarity Slighty-cloudy (Clear) 09/07/17 22:34 Urine pH 6.0 (5.0-8.0) 09/07/17 22:34 Ur Specific [place] 1.018 (1.003-1.030) 09/07/17 22:34 Urine Protein 30 mg/dL (NEGATIVE) 09/07/17 22:34 Urine Glucose (UA) 50 mg/dL (Normal) 09/07/17 22:34 Urine Ketones Negative mg/dL (NEGATIVE) 09/07/17 22:34 Urine Blood Negative (NEGATIVE) 09/07/17 22:34 Urine Nitrate Negative (NEGATIVE) 09/07/17 22:34 Urine Bilirubin Negative (NEGATIVE) 09/07/17 22:34 Urine Urobilinogen 0.2-1.0 mg/dL (0.2-1.0) 09/07/17 22:34 Ur Leukocyte Esterase Neg [place]/uL (Negative) 09/07/17 22:34 Urine RBC (Auto) 4 /hpf (0-3) H 09/07/17 22:34 Urine Microscopic WBC 1 /hpf (0-5) 09/07/17 22:34 Urine Bacteria Rare (<OCC) 09/07/17 22:34 Hyaline Casts 0-2 /hpf (0-2) 09/07/17 22:34 Ur Random Creatinine 167.8 mg/dL 09/09/17 23:02 U Random Total Protein 10.0 mg/dL (0.0-12.0) 09/09/17 23:02 Urine Opiates Screen Negative (NEGATIVE) 09/07/17 22:34 Urine Methadone Screen Negative (NEGATIVE) 09/07/17 22:34 Ur Barbiturates Screen Negative (NEGATIVE) 09/07/17 22:34 Ur Phencyclidine Scrn Negative (NEGATIVE) 09/07/17 22:34 Ur Amphetamines Screen Negative (NEGATIVE) 09/07/17 22:34 U Benzodiazepines Scrn Negative (NEGATIVE) 09/07/17 22:34 U Oth Cocaine Metabols Negative (NEGATIVE) 09/07/17 22:34 U Cannabinoids Screen Negative (NEGATIVE) 09/07/17 22:34 Alcohol, Quantitative < 10 mg/dl (0-10) 09/07/17 21:25 Influenza Typ A,B (EIA) Negative for flu a/b (NEGATIVE) 09/07/17 21:25 - Hospital Course Hospital Course: 77 y/o M with a PMHx of HTN, DM type 2, HLD, CKD, CVA,CAD s/p CABGx4 and AICD, presents to ER c/o headache and loss of balance that began 2 weeks ago [employer]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 Headache is described as pressure-like, right temporal and occipital areas, intermittent, non-radiating, 7/10 intensity, improving with tylenol, however was not getting too much relief since the last 2 days 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 Pt and family report pt is losing his balance and fell on the bathtub last week causing a right elbow bruising. Pt had a stroke 7 months ago, recovered, completed rehabilitation and was able to continue with his daily activities. Pt also complains of nasal congestion and productive cough since 2 weeks ago and has been taking OTC ,and his respiratory symptoms have improved. As per family patient is very adherent to his medication regimen, but since 1 week ago, he has been taken his medications inconsistently because he has not been feeling well. Last visit with PMD was 1 month ago with no new changes. Last visit to [employer] was Jun, 2017. Pt denies any recent trauma or any fever, chills, paresthesias, weakness, CP, SOB, nausea, abdominal pain, change in bowel movement or peripheral edema. Head CT on admission: area of hypoattenuation in the right temporal lobe, concerning for evolving infarct. Bilateral white matter hypoattenuation most consistent with chronic ischemic small vessel changes. [address] head showed trace subdural hemorrhage over old occipital infact. Patient has c/o intermittent headache alleviated with Tylenol. no motor focal defiicit before or during hospitalization. Neurologist consult appreciated Dr Ward suggest to c/o plavix and Aspirin. patient is clear to be DC Carding Doubler consult appreciated Dr pat: suggest adjust renal dose medications. Januvia decreased to 50 mg daily( renal dose). C/w home medications and insulin as patient has been using at home. f/u Dr Clemons 7-10 days F/u Dr Ward 2 weeks F/u patient's Carding Doubler [address] Nam Diagnosis 1) Subacute right temporal CVA -Head CT on admission was read: area of hypoattenuation in the right temporal lobe, concerning for evolving infarct. Bilateral white matter hypoattenuation most consistent with chronic ischemic small vessel changes. -CT Head 24 hour later: chronic left caudate head lacune and right occipital chronic lobar infarction.trace subdural hematoma at the right occipital region.f /u Ct in 24 hours. -CT Head 09/09: stable small extra-axial hemorrhage adjacent to an old right occipital infarct. -CINDY contraindicate due to pacemaker -Carotid Us normal -c/w plavix, aspirin as neurologist recommendation 2) CAD -s/p CABG -c/w aspirin and plavix as per neuro recommendation -c/w statin -hx of pacemaker placement -Pacemaker/AICD battery change 08/2016 -Video Software Engineer Dr. Yimi Ramírez. -Echo on 01/26/17 showed Left ventricle normal in size and LV systolic function was normal. EF 60-65 % -Echo on 09/19/15 showed normal left ventricular function, LV EF normal -Echo today. pending report 3) HTN well controlled will resume home meds as BP permits 4) DM type 2 -resume oral home meds Discharge Exam - Head Exam Head Exam: NORMAL INSPECTION - Eye Exam Eye Exam: Normal appearance - ENT Exam ENT Exam: Normal Exam - Respiratory Exam Respiratory Exam: NORMAL BREATHING PATTERN. absent: Rales, Rhonchi - Cardiovascular Exam Cardiovascular Exam: REGULAR RHYTHM, +S1, +S2 - GI/Abdominal Exam GI & Abdominal Exam: Normal Bowel Sounds, Soft. absent: Tenderness - Neurological Exam Neurological exam: Alert, Oriented x3 - Psychiatric Exam Psychiatric exam: Normal Affect, Normal Mood - Skin Skin Exam: Intact Discharge Plan - Discharge Medications Prescriptions: SITagliptin [Januvia] 50 mg PO DAILY #30 tab - Follow Up Plan Condition: STABLE Disposition: HOME/ ROUTINE Additional Instructions: Follow up Dr Buck in 7 days Follow Up with patient Carding Doubler Dr Nam in 2 weeks at [facility]. Follow up Neurologist Dr Ward in 2 weeks Referrals: Son Clemons DPM [Medical Doctor] - Matty Ward MD [Medical Doctor] -
== END 2017-09-10 15:40 | disposition home or self-care (01) | DRG 65 ==
LOC: H.ER 20:31 → H.ERHOLD 23:15 → H.TEL 09-08 02:23
PROVIDERS: ADMIT Family Medicine; ATTEND Family Medicine
DX: I63.9 Cerebral infarction, unspecified (principal); I13.0 Hypertensive heart and chronic kidney disease with heart failure and stage 1 through stage 4 chronic kidney disease, or unspecified chronic kidney disease; E11.22 Type 2 diabetes mellitus with diabetic chronic kidney disease; I50.9 Heart failure, unspecified; N18.3 Chronic kidney disease, stage 3 (moderate); I25.10 Atherosclerotic heart disease of native coronary artery without angina pectoris; E78.5 Hyperlipidemia, unspecified; H40.9 Unspecified glaucoma; Z95.1 Presence of aortocoronary bypass graft; Z79.84 Long term (current) use of oral hypoglycemic drugs; Z79.82 Long term (current) use of aspirin; Z95.810 Presence of automatic (implantable) cardiac defibrillator